=== PATIENT | female | born 1940 | race Caucasian/White ===

== ENCOUNTER 2023-07-17 18:09 | Inpatient (IN) | payer OTHER, BC, SELFPAY ==
[2023-07-17] VITALS (14 sets, daily range): BP systolic 105–186; BP diastolic 47–98; PULSE 97–119; RESP 17–28; TEMP 36.7–38.8; O2SAT 87–100
--- NOTE | ~2023-07-17 | CT_ITS ---
EXAMINATION: CT brain wo con DATE: 07/17/2023 20:28 INDICATION: Altered mental status TECHNIQUE: Computed tomography (CT) of the head was performed without intravenous contrast. Sagittal and coronal reconstructions were performed. Automated exposure control and iterative reconstruction t echnique were employed. The dose-length product was 756.67 mGy-cm. COMPARISON: head CT dated 06/04/2013 FINDINGS: No acute intracranial hemorrhage, acute infarction or abnormal extra axial fluid collection. There is mild scattered white matter hypoattenuation consistent with chronic small vessel ischemic disease. S ymmetric prominence of the sulci consistent with moderate age-appropriate diffuse cerebral volume los s. Ventricles are normal and symmetric. No mass/mass effect. Changes of bilateral intraocular lens re placement. The orbits and mastoid air cells are normal. Mild mucosal thickening in the left maxillary and bilateral ethmoid sinuses. There are some bubbly mucus in the left sphenoid sinus. IMPRESSION: 1. No acute intracranial process. 2. Stable appearance of age-related changes including moderate diffuse volume loss and mild scattered white matter hypoattenuation consistent with chronic small vessel ischemic disease. Reviewed, dictated and finalized at location A. OR IT SECURITY ANALYST IMPRESSION: 1. No acute intracranial process. 2. Stable appearance of age-related changes including moderate diffuse volume l oss and mild scattered white matter hypoattenuation consistent with chronic sma ll vessel ischemic disease.
--- NOTE | ~2023-07-17 | CT_ITS ---
EXAMINATION: CT abdomen pelvis wo con DATE: 07/17/2023 20:29 INDICATION: Fever and hematuria TECHNIQUE: Computed tomography (CT) of the abdomen and pelvis was performed without intravenous contr ast. Automated exposure control and iterative reconstruction technique were employed. The dose-length product was 1120.46 mGy-cm. COMPARISON: None FINDINGS: There is streak artifact in the visualized lower chest and upper abdomen resulting from posterior spi nal fusion with bilateral vertical idalmis and pedicle screw fixation which extends from at least T7-L2. There is also been a corpectomy of a T10 compression fracture with additional metallic interbody fusi on device. Respiratory motion and scattered atelectasis at the bilateral lower lungs. Heart size is n ormal. Atherosclerotic coronary artery calcifications. No pericardial or pleural effusion. Tiny high attenuation gallstones layering in the dependent aspect of the normal-appearing gallbladder. No evide nt wall thickening or pericholecystic inflammatory stranding to suggest acute cholecystitis. Liver, s pleen, pancreas and bilateral adrenal glands are normal. 4.2 cm lesion at the upper pole of the left kidney which likely represents a cyst however assessment of attenuation is limited by the metallic st reak artifact. 9 mm renal stone at the lower pole of the right kidney. There is moderate right hydrou reteronephrosis which extends to the ureteropelvic junction without evident obstructing stone. The re nal pelvis and calyces appear more dense than expected for simple fluid however assessment is again l imited by the streak artifact. There is moderate colonic diverticulosis with a sigmoid predominance. There is no adjacent inflammatory change to suggest diverticulitis. Small bowel and appendix are nor mal. 7.6 cm diameter ball of stool at the rectum which could be seen with constipation and fecal impa ction. There is mild residual rectal wall thickening and perirectal stranding suggesting associated s tercoral colitis. Bladder, uterus and bilateral adnexa are unremarkable. Moderate-sized fat-containin g bilateral inguinal hernias. There is additional streak artifact in the deep pelvis resulting from a lateral plate and screw with femoral neck dynamic compression screw fixation at the proximal left fe mur. Moderate lumbar spondylosis with chronic appearing compression fractures of L3 and L5. IMPRESSION: 1. Moderate right hydroureteronephrosis of indeterminate etiology which extends to bladder without ev ident obstructing stone although a 9 mm stone is seen at a lower pole calyx of the right kidney. This could be related to either a recently passed stone or occult malignancy. 2. Increased density of the fluid in the right renal collecting system as well as a 4.2 cm likely cys t at the upper pole the left kidney which likely related to streak artifact from metallic anterior an d posterior spinal fusion instrumentation. Could not exclude however either solid neoplasm at the lef t kidney and blood versus pus within the right renal collecting system. Correlate with urinalysis and recommend ultrasound for further evaluation of the left renal lesion. 3. Large ball of stool at the rectum with some associated rectal wall thickening and perirectal stran ding suggestive of constipation with fecal impaction and secondary stercoral colitis. 4. Diverticulosis. 5. Moderate-sized bilateral fat-containing inguinal hernias. 6. Small sliding-type hiatal hernia. Reviewed, dictated and finalized at location A. PLANT ENGINEER IMPRESSION: 1. Moderate right hydroureteronephrosis of indeterminate etiology which extends to bladder without evident obstructing stone although a 9 mm stone is seen at a lower pole calyx of the right kidney. This could be related to either a recen tly passed stone or occult mal
--- NOTE | ~2023-07-17 | XR_ITS ---
EXAMINATION: XR chest 1V portable DATE: 07/17/2023 21:59 INDICATION: Hypoxia TECHNIQUE: frontal view of the chest was obtained. COMPARISON: Chest radiograph dated 06/04/2013 FINDINGS: Kyphotic positioning of the patient. Mild linear discoid atelectasis at the bilateral lower lung zone s. No pulmonary edema, pleural effusion or pneumothorax. Heart size is within normal limits for AP te chnique. Plain screw fixation for lower cervical anterior spinal fusion. There is also extensive inst rumented posterior spinal fusion extending from the midthoracic spine into the upper lumbar spine and beyond the inferior margin of the [id number]. Likely corpectomy with interbody device in the lowe r thoracic spine. IMPRESSION: 1. Mild discoid atelectasis at the bilateral lower lungs. Reviewed, dictated and finalized at location A. D MANAGER
--- NOTE | ~2023-07-17 | XR_ITS ---
EXAMINATION: XR retrograde pyelo w/stent RT DATE: 07/17/2023 23:41 INDICATION: Right hydronephrosis TECHNIQUE: 4 fluoroscopic images of the abdomen and pelvis were obtained during procedure performed marcia Smith. Radiologist was not present for the imaging or procedure. The amount of fluoroscopy ti me used during this procedure was 0.3 minutes. COMPARISON: CT dated 07/17/2023 FINDINGS: Images demonstrate cannulation and retrograde advancement of a wire into a calyx at the upper pole th e right kidney. The patient noted 9 mm stone at the lower pole of the right kidney to be seen prior t o the subsequent retrograde injection of contrast into the right ureter and renal collecting system. There is moderate right hydronephrosis and mild proximal right hydroureter. Final image demonstrates the mid to distal aspect of the right internal ureteral stent which follows the expected course of th e ureter with distal tip at the bladder. Partially visualized instrumented thoracolumbar posterior sp inal fusion. IMPRESSION: 1. Fluoroscopy utilized during right internal ureteral stent placement for moderate right hydronephro sis. See procedure note for further detail. 2. Nonobstructing 9 mm stone at a lower pole calyx of the right kidney. Reviewed, dictated and finalized at location A. [employer] IMPRESSION: 1. Fluoroscopy utilized during right internal ureteral stent placement for mode rate right hydronephrosis. See procedure note for further detail. 2. Nonobstructing 9 mm stone at a lower pole calyx of the right kidney.
--- NOTE | 2023-07-17 18:14 | ECG_ITS ---
Measurements Intervals [place] Rate: 119 P: 39 WA: 167 QRS: -62 QRSD: 100 T: 31 QT: 322 QTc: 454 Interpretive Statements SINUS TACHYCARDIA PREVIOUS INFERIOR WALL [place] ABNORMAL ECG NO PREVIOUS ECG AVAILABLE FOR COMPARISON Electronically Signed On 07-18-2023 7:35:32 SAND CONDITIONER MACHINE by Carlos Sanchez M.D.
[2023-07-17 18:55] LABS: Basophils Absolute Auto 0.1 K/mm3 (0.0-0.1); Basophils Percent Auto 0.3 % (0.2-1.2); Hematocrit 43.7 % (37.0-47.0); Hemoglobin 13.9 g/dL (12.0-15.0); Immature Granulocyte Absolute 0.09 K/mm3 (0.00-0.031); Immature Granulocyte Percent A 0.6 % (0-0.5); Immature Platelet Fraction Pct 26.8 % (0.9-11.2); Lymphocytes Absolute Auto 0.89 K/mm3 (0.9-3.2); Lymphocytes Percent Auto 5.6 % (18.3-44.2); Mean Corpuscular HGB Conc 31.8 g/dl (32-36); Mean Corpuscular Volume 94.2 fl (80-100); Mean Platelet Volume 13.2 fl (7.4-10.4); Monocytes Absolute Auto 1.2 K/mm3 (0.1-0.6); Monocytes Percent Auto 7.5 % (2.6-8.5); Neutrophils Absolute Auto 13.7 K/mm3 (1.3-6.7); Platelet Count Result 155 k/mm3 (150-375); Red Blood Count 4.64 M/mm3 (4.2-5.4); Red Cell Distribution Width 15.1 % (11.5-14.5); White Blood Count 15.9 K/mm3 (4.5-10.0)
[2023-07-17 19:04] LABS: INR 2.4; Prothrombin Time 27.8 Seconds (11.1-14.7)
[2023-07-17 19:05] LABS: Partial Thromboplastin Time 46.5 SECONDS (22.3-36.8)
[2023-07-17] MEDS: ACETAMINOPHEN 650 MG SUPPOSITORY RECTAL (19:10)
[2023-07-17] MEDS: SODIUM CHLORIDE 0.9% IV 1,000 ML 999 ML IV CONT ×2 (19:10→21:39)
--- NOTE | 2023-07-17 19:12 | PC.NURSE ---
Assume care of pt from [facility] at this time. Pt resting comfortably in bed w son at beside. Huong Umana attempting to obtain cultures at this time.
[2023-07-17 19:29] LABS: Appearance Urine Turbid (Clear); Bacteria Urine 4+ /hpf; Bilirubin Urine Negative (Negative); Blood Urine 3+ (Negative); Color Urine Dark Yellow (Yellow); Glucose Urine UA Negative (Negative); Ketones Urine 1+ mg/dL (Negative); Leukocyte Esterase Ur 3+ LEU/UL (Negative); Need Manual Microscopic Reviewed; Nitrate Urine Positive (Negative); Protein Urine 3+ mg/dL (Negative); RBC Urine >100 /hpf (0-2); Specific Grav Ur 1.018 (1.001-1.035); Squamous Epithelial Cell Urine None seen /hpf (Few); WBC Urine >100 /hpf
[2023-07-17 19:30] LABS: Add Urine Microscopic? YES
--- NOTE | 2023-07-17 20:01 | ED.AMS ---
HPI - Altered Mental Status General Chief Complaint: Altered Mental Status Stated Complaint: AMS Time Seen by Provider: 07/17/23 18:26 Source: family, EMS, RN notes reviewed and old records reviewed Mode of arrival: EMS Limitations: altered mental status History of Present Illness HPI narrative: This is an 82 year old female who presents from nursing facility for evaluation of AMS. Her son is at bedside to assist with history. He states he was called by facility and he was told patient had fever 101 F with elevated heart rate. They noticed that patient has had decreased appetite yesterday and today. She has been sleeping most of the day. They report that she has history of frequent UTIs but he is unsure of last antibiotics. He reports she was hospitalized 3 months ago at a hospital in [place] with blood clots. She has been nonambulatory since her last hospitalization. Related Data Home Medications Medication Instructions Recorded Confirmed diphenhydramine HCl 25 mg tablet 25 mg PO 07/17/23 (Benadryl Allergy) donepezil 5 mg tablet 5 mg PO 07/17/23 ergocalciferol (vitamin D2) 1,250 1,250 mcg PO 07/17/23 mcg (50,000 unit) capsule levothyroxine 150 mcg tablet 200 mcg PO 07/17/23 memantine 10 mg tablet 10 mg PO 07/17/23 pantoprazole 40 mg tablet,delayed 40 mg PO 07/17/23 release rivaroxaban 15 mg tablet (Xarelto) 15 mg 07/17/23 simvastatin 20 mg tablet 20 mg 07/17/23 tizanidine 4 mg tablet 4 mg 07/17/23 Allergies Allergy/AdvReac Type Severity Reaction Status Date / Time Penicillins Allergy Unknown Unknown Verified 07/17/23 19:14 nitrofurantoin Allergy Unknown Verified 07/17/23 19:14 Review of Systems Review of Systems: ROS unobtainable: Yes unobtainable due to mental status PMFSH Past Medical History Medical History Dementia Hypothyroidism Mixed hyperlipidemia Primary osteoarthritis involving multiple joints Pulmonary emboli Surgical History Surgical History History of left hip replacement Family History Family History Mother Family history of malignant neoplasm of breast in first degree relative Father Family history of throat cancer Other Family history of malignant neoplasm of esophagus Social History Social History Second hand tobacco smoke exposure: No Smoking end date: 08/03/82 Alcohol intake: current Exam Const: General: alert Limitations: altered mental status HENMT: Head: normal to inspection Ears: external ears normal Mouth: Yes Normal oral and palatal mucosa present, Yes lip normal and Yes dry mucous membranes Eyes: Pupils: Equal, round and reactive pupils present EOM: EOMs intact bilaterally Neck: Neck: normal visual inspection Chest: Chest palpation & inspection: normal inspection of the chest Resp: Effort & Inspection: normal respiratory effort Auscultation: clear to auscultation bilaterally Cardio: Rate: tachycardic Rhythm: regular rhythm Heart sounds: no murmurs GI: GI Palp: Yes Soft to palpation, No Tenderness to palpation present (GI), No Guarding due to palpation present (GI) and No Rigid due to palpation Auscultation: normal bowel sounds Skin: General skin exam: normal color Rashes: no rashes Neuro: General: moves all extremities and CN's II-XI intact bilaterally Extrem: General: edema Psych: Mental Status: mental status grossly normal Affect: normal affect Attitude: cooperative Course Reevaluation(s) Reevaluation #1: I discussed with patient's son at bedside that patient has UTI. I will be given rocephin for IV antibiotics Date: 07/17/23 Time: 20:26 Reevaluation #2: I Discussed with patient son that she may need to go to OR for stent Date: 07/17/23 Time: 21:50 Consultations Consultation #1: Loretta García
[2023-07-17 20:27] LABS: Lactic Acid Reflex 2.2 mmol/L (0.7-2.0)
[2023-07-17 20:38] LABS: CRP 23.7 mg/dL (<1.0)
[2023-07-17 20:48] LABS: Influenza A QL RT-PCR Negative (Negative); Influenza B QL RT-PCR Negative (Negative); RSV RNA, RT-PCR Negative (Negative); SARS-CoV-2 RNA PCR Negative (Negative)
[2023-07-17 21:07] LABS: Alanine Aminotransferase 10 U/L (6-35); Albumin Level 3.6 g/dL (3.5-5.1); Alkaline Phosphatase 95 U/L (38-126); Anion Gap 9 mmol/L (8-16); Aspartate Amino Transferase 16 U/L (14-36); Bilirubin,Total 1.1 mg/dL (0.2-1.3); Blood Urea Nitrogen 27 mg/dL (7-17); Calcium 9.2 mg/dL (8.4-10.2); Carbon Dioxide 25 mmol/L (22-30); Chloride 108 mmol/L (98-107); Estimated CRCL calculation 35 ml/min; Estimated Glomerular Filt Rate 43; Glucose 137 mg/dL (65-110); Potassium 3.6 mmol/L (3.4-5.0); Sodium 142 mmol/L (137-145)
--- NOTE | 2023-07-17 22:28 | WPDANESEPP ---
Anes - Eval Pre Procedure Procedure: cysto right stent Date/Time: 07/17/23 22:28 Pre Op Diagnosis: AMS Patient Data Age: 82 Gender: F Height: 1.68 m Weight: 81.8 kg Last Vital Signs Temp 38.1 C H 07/17/23 21:16 Pulse 118 H 07/17/23 22:01 Resp 21 H 07/17/23 22:01 BP 160/80 H 07/17/23 22:01 Pulse Ox 94 07/17/23 22:01 O2 Del Method Nasal Cannula 07/17/23 18:15 O2 Flow Rate 2 07/17/23 18:15 Allergies Allergy/AdvReac Type Severity Reaction Status Date / Time Penicillins Allergy Unknown Unknown Verified 07/17/23 19:14 nitrofurantoin Allergy Unknown Verified 07/17/23 19:14 Home Medications Medication Instructions Recorded Confirmed Type diphenhydramine HCl 25 mg tablet 25 mg PO 07/17/23 History (Benadryl Allergy) donepezil 5 mg tablet 5 mg PO 07/17/23 History ergocalciferol (vitamin D2) 1,250 1,250 mcg PO 07/17/23 History mcg (50,000 unit) capsule levothyroxine 150 mcg tablet 200 mcg PO 07/17/23 History memantine 10 mg tablet 10 mg PO 07/17/23 History pantoprazole 40 mg tablet,delayed 40 mg PO 07/17/23 History release rivaroxaban 15 mg tablet (Xarelto) 15 mg 07/17/23 History simvastatin 20 mg tablet 20 mg 07/17/23 History tizanidine 4 mg tablet 4 mg 07/17/23 History Laboratory Tests 07/17/23 07/17/23 07/17/23 18:34 19:33 19:33 WBC 15.9 H K/mm3 (4.5-10.0) RBC 4.64 M/mm3 (4.2-5.4) Hgb 13.9 g/dL (12.0-15.0) Hct 43.7 % (37.0-47.0) MCV 94.2 fl (80-100) MCH 30.0 pg (26-34) MCHC 31.8 L g/dl (32-36) RDW 15.1 H % (11.5-14.5) Plt Count 155 k/mm3 (150-375) MPV 13.2 H fl (7.4-10.4) Immature Gran % (Auto) 0.6 H % (0-0.5) Neut % (Auto) 86.0 H % (45.5-73.1) Lymph % (Auto) 5.6 L % (18.3-44.2) Reynolds % (Auto) 7.5 % (2.6-8.5) Eos % (Auto) 0.0 % (0-4.4) Baso % (Auto) 0.3 % (0.2-1.2) Lymph # (Auto) 0.89 L K/mm3 (0.9-3.2) Reynolds # (Auto) 1.2 H K/mm3 (0.1-0.6) Eos # (Auto) 0.0 K/mm3 (0-0.3) Baso # (Auto) 0.1 K/mm3 (0.0-0.1) Abs Immat Gran (auto) 0.09 H K/mm3 (0.00-0.031) Absolute Neuts (auto) 13.7 H K/mm3 (1.3-6.7) Absolute Nucleated RBC 0.0 K/mm3 (0.0-0.012) Nucleated RBC % 0.0 % (0.0-0.2) % Immature Plt Fraction 26.8 H % (0.9-11.2) PT 27.8 H Seconds (11.1-14.7) INR 2.4 APTT 46.5 H SECONDS (22.3-36.8) Sodium 142 mmol/L (137-145) Potassium 3.6 mmol/L (3.4-5.0) Chloride 108 H mmol/L (98-107) Carbon Dioxide 25 mmol/L (22-30) Anion Gap 9 mmol/L (8-16) BUN 27 H mg/dL (7-17) Creatinine 1.20 H mg/dL (0.7-1.0) Estim Creat Clear Calc 35 ml/min Estimated GFR 43 L (59 - ) Glucose 137 H mg/dL (65-110) Lactic Acid 2.2 H mmol/L (0.7-2.0) Calcium 9.2 mg/dL (8.4-10.2) Total Bilirubin 1.1 mg/dL (0.2-1.3) AST 16 U/L (14-36) ALT 10 U/L (6-35) Alkaline Phosphatase 95 U/L (38-126) C-Reactive Protein 23.7 H mg/dL Cancelled (<1.0) Total Protein 7.0 g/dL (6.3-8.2) Albumin 3.6 g/dL (3.5-5.1) Urine Color Dark yellow (Yellow) Urine Appearance Turbid H (Clear) Urine pH 6.0 (5.0-9.0) Ur Specific [place] 1.018 (1.001-1.035) Urine Protein 3+ H mg/dL (Negative) Urine Glucose (UA) Negative mg/dL (Negative) Urine Ketones 1+ H mg/dL (Negative) Ur Blood (Man) 3+ H (Negative) Urine Nitrate Positive H (Negative) Urine Bilirubin Negative (Negative) Urine Urobilinogen 1.0 mg/dL (<2.0) Add Ur Microanalysis Reviewed Leukocyte Es
[2023-07-17 23:05] LABS: Reflex Lactic Acid Yes or No Add Lactic
--- NOTE | 2023-07-17 23:06 | WPDURCON ---
Assessment and Plan Assessment and plan (1) Hydronephrosis, right: Code(s): N13.30 - Unspecified hydronephrosis Status: Acute Assessment and Plan: etiology uncertain. No ureteral stone (2) Abnormal urinalysis: Code(s): R82.90 - Unspecified abnormal findings in urine Status: Acute Assessment and Plan: likely secondary to infection (3) Altered mental status: Code(s): R41.82 - Altered mental status, unspecified Status: Acute Assessment and Plan: worsening mental status could be secondary to infection (4) Calcium kidney stone: Code(s): N20.0 - Calculus of kidney Status: Acute Assessment and Plan: right lower pole. Not causing acute issues Plan based on her symptomatology, change in mental status, lab work, CT scan appearance we are going to proceed with cystoscopy with right ureteral stent placement. I think it is very likely there is infection in her kidney. Etiology of hydronephrosis is unknown. She does have a lower pole stone on CT but this is obviously not the cause of hydronephrosis. The etiology of hydronephrosis will need to be evaluated once the acute situation resolves. I have discussed our findings with her son. He consents for the procedure. He understands risks of bleeding, infection, inability to place a stent. He agrees to proceed Urology Consult Note HPI Date Seen: 07/17/23 Requesting Physician: Michel Smith MD Primary Care Provider: Matt Crews MD Consult Narrative Narrative: Lilly Villar is a 82 year old female was detention resident [facility]. Her son is here with her today. She has baseline dementia. she was brought to the hospital for acute change in mental status. She would not eat. She would not set up. She was not participating in think she would normally participate in. They noted a fever of over 101. She has history of urinary tract infection in the past. She does not endorse any particular urinary symptoms, but again has dementia and change in mental status. A CT scan was done in the ER showing moderate right hydronephrosis and increased density fluid in the right renal pelvis which could be consistent with purulence. She has an elevated white count and a abnormal urinalysis. I have discussed with her son we will proceed with cystoscopy and right ureteral stent placement Review of Systems Review of Systems: ROS unobtainable: Yes unobtainable due to mental status PMFSH Past Medical History Medical History Dementia Hypothyroidism Mixed hyperlipidemia Primary osteoarthritis involving multiple joints Pulmonary emboli Surgical History Surgical History History of left hip replacement Family History Family History Mother Family history of malignant neoplasm of breast in first degree relative Father Family history of throat cancer Other Family history of malignant neoplasm of esophagus Social History Social History Second hand tobacco smoke exposure: No Smoking end date: 08/03/82 Alcohol intake: current Meds Home Medications and Allergies Home Medications Medication Instructions Recorded Confirmed Type diphenhydramine HCl 25 mg tablet 25 mg PO 07/17/23 History (Benadryl Allergy) donepezil 5 mg tablet 5 mg PO 07/17/23 History ergocalciferol (vitamin D2) 1,250 1,250 mcg PO 07/17/23 History mcg (50,000 unit) capsule levothyroxine 150 mcg tablet 200 mcg PO 07/17/23 History memantine 10 mg tablet 10 mg PO 07/17/23 History pantoprazole 40 mg tablet,delayed 40 mg PO 07/17/23 History release rivaroxaban 15 mg tablet (Xarelto) 15 mg 07/17/23 History simvastatin 20 mg tablet 20 mg 07/17/23 History tizanidine 4 mg tab
--- NOTE | 2023-07-17 23:09 | P.PNAN_ITS ---
Anes - Eval Final PreProcedure Day of Procedure 07/17/23 23:09 Patient weight: overweight Heart: regular rate and rhythm Lungs: clear to auscultation Neurological: unresponsive Last oral intake: >/= 8 hours ASA classification: III Emergent: yes Anesthetic plan: proceed Anesthesia type and monitoring: general GIVS and standard monitoring Results Review: All pre-operative results and documents have been reviewed as part of the pre- operative evaluation. Informed Consent: The patient's anesthetic plan and its attendant risks and benefits were discussed with the patient/family/POA. Questions were solicited and answers pr ovided to the satisfaction of the patient/family/POA.
--- NOTE | 2023-07-17 23:12 | WPDHPUPDATE1 ---
History and Physical Update Update Date/Time: 07/17/23 23:12 History and Physical has been reviewed, including an updated exam of the patient. There are NO changes in the patient's condition. Risks, benefits, and alternatives have been discussed and questions answered. Patient agrees to proceed with procedure.
--- NOTE | 2023-07-17 23:24 | PM.IMHP ---
H&P: HPI History of Present Illness Date/Time: 07/17/23 23:24 Chief Complaint: Altered mental status, fever Narrative: 82-year-old female with a past medical history of dementia, multiple urinary tract infections, recent hospitalization for bilateral pulmonary embolism than pneumonia, and hypothyroidism who presented to the ER from [facility] due to altered mental status and fever. Patient was febrile to 101.8 at the custodial and had borderline low blood pressures with systolic blood pressures of 90. The patient is usually alert oriented x1 but was alert oriented times 0 at the custodial. She was found to be satting 87% on room air and was placed on 2 L nasal cannula. When I went to evaluate the patient in the ER the patient was again desatting to 86-87% on room air and was combative when I attempted to place the oxygen. The patient was intermittently spitting at staff. The patient was lying in bed when I arrived bedside in the patient was moaning and thrashing about as if she was in discomfort. The patient's son is was at bedside and provided the majority of the history and a daughter was contacted over speaker phone and gave the remainder of history. The patient has been suffering from dementia for at least 8 years. They suspect that her was covering for her memory loss until he approximately 8 years ago. Patient was living at her own home and relatively functional until about 4 months ago and since that time she has had a rapid decline in her condition. She is now unable to walk and has been wheelchair dependent since her most recent hospitalization at [facility] in [place]. There she was diagnosed with pneumonia and pulmonary embolisms and was discharged on Xarelto. She also had a UTI at the time of that hospitalization. She does have a known history of a kidney stone which is is present on imaging but the stone is in the calices and not in the ureter. The patient has not been having any hematuria as for his family knows. She has been sleeping most the day and has not eaten anything since breakfast. The last time she even took a sip of water was at lunch. She is chronically incontinent of urine. 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 She has no history of urologic malignancy. Review of Systems Review of Systems: ROS unobtainable: Yes unobtainable due to mental status PMFSH Past Medical History Medical History (Updated 07/18/23 @ 05:14 by Massiel Mckay DO) Dementia Hypothyroidism Macular degeneration Mixed hyperlipidemia Primary osteoarthritis involving multiple joints Pulmonary emboli (~03/2023) Surgical History Surgical History (Updated 07/18/23 @ 04:55 by Massiel Mckay DO) H/O cervical spine surgery 2018 roughly History of left hip replacement History of spinal surgery Due to osteomyelitis with debridement and subsequent stabilization approximately 2014. T7 through L2 Status post cataract extraction of both eyes with insertion of intraocular lens Family History Family History Mother Family history of malignant neoplasm of breast in first degree relative Father Family history of throat cancer Other Family history of malignant neoplasm of esophagus Social History Social History (Updated 07/18/23 @ 04:58 by Massiel Mckay DO) Social History: Patient has lived at [facility] since approximately March 2023. She has been wheelchair dependent since her most recent hospitalization that occurred at that time. I believe her son stated that he is 1 of 4 children. The patient smoked about a half a pack of cigarettes per day but quit over 40 years ago. She never drink alcohol to excess. Code status: DNR/DNI Patient has a living will in place that states this. Komal
[2023-07-17] MEDS: LIDOCAINE HCL 2% GEL UROJET 10 ML PKG MUCOUS MEM (23:30)
[2023-07-17] MEDS: LACTATED RINGERS 1,000 ML 30 ML IV CONT (23:42)
--- NOTE | 2023-07-17 23:42 | W.PM.PROC2 ---
Procedure Note - Detailed Date of Procedure 07/17/23 Pre-op Diagnosis Altered mental status Right hydronephrosis Abnormal urinalysis consistent with infection and probable sepsis Post-op Diagnosis Same Procedure Performed Cystoscopy, right retrograde pyelogram, right ureteral stent Surgeon Micehl Smith MD Anesthesia MAC Indications Right hydronephrosis and signs of sepsis Findings Right hydronephrosis and likely urinary tract infection Description of Procedure She was correctly identified. Informed consent was obtained from her family. From the operating room. She was given monitored anesthesia care. She was placed in dorsal thigh position. She was prepped and draped in a sterile fashion. She was already on appropriate antibiotics per the ER. A time-out was performed I performed cystoscopy. She had markedly. Light urine. The bladder was irrigated. The bladder was markedly spastic. The bladder was difficult to fill. Right ureteral orifice was identified. Difficult to visualize the rest of the bladder due to spasticity but no gross tumors were seen. A guidewire was placed in the ureter. A gentle retrograde pyelogram was done showing hydronephrosis without extravasation. 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 i placed a 6 Estonian variable length stent. Proximal coil in the kidney. Distal coil in the bladder. Collazo catheter is placed. She was awakened transferred to PACU in stable condition Implants Six Estonian variable length stent Estimated Blood Loss 0 Urine Output 150 Drains Yes (Collazo catheter) Complications No immediate complications Condition Stable Disposition PACU
[2023-07-18] VITALS (9 sets, daily range): BP systolic 121–155; BP diastolic 50–86; PULSE 88–100; RESP 16–24; TEMP 36.2–37.2; O2SAT 91–100
[2023-07-18] MEDS: LACTATED RINGERS 1,000 ML 30 ML IV CONT (00:19)
--- NOTE | 2023-07-18 01:30 | ADMGEN ---
This patient, Lilly Villar, was admitted to [facility] Surg Room 316-02. Patient/family oriented to hospital policies and general routines including ID bracelet, bed and alarms, visiting hours, pain management, procedures, bathroom and other care routines, personal items, smoking policy, room service/diet, and visiting hours. Information on how to activate the Rapid Response Team has been discussed. Patient/Family are encouraged to report perceived risks to care and to ask questions if they do not understand what they are told or what they should do.
[2023-07-18 02:07] LABS: Lactic Acid 1.8 mmol/L (0.7-2.0)
[2023-07-18] MEDS: SODIUM CHLORIDE 0.9% IV 1,000 ML 100 ML IV CONT ×2 (02:54→14:17)
[2023-07-18] MEDS: levoFLOXacin 750 MG/D5W 150 ML 750 MG/150 ML BAG 100 MG IVPB (02:57)
[2023-07-18 06:55] LABS: Basophils Absolute Auto 0.1 K/mm3 (0.0-0.1); Basophils Percent Auto 0.3 % (0.2-1.2); Eosinophils Percent Auto 0.1 % (0-4.4); Hematocrit 39.7 % (37.0-47.0); Hemoglobin 12.3 g/dL (12.0-15.0); Immature Granulocyte Absolute 0.07 K/mm3 (0.00-0.031); Immature Granulocyte Percent A 0.5 % (0-0.5); Immature Platelet Fraction Pct 27.9 % (0.9-11.2); Lymphocytes Absolute Auto 0.99 K/mm3 (0.9-3.2); Lymphocytes Percent Auto 6.4 % (18.3-44.2); Mean Corpuscular Hemoglobin 29.6 pg (26-34); Mean Corpuscular Volume 95.7 fl (80-100); Mean Platelet Volume 13.7 fl (7.4-10.4); Monocytes Absolute Auto 1.5 K/mm3 (0.1-0.6); Neutrophils Absolute Auto 12.7 K/mm3 (1.3-6.7); Neutrophils Percent Auto 82.7 % (45.5-73.1); Platelet Count Result 128 k/mm3 (150-375); Red Blood Count 4.15 M/mm3 (4.2-5.4); Red Cell Distribution Width 14.8 % (11.5-14.5); White Blood Count 15.4 K/mm3 (4.5-10.0)
[2023-07-18 07:07] LABS: Alanine Aminotransferase 8 U/L (6-35); Albumin Level 3.2 g/dL (3.5-5.1); Alkaline Phosphatase 118 U/L (38-126); Anion Gap 7 mmol/L (8-16); Aspartate Amino Transferase 14 U/L (14-36); Blood Urea Nitrogen 22 mg/dL (7-17); Calcium 8.3 mg/dL (8.4-10.2); Carbon Dioxide 25 mmol/L (22-30); Chloride 109 mmol/L (98-107); Estimated CRCL calculation 41 ml/min; Estimated Glomerular Filt Rate 53; Glucose 114 mg/dL (65-110); Potassium 3.6 mmol/L (3.4-5.0); Sodium 141 mmol/L (137-145)
--- NOTE | 2023-07-18 11:56 | WPDUROPN2 ---
Progress Note: A&P Assessment and Plan (1) Hydronephrosis, right: Code(s): N13.30 - Unspecified hydronephrosis Status: Acute (2) Abnormal urinalysis: Code(s): R82.90 - Unspecified abnormal findings in urine Status: Acute Plan Stent in place. Continue broad-spectrum antibiotics pending cultures. Subjective Subjective Date/Time Seen: 07/18/23 11:56 Interval history: Does not wake up during the exam. Exam Narrative: Seems to be resting comfortably. Urine is purulent appearing Objective Data Vital Signs Vital Signs: Vital Signs - 24 hr 07/17/23 18:09 07/17/23 18:15 07/17/23 19:16 Temperature 101.8 F H Pulse Rate 119 H 110 H Respiratory Rate 28 H 24 H Blood Pressure 177/73 H 161/76 H Pulse Oximetry 87 L 95 95 Oxygen Delivery Room Air Nasal Cannula Oxygen Flow Rate 2 07/17/23 20:45 07/17/23 19:40 07/17/23 20:56 Temperature 100.6 F H Pulse Rate 112 H 107 H Respiratory Rate 21 H 22 H Blood Pressure 166/98 H 166/68 H Pulse Oximetry 94 95 Oxygen Delivery Oxygen Flow Rate 07/17/23 21:01 07/17/23 21:16 07/17/23 22:01 Temperature 100.5 F H Pulse Rate 107 H 107 H 118 H Respiratory Rate 23 H 23 H 21 H Blood Pressure 148/74 H 146/71 H 160/80 H Pulse Oximetry 94 94 94 Oxygen Delivery Oxygen Flow Rate 07/17/23 22:17 07/17/23 22:31 07/17/23 22:46 Temperature Pulse Rate 116 H 114 H 114 H Respiratory Rate 22 H 24 H 20 Blood Pressure 186/77 H 163/86 H 163/81 H Pulse Oximetry 97 96 95 Oxygen Delivery Oxygen Flow Rate 07/17/23 23:43 07/17/23 23:55 07/18/23 00:10 Temperature 98.0 F Pulse Rate 99 97 92 Respiratory Rate 22 H 17 17 Blood Pressure 105/47 L 141/62 H 121/50 L Pulse Oximetry 100 100 100 Oxygen Delivery Simple Face Mask Simple Face Mask Simple Face Mask Oxygen Flow Rate 8 8 8 07/18/23 00:25 07/18/23 00:40 07/18/23 00:55 Temperature Pulse Rate 93 100 96 Respiratory Rate 16 23 H 24 H Blood Pressure 131/56 L 141/79 H 155/86 H Pulse Oximetry 100 98 100 Oxygen Delivery Simple Face Mask Nasal Cannula Nasal Cannula Oxygen Flow Rate 8 2 2 07/18/23 05:02 07/18/23 09:02 Temperature 97.1 F L 98.2 F Pulse Rate 92 94 Respiratory Rate 22 H 20 Blood Pressure 129/64 142/66 H Pulse Oximetry 100 99 Oxygen Delivery Oxygen Flow Rate Intake/Output Intake/Output: Intake & Output 07/15/23 07/16/23 07/17/23 07/18/23 23:59 23:59 23:59 23:59 Intake Total 1050 550 Output Total 300 610 Balance 750 -60 Meds/Results Medications: Active Medications Generic Name Dose Route Start Last Admin Trade Name Freq PRN Reason Stop Dose Admin Albuterol 2.5 mg 07/18/23 05:15 Albuterol Sulfate Neb 2.5 Mg/3 Ml Inh INHALATION Q6HRT PRN Shortness Of Breath Fentanyl Citrate 25 mcg 07/17/23 23:08 Fentanyl Citrate Inj (*Crx) 100 Mcg/2 Ml Vial IV PUSH Q2M PRN Pain Ceftriaxone Sodium 1 gm in 50 mls @ 100 mls/hr 07/18/23 21:00 Rocephin 1 Gm/Ns 50 Ml IVPB Q24H [facility] Lactated Ringer's 1,000 mls @ 30 mls/hr 07/17/23 23:10 07/18/23 00:19 Lr - Lactated Ringers Iv IV CONT Infused .Q24H R[facility] Infusion Lactated Ringer's 1,000 mls @ 30 mls/hr 07/17/23 23:10 07/18/23 00:59 Lr - Lactated Ringers Iv IV CONT Infused .Q24H [facility] Infusion Sodium Chloride 1,000 mls @ 100 mls/hr 07/18/23 02:40 07/18/23 02:54 Normal Saline Iv IV CONT 100 mls/hr .Q10H [facility] Administration Levothyroxine Sodium 200 mcg 07/18/23 06:30 07/18/23 06:16 Levothyroxine Sodium 100 Mcg Tablet PO Not Given DAILY@0630 [facility] Memantine 10 mg 07/18/23 09:00 Memantine 10 Mg Tablet PO DAILY [facility] Ondansetron HCl 4 mg 07/17/23 23:08 Ondansetron Inj 4 Mg/2 Ml Vial IV PUSH ONCE PRN Nausea Pantoprazole Sodium 40 mg 07/18/23 09:00 Pantoprazole 40 Mg Tablet PO DAILY [facility] Rivaroxaban 20 mg 07/18/23 17:00 Rivaroxaban 20 Mg Tablet PO DAILY@
--- NOTE | 2023-07-18 13:37 | PC.NURSE ---
1336: Called Dr. Burgos to make aware that patient has not because alert enough to swallow medication, eat, or hold in the enema for 20 minutes.
--- NOTE | 2023-07-18 16:44 | PM.IMPN ---
Progress Note: A&P Assessment and Plan (1) Severe sepsis: Code(s): A41.9 - Sepsis, unspecified organism; R65.20 - Severe sepsis without septic shock Status: Acute Assessment and Plan: Patient has severe sepsis with UTI due to Gram-negative bacilli. Sepsis criteria met with fever, tachycardia, tachypnea, leukocytosis and encephalopathy. Urine cultures have already returned positive since admission. Patient's CT did demonstrate moderate hydronephrosis with evidence of probable ureteral obstruction. Urology was consulted and agreed patient would benefit from stent placement. Patient was taken emergently to OR for right ureteral stent placement. No obstructing stone was found. Appreciate urology recommendations and assistance. Patient is on empiric antibiotic therapy with Rocephin. Will continue IV fluid hydration with normal saline. Will monitor CBC and electrolyte panel. Blood cultures have been obtained and are pending. The patient's baseline creatinine is unknown family denies any prior history of renal insufficiency. There may be a component of acute kidney injury. Patient had a Collazo catheter placed during cystoscopy. Will monitor urine output closely. (2) Acute UTI: Code(s): N39.0 - Urinary tract infection, site not specified Status: Acute Assessment and Plan: See above (3) Acute hypoxic respiratory failure: Code(s): J96.01 - Acute respiratory failure with hypoxia Status: Acute (4) Hydronephrosis, right: Code(s): N13.30 - Unspecified hydronephrosis Status: Acute Assessment and Plan: Status post stent (5) Altered mental status: Qualifiers: Altered mental status type: delirium Qualified Code(s): R41.0 - Disorientation, unspecified Code(s): R41.82 - Altered mental status, unspecified Status: Acute Assessment and Plan: Monitor, likely secondary to infection compounded with delirium secondary to underlying dementia (6) Hypothyroidism: Qualifiers: Hypothyroidism type: unspecified Qualified Code(s): E03.9 - Hypothyroidism, unspecified Code(s): E03.9 - Hypothyroidism, unspecified Status: Acute Assessment and Plan: Managed outpatient (7) Acute metabolic encephalopathy: Code(s): G93.41 - Metabolic encephalopathy Status: Acute Assessment and Plan: See above (8) Pulmonary emboli: Onset Date: ~03/2023 Qualifiers: Pulmonary embolism type: unspecified Chronicity: chronic Acute cor pulmonale presence: without acute cor pulmonale Qualified Code(s): I27.82 - Chronic pulmonary embolism Code(s): I26.99 - Other pulmonary embolism without acute cor pulmonale Status: Acute Assessment and Plan: Continue Xarelto Plan DVT prophylaxis with Xarelto GI prophylaxis not indicated Code status DNR Subjective Date/time seen: 07/18/23 16:44 Interval history: 82-year-old female with a past medical history of dementia, multiple urinary tract infections, recent hospitalization for bilateral pulmonary embolism than pneumonia, and hypothyroidism who presented to the ER from [facility] due to altered mental status and fever and being treated for sepsis with UTI status post right ureteral stent placement 07/17. No overnight events noted. No chest pain or shortness of breath. No nausea, vomiting or diarrhea. No fevers or chills. Review of Systems Review of Systems: ROS unobtainable: Yes unobtainable due to mental status Exam Narrative: General: Acutely confused, somnolent, easily arousable HEENT: Atraumatic, normocephalic, mucous membranes moist CV: Regular rate and rhythm, S1, S2 Lungs: Clear to auscultation bilaterally, no rales or crackles noted, no wheezes, good air entry Abdomen: Soft, slightly TTP Extremities: Normal to inspection Skin: No rashes noted, no lesions or wounds se
[2023-07-19 01:00] VITALS: BP 125/72; PULSE 85; RESP 18; TEMP 36.9; O2SAT 92
[2023-07-19] MEDS: SODIUM CHLORIDE 0.9% IV 1,000 ML 100 ML IV CONT (03:27)
[2023-07-19 05:00] VITALS: BP 148/58; PULSE 79; RESP 18; TEMP 36.8; O2SAT 89
[2023-07-19] MEDS: MEMANTINE 10 MG TABLET PO (08:42)
[2023-07-19] MEDS: PANTOPRAZOLE 40 MG TABLET PO (08:43)
--- NOTE | 2023-07-19 11:06 | WPDUROPN2 ---
Progress Note: A&P Assessment and Plan (1) Hydronephrosis, right: Code(s): N13.30 - Unspecified hydronephrosis Status: Acute (2) Severe sepsis: Code(s): A41.9 - Sepsis, unspecified organism; R65.20 - Severe sepsis without septic shock Status: Acute Plan Stent in place. Continue broad-spectrum antibiotics pending culture results Subjective Subjective Date/Time Seen: 07/19/23 11:06 Interval history: Patient is still not communicative. Blood cultures are positive Exam Narrative: Laying in bed Moans and does not respond to questions Urine clearing Objective Data Vital Signs Vital Signs: Vital Signs - 24 hr 07/18/23 13:00 07/18/23 16:55 07/18/23 21:00 Temperature 98.0 F 97.7 F 98.9 F Pulse Rate 90 88 90 Respiratory Rate 20 18 18 Blood Pressure 147/55 H 125/73 142/60 H Pulse Oximetry 97 95 91 Oxygen Delivery 07/18/23 20:00 07/19/23 01:00 07/19/23 05:00 Temperature 98.4 F 98.2 F Pulse Rate 85 79 Respiratory Rate 18 18 Blood Pressure 125/72 148/58 H Pulse Oximetry 92 89 L Oxygen Delivery Room Air 07/19/23 08:00 Temperature Pulse Rate Respiratory Rate Blood Pressure Pulse Oximetry Oxygen Delivery Room Air Intake/Output Intake/Output: Intake & Output 07/16/23 07/17/23 07/18/23 07/19/23 23:59 23:59 23:59 23:59 Intake Total 1050 1575 1000 Output Total 300 1110 525 Balance 750 465 475 Meds/Results Medications: Active Medications Generic Name Dose Route Start Last Admin Trade Name Freq PRN Reason Stop Dose Admin Albuterol 2.5 mg 07/18/23 05:15 Albuterol Sulfate Neb 2.5 Mg/3 Ml Inh INHALATION Q6HRT PRN Shortness Of Breath Fentanyl Citrate 25 mcg 07/17/23 23:08 Fentanyl Citrate Inj (*Crx) 100 Mcg/2 Ml Vial IV PUSH Q2M PRN Pain Ceftriaxone Sodium 1 gm in 50 mls @ 100 mls/hr 07/18/23 21:00 07/18/23 20:00 Rocephin 1 Gm/Ns 50 Ml IVPB 100 mls/hr Q24H [facility] Administration Lactated Ringer's 1,000 mls @ 30 mls/hr 07/17/23 23:10 07/18/23 20:17 Lr - Lactated Ringers Iv IV CONT Not Given .Q24H [facility]ALL Lactated Ringer's 1,000 mls @ 30 mls/hr 07/17/23 23:10 07/18/23 20:18 Lr - Lactated Ringers Iv IV CONT Not Given .Q24H [facility]ALL Sodium Chloride 1,000 mls @ 100 mls/hr 07/18/23 02:40 07/19/23 03:27 Normal Saline Iv IV CONT 100 mls/hr .Q10H [facility] Administration Levothyroxine Sodium 200 mcg 07/18/23 06:30 07/19/23 05:41 Levothyroxine Sodium 100 Mcg Tablet PO Not Given DAILY@0630 [facility] Memantine 10 mg 07/18/23 09:00 07/19/23 08:42 Memantine 10 Mg Tablet PO 10 mg DAILY [facility] Administration Ondansetron HCl 4 mg 07/17/23 23:08 Ondansetron Inj 4 Mg/2 Ml Vial IV PUSH ONCE PRN Nausea Pantoprazole Sodium 40 mg 07/18/23 09:00 07/19/23 08:43 Pantoprazole 40 Mg Tablet PO 40 mg DAILY [facility] Administration Rivaroxaban 20 mg 07/18/23 17:00 07/18/23 18:49 Rivaroxaban 20 Mg Tablet PO Not Given DAILY@1700 [facility] Radiology Results: ITS Impressions Head CT 07/17/23 20:36 IMPRESSION: 1. No acute intracranial process. 2. Stable appearance of age-related changes including moderate diffuse volume loss and mild scattered white matter hypoattenuation consistent with chronic small vessel ischemic disease. Abdomen/Pelvis CT 07/17/23 20:42 IMPRESSION: 1. Moderate right hydroureteronephrosis of indeterminate etiology which extends to bladder without evident obstructing stone although a 9 mm stone is seen at a lower pole calyx of the right kidney. This could be related to either a recently passed stone or occult malignancy. 2. Increased density of the fluid in the right renal collecting system as well as a 4.2 cm likely cyst at the upper pole the left kidney which likely related to streak artifact from metallic anterior and posterior spinal fusion instrumentation. Could not exclude however either solid neoplasm at the left kidney and blood versus
--- NOTE | 2023-07-19 13:30 | PCOTNOTE ---
Attempted OT evaluation. Patient is very tired, difficult to arouse and follow verbal instructions at this time. Daughter in room reports patient has required celena lift at [facility] the last 2 months. Will follow.
[2023-07-19 14:00] VITALS: BP 121/90; PULSE 82; RESP 14; TEMP 36.6; O2SAT 91
--- NOTE | 2023-07-19 14:37 | PM.IMPN ---
Progress Note: A&P Assessment and Plan (1) Severe sepsis: Code(s): A41.9 - Sepsis, unspecified organism; R65.20 - Severe sepsis without septic shock Status: Acute Assessment and Plan: Patient has severe sepsis with UTI due to Gram-negative bacilli. Sepsis criteria met with fever, tachycardia, tachypnea, leukocytosis and encephalopathy. Urine cultures have already returned positive since admission. Patient's CT did demonstrate moderate hydronephrosis with evidence of probable ureteral obstruction. Urology was consulted and agreed patient would benefit from stent placement. Patient was taken emergently to OR for right ureteral stent placement. No obstructing stone was found. Appreciate urology recommendations and assistance. Patient is on empiric antibiotic therapy with Rocephin. Will continue IV fluid hydration with normal saline. Will monitor CBC and electrolyte panel. Blood cultures have been obtained and are pending. The patient's baseline creatinine is unknown family denies any prior history of renal insufficiency. There may be a component of acute kidney injury. Patient had a Collazo catheter placed during cystoscopy. Will monitor urine output closely. 07/19: bld cx positive, repeat ordered and pending, improving, cont abx (2) Acute UTI: Code(s): N39.0 - Urinary tract infection, site not specified Status: Acute Assessment and Plan: See above (3) Acute hypoxic respiratory failure: Code(s): J96.01 - Acute respiratory failure with hypoxia Status: Acute Assessment and Plan: resolved (4) Hydronephrosis, right: Code(s): N13.30 - Unspecified hydronephrosis Status: Acute Assessment and Plan: Status post stent (5) Altered mental status: Qualifiers: Altered mental status type: delirium Qualified Code(s): R41.0 - Disorientation, unspecified Code(s): R41.82 - Altered mental status, unspecified Status: Acute Assessment and Plan: Monitor, likely secondary to infection compounded with delirium secondary to underlying dementia 07/19: resolved (6) Hypothyroidism: Qualifiers: Hypothyroidism type: unspecified Qualified Code(s): E03.9 - Hypothyroidism, unspecified Code(s): E03.9 - Hypothyroidism, unspecified Status: Acute Assessment and Plan: Managed outpatient (7) Acute metabolic encephalopathy: Code(s): G93.41 - Metabolic encephalopathy Status: Acute Assessment and Plan: See above (8) Pulmonary emboli: Onset Date: ~03/2023 Qualifiers: Pulmonary embolism type: unspecified Chronicity: chronic Acute cor pulmonale presence: without acute cor pulmonale Qualified Code(s): I27.82 - Chronic pulmonary embolism Code(s): I26.99 - Other pulmonary embolism without acute cor pulmonale Status: Acute Assessment and Plan: Continue Xarelto Plan DVT prophylaxis with Xarelto GI prophylaxis not indicated Code status DNR Subjective Date/time seen: 07/19/23 14:37 Interval history: 82-year-old female with a past medical history of dementia, multiple urinary tract infections, recent hospitalization for bilateral pulmonary embolism than pneumonia, and hypothyroidism who presented to the ER from [facility] due to altered mental status and fever and being treated for sepsis with UTI status post right ureteral stent placement 07/17. No overnight events noted. No chest pain or shortness of breath. No nausea, vomiting or diarrhea. No fevers or chills. More alert today, better po intake. Review of Systems Review of Systems: 12 point review of systems was assessed and was negative except as noted in the HPI Exam Narrative: General: Acutely confused, somnolent, easily arousable HEENT: Atraumatic, normocephalic, mucous membranes moist CV: Regular rate and rhythm, S1, S2 Lungs:
[2023-07-19] MEDS: RIVAROXABAN 20 MG TABLET PO (17:24)
[2023-07-19 22:00] VITALS: BP 129/69; PULSE 66; RESP 18; TEMP 37; O2SAT 92
[2023-07-20] MEDS: SODIUM CHLORIDE 0.9% IV 1,000 ML 100 ML IV CONT ×2 (05:59→16:15)
[2023-07-20 06:00] VITALS: BP 148/72; PULSE 76; RESP 18; TEMP 36.4; O2SAT 94
[2023-07-20] MEDS: LEVOTHYROXINE SODIUM 100 MCG TABLET 200 MCG PO (06:45)
--- NOTE | 2023-07-20 08:13 | WPDUROPN2 ---
Progress Note: A&P Assessment and Plan (1) Severe sepsis: Code(s): A41.9 - Sepsis, unspecified organism; R65.20 - Severe sepsis without septic shock Status: Acute (2) Altered mental status: Qualifiers: Altered mental status type: delirium Qualified Code(s): R41.0 - Disorientation, unspecified Code(s): R41.82 - Altered mental status, unspecified Status: Acute (3) Hydronephrosis, right: Code(s): N13.30 - Unspecified hydronephrosis Status: Acute (4) Calcium kidney stone: Code(s): N20.0 - Calculus of kidney Status: Acute Plan continue antibiotics. Change to p.o. once available. We will be going home stent in place Subjective Subjective Date/Time Seen: 07/20/23 08:13 Interval history: clinically looks improved. Conversive today. Blood and urine cultures show Klebsiella Exam Narrative: urine clear in Collazo bag. Awake and conversive. Not oriented to situation Objective Data Vital Signs Vital Signs: Vital Signs - 24 hr 07/19/23 14:00 07/19/23 22:00 07/19/23 20:00 Temperature 97.8 F 98.6 F Pulse Rate 82 66 Respiratory Rate 14 18 Blood Pressure 121/90 129/69 Pulse Oximetry 91 92 Oxygen Delivery Room Air 07/20/23 06:00 Temperature 97.5 F L Pulse Rate 76 Respiratory Rate 18 Blood Pressure 148/72 H Pulse Oximetry 94 Oxygen Delivery Intake/Output Intake/Output: Intake & Output 07/17/23 07/18/23 07/19/23 07/20/23 23:59 23:59 23:59 23:59 Intake Total 1050 1625 2570 0 Output Total 300 1110 1075 275 Balance 503 221 4623 -275 Meds/Results Medications: Active Medications Generic Name Dose Route Start Last Admin Trade Name Freq PRN Reason Stop Dose Admin Albuterol 2.5 mg 07/18/23 05:15 Albuterol Sulfate Neb 2.5 Mg/3 Ml Inh INHALATION Q6HRT PRN Shortness Of Breath Fentanyl Citrate 25 mcg 07/17/23 23:08 Fentanyl Citrate Inj (*Crx) 100 Mcg/2 Ml Vial IV PUSH Q2M PRN Pain Ceftriaxone Sodium 1 gm in 50 mls @ 100 mls/hr 07/18/23 21:00 07/19/23 22:00 Rocephin 1 Gm/Ns 50 Ml IVPB Infused Q24H [facility] Infusion Sodium Chloride 1,000 mls @ 100 mls/hr 07/18/23 02:40 07/20/23 05:59 Normal Saline Iv IV CONT 100 mls/hr .Q10H [facility] Administration Levothyroxine Sodium 200 mcg 07/18/23 06:30 07/20/23 06:45 Levothyroxine Sodium 100 Mcg Tablet PO 200 mcg DAILY@0630 [facility] Administration Memantine 10 mg 07/18/23 09:00 07/19/23 08:42 Memantine 10 Mg Tablet PO 10 mg DAILY [facility] Administration Ondansetron HCl 4 mg 07/17/23 23:08 Ondansetron Inj 4 Mg/2 Ml Vial IV PUSH ONCE PRN Nausea Pantoprazole Sodium 40 mg 07/18/23 09:00 07/19/23 08:43 Pantoprazole 40 Mg Tablet PO 40 mg DAILY [facility] Administration Rivaroxaban 20 mg 07/18/23 17:00 07/19/23 17:24 Rivaroxaban 20 Mg Tablet PO 20 mg DAILY@1700 [facility] Administration Radiology Results: ITS Impressions Head CT 07/17/23 20:36 IMPRESSION: 1. No acute intracranial process. 2. Stable appearance of age-related changes including moderate diffuse volume loss and mild scattered white matter hypoattenuation consistent with chronic small vessel ischemic disease. Abdomen/Pelvis CT 07/17/23 20:42 IMPRESSION: 1. Moderate right hydroureteronephrosis of indeterminate etiology which extends to bladder without evident obstructing stone although a 9 mm stone is seen at a lower pole calyx of the right kidney. This could be related to either a recently passed stone or occult malignancy. 2. Increased density of the fluid in the right renal collecting system as well as a 4.2 cm likely cyst at the upper pole the left kidney which likely related to streak artifact from metallic anterior and posterior spinal fusion instrumentation. Could not exclude however either solid neoplasm at the left kidney and blood versus pus within the right renal collecting system. Correlate with urinalysis and recommend
[2023-07-20] MEDS: MEMANTINE 10 MG TABLET PO (10:01)
[2023-07-20] MEDS: PANTOPRAZOLE 40 MG TABLET PO (10:01)
[2023-07-20 11:13] VITALS: BMI 29.0
--- NOTE | 2023-07-20 13:07 | PM.IMPN ---
Progress Note: A&P Assessment and Plan (1) Severe sepsis: Code(s): A41.9 - Sepsis, unspecified organism; R65.20 - Severe sepsis without septic shock Status: Acute Assessment and Plan: Patient has severe sepsis with UTI due to Gram-negative bacilli. Sepsis criteria met with fever, tachycardia, tachypnea, leukocytosis and encephalopathy. Urine cultures have already returned positive since admission. Patient's CT did demonstrate moderate hydronephrosis with evidence of probable ureteral obstruction. Urology was consulted and agreed patient would benefit from stent placement. Patient was taken emergently to OR for right ureteral stent placement. No obstructing stone was found. Appreciate urology recommendations and assistance. Patient is on empiric antibiotic therapy with Rocephin. Will continue IV fluid hydration with normal saline. Will monitor CBC and electrolyte panel. Blood cultures have been obtained and are pending. The patient's baseline creatinine is unknown family denies any prior history of renal insufficiency. There may be a component of acute kidney injury. Patient had a Collazo catheter placed during cystoscopy. Will monitor urine output closely. 07/19: bld cx positive, repeat ordered and pending, improving, cont abx 07/20: much improved, transition to oral abx, d/c tomorrow anticipated (2) Acute UTI: Code(s): N39.0 - Urinary tract infection, site not specified Status: Acute Assessment and Plan: See above (3) Acute hypoxic respiratory failure: Code(s): J96.01 - Acute respiratory failure with hypoxia Status: Acute Assessment and Plan: resolved (4) Hydronephrosis, right: Code(s): N13.30 - Unspecified hydronephrosis Status: Acute Assessment and Plan: Status post stent (5) Altered mental status: Qualifiers: Altered mental status type: delirium Qualified Code(s): R41.0 - Disorientation, unspecified Code(s): R41.82 - Altered mental status, unspecified Status: Acute Assessment and Plan: Monitor, likely secondary to infection compounded with delirium secondary to underlying dementia 07/19: resolved (6) Hypothyroidism: Qualifiers: Hypothyroidism type: unspecified Qualified Code(s): E03.9 - Hypothyroidism, unspecified Code(s): E03.9 - Hypothyroidism, unspecified Status: Acute Assessment and Plan: Managed outpatient (7) Acute metabolic encephalopathy: Code(s): G93.41 - Metabolic encephalopathy Status: Acute Assessment and Plan: See above (8) Pulmonary emboli: Onset Date: ~03/2023 Qualifiers: Acute cor pulmonale presence: without acute cor pulmonale Chronicity: chronic Pulmonary embolism type: unspecified Qualified Code(s): I27.82 - Chronic pulmonary embolism Code(s): I26.99 - Other pulmonary embolism without acute cor pulmonale Status: Acute Assessment and Plan: Continue Xarelto Plan DVT prophylaxis with Xarelto GI prophylaxis not indicated Code status DNR Subjective Date/time seen: 07/20/23 13:07 Interval history: 82-year-old female with a past medical history of dementia, multiple urinary tract infections, recent hospitalization for bilateral pulmonary embolism than pneumonia, and hypothyroidism who presented to the ER from [facility] due to altered mental status and fever and being treated for sepsis with UTI status post right ureteral stent placement 07/17. No overnight events noted. No chest pain or shortness of breath. No nausea, vomiting or diarrhea. No fevers or chills. Eating well, no complaints. Review of Systems Review of Systems: 12 point review of systems was assessed and was negative except as noted in the HPI Exam Narrative: General: No acute distress, alert and oriented per baseline HEENT: Atraumatic, normocephalic,
[2023-07-20 14:00] VITALS: BP 122/76; PULSE 78; RESP 18; TEMP 36.9; O2SAT 97
[2023-07-20 15:01] LABS: Basophils Percent Auto 0.5 % (0.2-1.2); Eosinophils Absolute Auto 0.2 K/mm3 (0-0.3); Eosinophils Percent Auto 2.2 % (0-4.4); Hematocrit 39.4 % (37.0-47.0); Hemoglobin 12.3 g/dL (12.0-15.0); Immature Granulocyte Absolute 0.09 K/mm3 (0.00-0.031); Immature Granulocyte Percent A 1.1 % (0-0.5); Lymphocytes Absolute Auto 1.13 K/mm3 (0.9-3.2); Lymphocytes Percent Auto 13.8 % (18.3-44.2); Mean Corpuscular HGB Conc 31.2 g/dl (32-36); Mean Corpuscular Hemoglobin 29.4 pg (26-34); Mean Corpuscular Volume 94.3 fl (80-100); Mean Platelet Volume 13.7 fl (7.4-10.4); Monocytes Absolute Auto 0.7 K/mm3 (0.1-0.6); Monocytes Percent Auto 8.3 % (2.6-8.5); Neutrophils Absolute Auto 6.1 K/mm3 (1.3-6.7); Neutrophils Percent Auto 74.1 % (45.5-73.1); Platelet Count Result 130 k/mm3 (150-375); Red Blood Count 4.18 M/mm3 (4.2-5.4); Red Cell Distribution Width 14.4 % (11.5-14.5); White Blood Count 8.2 K/mm3 (4.5-10.0)
[2023-07-20 15:30] LABS: Alanine Aminotransferase 15 U/L (6-35); Alkaline Phosphatase 90 U/L (38-126); Anion Gap 8 mmol/L (8-16); Aspartate Amino Transferase 34 U/L (14-36); Bilirubin,Total 0.5 mg/dL (0.2-1.3); Blood Urea Nitrogen 14 mg/dL (7-17); Calcium 8.1 mg/dL (8.4-10.2); Carbon Dioxide 24 mmol/L (22-30); Chloride 107 mmol/L (98-107); Estimated CRCL calculation 58 ml/min; Estimated Glomerular Filt Rate > 60; Glucose 128 mg/dL (65-110); Potassium 2.9 mmol/L (3.4-5.0); Sodium 139 mmol/L (137-145)
[2023-07-20] MEDS: levoFLOXacin 750 MG TABLET PO (16:16)
[2023-07-20] MEDS: RIVAROXABAN 20 MG TABLET PO (16:16)
[2023-07-20 16:24] LABS: Hypochromasia 1+ (NORMAL); Platelet Estimate Decreased (Adequate); Schistocytes None Seen (NORMAL)
[2023-07-20 22:00] VITALS: BP 162/92; PULSE 72; RESP 20; TEMP 36.6; O2SAT 93
[2023-07-21] MEDS: SODIUM CHLORIDE 0.9% IV 1,000 ML 100 ML IV CONT ×2 (03:39→13:44)
[2023-07-21] MEDS: LEVOTHYROXINE SODIUM 100 MCG TABLET 200 MCG PO (05:44)
[2023-07-21 06:00] VITALS: BP 175/87; PULSE 92; RESP 18; TEMP 36.3; O2SAT 94
[2023-07-21 07:03] LABS: Basophils Absolute Auto 0.1 K/mm3 (0.0-0.1); Basophils Percent Auto 0.6 % (0.2-1.2); Eosinophils Absolute Auto 0.2 K/mm3 (0-0.3); Eosinophils Percent Auto 1.9 % (0-4.4); Hematocrit 43.1 % (37.0-47.0); Hemoglobin 13.2 g/dL (12.0-15.0); Immature Granulocyte Absolute 0.15 K/mm3 (0.00-0.031); Immature Granulocyte Percent A 1.8 % (0-0.5); Immature Platelet Fraction Pct 27.8 % (0.9-11.2); Lymphocytes Absolute Auto 1.19 K/mm3 (0.9-3.2); Lymphocytes Percent Auto 14.2 % (18.3-44.2); Mean Corpuscular HGB Conc 30.6 g/dl (32-36); Mean Corpuscular Hemoglobin 29.1 pg (26-34); Mean Corpuscular Volume 94.9 fl (80-100); Mean Platelet Volume 13.5 fl (7.4-10.4); Monocytes Absolute Auto 0.6 K/mm3 (0.1-0.6); Neutrophils Absolute Auto 6.3 K/mm3 (1.3-6.7); Neutrophils Percent Auto 74.5 % (45.5-73.1); Platelet Count Result 134 k/mm3 (150-375); Red Blood Count 4.54 M/mm3 (4.2-5.4); Red Cell Distribution Width 14.2 % (11.5-14.5); White Blood Count 8.4 K/mm3 (4.5-10.0)
[2023-07-21 07:21] LABS: Alanine Aminotransferase 19 U/L (6-35); Albumin Level 3.2 g/dL (3.5-5.1); Alkaline Phosphatase 93 U/L (38-126); Anion Gap 14 mmol/L (8-16); Aspartate Amino Transferase 39 U/L (14-36); Bilirubin,Total 0.7 mg/dL (0.2-1.3); Blood Urea Nitrogen 9 mg/dL (7-17); Calcium 8.3 mg/dL (8.4-10.2); Carbon Dioxide 19 mmol/L (22-30); Chloride 106 mmol/L (98-107); Estimated CRCL calculation 58 ml/min; Estimated Glomerular Filt Rate > 60; Glucose 102 mg/dL (65-110); Potassium 2.7 mmol/L (3.4-5.0); Sodium 139 mmol/L (137-145)
[2023-07-21] MEDS: PANTOPRAZOLE 40 MG TABLET PO (08:34)
[2023-07-21] MEDS: MEMANTINE 10 MG TABLET PO (08:34)
[2023-07-21] MEDS: POTASSIUM CHLORIDE 20 MEQ ER TABLET 80 MEQ PO (09:28)
[2023-07-21 14:00] VITALS: BP 153/87; PULSE 86; RESP 16; TEMP 36; O2SAT 97
[2023-07-21 15:36] LABS: Anion Gap 4 mmol/L (8-16); Blood Urea Nitrogen 6 mg/dL (7-17); Calcium 5.6 mg/dL (8.4-10.2); Carbon Dioxide 19 mmol/L (22-30); Chloride 118 mmol/L (98-107); Estimated CRCL calculation 78 ml/min; Estimated Glomerular Filt Rate > 60; Glucose 103 mg/dL (65-110); Potassium 2.4 mmol/L (3.4-5.0); Sodium 141 mmol/L (137-145)
[2023-07-21 16:10] LABS: Magnesium 1.3 mg/dL (1.6-2.3)
[2023-07-21 16:59] LABS: Alanine Aminotransferase 19 U/L (6-35); Albumin Level 3.3 g/dL (3.5-5.1); Alkaline Phosphatase 89 U/L (38-126); Anion Gap 6 mmol/L (8-16); Aspartate Amino Transferase 32 U/L (14-36); Bilirubin,Total 0.6 mg/dL (0.2-1.3); Blood Urea Nitrogen 8 mg/dL (7-17); Calcium 8.3 mg/dL (8.4-10.2); Carbon Dioxide 25 mmol/L (22-30); Chloride 108 mmol/L (98-107); Estimated CRCL calculation 58 ml/min; Estimated Glomerular Filt Rate > 60; Glucose 110 mg/dL (65-110); Potassium 3.5 mmol/L (3.4-5.0); Sodium 139 mmol/L (137-145)
--- NOTE | 2023-07-21 17:02 | PM.DS ---
DS: Admitting Diagnosis Discharge Date 07/21/23 Admitting Diagnosis ams DS: Summary Time Spent with Patient Time attestation: Total time spent providing and/or coordinating discharge services: DS: Data Data Completed and Pending Labs on day of discharge: Labs from last 24 hours 07/21/23 07/21/23 07/21/23 16:34 14:57 06:23 WBC 8.4 RBC 4.54 Hgb 13.2 Hct 43.1 MCV 94.9 MCH 29.1 MCHC 30.6 L RDW 14.2 Plt Count 134 L MPV 13.5 H Immature Gran % (Auto) 1.8 H Neut % (Auto) 74.5 H Lymph % (Auto) 14.2 L [place] % (Auto) 7.0 Eos % (Auto) 1.9 Baso % (Auto) 0.6 Lymph # (Auto) 1.19 [place] # (Auto) 0.6 Eos # (Auto) 0.2 Baso # (Auto) 0.1 Abs Immat Gran (auto) 0.15 H Absolute Neuts (auto) 6.3 Absolute Nucleated RBC 0.0 Nucleated RBC % 0.0 % Immature Plt Fraction 27.8 H Sodium 139 141 139 Potassium 3.5 2.4 L* 2.7 L* Chloride 108 H 118 H 106 Carbon Dioxide 25 19 L 19 L Anion Gap 6 L 4 L 14 BUN 8 6 L 9 D Creatinine 0.70 0.50 L 0.70 Estim Creat Clear Calc 58 78 58 Estimated GFR > 60 > 60 > 60 Glucose 110 103 102 Calcium 8.3 L 5.6 L 8.3 L Magnesium 1.3 L Total Bilirubin 0.6 0.7 AST 32 39 H ALT 19 19 Alkaline Phosphatase 89 93 Total Protein 7.0 7.0 Albumin 3.3 L 3.2 L Preliminary micro results at discharge 07/19/23 15:59 Blood Culture - Preliminary Blood 07/19/23 15:58 Blood Culture - Preliminary Blood Discharge Plan Discharge Attending physician on discharge: Viridiana Burgos Consulting providers: Michel Smith Discharging Clinician: Viridiana Burgos Patient Disposition: SNF Activity: as tolerated Diet: as tolerated Patient Instructions: Rivaroxaban (By mouth) Stand Alone Forms: General Discharge Information Follow-up/Referrals: Michel Smith MD [Physician] - Matt Crews MD [Primary Care Provider] - Discharge Medications: New levofloxacin 750 mg tablet 750 mg PO Q48H 10 Days Qty: 5 0RF magnesium oxide 400 mg (241.3 mg magnesium) tablet 400 mg PO DAILY 30 Days Qty: 30 0RF Continued pantoprazole 40 mg tablet,delayed release (DR/EC) 40 mg PO DAILY simvastatin 20 mg tablet 20 mg PO DAILY diphenhydramine HCl [Benadryl Allergy] 25 mg Tablet 25 mg PO DAILY PRN (Reason: Rash) levothyroxine 150 mcg tablet 200 mcg PO DAILY ergocalciferol (vitamin D2) 1,250 mcg (50,000 unit) capsule 1,250 mcg PO DAILY memantine 10 mg tablet 10 mg PO DAILY Xarelto 15 mg tablet 20 mg PO DAILY Rx Instructions: Pt is currently taking 20 mg however I am unable to change the 15 to 20 Held donepezil 5 mg tablet 5 mg PO DAILY Hold Instructions: Resume on 08/03/23. hold while on levaquin Other Ambulatory Orders: Basic Metabolic Panel (Routine) Timeframe: 3 Days Location: Determined by Patient Ordered By: Viridiana Burgos Date of admission: 07/17/23 23:33 Primary Care Provider: Matt Crews Admitting Provider: Massiel Mckay Attending physician on admission: Massiel Mckay Condition: Guarded Prognosis
[2023-07-21] MEDS: RIVAROXABAN 20 MG TABLET PO (17:34)
[2023-07-21 22:00] VITALS: BP 147/101; PULSE 97; RESP 18; TEMP 36.3; O2SAT 97
[2023-07-22] MEDS: LEVOTHYROXINE SODIUM 100 MCG TABLET 200 MCG PO (05:38)
[2023-07-22 06:00] VITALS: BP 147/87; PULSE 81; RESP 18; O2SAT 97
[2023-07-22 06:32] LABS: Basophils Absolute Auto 0.1 K/mm3 (0.0-0.1); Basophils Percent Auto 0.7 % (0.2-1.2); Eosinophils Absolute Auto 0.3 K/mm3 (0-0.3); Eosinophils Percent Auto 3.5 % (0-4.4); Hematocrit 44.6 % (37.0-47.0); Hemoglobin 14.4 g/dL (12.0-15.0); Immature Granulocyte Absolute 0.16 K/mm3 (0.00-0.031); Immature Granulocyte Percent A 1.6 % (0-0.5); Immature Platelet Fraction Pct 26.9 % (0.9-11.2); Lymphocytes Absolute Auto 2.11 K/mm3 (0.9-3.2); Lymphocytes Percent Auto 21.6 % (18.3-44.2); Mean Corpuscular HGB Conc 32.3 g/dl (32-36); Mean Corpuscular Hemoglobin 29.4 pg (26-34); Mean Corpuscular Volume 91.2 fl (80-100); Mean Platelet Volume 13.4 fl (7.4-10.4); Monocytes Absolute Auto 0.8 K/mm3 (0.1-0.6); Monocytes Percent Auto 8.5 % (2.6-8.5); Neutrophils Absolute Auto 6.3 K/mm3 (1.3-6.7); Neutrophils Percent Auto 64.1 % (45.5-73.1); Platelet Count Result 151 k/mm3 (150-375); Red Blood Count 4.89 M/mm3 (4.2-5.4); Red Cell Distribution Width 14.2 % (11.5-14.5); White Blood Count 9.8 K/mm3 (4.5-10.0)
[2023-07-22 06:34] LABS: Alanine Aminotransferase 14 U/L (6-35); Albumin Level 3.2 g/dL (3.5-5.1); Alkaline Phosphatase 84 U/L (38-126); Anion Gap 8 mmol/L (8-16); Aspartate Amino Transferase 25 U/L (14-36); Bilirubin,Total 0.6 mg/dL (0.2-1.3); Blood Urea Nitrogen 5 mg/dL (7-17); Calcium 8.4 mg/dL (8.4-10.2); Carbon Dioxide 24 mmol/L (22-30); Chloride 107 mmol/L (98-107); Estimated CRCL calculation 58 ml/min; Estimated Glomerular Filt Rate > 60; Glucose 100 mg/dL (65-110); Potassium 3.2 mmol/L (3.4-5.0); Sodium 139 mmol/L (137-145)
[2023-07-22] MEDS: MEMANTINE 10 MG TABLET PO (08:34)
[2023-07-22] MEDS: levoFLOXacin 750 MG TABLET PO (08:34)
[2023-07-22] MEDS: POTASSIUM CHLORIDE 20 MEQ ER TABLET 40 MEQ PO (08:34)
[2023-07-22] MEDS: PANTOPRAZOLE 40 MG TABLET PO (08:34)
--- NOTE | 2023-07-22 12:43 | PM.IMPN ---
Progress Note: A&P Assessment and Plan (1) Severe sepsis: Code(s): A41.9 - Sepsis, unspecified organism; R65.20 - Severe sepsis without septic shock Status: Acute Assessment and Plan: Patient has severe sepsis with septicemia due to UTI. Sepsis criteria met with fever, tachycardia, tachypnea, leukocytosis and encephalopathy. UCx 07/17 positive for klebsiella pneumoniae pansensitive BCx 07/17 positive for Klebsiella pneumoniae pansensitive. BCx 07/[address] moderate hydronephrosis with evidence of probable ureteral obstruction. Urology was consulted and patient was taken emergently to OR for right ureteral stent placement. No obstructing stone was found. Rocephin given 07/17-07/19. Levaquin given 07/18, 07/20 Levaquin adjusted for normal renal fucntion and continued daily (2) Acute UTI: Code(s): N39.0 - Urinary tract infection, site not specified Status: Acute Assessment and Plan: See above (3) Impacted stool in rectum: Code(s): K56.41 - Fecal impaction Status: Acute Assessment and Plan: CT scan shows large ball of stool at the rectum with associated rectal wall thickening and perirectal stranding suggestive of constipation with fecal impaction and secondary stercoral colitis. Patient has not had a bowel movement since admission. Add MiraLax. Enemas. (4) Acute hypoxic respiratory failure: Code(s): J96.01 - Acute respiratory failure with hypoxia Status: Acute Assessment and Plan: Patient with hypoxic respiratory failure on admission. CXR showing atelectasis. no ABG. CT Abd showing atelectasis. Etiology unclear but able to be weaned to room air Follow (5) Hydronephrosis, right: Code(s): N13.30 - Unspecified hydronephrosis Status: Acute Assessment and Plan: As above. She underwent cystoscopy which showed spastic bladder that was difficult to fill. No gross tumors noted. Retrograde pyelogram showing hydronephrosis without extravasation. 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 Stent was placed. Appreciate urology input. Okay to remove Collazo catheter. (6) Altered mental status: Qualifiers: Altered mental status type: delirium Qualified Code(s): R41.0 - Disorientation, unspecified Code(s): R41.82 - Altered mental status, unspecified Status: Acute Assessment and Plan: Patient with underlying dementia complicated by sepsis picture causing acute metabolic encephalopathy. Patient back to baseline. Continue monitor (7) Hypothyroidism: Qualifiers: Hypothyroidism type: unspecified Qualified Code(s): E03.9 - Hypothyroidism, unspecified Code(s): E03.9 - Hypothyroidism, unspecified Status: Acute Assessment and Plan: Stable. Continue levothyroxine. Check TSH given her constipation issues. (8) Acute metabolic encephalopathy: Code(s): G93.41 - Metabolic encephalopathy Status: Acute Assessment and Plan: As above (9) Pulmonary emboli: Onset Date: ~03/2023 Qualifiers: Pulmonary embolism type: unspecified Chronicity: chronic Acute cor pulmonale presence: without acute cor pulmonale Qualified Code(s): I27.82 - Chronic pulmonary embolism Code(s): I26.99 - Other pulmonary embolism without acute cor pulmonale Status: Acute Assessment and Plan: Patient has a history of PE diagnosed recently. Continue Xarelto. Plan DVT prophylaxis with Xarelto GI prophylaxis not indicated Code status DNR Subjective Date/time seen: 07/22/23 12:43 Interval history: 82yo female with dementia, multiple UTIs, recent hospitalization for bilateral PEs, and hypothyroidism who presented to the ER from [facility] due to altered mental status and fever.?? Assuming care. Chart reviewed. Patient is alert but confused and unable to provi
[2023-07-22] MEDS: polyethylene glycoL 3350 17 GM POWD.PACK PO (13:53)
[2023-07-22 14:00] VITALS: BP 119/72; PULSE 95; RESP 18; TEMP 36.4; O2SAT 95
[2023-07-22] MEDS: RIVAROXABAN 20 MG TABLET PO (16:56)
[2023-07-22 20:00] VITALS: PULSE 79; RESP 16; O2SAT 96
[2023-07-22 20:37] VITALS: BP 140/75; PULSE 79; RESP 16; TEMP 36.3; O2SAT 96
--- NOTE | 2023-07-22 22:03 | PC.NURSE ---
Pt asleep and when awoken will yell no, leave me alone! Pt will not stay awake to take miralax.
[2023-07-23] MEDS: LEVOTHYROXINE SODIUM 100 MCG TABLET 200 MCG PO (05:14)
[2023-07-23 05:15] VITALS: BP 134/75; PULSE 76; RESP 20; TEMP 36.1; O2SAT 94
[2023-07-23 06:44] LABS: Albumin Level 3.2 g/dL (3.5-5.1); Anion Gap 5 mmol/L (8-16); Blood Urea Nitrogen 9 mg/dL (7-17); Calcium 8.7 mg/dL (8.4-10.2); Carbon Dioxide 26 mmol/L (22-30); Chloride 106 mmol/L (98-107); Estimated CRCL calculation 51 ml/min; Estimated Glomerular Filt Rate > 60; Glucose 95 mg/dL (65-110); Magnesium 1.9 mg/dL (1.6-2.3); Phosphorus 2.9 mg/dL (2.5-4.5); Potassium 3.3 mmol/L (3.4-5.0); Sodium 137 mmol/L (137-145)
[2023-07-23 07:55] LABS: Free T4 Free Thyroxine Reflex 1.54 ng/dL (0.78-2.19)
[2023-07-23 08:49] LABS: Total Triiodothyronine (T3) 0.68 NG/ML (0.97-1.69)
[2023-07-23] MEDS: BISACODYL 10 MG SUPPOSITORY RECTAL (09:07)
[2023-07-23] MEDS: PANTOPRAZOLE 40 MG TABLET PO (09:07)
[2023-07-23] MEDS: levoFLOXacin 750 MG TABLET PO (09:08)
[2023-07-23] MEDS: POTASSIUM CHLORIDE 20 MEQ ER TABLET 40 MEQ PO (09:13)
[2023-07-23] MEDS: SODIUM CHLORIDE 0.9% IV 1,000 ML 999 ML IV CONT (09:14)
[2023-07-23] MEDS: MEMANTINE 10 MG TABLET PO (09:20)
[2023-07-23] MEDS: polyethylene glycoL 3350 17 GM POWD.PACK PO (09:25)
--- NOTE | 2023-07-23 10:41 | PCNFU ---
Nutrition Follow-Up Complete: Suboptimal po intake related to appetite as evidenced by charted intake Goal:PO in take 50% or greater for meals Pt not at goal yet, continue with same goal. Pt current nutrition is Heart healthy, Ensure compact BID. Nutrition recommendation: Increased ensure compact to TID Last recorded weight is 81.8 kg. Bowel Motility: No BM recorded Labs Reviewed: Alb:3.2 GFR:53, BUN:22 Meds Noted: zofran, protonix, dulcolax Skin: no skin issues noted Additional Notes: Pt continues on a heart healthy diet, intake 25% consistently of meals. Ensure compact BID in place, will increased to TID. Encourage po intake of meals and supplements Monitor intake, wt, labs. Follow up in 5 days.
[2023-07-23 11:38] VITALS: BMI 10.0
[2023-07-23 14:00] VITALS: BP 118/93; PULSE 87; RESP 16; TEMP 35.8; O2SAT 100
--- NOTE | 2023-07-23 16:39 | PM.DS ---
DS: Admitting Diagnosis Discharge Date 07/23/23 Admitting Diagnosis Altered mental status DS: Discharge Diagnosis Discharge Diagnosis (1) Severe sepsis: Code(s): A41.9 - Sepsis, unspecified organism; R65.20 - Severe sepsis without septic shock Status: Acute (2) Acute UTI: Code(s): N39.0 - Urinary tract infection, site not specified Status: Acute (3) Impacted stool in rectum: Code(s): K56.41 - Fecal impaction Status: Acute (4) Acute hypoxic respiratory failure: Code(s): J96.01 - Acute respiratory failure with hypoxia Status: Acute (5) Hydronephrosis, right: Code(s): N13.30 - Unspecified hydronephrosis Status: Acute (6) Altered mental status: Qualifiers: Altered mental status type: delirium Qualified Code(s): R41.0 - Disorientation, unspecified Code(s): R41.82 - Altered mental status, unspecified Status: Acute (7) Hypothyroidism: Qualifiers: Hypothyroidism type: unspecified Qualified Code(s): E03.9 - Hypothyroidism, unspecified Code(s): E03.9 - Hypothyroidism, unspecified Status: Acute (8) Acute metabolic encephalopathy: Code(s): G93.41 - Metabolic encephalopathy Status: Acute (9) Pulmonary emboli: Onset Date: ~03/2023 Qualifiers: Pulmonary embolism type: unspecified Chronicity: chronic Acute cor pulmonale presence: without acute cor pulmonale Qualified Code(s): I27.82 - Chronic pulmonary embolism Code(s): I26.99 - Other pulmonary embolism without acute cor pulmonale Status: Acute DS: Summary Hospital Course Reason for hospitalization: 82yo female with dementia, multiple UTIs, recent hospitalization for bilateral PEs, and hypothyroidism who presented to the ER from [facility] due to altered mental status and fever.??Please see H&P for details. Hospital Course: Patient presents with AMS and fever and found to have severe sepsis with septicemia due to UTI.? Sepsis criteria met with fever, tachycardia, tachypnea, leukocytosis and encephalopathy.?UCx 07/17 positive for klebsiella pneumoniae pansensitive. BCx / positive for Klebsiella pneumoniae pansensitive. Repeat BCx 07/[address] showing moderate hydronephrosis with evidence of probable ureteral obstruction.? Urology was consulted and patient was taken emergently to OR for right ureteral stent placement.? No obstructing stone was found. She underwent cystoscopy which showed spastic bladder that was difficult to fill.? No gross tumors noted.? Retrograde pyelogram showing hydronephrosis without extravasation.? 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 Stent was placed. Appreciate urology input. Rocephin given 07/17-07/19. Levaquin given 07/18, 07/20. Levaquin adjusted for normal renal function. CT scan showed large ball of stool at the rectum with associated rectal wall thickening and perirectal stranding suggestive of constipation with fecal impaction and secondary stercoral colitis. Patient treated appropriately and was having BMs. Patient with hypoxic respiratory failure on admission. CXR showing atelectasis. CT Abd showing atelectasis. Etiology on the hypoxica related to the sepsis. She was able to be weaned to room air. Patient with underlying dementia complicated by sepsis picture causing acute metabolic encephalopathy. Patient back to baseline.TSH elevated to 35. FT$ normal. Levothyroxine was advanced. Patient has a history of PE diagnosed recently.? We continued Xarelto. She overall did well and was able to be discharged on 07/23/23. Status at Discharge Cognitive/behavioral status at discharge: stable Time Spent with Patient Time attestation: Total time spent providing and/or coordinating discharge services: 35 minutes Time spent: Greater than 30 minutes Exam Narrative: AF 96.4 118/93 87 16 100% ra Gen - NARD Chest -l
[2023-07-23 18:47] LABS: SARS-CoV-2 RNA PCR Negative (Negative)
[2023-07-23 20:00] VITALS: O2SAT 100
[2023-07-23 21:52] VITALS: BP 152/88; PULSE 97; RESP 18; TEMP 36.4; O2SAT 94
== END 2023-07-23 22:00 | DRG 853 ==
LOC: ANHED 22:02 → ANHSURGERY 22:27 → ANH3MEDSUR 07-18 01:04
PROVIDERS: Emergency Medicine; Internal Medicine; Student in an Organized Health Care Education/Training Program; Urology; Admitting Provider Internal Medicine; Emergency Provider General Practice; PCP Internal Medicine; Visit Provider Internal Medicine
PROC: 0T768ZZ Dilation of Right Ureter, Via Natural or Artificial Opening Endoscopic (ICD-10-PCS; CPT 52352; principal; 2023-07-17 23:30)
DX: A41.59 Other Gram-negative sepsis (principal); G93.41 Metabolic encephalopathy; J96.01 Acute respiratory failure with hypoxia; N13.6 Pyonephrosis; R65.20 Severe sepsis without septic shock; B96.1 Klebsiella pneumoniae [K. pneumoniae] as the cause of diseases classified elsewhere; E03.9 Hypothyroidism, unspecified; E78.2 Mixed hyperlipidemia; N32.89 Other specified disorders of bladder; M15.9 Polyosteoarthritis, unspecified; K56.41 Fecal impaction; R33.9 Retention of urine, unspecified; R32 Unspecified urinary incontinence; R41.0 Disorientation, unspecified; F03.90 Unspecified dementia, unspecified severity, without behavioral disturbance, psychotic disturbance, mood disturbance, and anxiety; Z96.642 Presence of left artificial hip joint; H35.30 Unspecified macular degeneration; Z20.822 Contact with and (suspected) exposure to COVID-19; Z79.01 Long term (current) use of anticoagulants; Z11.52 Encounter for screening for COVID-19; Z86.711 Personal history of pulmonary embolism; Z99.3 Dependence on wheelchair; Z87.891 Personal history of nicotine dependence
CPT/HCPCS: 36415; 70450; 71045; 74176; 74420; 80048; 80053; 80069; 81001; 83605; 83735; 84439; 84443; 84480; 85025; 85055; 85610; 85730; 86140; 86850; 86900; 86901; 87040; 87077; 87086; 87186; 87635; 87637; 93005; 96361; 96365; 97110; 97161; 97165; 97530; 97535; 99285; A9270; C1758; C1769; C2617; J0696; J1956; J2405; J2704; J3010; J7030; J7120; Q9966

== ENCOUNTER 2023-11-20 00:06 | Day surgery (SDC) | payer MEDICARE, SELFPAY ==
[2023-11-09 14:25] VITALS: BMI 23.1
--- NOTE | 2023-11-09 14:35 | PC.NURSE ---
PRE-OP INSTRUCTIONS, PLEASE READ CAREFULLY Report to the Outpatient Waiting Room, entrance under the green pavilion located off [facility], at time _0830_ on date _11/20/23_. Planned Procedure Time: _1030_. Time changes happen often and if your time is changed the preop area will call you the afternoon before. - You and your visitor will be asked to self-screen and do not enter if you have any COVID symptoms. - A mask is optional within the hospital at this time. Patients may have clear liquids (water, carbonated beverages, clear teas, apple juice) until 3 hours prior to surgery (0730 AM) with a maximum of 20 ounces. - No food from midnight until time of surgery Take the following medications with a SIP of water the morning of surgery: _DONEPEZIL, LEVOTHYROXINE, MEMANTINE_ DO NOT STOP ANY OF YOUR OTHER PRESCRIPTION MEDICATIONS PRIOR TO SURGERY ?EXCEPT THE FOLLOWING Medications to discontinue per DR. FLORES -_ASPIRIN 7 DAYS Date to take last dose 11/12/23, & [facility] CALL OFFICE FOR INSTRUCTIONS [phone] Please no make-up, nail korean, hairspray, perfume, deodorant, or body powder the day of surgery. No jewelry (including any body piercings) or valuables the day of surgery, leave them at home. Please take a shower or bath the night before, or the morning of, surgery with an antibacterial soap. Wear comfortable, loose fitting clothing. - Jewelry must be removed prior to entering the operating room. Rings and piercings that are not removed may be cut off. - The hospital will not accept responsibility for valuables. - Please leave all valuables, including medications, at home the day of surgery. If you are going home after surgery, a licensed tractor driver must drive you home. - NO public transportation without another adult if you receive anesthesia. - We recommend that an adult stay with you for 24 hours following discharge. - We also recommend that you do not drive, make important decision, drink alcoholic beverages, or take any drugs that were not prescribed by your health care provider for at least 24 hours after your discharge time. Follow any additional instructions given to you from your surgeon. If you or anyone in your household have experienced Covid symptoms in the past week, please notify your surgeon or the nurse liaison at the phone number below for possible testing. Instructions given/FAXED to _[facility] ([place])_and asked if any additional questions and then verbalized understanding. Patient advised to call surgeon office or pre surgery nurse liaison [phone] if any additional questions.
--- NOTE | 2023-11-15 21:09 | PM.IMHP ---
H&P: HPI History of Present Illness Date/Time: 11/15/23 21:09 Chief Complaint: htdronephrosis Narrative: Right hydronephrosis h/o sepsis Review of Systems Review of Systems: ROS unobtainable: Yes unobtainable due to endotracheal tube PMFSH Past Medical History Medical History Dementia Hypothyroidism Macular degeneration Mixed hyperlipidemia Primary osteoarthritis involving multiple joints Pulmonary emboli (~03/2023) Surgical History Surgical History H/O cervical spine surgery 2018 roughly History of left hip replacement History of spinal surgery Due to osteomyelitis with debridement and subsequent stabilization approximately 2014. T7 through L2 Status post cataract extraction of both eyes with insertion of intraocular lens Family History Family History Mother Family history of malignant neoplasm of breast in first degree relative Father Family history of throat cancer Other Family history of malignant neoplasm of esophagus Social History Social History Social History: Patient has lived at [facility] since approximately March 2023. She has been wheelchair dependent since her most recent hospitalization that occurred at that time. I believe her son stated that he is 1 of 4 children. The patient smoked about a half a pack of cigarettes per day but quit over 40 years ago. She never drink alcohol to excess. Code status: DNR/DNI Patient has a living will in place that states this. Smoking packs per day: 0.5 Smoking cigarettes per day: 10.0 Years smoked: 20 Smoking pack-years: 10.00 Smoking status: Former smoker Tobacco type: cigarettes Second hand tobacco smoke exposure: No Smoking end date: 08/03/82 Alcohol intake: never Substance use: never Substance use type: does not use Living arrangements: longterm Additional living arrangements comments: [facility] [phone] Spiritual care concerns: No Meds Home Medications and Allergies Home Medications Medication Instructions Recorded Confirmed Type donepezil 5 mg tablet 5 mg PO DAILY 07/17/23 11/09/23 History ergocalciferol (vitamin D2) 1,250 See Rx Instructions .Route .COMPLEX 07/17/23 11/09/23 History mcg (50,000 unit) capsule memantine 10 mg tablet 10 mg PO BID 07/17/23 11/09/23 History pantoprazole 40 mg tablet,delayed 40 mg PO DAILY 07/17/23 11/09/23 History release simvastatin 20 mg tablet 20 mg PO DAILY 07/17/23 11/09/23 History magnesium oxide 400 mg (241.3 mg 400 mg PO DAILY 1 month #30 tabs 07/21/23 11/09/23 Rx magnesium) tablet arginine-vitamin C-vitamin E oral 1 g DAILY 11/09/23 11/09/23 History 4.5 gram-156 mg/9.2 gram powder pkt (Arginaid) aspirin 81 mg capsule 81 mg PO DAILY 11/09/23 11/09/23 History cetirizine 10 mg capsule (Zyrtec) 10 mg PO DAILY PRN Congestion 11/09/23 11/09/23 History dextromethorphan-guaifenesin 30 1 tablet PO Q12H PRN Cough 11/09/23 11/09/23 History mg-600 mg tablet extended ozwtgeb07 hr (Mucinex DM) diphenhydramine HCl 25 mg tablet 25 mg PO TID PRN Itching 11/09/23 11/09/23 History levothyroxine 200 mcg tablet 200 mcg DAILY 11/09/23 11/09/23 History levothyroxine 50 mcg tablet 50 mcg DAILY 11/09/23 11/09/23 History polyethylene glycol 3350 17 gram 17 g PO DAILY PRN Constipation 11/09/23 11/09/23 History oral powder packet (Miralax) rivaroxaban 20 mg tablet (Xarelto) 20 mg DAILY 11/09/23 11/09/23 History tizanidine 2 mg tablet 2 mg TID PRN Muscle Spasm 11/09/23 11/09/23 History Allergies Allergy/AdvReac Type Severity Reaction Status Date / Time Penicillins Allergy Unknown Unknown Verified 11/09/23 14:49 nitrofurantoin Allergy Unknown Verified 11/09/23 14:49 Exam Narrative: Sylvie is POA NAD normal breathing Assessment and Plan Assessment and plan (1) Hydronephrosis, right: Code(s): N13.30 - Unspecified hydronephrosis Status: Acute Plan cysto, retrograde, stent change
--- NOTE | ~2023-11-20 | XR_ITS ---
EXAMINATION: XR retrograde pyelo w/stent RT DATE: 11/20/2023 10:52 INDICATION: Right internal ureteral stent placement TECHNIQUE: Fluoroscopic images from a right internal ureteral stent placement are submitted for malorie brownlee 24 seconds of fluoroscopy time. FINDINGS: There is a right double-J internal ureteral stent projecting in expected position, with proximal [place] loop at the level of the renal pelvis and distal loop in the pelvis within the bladder lumen. IMPRESSION: 1. Right internal ureteral stent placement. Please refer to real-time procedural findings for rob ls. Reviewed, dictated and finalized at location B. IMPRESSION: 1. Right internal ureteral stent placement. Please refer to real-time procedu ral findings for details.
--- NOTE | 2023-11-20 04:51 | WPDHPUPDATE1 ---
History and Physical Update Update Date/Time: 11/20/23 04:51 History and Physical has been reviewed, including an updated exam of the patient. There are NO changes in the patient's condition. Risks, benefits, and alternatives have been discussed and questions answered. Patient agrees to proceed with procedure.
[2023-11-20 09:10] VITALS: BP 136/74; PULSE 87; RESP 18; TEMP 37.1; O2SAT 100
--- NOTE | 2023-11-20 09:30 | WPDANESEPPF ---
Anes - Initial Pre Proc Eval Procedure: Operation Date: 11/20/23 10:45 Proposed Procedures p Cystoscopy, Right Retrograde Pyelogram, Right Stent Placement - Michel Smith MD Date/Time: 11/20/23 09:30 Surgeon: Michel Smith MD Pre Op Diagnosis: right hydronephrosis Patient Data Age: 82 Gender: F Height: 1.85 m Weight: 80.7 kg Last Vital Signs Temp 37.1 C 11/20/23 09:10 Pulse 87 11/20/23 09:10 Resp 18 11/20/23 09:10 BP 136/74 11/20/23 09:10 Pulse Ox 100 11/20/23 09:10 O2 Del Method Room Air 11/20/23 09:10 Allergies Allergy/AdvReac Type Severity Reaction Status Date / Time Penicillins Allergy Unknown Unknown Verified 11/09/23 14:49 nitrofurantoin Allergy Unknown Verified 11/09/23 14:49 Home Medications Medication Instructions Recorded Confirmed Type donepezil 5 mg tablet 5 mg PO DAILY 07/17/23 11/09/23 History ergocalciferol (vitamin D2) 1,250 See Rx Instructions .Route .COMPLEX 07/17/23 11/09/23 History mcg (50,000 unit) capsule memantine 10 mg tablet 10 mg PO BID 07/17/23 11/09/23 History pantoprazole 40 mg tablet,delayed 40 mg PO DAILY 07/17/23 11/09/23 History release simvastatin 20 mg tablet 20 mg PO DAILY 07/17/23 11/09/23 History magnesium oxide 400 mg (241.3 mg 400 mg PO DAILY 1 month #30 tabs 07/21/23 11/09/23 Rx magnesium) tablet arginine-vitamin C-vitamin E oral 1 g DAILY 11/09/23 11/09/23 History 4.5 gram-156 mg/9.2 gram powder pkt (Arginaid) aspirin 81 mg capsule 81 mg PO DAILY 11/09/23 11/09/23 History cetirizine 10 mg capsule (Zyrtec) 10 mg PO DAILY PRN Congestion 11/09/23 11/09/23 History dextromethorphan-guaifenesin 30 1 tablet PO Q12H PRN Cough 11/09/23 11/09/23 History mg-600 mg tablet extended hr (Mucinex DM) diphenhydramine HCl 25 mg tablet 25 mg PO TID PRN Itching 11/09/23 11/09/23 History levothyroxine 200 mcg tablet 200 mcg DAILY 11/09/23 11/09/23 History levothyroxine 50 mcg tablet 50 mcg DAILY 11/09/23 11/09/23 History polyethylene glycol 3350 17 gram 17 g PO DAILY PRN Constipation 11/09/23 11/09/23 History oral powder packet (Miralax) rivaroxaban 20 mg tablet (Xarelto) 20 mg DAILY 11/09/23 11/09/23 History tizanidine 2 mg tablet 2 mg TID PRN Muscle Spasm 11/09/23 11/09/23 History Patient hx anesthesia problems: other (slow to awaken) Family hx anesthesia problems: none Results Review: All pre-operative results and documents have been reviewed as part of the pre-operative evaluation. [facility] Past Medical History Medical History Dementia Hypothyroidism Macular degeneration Mixed hyperlipidemia Primary osteoarthritis involving multiple joints Pulmonary emboli (~03/2023) Surgical History Surgical History H/O cervical spine surgery 2018 roughly History of left hip replacement History of spinal surgery Due to osteomyelitis with debridement and subsequent stabilization approximately 2014. T7 through L2 Status post cataract extraction of both eyes with insertion of intraocular lens Family History Family History Mother Family history of malignant neoplasm of breast in first degree relative Father Family history of throat cancer Other Family history of malignant neoplasm of esophagus Social History Social History Social History: Patient has lived at [facility] since approximately March 2023. She has been wheelchair dependent since her most recent hospitalization that occurred at that time. I believe her son stated that he is 1 of 4 children. The patient smoked about a half a pack of cigarettes per day but quit over 40 years ago. She never drink alcohol to excess. Code status: DNR/DNI Patient has a living will in place that states this. Smoking packs per day: 0.5 Smoking cigarettes per day: 10.0 Years smoked: 20 Smoking pack-years: 10.00 Smoking status: Former smoker Tobacco type: cigarettes Second hand tobacco smoke exposure: No Smoking end date: 08/03/82 Alcohol intake: never Substance use: never Substance use type: does not use Living arrangements: [facility] Additional living arrangements comments: [facility] [phone] Spiritual care concerns: No Anes - Eval Final PreProcedure Day of Procedure 11/20/23 09:30 Patient weight: normal Heart: regular rate and rhythm Lungs: decreased breath sounds Airway: Mallampati scale class III Neurological: other (alert) Last oral intake: >/= 8 hours ASA classification: III Emergent: no Anesthetic plan: proceed Anesthesia type and monitoring: general GIVS and standard monitoring Results Review: All pre-operative results and documents have been reviewed as part of the pre-operative evaluation. Informed Consent: The patient's anesthetic plan and its attendant risks and benefits were discussed with the patient/family/POA. Questions were solicited and answers provided to the satisfaction of the patient/family/POA.
[2023-11-20] MEDS: LACTATED RINGERS 1,000 ML 30 ML IV CONT (09:37)
[2023-11-20] MEDS: ceFAZolin 2 GM/D5W 50 ML 2 GM/50 ML BAG IVPB (10:25)
--- NOTE | 2023-11-20 10:51 | P.OP_ITS ---
Procedure Note - Detailed Date of Procedure 11/20/23 Pre-op Diagnosis right hydronephrosis Post-op Diagnosis Same Procedure Performed Cystoscopy, right retrograde pyelogram, right ureteral stent removal. Right ureteral stent replaced Surgeon Michel Smith MD Anesthesia MAC and Local (Uro jet) Findings High insertion ureteropelvic junction obstruction Description of Procedure He has correctly identified. Informed consent obtained. From the operating room. She was given monitored anesthesia care. She was placed in dorsal lithotomy position. She was prepped and draped sterile fashion. Pressure points were secured. Time-out performed. Bladder revealed the stent to be in place. Was mildly encrusted. There was no other bladder abnormalities. I grasped the stent with a grasper. I brought it out through the meatus. I placed a guidewire to the kidney. I put a [place] over the guidewire. I performed retrograde pyelogram. It showed high insertion ureteropelvic junction obstruction. She has significant hydronephrosis. There was no extravasation of contrast. I replaced the guidewire. I placed a 4.8 variable length stent. Proximal coil was in the renal pelvis. Distal coil the bladder. The bladder was drained. Uro jet was applied. She was awakened transferred to PACU in stable condition Implants Ureteral stent Estimated Blood Loss 0 Complications No immediate complications Condition Stable Disposition PACU
[2023-11-20 10:53] VITALS: BP 135/64; PULSE 65; RESP 14; O2SAT 97
[2023-11-20 11:20] VITALS: BP 144/61; PULSE 65; O2SAT 96
[2023-11-20 11:50] VITALS: BP 139/57; PULSE 57; O2SAT 95
[2023-11-20 12:20] VITALS: BP 149/61; PULSE 57; O2SAT 93
== END 2023-11-20 12:29 | disposition home or self-care (01) ==
PROVIDERS: PCP Internal Medicine; Visit Provider Urology
PROC: (CPT 52352; principal; 2023-11-20 10:45)
DX: N13.30 Unspecified hydronephrosis (principal); F03.90 Unspecified dementia, unspecified severity, without behavioral disturbance, psychotic disturbance, mood disturbance, and anxiety; E03.9 Hypothyroidism, unspecified; E78.2 Mixed hyperlipidemia; Z86.711 Personal history of pulmonary embolism; Z79.01 Long term (current) use of anticoagulants; Z87.891 Personal history of nicotine dependence
CPT/HCPCS: 52332; 74420; C1758; C1769; C2617; J0690; J2704; J7120; Q9966

== ENCOUNTER 2024-04-08 00:16 | Day surgery (SDC) | payer MEDICARE, SELFPAY ==
[2024-04-05 09:22] VITALS: BMI 32.5
--- NOTE | 2024-04-05 09:45 | PC.NURSE ---
Report to the Outpatient Waiting Room, entrance under the green pavilion located off [facility], at time _07:45am__ on date 04/08/24 . Planned Procedure Time: ___09:45am .? Time changes happen often and if your time is changed the preop area will call you the afternoon before. - You and your visitor will be asked to self-screen and do not enter if you have any COVID symptoms. Please call surgeon if you need to reschedule. - A mask is optional within the hospital at this time. Patients may have clear liquids (water, carbonated beverages, clear teas, apple juice) until 3 hours prior to surgery with a maximum of 20 ounces. - No food from midnight until time of surgery and no smoking Take only the following medications with a SIP of water on the morning of surgery: _Levothyroxine DO NOT STOP ANY OF YOUR OTHER PRESCRIPTION MEDICATIONS PRIOR TO SURGERY EXCEPT THE FOLLOWING Medications to discontinue per physician ___Pt is to HOLD aspirin, Xarelto, Memantine, and Vitamins 7 days prior to surgery per Dr Smith (Simona, PARESH at [facility].) Date to take last dose__03/28/24___ Please no make-up, nail swedish, hairspray, perfume, deodorant, or body powder the day of surgery.? No jewelry (including any body piercings) or valuables the day of surgery, leave them at home.? Please take a shower or bath the night before, or the morning of, surgery with an antibacterial soap.? Wear comfortable, loose fitting clothing.? Children are encouraged to wear pajamas. - Jewelry must be removed prior to entering the operating room.? Rings and piercings that are not removed may be cut off. - The hospital will not accept responsibility for valuables.? - Please leave all valuables, including medications, at home the day of surgery. If you are going home after surgery, a licensed cattle driver must drive you home.? - NO public transportation without another adult if you receive anesthesia. - We recommend that an adult stay with you for 24 hours following discharge. - We also recommend that you do not drive, make important decision, drink alcoholic beverages, or take any drugs that were not prescribed by your health care provider for at least 24 hours after your discharge time. Follow any additional instructions given to you from your surgeon. Telephone instructions given to _PARESH Jarvis and daughter Tona Sanchez and asked if any additional questions and then verbalized understanding. Patient advised to call surgeon office or pre surgery nurse liaison [phone] if any additional questions.
--- NOTE | 2024-04-06 22:05 | PM.IMHP ---
H&P: HPI History of Present Illness Date/Time: 04/06/24 22:05 Chief Complaint: hydronephrosis Narrative: presents for periodic right stent exchange due to ureteropelvic junction obstruction Review of Systems Review of Systems: All systems reviewed & are unremarkable except as noted in HPI and below PMFSH Past Medical History Medical History Dementia Hypothyroidism Macular degeneration Mixed hyperlipidemia Primary osteoarthritis involving multiple joints Pulmonary emboli (~03/2023) Surgical History Surgical History H/O cervical spine surgery 2018 roughly History of left hip replacement History of spinal surgery Due to osteomyelitis with debridement and subsequent stabilization approximately 2014. T7 through L2 Status post cataract extraction of both eyes with insertion of intraocular lens Family History Family History Mother Family history of malignant neoplasm of breast in first degree relative Father Family history of throat cancer Other Family history of malignant neoplasm of esophagus Social History Social History Social History: Patient has lived at [facility] since approximately March 2023. She has been wheelchair dependent since her most recent hospitalization that occurred at that time. I believe her son stated that he is 1 of 4 children. The patient smoked about a half a pack of cigarettes per day but quit over 40 years ago. She never drink alcohol to excess. Code status: DNR/DNI Patient has a living will in place that states this. Smoking packs per day: 0.5 Smoking cigarettes per day: 10.0 Years smoked: 20 Smoking pack-years: 10.00 Smoking status: Former smoker Tobacco type: cigarettes Second hand tobacco smoke exposure: No Smoking end date: 08/03/82 Alcohol intake: never Substance use: never Substance use type: does not use Living arrangements: assisted Additional living arrangements comments: [facility], Nurse Simona YODER Spiritual care concerns: No Meds Home Medications and Allergies Home Medications Medication Instructions Recorded Confirmed Type donepezil 5 mg tablet 5 mg PO DAILY 07/17/23 04/05/24 History ergocalciferol (vitamin D2) 1,250 See Rx Instructions .Route .COMPLEX 07/17/23 04/05/24 History mcg (50,000 unit) capsule memantine 10 mg tablet 10 mg PO BID 07/17/23 04/05/24 History pantoprazole 40 mg tablet,delayed 40 mg PO DAILY 07/17/23 04/05/24 History release simvastatin 20 mg tablet 20 mg PO DAILY 07/17/23 04/05/24 History magnesium oxide 400 mg (241.3 mg 400 mg PO DAILY 1 month #30 tabs 07/21/23 04/05/24 Rx magnesium) tablet aspirin 81 mg capsule 81 mg PO DAILY 11/09/23 04/05/24 History cetirizine 10 mg capsule (Zyrtec) 10 mg PO DAILY PRN Congestion 11/09/23 04/05/24 History dextromethorphan-guaifenesin 30 1 tablet PO Q12H PRN Cough 11/09/23 04/05/24 History mg-600 mg tablet extended hr (Mucinex DM) diphenhydramine HCl 25 mg tablet 25 mg PO TID PRN Itching 11/09/23 04/05/24 History levothyroxine 200 mcg tablet 200 mcg DAILY 11/09/23 04/05/24 History levothyroxine 50 mcg tablet 50 mcg DAILY 11/09/23 04/05/24 History polyethylene glycol 3350 17 gram 17 g PO DAILY PRN Constipation 11/09/23 04/05/24 History oral powder packet (Miralax) rivaroxaban 20 mg tablet (Xarelto) 20 mg PO DAILY 11/09/23 04/05/24 History tizanidine 2 mg tablet 2 mg TID PRN Muscle Spasm 11/09/23 04/05/24 History liothyronine 5 mcg tablet 5 mcg PO DAILY 04/05/24 04/05/24 History melatonin 1 mg tablet 1 - 2 mg PO HS PRN Insomnia 04/05/24 04/05/24 History Allergies Allergy/AdvReac Type Severity Reaction Status Date / Time Penicillins Allergy Unknown Unknown Verified 04/05/24 08:46 nitrofurantoin All
--- NOTE | ~2024-04-08 | XR_ITS ---
EXAMINATION: XR stent kub - surgery DATE: 04/08/2024 10:21 INDICATION: Right internal ureteral stent exchange TECHNIQUE: Fluoroscopic images from a right internal ureteral stent exchange are submitted for review . 24 seconds of fluoroscopy time. FINDINGS: There is a right double-J internal ureteral stent projecting in expected position, with proximal [place] loop at the level of the renal pelvis and distal loop in the pelvis within the bladder lumen. IMPRESSION: 1. Right internal ureteral stent exchange. Please refer to real-time procedural findings for detail s. Reviewed, dictated and finalized at location B. IMPRESSION: 1. Right internal ureteral stent exchange. Please refer to real-time procedur al findings for details.
--- NOTE | 2024-04-08 07:15 | WPDHPUPDATE1 ---
History and Physical Update Update Date/Time: 04/08/24 07:15 History and Physical has been reviewed, including an updated exam of the patient. There are NO changes in the patient's condition. Risks, benefits, and alternatives have been discussed and questions answered. Patient agrees to proceed with procedure.
--- NOTE | 2024-04-08 08:16 | WPDANESEPPF ---
Anes - Initial Pre Proc Eval Procedure: Operation Date: 04/08/24 09:45 Proposed Procedures p Cystoscopy, Right Stent Exchange - Michel Smith MD Date/Time: 04/08/24 08:16 Surgeon: Michel Smith MD Pre Op Diagnosis: right hydronephrosis Patient Data Age: 83 Gender: F Height: 1.55 m Weight: 78 kg Allergies Allergy/AdvReac Type Severity Reaction Status Date / Time Penicillins Allergy Unknown Unknown Verified 04/08/24 09:33 nitrofurantoin Allergy Unknown Verified 04/08/24 09:33 Home Medications Medication Instructions Recorded Confirmed Type donepezil 5 mg tablet 5 mg PO DAILY 07/17/23 04/05/24 History ergocalciferol (vitamin D2) 1,250 See Rx Instructions .Route .COMPLEX 07/17/23 04/05/24 History mcg (50,000 unit) capsule memantine 10 mg tablet 10 mg PO BID 07/17/23 04/05/24 History pantoprazole 40 mg tablet,delayed 40 mg PO DAILY 07/17/23 04/05/24 History release simvastatin 20 mg tablet 20 mg PO DAILY 07/17/23 04/05/24 History magnesium oxide 400 mg (241.3 mg 400 mg PO DAILY 1 month #30 tabs 07/21/23 04/05/24 Rx magnesium) tablet aspirin 81 mg capsule 81 mg PO DAILY 11/09/23 04/05/24 History cetirizine 10 mg capsule (Zyrtec) 10 mg PO DAILY PRN Congestion 11/09/23 04/05/24 History dextromethorphan-guaifenesin 30 1 tablet PO Q12H PRN Cough 11/09/23 04/05/24 History mg-600 mg tablet extended [id number] hr (Mucinex DM) diphenhydramine HCl 25 mg tablet 25 mg PO TID PRN Itching 11/09/23 04/05/24 History levothyroxine 200 mcg tablet 200 mcg DAILY 11/09/23 04/05/24 History levothyroxine 50 mcg tablet 50 mcg DAILY 11/09/23 04/05/24 History polyethylene glycol 3350 17 gram 17 g PO DAILY PRN Constipation 11/09/23 04/05/24 History oral powder packet (Miralax) rivaroxaban 20 mg tablet (Xarelto) 20 mg PO DAILY 11/09/23 04/05/24 History tizanidine 2 mg tablet 2 mg TID PRN Muscle Spasm 11/09/23 04/05/24 History liothyronine 5 mcg tablet 5 mcg PO DAILY 04/05/24 04/05/24 History melatonin 1 mg tablet 1 - 2 mg PO HS PRN Insomnia 04/05/24 04/05/24 History Lactobacillus acidoph-L. bifid 1 cap PO DAILY 04/08/24 04/08/24 History levofloxacin 500 mg tablet 500 mg PO DAILY 04/08/24 04/08/24 History Patient hx anesthesia problems: none Family hx anesthesia problems: none Results Review: All pre-operative results and documents have been reviewed as part of the pre-operative evaluation. [facility] Past Medical History Medical History (Updated 04/08/24 @ 08:17 by Ruben Chaidez DO) Atrial fibrillation Dementia Hypothyroidism Macular degeneration Mixed hyperlipidemia Primary osteoarthritis involving multiple joints Pulmonary emboli (~03/2023) Sepsis 07/2023 Wheelchair dependence Surgical History Surgical History H/O cervical spine surgery 2018 roughly History of left hip replacement History of spinal surgery Due to osteomyelitis with debridement and subsequent stabilization approximately 2014. T7 through L2 Status post cataract extraction of both eyes with insertion of intraocular lens Family History Family History Mother Family history of malignant neoplasm of breast in first degree relative Father Family history of throat cancer Other Family history of malignant neoplasm of esophagus Social History Social History Social History: Patient has lived at [facility] since approximately March 2023. She has been wheelchair dependent since her most recent hospitalization that occurred at that time. I believe her son stated that he is 1 of 4 children. The patient smoked about a half a pack of cigarettes per day but quit over 40 years ago. She never drink alcohol to excess. Code status: DNR/DNI Patient has a living will in place that states this. Smoking packs per day: 0.5 Smoking cigarettes per day: 1
[2024-04-08 09:49] VITALS: BP 112/93; PULSE 66; RESP 16; TEMP 36.4; O2SAT 98; BMI 36.1
[2024-04-08] MEDS: LACTATED RINGERS 1,000 ML 30 ML IV CONT (09:56)
--- NOTE | 2024-04-08 10:19 | P.OP_ITS ---
Procedure Note - Detailed Date of Procedure 04/08/24 Pre-op Diagnosis right hydronephrosis Post-op Diagnosis Same Procedure Performed Cystoscopy, right retrograde pyelogram, right ureteral stent removal and replacement Surgeon Michel Smith MD Anesthesia MAC Indications This is a with a right ureteropelvic junction obstruction. She is not a candidate for surgery. She is managed with periodic stent exchanges Her urine culture is positive. It was obtained from a hat. He was placed on antibiotics preprocedure. She is asymptomatic. She is colonized or this is a contaminated urine sample. We will proceed with stent exchange Findings Uncomplicated stent exchange Description of Procedure She was correctly identified. Informed consent obtained. She from the operating room. She was given monitored anesthesia care. She was placed in dorsal lithotomy position. She was prepped and draped sterile fashion. A time- out was performed. I examined her bladder. She had some incrustation of the ureteral stent and some debris in her bladder consistent with presence of stent. There was moderate trabeculations. I grasped the stent and brought out the urethral meatus. I attempted to place a wire through the stent but the stent was encrusted. I reperformed cystoscopy. I placed a guidewire next to the stent and into the renal pelvis. The old stent was removed. I loaded the open- ended ureteral catheter over the wire. I performed retrograde pyelogram showing right hydronephrosis and outlining the renal pelvis. I placed a guidewire back into the kidney. I then loaded a new 4.8 variable length stent. Proximal coil in the kidney. Distal coil confirmed to be in the bladder. Bladder was drained. She was awakened transferred to PACU stable condition Pathology None sent Complications No immediate complications Condition Stable Disposition PACU
[2024-04-08 10:20] VITALS: BP 95/64; PULSE 71; RESP 16; O2SAT 100
[2024-04-08 10:50] VITALS: BP 149/70; PULSE 71; RESP 16; O2SAT 100
[2024-04-08 11:20] VITALS: BP 119/67; PULSE 66; RESP 16; O2SAT 100
[2024-04-08 11:50] VITALS: BP 126/66; PULSE 63; RESP 16
== END 2024-04-08 12:20 | disposition home or self-care (01) ==
PROVIDERS: PCP Family Medicine; Visit Provider Urology
PROC: (CPT 52352; principal; 2024-04-08 09:45)
DX: N13.30 Unspecified hydronephrosis (principal); I48.91 Unspecified atrial fibrillation; E78.2 Mixed hyperlipidemia; F03.90 Unspecified dementia, unspecified severity, without behavioral disturbance, psychotic disturbance, mood disturbance, and anxiety; E03.9 Hypothyroidism, unspecified; Z86.711 Personal history of pulmonary embolism; Z99.3 Dependence on wheelchair; Z79.82 Long term (current) use of aspirin; Z79.01 Long term (current) use of anticoagulants; Z87.891 Personal history of nicotine dependence; E66.9 Obesity, unspecified; Z68.36 Body mass index [BMI] 36.0-36.9, adult
CPT/HCPCS: 52332; C1758; C1769; C2617; J2371; J2405; J2704; J7120; Q9966

== ENCOUNTER 2024-09-13 21:35 | Inpatient (IN) | payer MEDICARE, SELFPAY ==
--- NOTE | ~2024-09-13 | CT_ITS ---
History: Altered mental status PROCEDURE: CT head without contrast. COMPARISON: 09/13/2024 TECHNIQUE: Axial imaging of the head performed from the skull base to the vertex without IV contrast. Sagittal a nd coronal reformations obtained. DLP: 757 mGy-cm FINDINGS: The ventricles are age-appropriate in size, shape and position. Decreased attenuation is identified within the periventricular white matter, likely secondary to micr ovascular ischemic disease, in a patient of this age. There is no mass, mass effect or midline shift. There is no abnormal extra-axial fluid collection or intracranial hemorrhage. Visualized paranasal sinuses are clear. The mastoid air cells are well aerated. No acute displaced fractures within the overlying cranium. Impression: Stable CT examination of the head without acute intracranial hemorrhage or suspicious mass effect. Reviewed, dictated and finalized at location A. RONMENTAL SERVICES SUPERVISOR Impression: Stable CT examination of the head without acute intracranial hemorrhage or susp icious mass effect.
--- NOTE | ~2024-09-13 | CT_ITS ---
CLINICAL INDICATION: Altered mental status with failure to thrive COMPARISON: 07/17/2023. TECHNIQUE: An enhanced CT of the abdomen and pelvis was performed utilizing multislice spiral [employer] ue reconstructed at 5 mm slice thickness. Coronal and sagittal reconstructions were performed. This CT examination was performed utilizing dose reduction techniques. DLP: 725 mGy-cm FINDINGS/OBSERVATIONS: Lung: The lungs are clear. The heart is of normal size, without pericardial effusion. Mediastinum: No pathologically enlarged or morphologically suspicious lymph nodes are identified within the spinal , bilateral axilla, within the soft tissues of the anterior chest wall. Soft tissues of the chest: Unremarkable. Bones of the chest: No acute fracture. No lytic or blastic lesions are identified. Anterior fixation of the upper cervical spine. Posterior fixation of the thoracic spine. Liver: The liver enhances homogeneously and is enlarged measuring 19 cm in longitudinal dimension. Gallbladder and biliary system: The gallbladder is only minimally distended, containing layering stones, but otherwise unremarkable. Pancreas: The pancreas enhances homogeneously, without ductal dilatation. Spleen: Kidneys: The proximal pigtail of the right sided double-J stent is coiled within an upper pole calyx of the right kidney with moderate right-sided hydronephrosis. Hyperemia of the lui of the collectin g system is present, consistent with inflammation/infection. The distal margin of the pigtail is present within the bladder . The left kidney is unremarkable, with a stable cyst in the upper pole. Adrenal glands: Unremarkable. Gastrointestinal tract: Small hiatal hernia is present. Trace fecal stasis. Colonic diverticulosis without surrounding inflammation. Appendix: The air-filled appendix is of normal caliber (axial series, images 174 through 193). Vasculature: Calcified atherosclerotic disease is present. No aneurysmal dilatation. Lymph nodes: Scattered nonpathologically enlarged lymph nodes within the root of the mesentery and deep in the pel vis. Pelvic structures: The bladder is minimally distended, as above. In addition, the bladder demonstrates significantly thickened lui with surrounding inflammatory mirlande nge, suggesting cystitis. The uterus is retroverted and retroflexed. Body wall and musculoskeletal: Small fat-containing umbilical hernia. Small fat-containing right inguinal hernia. Severe degenerative disease, with osteophyte formation, disc space narrowing, endplate changes and va cuum phenomena. Fixation hardware within the upper lumbar spine. Significant facet arthropathy is noted. IMPRESSION: Persistent right-sided hydroureteronephrosis despite double-J stent. Enhancement pattern within the right kidney and right ureter suggesting ascending infection, from the bladder which demonstrates thickened lui and surrounding inflammatory change. Remainder of examination is unchanged from prior. Reviewed, dictated and finalized at location A. AVER FLATWARE IMPRESSION: Persistent right-sided hydroureteronephrosis despite double-J stent. Enhancement pattern within the right kidney and right ureter suggesting ascendi ng infection, from the bladder which demonstrates thickened lui and surroundi ng inflammatory change. Remainder of examination is unchanged from prior.
--- NOTE | ~2024-09-13 | XR_ITS ---
CHEST RADIOGRAPH CLINICAL HISTORY: ams, weakness and decreased appetite, recent uti . COMPARISON: 07/17/2023 TECHNIQUE: Single portable view of the chest. FINDINGS Fixation hardware projecting over the thoracolumbar spine. The remainder of the cardiomediastinal silhouette is otherwise unremarkable. Increased interstitial markings are identified bilaterally, findings suggesting mild pulmonary vascul ar congestion. The lungs are otherwise clear Proximal pigtail from right sided nephroureteral stent is visualized. IMPRESSION: Mild pulmonary vascular congestion, without focal infiltrate Reviewed, dictated and finalized at location A. HING NURSE
--- NOTE | ~2024-09-13 | XR_ITS ---
EXAMINATION: XR chest 1V portable DATE: 09/19/2024 11:45 INDICATION: Leukocytosis. TECHNIQUE: A single frontal view of the chest was obtained. COMPARISON: Chest view 09/13/2024, chest CT 09/13/2024 FINDINGS: There is mild atelectasis at left lung base. There is mild scarring at the lung apices. No pleural effusion or pneumothorax. The heart size is normal. There are changes of anterior and posteri or fusion procedures in the spine. IMPRESSION: 1. Mild atelectasis at left lung base and mild scarring at the lung apices. Reviewed, dictated and finalized at location A. R VEHICLE ESCORT DRIVER
--- NOTE | ~2024-09-13 | CT_ITS ---
History: Altered mental status PROCEDURE: CT cervical spine without intravenous contrast. COMPARISON: None TECHNIQUE: Multiple contiguous axial images of the cervical spine were performed without the administration of i ntravenous contrast. DLP: 321 mGy-cm FINDINGS: Anterior fixation hardware at the level of C4, C5 and C6. Marked kyphosis is present. Significant degenerative disease is identified with osteophyte formation, disc space narrowing, facet arthropathy and endplate sclerosis. Biapical scarring is noted. No acute fractures are present. No soft tissue abnormality is present. The airway is patent. Impression: Significant degenerative disease, without acute fracture. Reviewed, dictated and finalized at location A. O VESSEL STEWARDESS Impression: Significant degenerative disease, without acute fracture.
--- NOTE | ~2024-09-13 | CT_ITS ---
History: Altered mental status PROCEDURE: CT head without contrast. COMPARISON: 07/17/2023 TECHNIQUE: Axial imaging of the head performed from the skull base to the vertex without IV contrast. Sagittal a nd coronal reformations obtained. DLP: 757 mGy-cm FINDINGS: The ventricles are age-appropriate in size, shape and position. Decreased attenuation is identified within the periventricular white matter, likely secondary to micr ovascular ischemic disease, in a patient of this age. There is no mass, mass effect or midline shift. There is no abnormal extra-axial fluid collection or intracranial hemorrhage. Visualized paranasal sinuses are clear. The mastoid air cells are well aerated. No acute displaced fractures within the overlying cranium. Impression: No acute intracranial hemorrhage or suspicious mass effect. Reviewed, dictated and finalized at location A. T Impression: No acute intracranial hemorrhage or suspicious mass effect.
[2024-09-13 21:33] VITALS: BP 167/70; PULSE 96; RESP 12; TEMP 36.4; O2SAT 98
--- NOTE | 2024-09-13 21:43 | ECG_ITS ---
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
[2024-09-13 22:12] VITALS: O2SAT 99
[2024-09-13 22:14] VITALS: BP 140/73; PULSE 101; RESP 28
[2024-09-13 22:15] LABS: Basophils Percent Auto 0.3 % (0.2-1.2); Eosinophils Absolute Auto 0.4 K/mm3 (0-0.3); Hematocrit 38.6 % (37.0-47.0); Hemoglobin 12.1 g/dL (12.0-15.0); Immature Granulocyte Absolute 0.06 K/mm3 (0.00-0.031); Immature Granulocyte Percent A 0.6 % (0-0.5); Lymphocytes Absolute Auto 2.76 K/mm3 (0.9-3.2); Lymphocytes Percent Auto 25.9 % (18.3-44.2); Mean Corpuscular HGB Conc 31.3 g/dl (32-36); Mean Corpuscular Hemoglobin 27.2 pg (26-34); Mean Corpuscular Volume 86.7 fl (80-100); Mean Platelet Volume 11.4 fl (7.4-10.4); Neutrophils Absolute Auto 6.4 K/mm3 (1.3-6.7); Neutrophils Percent Auto 60.2 % (45.5-73.1); Platelet Count Result 231 k/mm3 (150-375); Red Blood Count 4.45 M/mm3 (4.2-5.4); White Blood Count 10.7 K/mm3 (4.5-10.0)
[2024-09-13 22:18] LABS: Add Urine Microscopic? YES; Appearance Urine Turbid (Clear); Bacteria Urine 4+ /hpf; Bilirubin Urine Negative (Negative); Blood Urine 3+ (Negative); Color Urine Dark Yellow (Yellow); Glucose Urine UA Negative (Negative); Ketones Urine Trace mg/dL (Negative); Leukocyte Esterase Ur 3+ LEU/UL (Negative); Need Manual Microscopic Reviewed; Nitrate Urine Positive (Negative); Protein Urine 3+ mg/dL (Negative); RBC Urine >100 /hpf (0-2); Specific Grav Ur 1.018 (1.001-1.035); Squamous Epithelial Cell Urine None Seen /hpf (Few); Urobilinogen Urine 0.2 mg/dL (<2.0); WBC Urine >100 /hpf (0-3); pH Urine 6.5 (5.0-9.0)
--- NOTE | 2024-09-13 22:18 | ED.AMS ---
HPI - Altered Mental Status General Chief Complaint: Altered Mental Status Stated Complaint: lethargic Time Seen by Provider: 09/13/24 21:55 Source: family (daughter) Mode of arrival: EMS Limitations: altered mental status, clinical condition and dementia History of Present Illness HPI narrative: Patient presents with report of AMS, being more lethargric. A&O x 0 and bedbound which is baseline. Decreased appetite for 2 weeks. No cough or fever. Daughter states usually pleasantly confused and eats. Has had recurrent UTIs that daughter thinks are not getting better. Lost 30 lbs between Aug 2023 and Aug 2024 and daughter thinks more this month. Wound to right buttock which has drained pus but which now is black ; was supposed to start a new cream for it tonight but not yet. Has had only a few sips of a protein shake today and a bite of a cookie at breakfast but didn't eat lunch or dinner. Sees Dr Smith urology and due for a stent replacement November 04. 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 Related Data Home Medications ?Medication ?Instructions ?Recorded ?Confirmed ?Last Taken ?Type donepezil 5 mg tablet 5 mg PO DAILY 07/17/23 09/13/24 04/08/24 History ergocalciferol (vitamin D2) 1,250 See Rx Instructions .Route .COMPLEX 07/17/23 09/13/24 Unknown History mcg (50,000 unit) capsule memantine 10 mg tablet 10 mg PO BID 07/17/23 09/13/24 04/08/24 History pantoprazole 40 mg tablet,delayed 40 mg PO DAILY 07/17/23 09/13/24 04/08/24 History release simvastatin 20 mg tablet 20 mg PO DAILY 07/17/23 09/13/24 04/08/24 History aspirin 81 mg capsule 81 mg PO DAILY 11/09/23 09/13/24 Unknown History levothyroxine 200 mcg tablet 200 mcg PO DAILY 11/09/23 09/13/24 Unknown History levothyroxine 50 mcg tablet 50 mcg PO DAILY 11/09/23 09/13/24 Unknown History polyethylene glycol 3350 17 gram 17 g PO DAILY PRN Constipation 11/09/23 09/13/24 04/08/24 History oral powder packet (Miralax) rivaroxaban 20 mg tablet (Xarelto) 20 mg PO DAILY 11/09/23 09/13/24 Unknown History tizanidine 2 mg tablet 2 mg PO TID PRN Muscle Spasm 11/09/23 09/13/24 Unknown History Allergies Allergy/AdvReac Type Severity Reaction Status Date / Time Penicillins Allergy Unknown Unknown Verified 09/13/24 22:14 nitrofurantoin Allergy Unknown Verified 09/13/24 22:14 [facility] Past Medical History Medical History Chronic pulmonary embolism Cognitive communication deficit Other abnormalities of gait and mobility Muscle weakness (generalized) Unspecified hydronephrosis Wheelchair dependence Sepsis 07/2023 Atrial fibrillation Macular degeneration Pulmonary emboli (~03/2023) Hypothyroidism Dementia Primary osteoarthritis involving multiple joints Mixed hyperlipidemia Surgical History Surgical History History of spinal surgery Due to osteomyelitis with debridement and subsequent stabilization approximately 2014. T7 through L2 H/O cervical spine surgery 2018 roughly Status post cataract extraction of both eyes with insertion of intraocular lens History of left hip replacement Family History Family History Mother Family history of malignant neoplasm of breast in first degree relative Father Family history of throat cancer Other Family history of malignant neoplasm of esophagus Social History Social History (Updated 09/15/24 @ 21:04 by Raeann Vasquez MD) Social History: Wheelchair dependent/bed bound. I believe her son stated that he is 1 of 4 children; also has a daughter. The patient smoked about a half a pack of cigarettes per day but quit over 40 years ago. She never drink alcohol to excess. Code status: DNR/DNI Patient has a living will in place that states this. (POLST signed 08/13/23) Smoking packs per day: 0.5 Smoking cigarettes per day: 10.0 Years smoked: 20 Smoking pack-years: 10.00 Smoking status: Never smoker Tobacco type: cigarettes Second hand tobacco smoke exposure: No Smoking end date: 08/03/82 Alcohol intake: never Substance use: never Substance use type: does not use Do You Feel Safe in your Home?: No Lack of Transportation: No Lack of Food: Never True Current Housing: I Have Housing Concerned About Future Housing: No Difficulty Paying Gas/Electric Bills: No Difficulty Paying for Meds: No Currently Unemployed: No Education: High School Diploma/GED Difficulty w/ Childcare or Family Care: No Living arrangements: halfway Additional living arrangements comments: [facility], Nurse Simona YODER Spiritual care concerns: No Exam Narrative: GENERAL: well-nourished, and in no acute distress. Appears chronically unwell. HEAD: Normocephalic, atraumatic. ENT: Nares clear, no rhinorrhea or epistaxis. Dry mucous membranes. NECK: Supple. CHEST: No respiratory distress. Shallow breaths but appropriate rate. Protecting airway. HEART: Regular rate and rhythm. . ABDOMEN: Soft, nondistended. Non tender EXTREMITIES: No lower extremity edema. SKIN: Warm, dry. 4x4 wound on right buttock ; central black/darkened area, stage 2 but no surrounding cellulitis/appreciable abscess/not fluctuant NEURO: Arouses to deep painful stimuli Course Vital Signs Vital signs: Vital Signs Temperature 97.6 F 09/13/24 21:33 Pulse Rate 96 09/13/24 21:33 Respiratory Rate 12 09/13/24 21:33 Blood Pressure 167/70 H 09/13/24 21:33 Pulse Oximetry 98 09/13/24 21:33 Oxygen Delivery Room Air 09/13/24 21:33 Temperature 96.7 F L 09/15/24 14:00 Pulse Rate 94 09/15/24 14:00 Respiratory Rate 16 09/15/24 14:00 Blood Pressure 108/48 L 09/15/24 14:00 Pulse Oximetry 97 09/15/24 14:00 Oxygen Delivery Room Air 09/15/24 08:00 MDM - Altered Mental Status MDM Narrative Medical decision making narrative: Patient presents with report of altered mental status per daughter. A&O x0 which is baseline but reportedly usually pleasant and eats, now lethargic and with decreased PO intake. 30lb weight loss Aug 2023 - Aug 2024 which belief of even more in past month. In the emergency department she is afebrile with vital signs notable for hypertension. Patient has an elevated lactic acid, 1 L fluid bolus initially ordered. Patient has evidence of urinary tract infection. Previous urine culture from July 2023 is reviewed which grew Klebsiella pneumoniae which required blood culture sensitivities as follows: PanSensitive to all antibiotics initiated. Will give ceftriaxone. She has leukocytosis. Will give another L of fluid as patient has acute kidney injury. ===- Given patient's dementia, recommend continuing conversation of goals of care to establish values and wishes as discuss further treatments and interventions. Of note, Medicare guidelines for hospice eligibility for patients with dementia are as follows: Patient will be considered to be in the terminal stage (life expectancy of 6 months or less) if they meet ALL of the following criteria: 1. Inability to walk AND 2. One or more of the following conditions in the past 12 months: aspiration pneumonia, pyelonephritis septicemia, multiple pressure ulcers (stage 3-4), recurrent fever, or other significant condition that suggests a limited prognosis, and/or inability to maintain sufficient fluid and calorie intake in the past 6 months (10% weight loss or albumin <2.5gm/dL). A palliative care consult might be appropriate. == Rest of work up generally unremarkable except for evidence of infection. Some acute on chronic findings when compared to previous. Consulted urology to notify them of patient. Patient admitted to the hospitalist after discussion, Dr Conde. Differential Diagnosis Differential diagnosis: Likely altered mental status, delirium, dementia, hypoglycemia, hyponatremia, subarachnoid hemorrhage, sepsis and other (acute viral syndrome; failure to thrive) Lab Data 09/14/24 09:18 09/14/24 07:47 Labs: Lab Results 09/13/24 09/13/24 09/14/24 Range/Units 21:51 22:09 01:47 WBC 10.7 H (4.5-10.0) K/mm3 RBC 4.45 (4.2-5.4) M/mm3 Hgb 12.1 (12.0-15.0) g/dL Hct 38.6 (37.0-47.0) % MCV 86.7 (80-100) fl MCH 27.2 (26-34) pg MCHC 31.3 L (32-36) g/dl RDW 20.0 H (11.5-14.5) % Plt Count 231 D (150-375) k/mm3 MPV 11.4 H (7.4-10.4) fl Immature Gran % (Auto) 0.6 H (0-0.5) % Neut % (Auto) 60.2 (45.5-73.1) % Lymph % (Auto) 25.9 (18.3-44.2) % Marinette % (Auto) 9.0 H (2.6-8.5) % Eos % (Auto) 4.0 (0-4.4) % Baso % (Auto) 0.3 (0.2-1.2) % Lymph # (Auto) 2.76 (0.9-3.2) K/mm3 Marinette # (Auto) 1.0 H (0.1-0.6) K/mm3 Eos # (Auto) 0.4 H (0-0.3) K/mm3 Baso # (Auto) 0.0 (0.0-0.1) K/mm3 Abs Immat Gran (auto) 0.06 H (0.00-0.031) K/mm3 Absolute Neuts (auto) 6.4 (1.3-6.7) K/mm3 Absolute Nucleated RBC 0.000 (0.0-0.012) K/mm3 Nucleated RBC % 0.0 (0.0-0.2) % Platelet Estimate Adequate (Adequate) Large Platelets Hypochromasia 1+ Anisocytosis Ovalocytes 1+ Schistocytes None seen PT 14.9 H (11.1-14.7) Seconds INR 1.1 APTT 37.0 H (22.3-36.8) Seconds Sodium 139 (137-145) mmol/L Potassium 4.2 (3.4-5.0) mmol/L Chloride 104 (98-107) mmol/L Carbon Dioxide 24 (22-30) mmol/L Anion Gap 11 (4-12) mmol/L BUN 24 H D (7-17) mg/dL Creatinine 1.27 H (0.7-1.0) mg/dL Estim Creat Clear Calc Not Reportable Estimated GFR 40 L (59 - ) Glucose 99 (65-110) mg/dL POC Capillary Glucose (65-105) mg/dl Lactic Acid 2.3 H 1.3 (0.7-2.0) mmol/L Calcium 9.8 (8.4-10.2) mg/dL Magnesium 2.1 (1.6-2.3) mg/dL Total Bilirubin 0.6 (0.2-1.3) mg/dL AST 18 (14-36) U/L ALT 12 (6-35) U/L Alkaline Phosphatase 110 (38-126) U/L Ammonia < 9 L (9-30) umol/L Total Creatine Kinase 39 (30-135) U/L Troponin I < 0.012 (0.000-0.034) ng/mL NT-Pro-B Natriuret Pep 477 H (19.9-100) pg/mL Total Protein 7.0 (6.3-8.2) g/dL Albumin 3.4 L (3.5-5.1) g/dL TSH 3.330 (0.465-4.680) uIU/mL Urine Color Dark yellow (Yellow) Urine Appearance Turbid H (Clear) Urine pH 6.5 (5.0-9.0) Ur Specific Misenheimer 1.018 (1.001-1.035) Urine Protein 3+ H (Negative) mg/dL Urine Glucose (UA) Negative (Negative) mg/dL Urine Ketones Trace H (Negative) mg/dL Ur Blood (Man) 3+ H (Negative) Urine Nitrate Positive H (Negative) Urine Bilirubin Negative (Negative) Urine Urobilinogen 0.2 (<2.0) mg/dL Add Ur Microanalysis Reviewed Leukocyte Esterase Rfl 3+ H (Negative) ELVER/UL Urine RBC >100 H (0-2) /hpf Urine WBC >100 H (0-3) /hpf Ur Squamous Epith Cells None seen (Few) /hpf Urine Bacteria 4+ H /hpf Urine Casts 11-20 Ur Random Sodium 88 meq/L Urine Creatinine 117.2 mg/dL Salicylates < 1.0 L (2-20) mg/dL Urine Opiates Screen Negative (Negative) Urine Methadone Screen Negative (Negative) Acetaminophen < 10 L (10-30) ug/mL Ur Barbiturates Screen Negative (Negative) Ur Phencyclidine Scrn Negative (Negative) Ur Amphetamine Screen Negative (Negative) U Benzodiazepines Scrn Negative (Negative) Urine Cocaine Screen Negative (Negative) U Cannabinoids Screen Negative (Negative) Ethyl Alcohol < 10 (<10) mg/dL Influenza A (RT-PCR) Negative (Negative) Influenza B (RT-PCR) Negative (Negative) RSV (RT-PCR) Negative (Negative) SARS-CoV-2 RNA (RT-PCR) Negative (Negative) 09/14/24 09/14/2425 Range/Units 07:47 08:40 09:18 WBC 10.6 H (4.5-10.0) K/mm3 RBC 4.39 (4.2-5.4) M/mm3 Hgb 11.9 L (12.0-15.0) g/dL Hct 38.5 (37.0-47.0) % MCV 87.7 (80-100) fl MCH 27.1 (26-34) pg MCHC 30.9 L (32-36) g/dl RDW 20.0 H (11.5-14.5) % Plt Count 225 (150-375) k/mm3 MPV 12.0 H (7.4-10.4) fl Immature Gran % (Auto) 0.5 (0-0.5) % Neut % (Auto) 74.2 H (45.5-73.1) % Lymph % (Auto) 14.2 L (18.3-44.2) % Marinette % (Auto) 7.6 (2.6-8.5) % Eos % (Auto) 3.1 (0-4.4) % Baso % (Auto) 0.4 (0.2-1.2) % Lymph # (Auto) 1.51 (0.9-3.2) K/mm3 [place] # (Auto) 0.8 H (0.1-0.6) K/mm3 Eos # (Auto) 0.3 (0-0.3) K/mm3 Baso # (Auto) 0.0 (0.0-0.1) K/mm3 Abs Immat Gran (auto) 0.05 H (0.00-0.031) K/mm3 Absolute Neuts (auto) 7.9 H (1.3-6.7) K/mm3 Absolute Nucleated RBC 0.000 (0.0-0.012) K/mm3 Nucleated RBC % 0.0 (0.0-0.2) % Platelet Estimate Adequate (Adequate) Large Platelets Present Hypochromasia Anisocytosis 2+ Ovalocytes Schistocytes None seen PT (11.1-14.7) Seconds INR APTT (22.3-36.8) Seconds Sodium 133 L (137-145) mmol/L Potassium 3.9 (3.4-5.0) mmol/L Chloride 107 (98-107) mmol/L Carbon Dioxide 17 L (22-30) mmol/L Anion Gap 9 (4-12) mmol/L BUN 12 D (7-17) mg/dL Creatinine 0.55 L (0.7-1.0) mg/dL Estim Creat Clear Calc 54 Estimated GFR > 60 (59 - ) Glucose 56 L* (65-110) mg/dL POC Capillary Glucose 83 (65-105) mg/dl Lactic Acid (0.7-2.0) mmol/L Calcium 7.6 L (8.4-10.2) mg/dL Magnesium 1.2 L (1.6-2.3) mg/dL Total Bilirubin (0.2-1.3) mg/dL AST (14-36) U/L ALT (6-35) U/L Alkaline Phosphatase (38-126) U/L Ammonia (9-30) umol/L Total Creatine Kinase (30-135) U/L Troponin I (0.000-0.034) ng/mL NT-Pro-B Natriuret Pep (19.9-100) pg/mL Total Protein (6.3-8.2) g/dL Albumin (3.5-5.1) g/dL TSH (0.465-4.680) uIU/mL Urine Color (Yellow) Urine Appearance (Clear) Urine pH (5.0-9.0) Ur Specific Misenheimer (1.001-1.035) Urine Protein (Negative) mg/dL Urine Glucose (UA) (Negative) mg/dL Urine Ketones (Negative) mg/dL Ur Blood (Man) (Negative) Urine Nitrate (Negative) Urine Bilirubin (Negative) Urine Urobilinogen (<2.0) mg/dL Add Ur Microanalysis Leukocyte Esterase Rfl (Negative) ELVER/UL Urine RBC (0-2) /hpf Urine WBC (0-3) /hpf Ur Squamous Epith Cells (Few) /hpf Urine Bacteria /hpf Urine Casts Ur Random Sodium meq/L Urine Creatinine mg/dL Salicylates (2-20) mg/dL Urine Opiates Screen (Negative) Urine Methadone Screen (Negative) Acetaminophen (10-30) ug/mL Ur Barbiturates Screen (Negative) Ur Phencyclidine Scrn (Negative) Ur Amphetamine Screen (Negative) U Benzodiazepines Scrn (Negative) Urine Cocaine Screen (Negative) U Cannabinoids Screen (Negative) Ethyl Alcohol (<10) mg/dL Influenza A (RT-PCR) (Negative) Influenza B (RT-PCR) (Negative) RSV (RT-PCR) (Negative) SARS-CoV-2 RNA (RT-PCR) (Negative) Imaging Data Radiologist's impression: Impression: No acute intracranial hemorrhage or suspicious mass effect. Impression: Significant degenerative disease, without acute fracture. Persistent right-sided hydroureteronephrosis despite double-J stent. Enhancement pattern within the right kidney and right ureter suggesting ascending infection, from the bladder which demonstrates thickened lui and surrounding inflammatory change. Remainder of examination is unchanged from prior. ECG Data EKG #1: Attestation: I personally reviewed and interpreted this ECG as follows: ECG completion date: 09/13/24 ECG completion time: 21:47 Prior ECG tracings: available for review Interpretation: Normal sinus rhythm at a rate of 92 beats per minute. NM interval 167. QRS 94. QT/QTC 368/417. Poor R-wave progression across the precordial leads. No T-wave inversions, only flattening in lead 3 but contiguous upright T-waves. Discharge Plan Discharge Clinical Impression: Leukocytosis, RAZ (acute kidney injury), Failure to thrive in adult, Degenerative disc disease, cervical, Pyelonephritis, UTI (urinary tract infection) Patient Disposition: Still a Patient Condition: Stable
--- OUTSIDE RECORDS SUMMARY | 2024-09-13 22:19 | XMS_ITS | Encounter Summary ---
Author Organization [facility] Address [address] [place] [address] Phone Care Team Providers Care Picker And Packer Name Role Phone Rusty Jacques MD Primary Care Provider [phone] Thalia Eastman RN Unavailable [phone] Xenia Garcia RN Unavailable [phone] Encounter Details Date Type Department Care Team (Late st Contact Info) Description 08/04/2017 Orders Only [facility] ProviderKate MD [address] [place] [id number] Social History Tobacco Use Types Packs/Day Years Used Date Smoking Tobacco: Former Smokeless Tobacco: Never Comments:Quit 36 years ago Alcohol Use Standard Drinks/Week Comments Yes 0 (1 standard drink = 0.6 oz pur e alcohol) Comments Unknown Sex and Gender Information Value Date Recorded Sex Assigned at Not on file Legal Sex Female 8:38 AM MORTGAGE LENDER Gender Identity Not on file Sexual Orientation Not on file documented as of this encounter Plan of Treatment Not on file documented as of this encounter Procedures Procedure Name Priority Date/Time Associated Diagnosis Comments DISCHARGE LABORATORY CUMULATIVE REPORT 08/04/2017 12:00 AM MORTGAGE LENDER documented in this encounter Results * DISCHARGE LABORATORY CUMULATIVE REPORT (08/04/2017 12:00 AM MORTGAGE LENDER) Narrative 08/04/2017 12:00 AM MORTGAGE LENDER Ordered by an unspecified provider. us Historical Provider LAB BLOOD ORDERABLES Nat l Result documented in this encounter Visit Diagnoses Not on filedocumented in this encounter Care Teams Picker And Packer Relationship Specialty Start Date End Date Rusty Jacques MD [address] [place] [address] PCP - General 08/25/16 Thalia Eastman RN [address] [facility] [address] [place] [address] Bellows Charger Assembler 07/30/17 08/31/17 Xenia Garcia RN [address] [place], [place] [id number] Bellows Charger Assembler 03/18/23 04/22/23 documented as of this encounter
--- OUTSIDE RECORDS SUMMARY | 2024-09-13 22:19 | XMS_ITS | Encounter Summary ---
Author Organization [facility] Address [address] [place] [address] Phone Care Team Providers Care China And Silverware Salesperson Name Role Phone Rusty Jacques MD Primary Care Provider [phone] Thalia Eastman RN Unavailable [phone] Xenia Garcia RN Unavailable [phone] Encounter Details Date Type Department Care Team (Late st Contact Info) Description 08/11/2017 Orders Only [facility] ProviderKate MD [address] [place] [address] Social History Tobacco Use Types Packs/Day Years Used Date Smoking Tobacco: Former Smokeless Tobacco: Never Comments:Quit 36 years ago Alcohol Use Standard Drinks/Week Comments Yes 0 (1 standard drink = 0.6 oz pur e alcohol) Comments Unknown Sex and Gender Information Value Date Recorded Sex Assigned at Not on file Legal Sex Female 8:38 AM TIE SAWYER Gender Identity Not on file Sexual Orientation Not on file documented as of this encounter Plan of Treatment Not on file documented as of this encounter Procedures Procedure Name Priority Date/Time Associated Diagnosis Comments DISCHARGE LABORATORY CUMULATIVE REPORT 08/11/2017 12:00 AM TIE SAWYER documented in this encounter Results * DISCHARGE LABORATORY CUMULATIVE REPORT (08/11/2017 12:00 AM TIE SAWYER) Narrative 08/11/2017 12:00 AM TIE SAWYER Ordered by an unspecified provider. us Historical Provider LAB BLOOD ORDERABLES Nat l Result documented in this encounter Visit Diagnoses Not on filedocumented in this encounter Care Teams China And Silverware Salesperson Relationship Specialty Start Date End Date Rusty Jacques MD [address] [place] [address] PCP - General 08/25/16 Thalia Eastman RN [address] [facility] [address] [place] [address] Billboard Erector Helper 07/30/17 08/31/17 Xenia Garcia RN [address] [place], [place] [id number] Billboard Erector Helper 03/18/23 04/22/23 documented as of this encounter
--- OUTSIDE RECORDS SUMMARY | 2024-09-13 22:19 | XMS_ITS | Encounter Summary ---
Author Organization [facility] Address [address] [place] [address] Phone Care Team Providers Care Plastic Boat Buffer Name Role Phone Rusty Jacques MD Primary Care Provider [phone] Thalia Eastman RN Unavailable [phone] Xenia Garcia RN Unavailable [phone] Encounter Details Date Type Department Care Team (Late st Contact Info) Description 08/19/2017 Orders Only [facility] ProviderKate MD [address] [place] [address] Social History Tobacco Use Types Packs/Day Years Used Date Smoking Tobacco: Former Smokeless Tobacco: Never Comments:Quit 36 years ago Alcohol Use Standard Drinks/Week Comments Yes 0 (1 standard drink = 0.6 oz pur e alcohol) Comments Unknown Sex and Gender Information Value Date Recorded Sex Assigned at Not on file Legal Sex Female 8:38 AM PETROLEUM PRODUCTS SALES REPRESENTATIVE Gender Identity Not on file Sexual Orientation Not on file documented as of this encounter Plan of Treatment Not on file documented as of this encounter Procedures Procedure Name Priority Date/Time Associated Diagnosis Comments DISCHARGE LABORATORY CUMULATIVE REPORT 08/19/2017 12:00 AM PETROLEUM PRODUCTS SALES REPRESENTATIVE documented in this encounter Results * DISCHARGE LABORATORY CUMULATIVE REPORT (08/19/2017 12:00 AM PETROLEUM PRODUCTS SALES REPRESENTATIVE) Narrative 08/19/2017 12:00 AM PETROLEUM [employer]ODU[employer] SALES REPRESENTATIVE Ordered by an unspecified provider. us Historical Provider LAB BLOOD ORDERABLES Nat l Result documented in this encounter Visit Diagnoses Not on filedocumented in this encounter Care Teams Plastic Boat Buffer Relationship Specialty Start Date End Date Rusty Jacques MD [address] [place] [address] PCP - General 08/25/16 Thalia Eastman RN [address] [facility] [address] [place] [address] Horse Race Timer 07/30/17 08/31/17 Xenia Garcia RN [address] [place], [place] [id number] Horse Race Timer 03/18/23 04/22/23 documented as of this encounter
--- OUTSIDE RECORDS SUMMARY | 2024-09-13 22:19 | XMS_ITS | Encounter Summary ---
Author Organization [facility] Address [address] [place] [address] Care Team Providers Care Marble Polisher Name Role Phone Sage Steele MD Primary Care Provider [phone] Encounter Details Date Type Department Care Team (Late st Contact Info) Description 09/12/2024 Orders Only [facility] [address] [place], [place] [id number] Sage Steele MD [address] [place] [address] Social History Tobacco Use Types Packs/Day Years Used Date Smoking Tobacco: Never Assessed Comments Unknown Sex and Gender Information Value Date Recorded Sex Assigned at Not on file Legal Sex Female 2:17 PM CDT Gender Identity Not on file Sexual Orientation Not on file documented as of this encounter Plan of Treatment Not on file documented as of this encounter Results * (ABNORMAL) CBC W/DIFF AUTOMATED (09/12/2024 3:00 PM ACTIVITIES VOLUNTEER) WBC 11.67(H) 4.4 - 11.0 x10'3/uL 09/12/2024 6:50 PM ACTIVITIES VOLUNTEER [facility] RBC 5.26(H) 4.50 - 5.10 x10'6/uL 09/12/2024 6:50 PM ACTIVITIES VOLUNTEER [facility] HGB 14.1 12.3 - 15.3 G/DL 09/12/2024 6:50 PM ACTIVITIES VOLUNTEER [facility] HCT 45.8(H) 35.9 - 44.6 % 09/12/2024 6:50 PM [facility] MCV 87.1 80.0 - 96.0 FL 09/12/2024 6:50 PM [facility] MCH 26.8 25.3 - 30.9 PG 09/12/2024 6:50 PM [facility] MCHC 30.8(L) 31.0 - 34.1 G/DL 09/12/2024 6:50 PM [facility] RDW 21.2(H) 12.4 - 15.1 % 09/12/2024 6:50 PM [facility] PLT 307 151 - 353 x10'3/uL 09/12/2024 6:50 PM [facility] MPV 12.7(H) 9.6 - 12.0 FL 09/12/2024 6:50 PM [facility] RBC MORPHOLOGY NORMAL 09/12/2024 6:50 PM [facility] PLT MORPH. NORMAL 09/12/2024 6:50 PM [facility] WBC MORPHOLOGY NORMAL 09/12/2024 6:50 PM [facility] LYMPHOCYTES % 14.4(L) 15.8 - 45.0 % 09/12/2024 6:50 PM [facility] NEUTROPHILS % 77.3(H) 42.1 - 71.9 % 09/12/2024 6:50 PM [facility] MONOCYTES % 6.2 5.7 - 12.5 % 09/12/2024 6:50 PM [facility] EOSINOPHILS 1.1 0.0 - 5.6 % 09/12/2024 6:50 PM [facility] BASOPHILS 0.3 0.0 - 1.3 % 09/12/2024 6:50 PM [facility] ABS. NEUTROPHILS 9.03(H) 1.40 - 6.00 x10'3/uL 09/12/2024 6:50 PM [facility] IMMATURE GRANS % 0.7(H) 0.0 - 0.5 % 09/12/2024 6:50 PM [facility] ABS. LYMPHOCYTES 1.68 0.80 - 4.70 x10'3/uL 09/12/2024 6:50 PM [facility] 09/12/2024 3:00 PM ACTIVITIES VOLUNTEER Sagedaysi Steele MD LABORATORY Final Result [facility] [address] [place] [address], * (ABNORMAL) BASIC METABOLIC PANEL (09/12/2024 3:00 PM ACTIVITIES VOLUNTEER) Pathologist [facility] GLUCOSE 103(H) 70 - 99 MG/DL 09/12/2024 6:47 PM [facility] BUN 23(H) 7 - 18 MG/DL 09/12/2024 6:47 PM [facility] CREATININE S/P/B 1.34(H) 0.55 - 1.02 MG/DL 09/12/2024 6:47 PM [facility] SODIUM S/P/B 137 136 - 145 MMOL/L 09/12/2024 6:47 PM [facility] POTASSIUM S/P/B 5.0 3.5 - 5.1 MMOL/L 09/12/2024 6:47 PM [facility] CHLORIDE S/P/B 100 100 - 108 MMOL/L 09/12/2024 6:47 PM [facility] CO2 19.7(L) 21 - 32 MMOL/L 09/12/2024 6:47 PM [facility] CALCIUM S/P/B 9.8 8.5 - 10.1 MG/DL 09/12/2024 6:47 PM [facility] ANION GAP 17.3(H) 5 - 15 MMOL/L 09/12/2024 6:47 PM [facility] BUN CREATININE RATIO 17.2 6 - 26 09/12/2024 6:47 PM [facility] GFR ESTIMATE 39(L) >90 ML/MIN/1.7 3 M2 09/12/2024 6:47 PM [facility] Comment: NOTE: eGFR is not calculated for patients <18 years of age. This is an estimated GFR calculation using the new CKD EPI creatinine equation without race and so does not require a correction factor for race. This estimated GFR should not be used for calculating drug doses. 09/12/2024 3:00 PM ACTIVITIES VOLUNTEER us Sage Steele MD LABORATORY Final Result [facility] [address] [place] [address], documented in this encounter Visit Diagnoses Diagnosis Unstageable decubitus ulcer ([facility])- Primary Pressure ulcer, unspecified site documented in this encounter Additional Health Concerns Infection Onset Date Last Indicated Resolved Time ESBL - Extended Spectrum Bet a-lactamase Comment:02/12/24 Urine (RR) 03/01/24 Urine (RR) 03/15/24 Urine (RR) 03/25/24 urine (MANUELITO) 04/03/24 Urine (RR) 07/01/24 urine (MANUELITO) 08/01/24 Urine (RR). 08/15/24 urine (MANUELITO) 02/12/2024 08/15/2024 documented as of this encounter Care Teams Marble Polisher Relationship Specialty Start Date End Date Sage Steele MD [address] [place], [place] [id number] PCP - General FAMILY PRACTICE 10/02/23 documented as of this encounter
--- OUTSIDE RECORDS SUMMARY | 2024-09-13 22:19 | XMS_ITS | Encounter Summary ---
Author Organization [facility] Address [address] [place] [address] Care Team Providers Care Energy Efficiency Specialist Name Role Phone Sage Steele MD Primary Care Provider [phone] Encounter Details Date Type Department Care Team (Late st Contact Info) Description 09/12/2024 6:33 PM NEEDLE STRAIGHTENER Hospital Encounter [facility] [address] [place], [place] [phone] Sage Steele MD [address] [place] [address] Social History Tobacco Use Types [...] Procedure Name Priority Date/Time Associated Diagnosis Comments BASIC METABOLIC PANEL Routine 09/12/2024 3:00 PM NEEDLE STRAIGHTENER Unstageable decubitus ulcer ([facility]HCC) CBC W/DIFF AUTOMATED Routine 09/12/2024 3:00 PM NEEDLE STRAIGHTENER Unstageable decubitus ulcer ([facility] HHS/HCC) documented in this encounter Results * (ABNORMAL) BASIC METABOLIC PANEL (09/12/2024 3:00 PM NEEDLE STRAIGHTENER) GLUCOSE 103(H) 70 - 99 MG/DL 09/12/2024 6:47 PM NEEDLE STRAIGHTENER [facility] BUN 23(H) 7 - 18 MG/DL 09/12/2024 6:47 PM [facility] CREATININE S/P/B 1.34(H) 0.55 - 1.02 MG/DL 09/12/2024 6:47 PM [facility] SODIUM S/P/B 137 136 - 145 MMOL/L 09/12/2024 6:47 PM [facility] POTASSIUM S/P/B 5.0 3.5 - 5.1 MMOL/L 09/12/2024 6:47 PM [facility] CHLORIDE S/P/B 100 100 - 108 MMOL/L 09/12/2024 6:47 PM [facility] CO2 19.7(L) 21 - 32 MMOL/L 09/12/2024 6:47 PM [facility] CALCIUM S/P/B 9.8 8.5 - 10.1 MG/DL 09/12/2024 6:47 PM [facility] ANION GAP 17.3(H) 5 - 15 MMOL/L 09/12/2024 6:47 PM [facility] BUN CREATININE RATIO 17.2 6 - 26 09/12/2024 6:47 PM [facility] GFR ESTIMATE 39(L) >90 ML/MIN/1.7 3 M2 09/12/2024 6:47 PM [facility] Comment: NOTE: eGFR is not calculated for patients <18 years of age. This is an estimated GFR calculation using the new CKD EPI creatinine equation without race and so does not require a correction factor for race. This estimated GFR should not be used for calculating drug doses. 09/12/2024 3:00 PM NEEDLE STRAIGHTENER us Sagedaysi Steele MD LABORATORY Final Result [facility] [address] [place] [address], * (ABNORMAL) CBC W/DIFF AUTOMATED (09/12/2024 3:00 PM NEEDLE STRAIGHTENER) [facility] WBC 11.67(H) 4.4 - 11.0 x10'3/uL 09/12/2024 6:50 PM [facility] RBC 5.26(H) 4.50 - 5.10 x10'6/uL 09/12/2024 6:50 PM [facility] HGB 14.1 12.3 - 15.3 G/DL 09/12/2024 6:50 PM [facility] HCT 45.8(H) 35.9 - 44.6 % 09/12/2024 6:50 PM [facility] MCV 87.1 80.0 - 96.0 FL 09/12/2024 6:50 PM [facility] MCH 26.8 25.3 - 30.9 PG 09/12/2024 6:50 PM [facility] MCHC 30.8(L) 31.0 - 34.1 G/DL 09/12/2024 6:50 PM [facility] RDW 21.2(H) 12.4 - 15.1 % 09/12/2024 6:50 PM [facility] PLT 307 151 - 353 x10'3/uL 09/12/2024 6:50 PM [facility] MPV 12.7(H) 9.6 - 12.0 FL 09/12/2024 6:50 PM [facility] RBC MORPHOLOGY NORMAL 09/12/2024 6:50 PM [facility] PLT MORPH. NORMAL 09/12/2024 6:50 PM [facility] WBC MORPHOLOGY NORMAL 09/12/2024 6:50 PM NEEDLE STRAIGHTENER [facility] LYMPHOCYTES % 14.4(L) 15.8 - 45.0 % 09/12/2024 6:50 PM [facility] NEUTROPHILS % 77.3(H) 42.1 - 71.9 % 09/12/2024 6:50 PM [facility] MONOCYTES % 6.2 5.7 - 12.5 % 09/12/2024 6:50 PM [facility] EOSINOPHILS 1.1 0.0 - 5.6 % 09/12/2024 6:50 PM [facility] BASOPHILS 0.3 0.0 - 1.3 % 09/12/2024 6:50 PM [facility] ABS. NEUTROPHILS 9.03(H) 1.40 - 6.00 x10'3/uL 09/12/2024 6:50 PM [facility] IMMATURE GRANS % 0.7(H) 0.0 - 0.5 % 09/12/2024 6:50 PM [facility] ABS. LYMPHOCYTES 1.68 0.80 - 4.70 x10'3/uL 09/12/2024 6:50 PM [facility] 09/12/2024 3:00 PM NEEDLE STRAIGHTENER us Sagedaysi Steele MD LABORATORY Final Result [facility] [address] [place] [address], documented in this encounter Visit Diagnoses Diagnosis Unstageable decubitus ulcer (CMS/HCC HHS/HCC) Pressure ulcer, unspecified site documented in this encounter Additional Health Concerns Infection Onset Date Last Indicated Resolved Time ESBL - Extended Spectrum Bet a-lactamase Comment:02/12/24 Urine (RR) 03/01/24 Urine (RR) 03/15/24 Urine (RR) 03/25/24 urine (MANUELITO) 04/03/24 Urine (RR) 07/01/24 urine (MANUELITO) 08/01/24 Urine (RR). 08/15/24 urine (MANUELITO) 02/12/2024 08/15/2024 documented as of this encounter Care Teams Energy Efficiency Specialist Relationship Specialty Start Date End Date Sage Steele MD [address] [place] [address] PCP - General FAMILY PRACTICE 10/02/23 documented as of this encounter
--- OUTSIDE RECORDS SUMMARY | 2024-09-13 22:19 | XMS_ITS | Clinical Summary ---
Author Organization [facility] Address [address] [place] [address] Phone Care Team Providers Care Route Rider Supervisor Name Role Phone Rusty Jacques MD Primary Care Provider [phone] Allergies Active Allergy Reactions Criticality Noted Date Comments Nitrofurantoin Macrocrystal Diarrhea 05/13/20 23 Penicillins Rash 05/13/2023 Medications aspirin EC 81 MG Tablet Delayed Response daily. Active D-MANNOSE PO Take 500 mg by mouth. Active donepezil (ARICEPT) 5 MG Tablet Take 5 mg by mouth nightly. 3 Active ergocalciferol (VITAMIN D) 62247 UNIT Capsule TAKE 1 CAPSULE BY MOUTH EVERY 2 WEEKS 3 Active Ferrous Sulfate (IRON PO) daily. Active levothyroxine (SYNTHROID) 150 MCG Tablet 3 Active memantine (NAMENDA) 10 MG Tablet Take 10 mg by mouth daily. 3 Active pantoprazole (PROTONIX) 40 MG Tablet Delayed Response Take 1 Tablet by mouth daily. 3 Active simvastatin (ZOCOR) 20 MG Tablet Take 20 mg by mouth nightly. 3 Active tiZANidine (ZANAFLEX) 4 MG Tablet Take 2 mg by mouth every 8 hours as needed. 3 Active rivaroxaban (XARELTO) 20 MG TabletIndicatio ns:Venous Thromboembolism ,pulmonary embolism Take 1 Tablet by mouth daily (with dinner). Indications: Venous Thromboembolis m, pulmonary embolism 30 Tablet 3 Active Active Problems Problem Noted Date Diagnosed Date Bilateral pulmonary embolism 05/21/2023 Acute respiratory failure with hypoxia Bilateral pneumonia 05/21/2023 Sepsis 05/13/2023 Social History Tobacco Use Types Packs/Day Years Used Date Smoking Tobacco: Never Assessed Comments Unknown Sex and Gender Information Value Date Recorded Sex Assigned at Not on file Legal Sex Female 3:54 PM CDT Gender Identity Not on file Sexual Orientation Not on file Last Filed Vital Signs Vital Sign Reading Time Taken Comments Blood Pressure 136/68 05/21/2023 5:01 AM CDT Pulse 54 05/21/2023 5:01 AM CDT Temperature 36.5 C (97.7 F) 05/21/2023 9:46 AM CDT Respiratory Rate 22 05/21/2023 5:01 AM CDT Oxygen Saturation 97% 05/21/2023 5:0 1 AM CDT Inhaled Oxygen Concentration - - Weight 88.6 kg (195 lb 5.2 oz) 05/13/2023 11:00 PM CDT BMI incorrect due to technical error Height 154.9 cm (5' 1 ) 05/13/2023 4:05 PM CDT BMI incorrect due to technical error Body Mass Index 36.91 05/13/2023 4:05 PM CDT Plan of Treatment Health Maintenance Due Date Last Done Comments DEXA Bone Density 1940 Hepatitis C Virus (HCV) Screening 1940 TdaP Immunization 1940 Zoster Immunization (2 of 3) 09/28/2010 08/03/2010 Respiratory Syncytial Virus (RSV) Immunization (Adult) (1 - 1-dose 75+ series) 12/19/2015 Influenza Immunization (#1) 04/03/202404/04, 09/03/2022, 08/23/2021, Additional history exists SARS-COV-2 Immunization ( season) 2024 08/07/2021, 11/06/2020, 11/06/2020, Additional history exists Pneumococcal Immunization (50+ years) Completed 08/08/2020, 07/20/2019 Hepatitis B Immunization Aged Out No longer eligible based on patient's age to complete this topic Meningococcal Immunization (ACWY) Aged Out No longer eligible based on patient's age to complete this topic Rotavirus Immunization Aged Out No lo nger eligible based on patient's age to complete this topic Insurance MEDICARE C [employer] Advance Directives Documents on File Type Date Recorded Patient Marker Machine Attendant Expl anation Power of Vineyard Worker for Health Care 05/14/2023 12:21 PM POA-HC, 08/08/2008 * Full Code (Latest Code Status on File) Date Activated Date Inactivated Comments 05/13/2023 11:48 PM 05/21/2023 3:22 PM CPR-Full Treatment: FULL ARREST: Attempt Resuscitation/CPR wit intubation and mechanical ventilation. PRE-ARREST: Use entire range of life support measures to stabilize the patient. Care Teams Route Rider Supervisor Relationship Specialty Start Date End [place] [address] PCP - General Internal Medicine 05/14/23
--- OUTSIDE RECORDS SUMMARY | 2024-09-13 22:19 | XMS_ITS | Clinical Summary ---
Author Organization [facility] Address [address] [place] [address] Care Team Providers Care Parts Remover Name Role Phone Rusty Jacques MD Primary Care Provider [phone] Allergies Active Allergy Reactions Criticality Noted Date Comments Nitrofurantoin Monohyd/M-Cryst Diarrhea Medium 03/07/2022 Severe diarrhea and fecal incontinence. Penicillins Rash,Other (See comments) Low Reaction: Reaction: Rash, Medications plxalysz-atwt-ID- calcium-mins 27 mg iron-400 mcg tablet daily. Active aspirin 81 mg tablet daily. 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 90 tablet 1 3 Active simvastatin (ZOCOR) 20 mg tablet Take 1 tablet (20 mg total) by mouth nightly 90 tablet 3 Active donepeziL (ARICEPT) 5 mg tablet TAKE 1 TABLET BY MOUTH EVERY DAY AT NIGHT 90 tablet 3 Active tiZANidine (ZANAFLEX) 4 mg tablet TAKE 1/2 TAB (2MG) BY MOUTH EVERY 8 HOURS NEEDED FOR MUSCLE SPASM 135 tablet 2 3 Active memantine (NAMENDA) 10 mg tablet TAKE 1 TABLET BY MOUTH EVERY DAY 100 tablet 4 Active Active Problems Problem Noted Date Diagnosed Date UTI (urinary tract infection) 03/13/2023 Unwitnessed fall 03/13/2023 Rhabdomyolysis 03/13/2023 Age-related osteoporosis wit hout current pathological fracture 02/08/2020 History of spinal fusion 03/16/2019 [facility] current use of antibiotics 08/07/2017 Retained orthopedic hardware 08/07/2017 Osteoarthritis 08/25/2016 Overview (11/06/2016): Osteoarthritis Hypothyroidism 08/25/2016 Overview (11/06/2016): Hypothyroidism Hyperlipidemia 08/25/2016 Overview (11/06/2016): Hyperlipidemia Resolved Problems Problem Noted Date Diagnosed Date Resolved Date Closed head injury, initial encounter 03/13/2023 03/13/2023 Infection of thoracic spine 11/11/2018 02/06/2020 Osteomyelitis 03/24/2018 02/06/2020 Overview (07/22/2018): Pt with history of chronic back pain that worsened. Presented initially to PCP who ended up obtaining an MRI showing T10 compression fx with canal stenosis. These findings prompted visit to the ED where she was noted to have R>L LE weakness prompting emergent surgical intervention. Taken to the OR on 07/03/17 where there was noted pus within/around the bone of T10. Required grafting/fusion of Tspine along with T10 vertebral column resection. Intraoperative cultures NG. Blood cultures NG. Given history of recent UTI at PCP (culture negative in January 2017) and hx of Klebsiella bacteremia dated 03/02/17, it was decided to target this organism as it's likely the cause of her infection. Pt narrowed to Ceftriaxone by ID and took it from 07/03/17 - 08/27/17. ESR/CRP checked on 08/11/17 were up to 80/23 so she was started on Bactrim suppression therapy. Repeat ESR 08/27/17 was down to 58, CRP remained elevated at 30. Completed 6 weeks of IV antibiotics prior to being switched to Bactrim for suppressive therapy. Plan to continue Bactrim 1 DS PO BID x 6-12 months from 08/27/17. Elevated creatinine noted 03/2017 and she was subsequently switched to doxycycline 100 mg PO BID. 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 Plan was to complete 12 months of suppressive as she has retained hardware but the diseased portion of bone was resected. She has completed almost 1 year of therapy at this point (started on 08/27/17). - Ok to stop Bactrim DS 1 tab PO BID after completion of 1 year of therapy. Reports she has about 2 months of Bactrim left at home. Instructed to finish those and no need to refill again. - Repeat labs: CBC, BMP, ESR, and CRP today as baseline - Discussed at length with patient and family the rationale for treatment, culture results, treatment plan, length of therapy, risk of recurrent infection, as well as signs/symptoms of recurrent infection (including but not limited to fevers/chills/night sweats, worsening pain/erythema/edema, lower extremity weakness, loss of bowel/bladder control, etc) and to contact ID with any concerns - F/u with ID in 4 months for reassessment. If no symptoms of recurrent infection she will follow up PRN. Immunizations Name Administration Dates Next Due Influenza, Quadrivalent, Hig h Dose, Preservative Free, Intrr 04/29/2023,09/03/2022,08/23/2021,05/16 Influenza, Quadrivalent, Spl it, Intramuscular 05/05/2016 Influenza, Quadrivalent, Spl it, Preservative Free, Intramuscular 05/20/2017 Influenza, Trivalent, High D ose, Split, Preservative Free, Intramuscular 04/26/2019,05/12/2018 Influenza, Unspecified 08/23/2021(Deferr ed: Patient Refused),04/03/2021(Deferred: Patient Refused),04/26/2019,05/03/2014, 013,05/14/2012 Moderna SARS-CoV-2 Monovalen t Vaccination (12+ YRS) 08/07/2021,11/06/2020,10/14/2020 Pneumococcal Conjugate PCV 13 07/20/2019 ,06/16/2019(Deferred: Patient Refused) Pneumococcal Polysaccharide PPV23 2020,06/16/2019(Deferred: Patient Refused) ZOSTER LIVE 08/03/2010 Surgical History Surgery Date Site/Laterality Comments BACK SURGERY 07/03/2017 2 rods, 12 screws, NECK SURGERY Medical History Medical History Date Comments Hypercholesterolemia High choles terol; Comments: CLS 08/25/2016 - Disorder of thyroid Thyroid dise ase Dementia (HCC) Family History Medical History Relation Name Comments Car Accident Brother 2 car accident; C ause of : car accident Arthritis Father Family history of arthritis - (Added by TW Conv)/Family history of arthritis - (Added by TW Conv) Cancer Father Family history of malignant neoplasm - (Added by TW Conv)/Family history of malignant neoplasm - (Added by TW Conv) Heart disease Father Heart disease; Arthritis Mother Family history of arthritis - (Added by TW Conv)/Family history of arthritis - (Added by TW Conv) Breast cancer Mother Cancer, breast ; Cancer Mother Family history of malignant neoplasm - (Added by TW Conv)/Family history of malignant neoplasm - (Added by TW Conv) Osteoarthritis Mother Family histor y of osteoarthritis - (Added by TW Conv) Osteoporosis Mother Ovarian cancer Mother Cancer, ovari an; Scoliosis Mother Family history of scoliosis - (Added by TW Conv)/Family history of scoliosis - (Added by TW Conv) Hip fracture Neg Hx Relation Name Status Comments Brother 1 Brother 2 Father Mother Social History Tobacco Use Types Packs/Day Years Used Date Smoking Tobacco: Former Smokeless Tobacco: Never Comments:Quit 45-50 years no w Alcohol Use Standard Drinks/Week Comments Yes 0 (1 standard drink = 0.6 oz pur e alcohol) Social Connection and Isolat ion Panel [NHANES] Answer Date Recorded In a typical week, how many times do you talk on the phone with family, friends, or neighbors? More than three times a week 03/18/2023 How often do you get togethe r with friends or relatives? More than three times a week 03/18/2023 How often do you attend chur ch or pentecostalism services? Never 03/18/2023 Do you belong to any clubs o r organizations such as moravian groups, unions, fraternal or athletic groups, or school groups? No 03/18/2023 How often do you attend meet ings of the clubs or organizations you belong to? Never 03/18/2023 Are you , , di vorced, , never , or living with a partner? 03/18/2023 Overall Financial Resource Strain (CARDIA) Answe r Date Recorded How hard is it for you to pa y for the very basics like food, housing, medical care, and heating? Not very hard 03/18/2023 PHQ-2 Answer Date Recorded PHQ-2 Total Score (If total score is 3 or more points, staff should administer the PHQ-9) 0 04/29/2023 Hunger Vital Sign Answer Date Recorded Within the past 12 months, y ou worried that your food would run out before you got the money to buy more. Never true 03/18/20 23 Within the past 12 months, t he food you bought just didn't last and you didn't have money to get more. Never true 03/18/2023 PRAPARE - Transportation Answer Date Re corded In the past 12 months, has l ack of transportation kept you from medical appointments or from getting medications? No 03/03 In the past 12 months, has l ack of transportation kept you from meetings, work, or from getting things needed for daily living? No 03/18/2023 Housing Stability Vital Sign Answer Srikanth e Recorded In the last 12 months, was t here a time when you were not able to pay the mortgage or rent on time? No 03/18/2023 In the last 12 months, how many places have you lived? 1 03/18/2023 In the last 12 months, was t here a time when you did not have a steady place to sleep or slept in a fdc (including now)? No 03/18/2023 Personal Safety Answer Date Recorded Getting School Help Needed Not on file 03/26 Education Answer Date Recorded What is the highest level of school you have completed or the highest degree you have received? 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 Gender Identity Not on file Sexual Orientation Not on file Obstetrics History Para Term AB IAB SAB Ectopic Multiple Livin g Live Births 3 3 3 Date Outcome GA Total Labor Labor/2nd/3rd Weight Sex Type Anes PTL Maliha A1 A5 Name Clin Term Term Term Last Filed Vital Signs Vital Sign Reading Time Taken Comments Blood Pressure 138/88 04/29/2023 1:57 PM CDT Pulse 75 04/29/2023 1:57 PM CDT Temperature 36.7 C (98 F) 04/29/2023 1:57 PM CDT Respiratory Rate 18 04/02/2023 1:05 PM CDT Oxygen Saturation 98% 04/29/2023 1:57 PM CDT Inhaled Oxygen Concentration - - Weight 88.4 kg (194 lb 12.8 oz) 04/29/2023 1:57 PM CDT Height 152.4 cm (5') 04/29/2023 1:57 PM CDT Body Mass Index 38.04 04/29/2023 1:57 PM CDT Plan of Treatment Health Maintenance Due Date Last Done Comments DTaP/Tdap/Td Vaccine (1 - Tdap) 12/19/1951 Hepatitis B Screening 1958 Zoster Vaccine (2 of 3) 09/28/2010 08/03/2010 Well Visit 65+ 09/03/2023 09/03/2022, 01/31, 02/06/2020, Additional history exists Covid-19 Vaccine ( - 2023-2 5 season) 2024 08/07/2021, 11/06/2020, 10/14/2020 Influenza Vaccine (#1) 2024 , 09/03/2022, 08/23/2021, Additional history exists Depression Screening 04/29/2024 04/29/2023, 03/20/2023, 09/03/2022, Additional history exists Fall Risk Assessment 04/29/2024 04/29/2023, 04/02/2023, 03/20/2023, Additional history exists Osteoporosis Screening-Bone Density Scan 03/05/2025 03/05/2023, 02/26/2022, 02/20/2021, Additional history exists Pneumococcal vaccine 65+ Completed 08/08/2020, 07/03 Goals Goal Patient Goal Type Associated Problems Recent Progress Patient-Stated? Author CANDI General Goal - Patient / caregiver verbalizes lifestyle changes necessary to meet self-care needs and executes self-care activities to utmost capability ACO Care Management Xenia Bradford, PARESH Note: Problem: At Risk for Self Care Deficit Interventions: - Assess patient's level of dependence on others. Guide the patent in accepting the needed amount of dependence. - Contact current caregiver and assess their involvement with patient and level of assistance provided. - Assess appropriateness for Home Health. Start referral process if skilled need is present. - Encourage independent ADL's as appropriate. Ensure patient has the appropriate tools at home to be as independent as possible. - Provide fall prevention education to patient and caregiver. - Evaluate need for assistive devices. - Refer to SW if appropriate and patient is agreeable. CANDI General Goal - Patient/caregiver will verbalize understanding of fall prevention techniques and will sustain no additional falls during Care Management program ACO Care Management No Xenia Garcia, PARESH Note: Problem: At Risk for Falls related to history of falls Interventions: - Review fall prevention/home safety guidelines with patient. Send educational materials if needed. - Assess patient's current tools and equipment used currently. Evaluate if additional tools or DME are needed to improve safety and decrease fall risk. - Assess appropriateness for Home Health. Start referral process if skilled need is present. - Evaluate need for Lifeline or other medical alert device. - Discuss importance of notifying primary provider when a fall occurs with details about the circumstances of the fall. - Refer to SW if appropriate and patient is agreeable. CANDI General Goal - Patient is knowledgeable about condition when worsening and how to respond ACO Care Management Xenia Bradford, PARESH Note: Problem: Knowledge deficit related to signs and symptoms of worsening condition Interventions: - Assess patient's level of understanding related to their condition(s), specific medications and self-management of their chronic conditions. - Send educational materials to patient related to their chronic condition, including signs and symptoms, self-management actions, and serious symptoms that require urgent medical intervention. - Assist patient/provider in developing an action plan for symptom management. - Review with patient weekly: s/s worsening condition, self-management actions to take, when to call CM or provider. CANDI General Goal - Patient schedules and keeps appointments with all recommended providers ACO Care Management Xenia Bradford RN Note: Problem: Potential for medical complications and readmission if follow-up appointments are not scheduled Interventions: - Ensure all follow-up appointments are scheduled, all prescribed medications have been received. - Address any barriers for keeping scheduled appointment. - Coordinate with patient/caregiver(s) to ensure patient is able to keep scheduled appointment. - Emphasize importance of keeping scheduled appointments. - Identify and discuss questions for next provider visit. - Follow up with patient after scheduled appointment(s) to review any new orders or changes made to medication regimen. Procedures Procedure Name Priority Date/Time Associated Diagnosis Comments DEXA TBS AXIAL SKELETON BONE DENSITY 1 OR MORE SITES Schedule Routine, Read Routine (OP Routine) 03/05/2023 2:28 PM CDT Age-related osteoporosis without current pathological fracture from Last 3 Months or Most Recently Relevant to Health Maintenance Results * Dexa TBS Axial Skeleton Bone Density 1 or more sites (03/05/2023 2:28 PM CDT) Anatomical Region Laterality Modality Wrist, Body N/A Radiographic Karena ging Narrative 03/06/2023 9:22 AM CDT Patient Name: Chino Villar Date of : 1940 Date of scan: 03/05/2023 Bone mineral density was performed on a [employer] Discovery Densitometer. Based on machine cross-calibration and precision studies the least significant changes of this densitometer is 0.024 g/cm2 at the spine, 0.020 g/cm2 at the total proximal femur, and 0.014g/cm2 at the forearm. HISTORY: This is a 82 y.o. postmenopausal female with a history of multiple fractures, osteoporosis, and thyroid disease. She reports that she has quit smoking. She has never used smokeless tobacco. Currently on treatment with calcium, vitamin D, zoledronic acid (Reclast), and thyroid hormone and previously treated with teriparatide (Forteo) and denosumab (Prolia). INDICATIONS: Menopause status, treatment monitoring, history of prior left hip and vertebral fracture, and history of osteoporosis. FINDINGS: BONE MINERAL DENSITY OF THE PROXIMAL FEMUR Bone Mineral Density (BMD) of the right hip total was found to be 0.718 gm/cm2. This corresponds to a T-score standard deviations from the mean of young adults of -1.8. Femoral neck is 0.690 gm/cm2 with a T-score (standard deviations from the mean of young adults) of -1.4. When compared to the previous study of 02/26/2022 there has been no significant changes in bone density. BONE MINERAL DENSITY OF THE FOREARM Bone Mineral density (BMD) of the right proximal 1/3 of the radius measures 0.556 gm/cm2. This corresponds to a T-score (standard deviations from the mean of young adults) of -2.3. When compared to the previous study of 02/26/2022 there has been no significant changes in bone density. A forearm bone density study was performed instead of a spine study because of presence of surgical hardware. SUMMARY: Bone mineral density shows evidence of low bone mass at the proximal femur and forearm and moderately increased fracture risk (Osteopenia). There has been no significant changes in bone density since previous measurement. The lumbar spine Trabecular Bone Score TBS was not obtained due to the bone mineral density of the spine not being acquired. ADDITIONAL COMMENTS: Postmenopausal Women and Men Over 50: Diagnostic criteria: Osteoporosis: BMD at or below -2.5 T-score; Osteopenia (low bone mass): BMD between -1.0 and -2.5 T-score. If the patient has a history of a fragility fracture, a fracture that occurred with trauma equivalent to a fall from a standing position or less, then the diagnosis is osteoporosis regardless of bone density. The history and data sections of the bone mineral density scan were prepared by Alicia Mir)(Rosario)() CBDT who is accredited by the International Society of Clinical Densitometry. The overall patient assessment and scan interpretation were performed by Dali Ryan MD who is certified by the International Society of Clinical Densitometry. [id number] Dali Ryan MD IMG DXA PROCEDURES Final Resu lt from Last 3 Months or Most Recently Relevant to Health Maintenance Insurance [facility] Member Subscriber Plan / Payer ( fective 2017-Present) Name:CHINO VILLAR A Relation to Subscriber:Self Name:Chino Villar Payer ID:[id number] (NAIC) Type:MEDICARE RISK OTHER Address: [place] [id number] [facility] Advance Directives For more information, please contact: [phone] Documents on File Type Date Recorded Patient Food Safety Auditor Expl anation ADVANCE DIRECTIVE 03/18/2023 9:20 AM Power of Editor School Photograph-Medical * Full Code (Latest Code Status on File) Date Activated Date Inactivated Comments 03/13/2023 9:11 PM 03/17/2023 8:07 PM Care Teams Parts Remover Relationship Specialty Start Date End Date [place] [id number] PCP - General 08/25/16
--- OUTSIDE RECORDS SUMMARY | 2024-09-13 22:19 | XMS_ITS | Clinical Summary ---
Author Organization [facility] Address [address] [place] [address] Care Team Providers Care Automotive Refinisher Name Role Phone Sage Steele MD Primary Care Provider [phone] Encounters Date Type Department Care Team Description 09/12/2024 6:33 PM V GROOVE CUTTER Hospital Encounter [facility] [address] [place] [address] Sage Steele MD 09/12/2024 Orders Only [facility] [address] [place] [address] Sage Steele MD 08/29/2024 7:46 AM V GROOVE CUTTER - 08/29/2024 11:59 PM V GROOVE CUTTER Hospital Encounter [facility] [address] [place] [address] Sage Steele MD Discharge Disposition: Home or Self Care (Routine Discharge) 08/29/2024 Orders Only [facility] [address] [place] [address] Sage Steele MD 08/15/2024 4:39 PM V GROOVE CUTTER - 08/15/2024 11:59 PM V GROOVE CUTTER Hospital Encounter [facility] [address] [place] [address] Sage Steele MD Discharge Disposition: Home or Self Care (Routine Discharge) 08/15/2024 Orders Only [facility] [address] [place] [address] Sage Steele MD 08/01/2024 5:25 PM V GROOVE CUTTER - 08/01/2024 11:59 PM V GROOVE CUTTER Hospital Encounter [facility] [address] [place] [address] Sage Steele MD Discharge Disposition: Home or Self Care (Routine Discharge) 08/01/2024 Orders Only [facility] [address] [place] [address] Sage Steele MD 07/01/2024 1:08 PM V GROOVE CUTTER - 07/01/2024 11:59 PM V GROOVE CUTTER Hospital Encounter [facility] [address] [place] [address] Sage Steele MD Discharge Disposition: Home or Self Care (Routine Discharge) 07/01/2024 Orders Only [facility] [address] [place] [address] Sage Steele MD from Last 3 Months Social History Tobacco Use Types Packs/Day Years Used Date Smoking Tobacco: Never Assessed Comments Unknown Sex and Gender Information Value Date Recorded Sex Assigned at Not on file Legal Sex Female 2:17 PM CDT Gender Identity Not on file Sexual Orientation Not on file Plan of Treatment Health Maintenance Due Date Last Done Comments DTaP, Tdap and Td Vaccines ( 1 - Tdap) 12/19/1959 Zoster Vaccines (1 of 2) 1990 Annual Medicare Wellness Visit 2005 Dexa Scan (General) 2005 Pneumococcal Vaccine: 65+ Years (1 of 1 - PCV) 2005 RSV Immunization or 60+ Years (1 - 1-dose 75+ series) 12/19/2015 COVID-19 Vaccine (2023-2 5 season) 2024 Influenza Adult (#1) 2024 05/20/2017, 05/05/2016 Meningococcal B Vaccine Aged Out No l onger eligible based on patient's age to complete this topic Meningococcal Vaccine Aged Out No ayan tu eligible based on patient's age to complete this topic RSV Immunizations Under 20 Months Aged Out No longer eligible b ased on patient's age to complete this topic Procedures Procedure Name Priority Date/Time Associated Diagnosis Comments BASIC METABOLIC PANEL Routine 09/12/2024 3:00 PM V GROOVE CUTTER Unstageable decubitus ulcer ([facility] HHS/HCC) CBC W/DIFF AUTOMATED Routine 09/12/2024 3:00 PM V GROOVE CUTTER Unstageable decubitus ulcer ([facility] HHS/HCC) COMPREHENSIVE METABOLIC PANEL Routine 08/29/2024 6:40 AM V GROOVE CUTTER Myxedema heart disease Urinary tract infection, site not specified LIPID PANEL Routine 08/29/2024 6:40 AM V GROOVE CUTTER Myxedema heart disease Urinary tract infection, site not specified CBC W/DIFF AUTOMATED Routine 08/29/2024 6:40 AM V GROOVE CUTTER Myxedema heart disease Urinary tract infection, site not specified THYROID STIM HORMONE TSH Routine 08/29/2024 6:40 AM V GROOVE CUTTER Myxedema heart disease Urinary tract infection, site not specified THYROXINE, FREE (FT4) Routine 08/29/2024 6:40 AM V GROOVE CUTTER Myxedema heart disease Urinary tract infection, site not specified URINE BACTERIA CULTURE Routine 5 7:00 AM V GROOVE CUTTER UTI (urinary tract infection) URINE BACTERIA CULTURE Routine 4 12:00 PM V GROOVE CUTTER Urinary tract infection, site not specified URINE BACTERIA CULTURE Routine 4 12:20 PM V GROOVE CUTTER Urinary tract infection URINALYSIS, AUTO, COMPLETE Routine 07/01/2024 12:20 PM V GROOVE CUTTER Urinary tract infection from Last 3 Months Results * (ABNORMAL) BASIC METABOLIC PANEL (09/12/2024 3:00 PM V GROOVE CUTTER) Pathologist [facility] GLUCOSE 103(H) 70 - 99 MG/DL 09/12/2024 6:47 PM V GROOVE CUTTER [facility] BUN 23(H) 7 - 18 MG/DL 09/12/2024 6:47 PM [facility] CREATININE S/P/B 1.34(H) 0.55 - 1.02 MG/DL 09/12/2024 6:47 PM [facility] SODIUM S/P/B 137 136 - 145 MMOL/L 09/12/2024 6:47 PM [facility] POTASSIUM S/P/B 5.0 3.5 - 5.1 MMOL/L 09/12/2024 6:47 PM [facility] CHLORIDE S/P/B 100 100 - 108 MMOL/L 09/12/2024 6:47 PM [facility] CO2 19.7(L) 21 - 32 MMOL/L 09/12/2024 6:47 PM [facility] CALCIUM S/P/B 9.8 8.5 - 10.1 MG/DL 09/12/2024 6:47 PM [facility] ANION GAP 17.3(H) 5 - 15 MMOL/L 09/12/2024 6:47 PM [facility] BUN CREATININE RATIO 17.2 6 - 26 09/12/2024 6:47 PM [facility] GFR ESTIMATE 39(L) >90 ML/MIN/1.7 3 M2 09/12/2024 6:47 PM [facility] Comment: NOTE: eGFR is not calculated for patients <18 years of age. This is an estimated GFR calculation using the new CKD EPI creatinine equation without race and so does not require a correction factor for race. This estimated GFR should not be used for calculating drug doses. 09/12/2024 3:00 PM V GROOVE CUTTER us Sagedaysi Steele MD LABORATORY Final Result [facility] [address] [place] [address], [place] [phone] * (ABNORMAL) CBC W/DIFF AUTOMATED (09/12/2024 3:00 PM V GROOVE CUTTER) Only the most recent of2 resultswithin the time period is included. WBC 11.67(H) 4.4 - 11.0 x10'3/uL 09/12/2024 6:50 PM [facility] RBC 5.26(H) 4.50 - 5.10 x10'6/uL 09/12/2024 6:50 PM [facility] HGB 14.1 12.3 - 15.3 G/DL 09/12/2024 6:50 PM [facility] HCT 45.8(H) 35.9 - 44.6 % 09/12/2024 6:50 PM [facility] MCV 87.1 80.0 - 96.0 FL 09/12/2024 6:50 PM [facility] MCH 26.8 25.3 - 30.9 PG 09/12/2024 6:50 PM [facility] MCHC 30.8(L) 31.0 - 34.1 G/DL 09/12/2024 6:50 PM [facility] RDW 21.2(H) 12.4 - 15.1 % 09/12/2024 6:50 PM [facility] PLT 307 151 - 353 x10'3/uL 09/12/2024 6:50 PM [facility] MPV 12.7(H) 9.6 - 12.0 FL 09/12/2024 6:50 PM [facility] RBC MORPHOLOGY NORMAL 09/12/2024 6:50 PM [facility] PLT MORPH. NORMAL 09/12/2024 6:50 PM [facility] WBC MORPHOLOGY NORMAL 09/12/2024 6:50 PM [facility] LYMPHOCYTES % 14.4(L) 15.8 - 45.0 % 09/12/2024 6:50 PM [facility] NEUTROPHILS % 77.3(H) 42.1 - 71.9 % 09/12/2024 6:50 PM [facility] MONOCYTES % 6.2 5.7 - 12.5 % 09/12/2024 6:50 PM [facility] EOSINOPHILS 1.1 0.0 - 5.6 % 09/12/2024 6:50 PM [facility] BASOPHILS 0.3 0.0 - 1.3 % 09/12/2024 6:50 PM [facility] ABS. NEUTROPHILS 9.03(H) 1.40 - 6.00 x10'3/uL 09/12/2024 6:50 PM [facility] IMMATURE GRANS % 0.7(H) 0.0 - 0.5 % 09/12/2024 6:50 PM [facility] ABS. LYMPHOCYTES 1.68 0.80 - 4.70 x10'3/uL 09/12/2024 6:50 PM [facility] 09/12/2024 3:00 PM V GROOVE CUTTER us Sagedaysi Steele MD LABORATORY Final Result [facility] [address] [place] [address], * (ABNORMAL) COMPREHENSIVE METABOLIC PANEL (08/29/2024 6:40 AM V GROOVE CUTTER) [facility] GLUCOSE 88 70 - 99 MG/DL 08/29/2024 8:52 AM [facility] BUN 12 7 - 18 MG/DL 08/29/2024 8:52 AM [facility] CREATININE S/P/B 1.60(H) 0.55 - 1.02 MG/DL 08/29/2024 8:52 AM [facility] SODIUM S/P/B 139 136 - 145 MMOL/L 08/29/2024 8:52 AM [facility] POTASSIUM S/P/B 4.2 3.5 - 5.1 MMOL/L 08/29/2024 8:52 AM [facility] CHLORIDE S/P/B 104 100 - 108 MMOL/L 08/29/2024 8:52 AM [facility] CO2 24.9 21 - 32 MMOL/L 08/29/2024 8:52 AM [facility] CALCIUM S/P/B 9.3 8.5 - 10.1 MG/DL 08/29/2024 8:52 AM [facility] BILIRUBIN TOTAL S/P/B 0.4 0.2 - 1.2 MG/DL 08/29/2024 8:52 AM [facility] TOTAL PROTEIN S/P/B 6.5 6.4 - 8.2 G/DL 08/29/2024 8:52 AM [facility] ALBUMIN S/P/B 2.6(L) 3.4 - 5.0 G/DL 08/29/2024 8:52 AM [facility] AST 20 15 - 37 U/L 08/29/2024 8:52 AM [facility] ALT 10(L) 14 - 55 U/L 08/29/2024 8:52 AM [facility] ALKALINE PHOSPHATASE S/P/B 106 50 - 136 U/L 08/29/2024 8:52 AM [facility] ANION GAP 10.1 5 - 15 MMOL/L 08/29/2024 8:52 AM [facility] BUN CREATININE RATIO 7.5 6 - 26 08/29/2024 8:52 AM [facility] A/G RATIO 0.7(L) 1.0 - 2.0 RATIO 08/29/2024 8:52 AM [facility] GFR ESTIMATE 32(L) >90 ML/MIN/1.7 3 M2 08/29/2024 8:52 AM [facility] Comment: NOTE: eGFR is not calculated for patients <18 years of age. This is an estimated GFR calculation using the new CKD EPI creatinine equation without race and so does not require a correction factor for race. This estimated GFR should not be used for calculating drug doses. 08/29/2024 6:40 AM V GROOVE CUTTER us Sagedaysi Steele MD LABORATORY Final Result [facility] [address] [place] [address], * LIPID PANEL (08/29/2024 6:40 AM [facility]) CHOLESTEROL 140 <200.0 MG/DL 08/29/2024 8:52 AM [facility] TRIGLYCERIDES 75 <150 MG/DL 08/29/2024 8:52 AM [facility] HDL 45 >40.0 MG/DL 08/29/2024 8:52 AM [facility] LDL (CALCULATED) 80 <100 MG/DL 08/29/19 8:52 AM [facility] NON HDL CHOLESTEROL 95 <130 MG/DL 08/29 8:52 AM [facility] CHOL/HDL RATIO 3.1 0.0 - 4.5 08/29/2024 8:52 AM [facility] VLDL CALCULATION 15 5 - 55 MG/DL 08/29/2024 8:52 AM V GROOVE CUTTER [facility] LIPID INTERPRETATION 08/29/2024 8:52 AM V GROOVE CUTTER [facility] Comment: [facility] REPORT RECOMMENDATIONS: ADULT CHILD LOW RISK: CHOLESTEROL <200 <170 TRIGLYCERIDE <150 --- HDL >=60 --- LDL <100 <110 BORDERLINE: CHOLESTEROL 200-239 170-199 TRIGLYCERIDE 150-199 --- HDL 40-59 --- LDL 100-159 110-129 HIGH RISK: CHOLESTEROL >=240 >=200 TRIGLYCERIDE >=200 --- HDL <40 --- LDL >=160 >=130 08/29/2024 6:40 AM V GROOVE CUTTER us Sage Steele MD LABORATORY Final Result Performing Organization Address [facility] Co de Phone Number [facility] [address] [place] [address], [place] [phone] * (ABNORMAL) THYROXINE, FREE (FT4) (08/29/2024 6:40 AM V GROOVE CUTTER) FREE T4 1.97(H) 0.76 - 1.46 NG/DL 08/29/2024 8:52 AM V GROOVE CUTTER [facility] 08/29/2024 6:40 AM V GROOVE CUTTER us Sage Steele MD LABORATORY Final Result Performing Organization Address [facility] Co de Phone Number [facility] [address] [place] [address], [place] [phone] * THYROID STIM HORMONE TSH (08/29/2024 6:40 AM V GROOVE CUTTER) TSH 0.711 0.358 - 3.74 uIU/ML 08/29/2024 8:52 AM V GROOVE CUTTER [facility] Comment: HIGH DOSES OF BIOTIN MAY INTERFERE WITH THIS TEST RESULT. CORRELATION TO CLINICAL HISTORY AND PRESENTATION RECOMMENDED. 08/29/2024 6:40 AM V GROOVE CUTTER us Sagedaysi Steele MD LABORATORY Final Result [facility] [address] [place] [address], [place] [phone] * (ABNORMAL) URINE BACTERIA CULTURE (08/15/2024 7:00 AM V GROOVE CUTTER) Only the most recent of3 resultswithin the time period is included. SPEC DESCRIPTION URINE, UNSPECIFIED 08/15/2024 4:40 PM V GROOVE CUTTER [facility] SPECIAL REQUESTS NO SPECIAL REQUEST 08/15/2024 4:40 PM V GROOVE CUTTER [facility] CULTURE RESULT >100,000 COL/ML ESCHERICHIA COLI PROBABLE EXTENDED SPECTRUM BETA LACTAMASE POULTRY FARMER (A) 08/18/2024 7:31 AM V GROOVE CUTTER [facility] CULTURE RESULT >100,000 COL/ML ENTEROCOCCUS SPECIES (A) 08/18/2024 7:31 AM V GROOVE CUTTER [facility] URINE SPECIMEN / Unknown 08/15/2024 7:00 AM V GROOVE CUTTER 08/15/2024 4:57 PM V GROOVE CUTTER Narrative Organism Antibiotic Method Susceptibility Escherichia coli AMPICILLIN QUENTIN (VITEK) >=32: Resistant Escherichia coli AMPICILLIN/SULBACTAM QUENTIN (VITEK) 8: Sensitive Escherichia coli CEFEPIME QUENTIN (VITEK) <=1: Resistant Escherichia coli CEFTRIAXONE QUENTIN (VITEK) 32: Resistant Escherichia coli CEFTAZIDIME QUENTIN (VITEK) 4: Resistant Escherichia coli CEFAZOLIN QUENTIN (VITEK) >=64: Resistant Escherichia coli ESBL QUENTIN (VITEK) POS: Resistant Escherichia coli NITROFURANTOIN QUENTIN (VITEK) <=16: Sensitive Escherichia coli GENTAMICIN QUENTIN (VITEK) <=1: Sensitive Escherichia coli LEVOFLOXACIN QUENTIN (VITEK) >=8: Resistant Escherichia coli MEROPENEM QUENTIN (VITEK) <=0.25: Sensitive Escherichia coli PIPRACIL/TAZO QUENTIN (VITEK) 8: Sensitive Escherichia coli TRIMETH-SULFAMETH. QUENTIN (VITEK) <=20: Sensitive Enterococcus species AMPICILLIN QUENTIN (VITEK) <=2: Sensitive Enterococcus species NITROFURANTOIN QUENTIN (VITEK) <=16: Sensitive Enterococcus species GENT. SYNERGY SCREEN QUENTIN (VITEK) Resistant Enterococcus species PENICILLIN G QUENTIN (VITEK) 2: Sensitive us Sagedaysi Steele MD MICROBIOLOGY - GENERAL ORDERABL ES Final Result [facility] [address] [place] [address], [place] [phone] [facility] [address] [place] [address], [place] [phone] * (ABNORMAL) URINALYSIS, AUTO, COMPLETE (07/01/2024 12:20 PM V GROOVE CUTTER) COLOR (U) RED 07/01/2024 1:59 PM V GROOVE CUTTER [facility] TRANSPARENCY CLOUDY 07/01/2024 1:59 PM V GROOVE CUTTER [facility] SPECIFIC GRAVITY (U) 1.025 1.000 - 1.030 07/01/2024 1:59 PM V GROOVE CUTTER [facility] U PH 7.0 5.0 - 9.0 07/01/2024 1:59 PM V GROOVE CUTTER [facility] LEUKOCYTES (U) 3+(A) NEGATIVE 07/01/2024 1:59 PM V GROOVE CUTTER [facility] NITRITES POSITIVE(A) NEGATIVE 07/01/2024 1:59 PM V GROOVE CUTTER [facility] PROTEIN RANDOM (U) 2+(A) NEGATIVE 07/01/2024 1:59 PM V GROOVE CUTTER [facility] GLUCOSE (U) NEGATIVE NEGATIVE 07/01/2024 1:59 PM V GROOVE CUTTER [facility] KETONES MG/DL (U) NEGATIVE NEGATIVE 07/01/2024 1:59 PM V GROOVE CUTTER [facility] BILIRUBIN (U) NEGATIVE NEGATIVE 07/01/2024 1:59 PM V GROOVE CUTTER [facility] BLOOD (U) 3+(A) NEGATIVE 07/01/2024 1:59 PM V GROOVE CUTTER [facility] WBC/HPF 50-100 0 - 5 /HPF 07/01/2024 1:59 PM V GROOVE CUTTER [facility] RBC/HPF TOO NUMEROUS TO COUNT 0 - 5 /HPF 07/01/2024 1:59 PM V GROOVE CUTTER [facility] EPI/HPF MODERATE /HPF 07/01/2024 1:59 PM V GROOVE CUTTER [facility] BACTERIA (U) MANY /HPF 07/01/2024 1:59 PM V GROOVE CUTTER [facility] URINE SPECIMEN OBTAINED BY CLEAN CATCH PROCEDURE / Unknown 07/01/2024 12:20 PM V GROOVE CUTTER us Sagedaysi Steele MD URINE ORDERABLES Final Result [facility] [address] [place] [id number], from Last 3 Months Additional Health Concerns Infection Onset Date Last Indicated ESBL - Extended Spectrum Bet a-lactamase Comment:02/12/24 Urine (RR) 03/01/24 Urine (RR) 03/15/24 Urine (RR) 03/25/24 urine (MANUELITO) 04/03/24 Urine (RR) 07/01/24 urine (MANUELITO) 08/01/24 Urine (RR). 08/15/24 urine (MANUELITO) 02/12/2024 08/15/2024 Insurance [facility] MEDICARE Care Teams Automotive Refinisher Relationship Specialty Start Date End Date Sage Steele MD [address] [address] PCP - General FAMILY PRACTICE 10/02/23
--- OUTSIDE RECORDS SUMMARY | 2024-09-13 22:19 | XMS_ITS | Referral Summary ---
Author Organization [facility] Address [address] [place] [address] Care Team Providers Care Director Of Market Intelligence Name Role Phone Rusty Jacques MD Primary Care Provider [phone] Allergies Active Allergy Reactions Criticality Noted Date Comments Nitrofurantoin Monohyd/M-Cryst Diarrhea Medium 03/07/2022 Severe diarrhea and fecal incontinence. Penicillins Rash,Other (See comments) Low Reaction: Reaction: Rash, Medications [id number]- calcium-mins 27 mg iron-400 mcg tablet daily. [...] 1 tablet (150 mcg total) by mouth metal gauge maker before breakfast 90 tablet 1 3 Active [...] fracture 02/08/2020 History of spinal fusion 03/16/2019 retirement current use of antibiotics 08/07/2017 Retained orthopedic [...] BID. Assessment & Plan (07/22/2018 10:26 AM ORACLE APPLICATIONS ANALYST): Recommendations: - Doing well on Bactrim with [...] PPV23 2020,06/16/2019(Deferred: Patient Refused) ZOSTER LIVE 08/03/2010 Social History Tobacco Use Types Packs/Day Years [...] often do you attend chur ch or taoism services? Never 03/18/2023 Do you belong to any clubs o r organizations such as confucianist groups, unions, fraternal or athletic groups, or [...] place to sleep or slept in a care home (including now)? No 03/18/2023 Personal Safety Answer Date Recorded Getting School Help Needed Not on file 03/26 Education Answer Date Recorded What is the highest level of school you have completed or the highest degree you have received? High school graduate 03/16/2023 Comments No Sex and Gender Information Value Date Recorded Sex Assigned at Not on file Legal Sex Female 8:38 AM ORACLE APPLICATIONS ANALYST Gender Identity Not on file Sexual Orientation [...] 04/29/2023 1:57 PM CDT Plan of Treatment Not on file Goals Goal Patient Goal Type Associated Problems Recent Progress Patient-Stated? Author CANDI General Goal - Patient / caregiver verbalizes lifestyle changes necessary to meet self-care needs and executes self-care activities to utmost capability ACO Care Management Xenia Bradford RN Note: Problem: At Risk for Self Care [...] during Care Management program ACO Care Management Xeina Bradford RN Note: Problem: At Risk for Falls related [...] how to respond ACO Care Management Xenia Bradford RN Note: Problem: Knowledge deficit related to signs [...] Bone mineral density was performed on a [employer] Discovery Densitometer. Based on machine cross-calibration and [...] mineral density scan were prepared by Alicia Gibson(Oseas)(Rosario)() CBDT who is accredited by the International Society of Clinical Densitometry. The overall patient assessment and scan interpretation were performed by Dali Ryan MD who is certified by the International Society of Clinical Densitometry. [id number] Dali Ryan MD IMG DXA PROCEDURES Final Resu lt from Last 3 Months or Most Recently Relevant to Health Maintenance Insurance [facility] [place] [id number] Advance Directives For more information, please contact: [phone] Documents on File Type Date Recorded Patient Hand Icer Expl anation ADVANCE DIRECTIVE 03/18/2023 9:20 AM [facility] Teacher-Medical * Full Code (Latest Code Status on File) Date Activated Date Inactivated Comments 03/13/2023 9:11 PM 03/17/2023 8:07 PM Care Teams Director Of Market Intelligence Relationship Specialty Start Date End Date Rusty Jacques MD [address] [place] [address] PCP - General 08/25/16
[2024-09-13 22:24] LABS: Lactic Acid Reflex 2.3 mmol/L (0.7-2.0)
[2024-09-13 22:25] LABS: Alanine Aminotransferase 12 U/L (6-35); Albumin Level 3.4 g/dL (3.5-5.1); Alkaline Phosphatase 110 U/L (38-126); Anion Gap 11 mmol/L (4-12); Aspartate Amino Transferase 18 U/L (14-36); Bilirubin,Total 0.6 mg/dL (0.2-1.3); Blood Urea Nitrogen 24 mg/dL (7-17); Calcium 9.8 mg/dL (8.4-10.2); Carbon Dioxide 24 mmol/L (22-30); Chloride 104 mmol/L (98-107); Estimated Glomerular Filt Rate 40; Glucose 99 mg/dL (65-110); Potassium 4.2 mmol/L (3.4-5.0); Sodium 139 mmol/L (137-145)
[2024-09-13 22:36] LABS: Acetaminophen < 10 ug/mL (10-30); Ammonia < 9 umol/L (9-30); Ethanol < 10 mg/dL (<10); INR 1.1; Prothrombin Time 14.9 Seconds (11.1-14.7); Salicylate < 1.0 mg/dL (2-20)
[2024-09-13 22:37] LABS: Hypochromasia 1+; Ovalocytes 1+; Platelet Estimate Adequate (Adequate)
[2024-09-13 22:38] LABS: Magnesium 2.1 mg/dL (1.6-2.3); Schistocytes None Seen
[2024-09-13 22:39] LABS: Influenza A QL RT-PCR Negative (Negative); Influenza B QL RT-PCR Negative (Negative); RSV RNA, RT-PCR Negative (Negative); SARS-CoV-2 RNA PCR Negative (Negative)
[2024-09-13] MEDS: SODIUM CHLORIDE 0.9% IV 1,000 ML 999 ML IV CONT (22:39)
[2024-09-13 22:40] LABS: Creatine Kinase 39 U/L (30-135)
[2024-09-13 22:42] VITALS: PULSE 98; RESP 16; O2SAT 98
[2024-09-13 22:53] LABS: Troponin I < 0.012 ng/mL (0.000-0.034)
[2024-09-13 23:24] LABS: Amphetamine Screen Urine Negative (Negative); Barbiturate Screen Urine Negative (Negative); Benzodiazepines Screen Urine Negative (Negative); Cannabinoid Screen Urine Negative (Negative); Cocaine Screen Urine Negative (Negative); Methadone Screen Urine Negative (Negative); Opiate Screen Urine Negative (Negative); Phencyclidine Screen Urine Negative (Negative)
[2024-09-13 23:55] LABS: NT Pro B Type Natriuretic Pept 477 pg/mL (19.9-100)
[2024-09-14 00:41] VITALS: BP 135/79; PULSE 107; RESP 19; TEMP 36.3; O2SAT 100
[2024-09-14 01:13] LABS: Reflex Lactic Acid Yes or No Add Lactic
[2024-09-14] MEDS: LACTATED RINGERS 1,000 ML 100 ML IV CONT ×2 (01:45→14:42)
[2024-09-14 02:05] LABS: Lactic Acid 1.3 mmol/L (0.7-2.0)
[2024-09-14 02:32] VITALS: BMI 25.8
[2024-09-14 02:39] LABS: Creatinine Urine 117.2 mg/dL
[2024-09-14 02:52] VITALS: BP 141/70; PULSE 112; RESP 16; TEMP 36.6; O2SAT 99
[2024-09-14 02:57] LABS: Sodium Urine Random 88 meq/L
--- NOTE | 2024-09-14 02:57 | ADMGEN ---
This patient, Lilly Villar, was admitted to [facility] Surg Room 330-01. Patient/family oriented to hospital policies and general routines including ID bracelet, bed and alarms, visiting hours, pain management, procedures, bathroom and other care routines, personal items, smoking policy, room service/diet, and visiting hours. Information on how to activate the Rapid Response Team has been discussed. Patient/Family are encouraged to report perceived risks to care and to ask questions if they do not understand what they are told or what they should do.
[2024-09-14 06:00] VITALS: BP 120/54; PULSE 89; RESP 19; TEMP 36.5; O2SAT 98
--- NOTE | 2024-09-14 06:52 | WPDURCON ---
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 Current admission for urinary tract infection leading to mental status changes She is due for a right ureteral stent exchange in the near future but will try to avoid while she is acutely ill. We arrangements for right ureteral stent change either late in this admission or as an outpatient in the near future. 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 This is managed with a chronic indwelling stent which is changed periodically. She is typically cared for by Dr. Michel Smith. It appears as if her stent changes occur about every 5 months. Right ureteral stent was last changed on 04/18/2024. She presents with mental status changes consistent with a urinary tract infection. Review of Systems Review of Systems: ROS unobtainable: Yes unobtainable due to mental status PMFSH Past Medical History Medical History Chronic pulmonary embolism Cognitive communication deficit Other abnormalities of gait and mobility Muscle weakness (generalized) Unspecified hydronephrosis Wheelchair dependence Sepsis 07/2023 Atrial fibrillation Macular degeneration Pulmonary emboli (~03/2023) Hypothyroidism Dementia Primary osteoarthritis involving multiple joints Mixed hyperlipidemia Surgical History Surgical History History of spinal surgery Due to osteomyelitis with debridement and subsequent stabilization approximately 2014. T7 through L2 H/O cervical spine surgery 2018 roughly Status post cataract extraction of both eyes with insertion of intraocular lens History of left hip replacement Family History Family History Mother Family history of malignant neoplasm of breast in first degree relative Father Family history of throat cancer Other Family history of malignant neoplasm of esophagus Social History Social History (Updated 09/14/24 @ 01:05 by Raeann Vasquez MD) Social History: Patient has lived at [facility] since approximately March 2023. She has been wheelchair dependent since her most recent hospitalization that occurred at that time. I believe her son stated that he is 1 of 4 children. The patient smoked about a half a pack of cigarettes per day but quit over 40 years ago. She never drink alcohol to excess. Code status: DNR/DNI Patient has a living will in place that states this. (POLST signed 08/13/23) Smoking packs per day: 0.5 Smoking cigarettes per day: 10.0 Years smoked: 20 Smoking pack-years: 10.00 Smoking status: Never smoker Tobacco type: cigarettes Second hand tobacco smoke exposure: No Smoking end date: 08/03/82 Alcohol intake: never Substance use: never Substance use type: does not use Do You Feel Safe in your Home?: No Lack of Transportation: No Lack of Food: Never True Current Housing: I Have Housing Concerned About Future Housing: No Difficulty Paying Gas/Electric Bills: No Difficulty Paying for Meds: No Currently Unemployed: No Education: High School Diploma/GED Difficulty w/ Childcare or Family Care: No Living arrangements: long term Additional living arrangements comments: [facility], Nurse Simona YODER Spiritual care concerns: No Meds Home Medications and Allergies Home Medications ?Medication ?Instructions ?Recorded ?Confirmed ?Type donepezil 5 mg tablet 5 mg PO DAILY 07/17/23 09/13/24 History ergocalciferol (vitamin D2) 1,250 See Rx Instructions .Route .COMPLEX 07/17/23 09/13/24 History mcg (50,000 unit) capsule memantine 10 mg tablet 10 mg PO BID 07/17/23 09/13/24 History pantoprazole 40 mg tablet,delayed 40 mg PO DAILY 07/17/23 09/13/24 History release simvastatin 20 mg tablet 20 mg PO DAILY 07/17/23 09/13/24 History magnesium oxide 400 mg (241.3 mg 400 mg PO DAILY 1 month #30 tabs 07/21/23 09/13/24 Rx magnesium) tablet aspirin 81 mg capsule 81 mg PO DAILY 11/09/23 09/13/24 History levothyroxine 200 mcg tablet 200 mcg PO DAILY 11/09/23 09/13/24 History levothyroxine 50 mcg tablet 50 mcg PO DAILY 11/09/23 09/13/24 History polyethylene glycol 3350 17 gram 17 g PO DAILY PRN Constipation 11/09/23 09/13/24 History oral powder packet (Miralax) rivaroxaban 20 mg tablet (Xarelto) 20 mg PO DAILY 11/09/23 09/13/24 History tizanidine 2 mg tablet 2 mg PO TID PRN Muscle Spasm 11/09/23 09/13/24 History Allergies Allergy/AdvReac Type Severity Reaction Status Date / Time Penicillins Allergy Unknown Unknown Verified 09/13/24 22:14 nitrofurantoin Allergy Unknown Verified 09/13/24 22:14 Vital Signs Vital Signs - 24 hr 09/13/24 21:33 09/13/24 22:12 09/13/24 22:14 Temperature 97.6 F Pulse Rate 96 101 H Respiratory Rate 12 28 H Blood Pressure 167/70 H 140/73 Pulse Oximetry 98 99 Oxygen Delivery Room Air Room Air 09/13/24 22:42 09/14/24 00:41 09/14/24 02:52 Temperature 97.4 F L 97.9 F Pulse Rate 98 107 H 112 H Respiratory Rate 16 19 16 Blood Pressure 135/79 141/70 H Pulse Oximetry 98 100 99 Oxygen Delivery 09/14/24 03:27 09/14/24 06:00 Temperature 97.7 F Pulse Rate 89 Respiratory Rate 19 Blood Pressure 120/54 L Pulse Oximetry 98 Oxygen Delivery Room Air Exam Const: General: no acute distress Resp: Effort & Inspection: normal respiratory effort GI: Inspection: non-distended GI Palp: No abdominal tenderness and No Guarding due to palpation present (GI) Auscultation: normal bowel sounds Results Labs 09/13/24 22:09 09/13/24 22:09 Labs: Short CBC 09/13/24 Range/Units 22:09 WBC 10.7 H (4.5-10.0) K/mm3 Hgb 12.1 (12.0-15.0) g/dL Hct 38.6 (37.0-47.0) % Plt Count 231 D (150-375) k/mm3 BMP 09/13/24 22:09 Sodium 139 Potassium 4.2 Chloride 104 Carbon Dioxide 24 BUN 24 H D Creatinine 1.27 H Glucose 99 Calcium 9.8 Cardiac Enzymes 09/13/24 Range/Units 22:09 Total Creatine Kinase 39 (30-135) U/L Troponin I < 0.012 (0.000-0.034) ng/mL Liver Function 09/13/24 Range/Units 22:09 Total Bilirubin 0.6 (0.2-1.3) mg/dL AST 18 (14-36) U/L ALT 12 (6-35) U/L Alkaline Phosphatase 110 (38-126) U/L Albumin 3.4 L (3.5-5.1) g/dL Urine 09/13/24 Range/Units 21:51 Urine Color Dark yellow (Yellow) Urine Appearance Turbid H (Clear) Urine pH 6.5 (5.0-9.0) Ur Specific [place] 1.018 (1.001-1.035) Urine Protein 3+ H (Negative) mg/dL Urine Glucose (UA) Negative (Negative) mg/dL
[2024-09-14 08:16] LABS: Anion Gap 9 mmol/L (4-12); Blood Urea Nitrogen 12 mg/dL (7-17); Calcium 7.6 mg/dL (8.4-10.2); Carbon Dioxide 17 mmol/L (22-30); Chloride 107 mmol/L (98-107); Estimated CRCL calculation 54 ml/min; Estimated Glomerular Filt Rate > 60; Glucose 56 mg/dL (65-110); Magnesium 1.2 mg/dL (1.6-2.3); Potassium 3.9 mmol/L (3.4-5.0); Sodium 133 mmol/L (137-145)
[2024-09-14 08:49] LABS: Glucose Point of Care 83 mg/dl (65-105)
--- NOTE | 2024-09-14 08:54 | PM.IMHP ---
H&P: HPI History of Present Illness Date/Time: 09/14/24 08:54 Chief Complaint: ams Narrative: 83 y.o with multiple chronic conditions presents for ams. pt has h/o PE, cognitive communication delay, hydronephrosis, afib, hld, dementia, hypothyroidism. She is poor historian. Not able to get much info from her. Speech was ordered but no assessment was completed as pt was anxious and emotional, not able to follow instructions. IN ed, ua was suspicious for infection- so she was given iv antibiotics and urology was consulted. Review of Systems Review of Systems: All systems reviewed & are unremarkable except as noted in HPI and below ROS unobtainable: Yes unobtainable due to mental status PMFSH Past Medical History Medical History Chronic pulmonary embolism Cognitive communication deficit Other abnormalities of gait and mobility Muscle weakness (generalized) Unspecified hydronephrosis Wheelchair dependence Sepsis 07/2023 Atrial fibrillation Macular degeneration Pulmonary emboli (~03/2023) Hypothyroidism Dementia Primary osteoarthritis involving multiple joints Mixed hyperlipidemia Surgical History Surgical History History of spinal surgery Due to osteomyelitis with debridement and subsequent stabilization approximately 2014. T7 through L2 H/O cervical spine surgery 2018 roughly Status post cataract extraction of both eyes with insertion of intraocular lens History of left hip replacement Family History Family History Mother Family history of malignant neoplasm of breast in first degree relative Father Family history of throat cancer Other Family history of malignant neoplasm of esophagus Social History Social History (Updated 09/14/24 @ 01:05 by Raeann Vasquez MD) Social History: Patient has lived at [facility] since approximately March 2023. She has been wheelchair dependent since her most recent hospitalization that occurred at that time. I believe her son stated that he is 1 of 4 children. The patient smoked about a half a pack of cigarettes per day but quit over 40 years ago. She never drink alcohol to excess. Code status: DNR/DNI Patient has a living will in place that states this. (POLST signed 08/13/23) Smoking packs per day: 0.5 Smoking cigarettes per day: 10.0 Years smoked: 20 Smoking pack-years: 10.00 Smoking status: Never smoker Tobacco type: cigarettes Second hand tobacco smoke exposure: No Smoking end date: 08/03/82 Alcohol intake: never Substance use: never Substance use type: does not use Do You Feel Safe in your Home?: No Lack of Transportation: No Lack of Food: Never True Current Housing: I Have Housing Concerned About Future Housing: No Difficulty Paying Gas/Electric Bills: No Difficulty Paying for Meds: No Currently Unemployed: No Education: High School Diploma/GED Difficulty w/ Childcare or Family Care: No Living arrangements: [facility]dc Additional living arrangements comments: [facility], Nurse Simona YODER Spiritual care concerns: No Meds Home Medications and Allergies Home Medications ?Medication ?Instructions ?Recorded ?Confirmed ?Type donepezil 5 mg tablet 5 mg PO DAILY 07/17/23 09/13/24 History ergocalciferol (vitamin D2) 1,250 See Rx Instructions .Route .COMPLEX 07/17/23 09/13/24 History mcg (50,000 unit) capsule memantine 10 mg tablet 10 mg PO BID 07/17/23 09/13/24 History pantoprazole 40 mg tablet,delayed 40 mg PO DAILY 07/17/23 09/13/24 History release simvastatin 20 mg tablet 20 mg PO DAILY 07/17/23 09/13/24 History magnesium oxide 400 mg (241.3 mg 400 mg PO DAILY 1 month #30 tabs 07/21/23 09/13/24 Rx magnesium) tablet aspirin 81 mg capsule 81 mg PO DAILY 11/09/23 09/13/24 History levothyroxine 200 mcg tablet 200 mcg PO DAILY 11/09/23 09/13/24 History levothyroxine 50 mcg tablet 50 mcg PO DAILY 11/09/23 09/13/24 History polyethylene glycol 3350 17 gram 17 g PO DAILY PRN Constipation 11/09/23 09/13/24 History oral powder packet (Miralax) rivaroxaban 20 mg tablet (Xarelto) 20 mg PO DAILY 11/09/23 09/13/24 History tizanidine 2 mg tablet 2 mg PO TID PRN Muscle Spasm 11/09/23 09/13/24 History Allergies Allergy/AdvReac Type Severity Reaction Status Date / Time Penicillins Allergy Unknown Unknown Verified 09/13/24 22:14 nitrofurantoin Allergy Unknown Verified 09/13/24 22:14 Vital Signs Vital Signs - 24 hr 09/13/24 21:33 09/13/24 22:12 09/13/24 22:14 Temperature 97.6 F Pulse Rate 96 101 H Respiratory Rate 12 28 H Blood Pressure 167/70 H 140/73 Pulse Oximetry 98 99 Oxygen Delivery Room Air Room Air 09/13/24 22:42 09/14/24 00:41 09/14/24 02:52 Temperature 97.4 F L 97.9 F Pulse Rate 98 107 H 112 H Respiratory Rate 16 19 16 Blood Pressure 135/79 141/70 H Pulse Oximetry 98 100 99 Oxygen Delivery 09/14/24 03:27 09/14/24 06:00 Temperature 97.7 F Pulse Rate 89 Respiratory Rate 19 Blood Pressure 120/54 L Pulse Oximetry 98 Oxygen Delivery Room Air Exam Narrative: in no acute distress Const: General: comfortable Resp: Effort & Inspection: normal respiratory effort Auscultation: clear to auscultation bilaterally Cardio: Rate: regular rate Rhythm: regular rhythm GI: Auscultation: normal bowel sounds Psych: Affect: Anxious affect present H&P: Results Labs Labs: Short CBC 09/13/24 Range/Units 22:09 WBC 10.7 H (4.5-10.0) K/mm3 Hgb 12.1 (12.0-15.0) g/dL Hct 38.6 (37.0-47.0) % Plt Count 231 D (150-375) k/mm3 BMP 09/13/24 09/14/24 22:09 07:47 Sodium 139 133 L Potassium 4.2 3.9 Chloride 104 107 Carbon Dioxide 24 17 L BUN 24 H D 12 D Creatinine 1.27 H 0.55 L Glucose 99 56 L* Calcium 9.8 7.6 L Cardiac Enzymes 09/13/24 Range/Units 22:09 Total Creatine Kinase 39 (30-135) U/L Troponin I < 0.012 (0.000-0.034) ng/mL Liver Function 09/13/24 Range/Units 22:09 Total Bilirubin 0.6 (0.2-1.3) mg/dL AST 18 (14-36) U/L ALT 12 (6-35) U/L Alkaline Phosphatase 110 (38-126) U/L Albumin 3.4 L (3.5-5.1) g/dL Urine 09/13/24 Range/Units 21:51 Urine Color Dark yellow (Yellow) Urine Appearance Turbid H (Clear) Urine pH 6.5 (5.0-9.0) Ur Specific [place] 1.018 (1.001-1.035) Urine Protein 3+ H (Negative) mg/dL Urine Glucose (UA) Negative (Negative) mg/dL Assessment and Plan Assessment and plan (1) Hypothyroidism: Qualifiers: Hypothyroidism type: unspecified Qualified Code(s): E03.9 - Hypothyroidism, unspecified Code(s): E03.9 - Hypothyroidism, unspecified Status: Acute (2) Pulmonary emboli: Onset Date: ~03/2023 Qualifiers: Pulmonary embolism type: unspecified Chronicity: chronic Acute cor pulmonale presence: without acute cor pulmonale Qualified Code(s): I27.82 - Chronic pulmonary embolism Code(s): I26.99 - Other pulmonary embolism without acute cor pulmonale Status: Acute (3) Hydronephrosis, right: Code(s): N13.30 - Unspecified hydronephrosis Status: Acute (4) Abnormal urinalysis: Code(s): R82.90 - Unspecified abnormal findings in urine Status: Acute (5) Altered mental status: Qualifiers: Altered mental status type: delirium Qualified Code(s): R41.0 - Disorientation, unspecified Code(s): R41.82 - Altered mental status, unspecified Status: Acute Plan Admitted for AMI. Very likely source is UTI. Was given cetriaxone, will continue that for now- waiting for culture and sensitivities. Will repeat speech eval tomorrow when a bit more alert. Will contnue anticoag for h/o PE, afib Add PT/OT once a little bit more alert Quality VTE Prophylaxis VTE prophylaxis: pharmacologic ordered
[2024-09-14 09:29] LABS: Basophils Percent Auto 0.4 % (0.2-1.2); Eosinophils Absolute Auto 0.3 K/mm3 (0-0.3); Eosinophils Percent Auto 3.1 % (0-4.4); Hematocrit 38.5 % (37.0-47.0); Hemoglobin 11.9 g/dL (12.0-15.0); Immature Granulocyte Absolute 0.05 K/mm3 (0.00-0.031); Immature Granulocyte Percent A 0.5 % (0-0.5); Lymphocytes Absolute Auto 1.51 K/mm3 (0.9-3.2); Lymphocytes Percent Auto 14.2 % (18.3-44.2); Mean Corpuscular HGB Conc 30.9 g/dl (32-36); Mean Corpuscular Hemoglobin 27.1 pg (26-34); Mean Corpuscular Volume 87.7 fl (80-100); Monocytes Absolute Auto 0.8 K/mm3 (0.1-0.6); Monocytes Percent Auto 7.6 % (2.6-8.5); Neutrophils Absolute Auto 7.9 K/mm3 (1.3-6.7); Neutrophils Percent Auto 74.2 % (45.5-73.1); Platelet Count Result 225 k/mm3 (150-375); Red Blood Count 4.39 M/mm3 (4.2-5.4); White Blood Count 10.6 K/mm3 (4.5-10.0)
[2024-09-14] MEDS: DONEPEZIL HCL 5 MG TABLET PO (09:50)
[2024-09-14] MEDS: SIMVASTATIN 20 MG TABLET PO (09:52)
[2024-09-14] MEDS: ASPIRIN 81 MG ENTERIC TABLET PO (09:52)
[2024-09-14] MEDS: PANTOPRAZOLE 40 MG TABLET PO (09:52)
[2024-09-14] MEDS: LEVOTHYROXINE SODIUM 50 MCG TABLET PO (10:00)
[2024-09-14] MEDS: LEVOTHYROXINE SODIUM 100 MCG TABLET 200 MCG PO (10:00)
[2024-09-14] MEDS: MAGNESIUM SULF 1 GM/D5W 100 ML 1 GM/100 ML BAG IVPB (10:00)
[2024-09-14 10:11] LABS: Large Platelets Present; Platelet Estimate Adequate (Adequate)
[2024-09-14 10:12] LABS: Anisocytosis 2+; Schistocytes None Seen
[2024-09-14 10:21] VITALS: PULSE 89; RESP 19; O2SAT 98
--- NOTE | 2024-09-14 10:40 | PCSTNOTE ---
Please refer to the Bedside Swallow Evaluation in the EMR. Please note, silent aspiration cannot be ruled out at bedside. Pt was seen for a bedside swallow evaluation; pt's son was present and stated she usually has no trouble swallowing. Pt was positioned upright in the bed; upon elevation of bed pt immediately began refusing and crying out. ST was able to explain purpose of testing but compliance was limited; she took very small amounts, i.e. ice chips, 1/4 to 1/2 tsp of pudding and applesauce, & a cup sip of water. With the ice chip trial, no oral stage or overt s/s of aspiration were exhibited. But with the pudding trial, pt began to cry out while simultaneously trying to swallow which resulted in coughing after the swallow; it could not be determined if the cough was related to an instance of aspiration. With a subsequent trial of applesauce, no overt s/s of aspiration was exhibited. Again with the cup sip, coughing occurred. Pt intermittently attempted to refuse trials during testing; intermittent coughing occurred after trials of pudding and thin liquids. ST cannot rule out aspiration at the bedside & discussed further testing (via MBS) with the pt's son. He stated today would not be a good day to attempt the MBS given her current state of crying out/refusing and having a buttock wound causing pain upon sitting up. Options were discussed with provider, i.e. performing MBS or repeating bedside at another time when pt is more cooperative. Provider stated to attempt another swallow evaluation at the bedside tomorrow. ST cannot offer diet recommendation at this time. Refer to provider.
[2024-09-14 14:00] VITALS: BP 130/57; PULSE 89; RESP 18; TEMP 36.1; O2SAT 97
[2024-09-14] MEDS: COLLAGENASE OINT 30 GM TUBE 1 APPLIC TOPICAL (14:24)
[2024-09-14 14:44] VITALS: BMI 25.8
[2024-09-14] MEDS: RIVAROXABAN 20 MG TABLET PO (17:46)
[2024-09-14 20:35] VITALS: BP 143/68; PULSE 114; RESP 20; TEMP 37.3; O2SAT 96
[2024-09-15] MEDS: LACTATED RINGERS 1,000 ML 100 ML IV CONT ×2 (06:28→16:43)
--- NOTE | 2024-09-15 06:31 | PC.NURSE ---
Pt is currently AxOx1. She is only alert to person. When RN, Shahla Hua tried to restart a new bag of fluids the pt refused and swatted RN's hand away when she tried to attach the IV. Pt also refused her 0630 dose of synthroid. PARESH Hua educated the pt about the fluids and medication and pt stil refused. PARESH Abrams came in later and the pt let her hook the fluids back up. Keno PCT tried to take pt's 0400 vitals and pt refused as well.
[2024-09-15] MEDS: ASPIRIN 81 MG ENTERIC TABLET PO (07:57)
[2024-09-15] MEDS: SIMVASTATIN 20 MG TABLET PO (07:57)
[2024-09-15] MEDS: DONEPEZIL HCL 5 MG TABLET PO (07:57)
[2024-09-15] MEDS: COLLAGENASE OINT 30 GM TUBE 1 APPLIC TOPICAL (07:57)
[2024-09-15] MEDS: TIZANIDINE HCL 2 MG TABLET PO (07:57)
--- NOTE | 2024-09-15 09:27 | PCSTNOTE ---
Attempted Bedside swallow eval again on this date; pt is more agitated c/t yesterday and adamantly refused. ST was not able to complete eval again.
[2024-09-15 11:44] LABS: Glucose Point of Care 82 mg/dl (65-105)
[2024-09-15 14:00] VITALS: BP 108/48; PULSE 94; RESP 16; TEMP 35.9; O2SAT 97
--- NOTE | 2024-09-15 14:19 | P.PNIM_ITS ---
Progress Note: A&P Assessment and Plan (1) Hypothyroidism: Qualifiers: Hypothyroidism type: unspecified Qualified Code(s): E03.9 - Hypothyroidism, unspecified Code(s): E03.9 - Hypothyroidism, unspecified Status: Acute (2) Pulmonary emboli: Onset Date: ~03/2023 Qualifiers: Pulmonary embolism type: unspecified Chronicity: chronic Acute cor pulmonale presence: without acute cor pulmonale Qualified Code(s): I27.82 - Chronic pulmonary embolism Code(s): I26.99 - Other pulmonary embolism without acute cor pulmonale Status: Acute (3) Hydronephrosis, right: Code(s): N13.30 - Unspecified hydronephrosis Status: Acute (4) Abnormal urinalysis: Code(s): R82.90 - Unspecified abnormal findings in urine Status: Acute (5) Altered mental status: Qualifiers: Altered mental status type: delirium Qualified Code(s): R41.0 - Disorientation, unspecified Code(s): R41.82 - Altered mental status, unspecified Status: Acute Plan Admitted for AMI. Very likely source is UTI. Was given cetriaxone, will continue that for now- waiting for culture and sensitivities. 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 Current admission for urinary tract infection leading to mental status changes * She is due for a right ureteral stent exchange in the near future but will try to avoid while she is acutely ill. We arrangements for right ureteral stent change either late in this admission or as an outpatient in the near future Wound care was consulted for a wound. follow recommendations: santyl ointment, frequent position changes, add pro tein/supplement shakes Time Spent With Patient Time with patient: 25 - 35 minutes Subjective Date/time seen: 09/15/24 14:19 Interval history: 83 y.o with multiple chronic conditions presents for ams. pt has h/o PE, cognitive communication delay, hydronephrosis, afib, hld, dementia, hypothyroidism. Episode of confusion in am, somewhat better now since daughter at the bedside. Speech therapy unable to complete assessment as pt didnot follow commands but she is eating and drinking ok- no distress/coughing noted. Review of Systems Review of Systems: comfortable All systems reviewed & are unremarkable except as noted in HPI and below Exam Narrative: in no acute distress Const: General: comfortable Resp: Effort & Inspection: normal respiratory effort Auscultation: clear to auscultation bilaterally Cardio: Rate: regular rate Rhythm: regular rhythm GI: Auscultation: normal bowel sounds Skin: General skin exam: normal color Neuro: Sensory Exam: normal sensation Extrem: General: normal to inspection Psych: Affect: Anxious affect present Other: episodes of confusion Objective Data Vital Signs Vital Signs: Vital Signs - 24 hr 09/14/24 20:35 09/15/24 08:00 09/15/24 14:00 Temperature 99.1 F 96.7 F L Pulse Rate 114 H 94 Respiratory Rate 20 16 Blood Pressure 143/68 H 108/48 L Pulse Oximetry 96 97 Oxygen Delivery Room Air Intake/Output Intake/Output: Intake & Output 09/12/24 09/13/24 09/14/24 09/15/24 23:59 23:59 23:59 23:59 Intake Total 1050 1720 1550 Output Total 30 Balance 1020 1720 1550 Meds/Results Medications: Active Medications Generic Name Dose Route Start Last Admin Trade Name Freq PRN Reason Stop Dose Admin Acetaminophen 650 mg 09/14/24 01:18 Acetaminophen 325 Mg Tablet PO Q4H PRN Mild Pain (1-3) or Fever Aspirin 81 mg 09/14/24 09:05 09/15/24 07:57 Aspirin 81 Mg Enteric Tablet PO 81 mg QAM [facility] Administration Collagenase 1 applic 09/14/24 09:00 09/15/24 07:57 Collagenase Oint 30 Gm Tube TOPICAL 1 applic QAM [facility] Administration Donepezil HCl 5 mg 09/14/24 09:00 09/15/24 07:57 Donepezil Hcl 5 Mg Tablet PO 5 mg DAILY [facility] Administration Lactated Ringer's 1,000 mls @ 100 mls/hr 09/14/24 01:20 09/15/24 06:28 Lr - Lactated Ringers Iv IV CONT 100 mls/hr .Q10H [facility] Administration Ceftriaxone Sodium 1 gm in 50 mls @ 100 mls/hr 09/14/24 22:00 09/14/24 21:31 Rocephin 1 Gm/Ns 50 Ml IVPB 100 mls/hr Q24H [facility] Administration Levothyroxine Sodium 50 mcg 09/14/24 11:00 09/15/24 06:06 Levothyroxine Sodium 50 Mcg Tablet PO Not Given DAILY@0630 [facility] Levothyroxine Sodium 200 mcg 09/14/24 11:00 09/15/24 06:07 Levothyroxine Sodium 100 Mcg Tablet PO Not Given DAILY@0630 [facility] Memantine 10 mg 09/14/24 09:00 09/14/24 14:22 Memantine 10 Mg Tablet PO Not Given BID [facility] Ondansetron HCl 4 mg 09/14/24 01:18 Ondansetron Inj 4 Mg/2 Ml Vial IV PUSH Q4H PRN Nausea Pantoprazole Sodium 40 mg 09/14/24 09:00 09/15/24 08:09 Pantoprazole 40 Mg Tablet PO Not Given DAILY [facility] Polyethylene Glycol 17 gm 09/14/24 08:59 Polyethylene Glycol 3350 17 Gm Powd.Pack PO DAILY PRN Constipation Rivaroxaban 20 mg 09/14/24 17:00 09/14/24 17:46 Rivaroxaban 20 Mg Tablet PO 20 mg DAILY@1700 [facility] Administration Simvastatin 20 mg 09/14/24 09:00 09/15/24 07:57 Simvastatin 20 Mg Tablet PO 20 mg DAILY [facility] Administration Tizanidine HCl 2 mg 09/14/24 08:59 09/15/24 07:57 Tizanidine Hcl 2 Mg Tablet PO 2 mg TID PRN Administration Muscle Spasm Vitamin D 5,000 units 09/16/24 09:00 Cholecalciferol 5,000 Units Tablet BY MOUTH DAILY [facility] Radiology Results: ITS Impressions Chest X-Ray 09/13/24 22:26 IMPRESSION: Mild pulmonary vascular congestion, without focal infiltrate Head CT 09/13/24 22:40 Impression: No acute intracranial hemorrhage or suspicious mass effect. Cervical Spine CT 09/13/24 22:45 Impression: Significant degenerative disease, without acute fracture. Chest/Abdomen/Pelvis CT 09/13/24 23:58 IMPRESSION: Persistent right-sided hydroureteronephrosis despite double-J stent. Enhancement pattern within the right kidney and right ureter suggesting ascending infection, from the bladder which demonstrates thickened lui and surrounding inflammatory change. Remainder of examination is unchanged from prior. Labs Labs: Laboratory Results - last 24 hr 09/15/24 11:24 POC Capillary Glucose 82 Quality VTE Prophylaxis VTE prophylaxis: pharmacologic ordered
[2024-09-15] MEDS: RIVAROXABAN 20 MG TABLET PO (16:43)
--- NOTE | 2024-09-15 16:51 | P.PNUR_ITS ---
Progress Note: A&P Assessment and Plan (1) Hydronephrosis, right: Code(s): N13.30 - Unspecified hydronephrosis Status: Acute (2) Altered mental status: Qualifiers: Altered mental status type: delirium Qualified Code(s): R41.0 - Disorientation, unspecified Code(s): R41.82 - Altered mental status, unspecified Status: Acute Assessment and Plan: * Await final urine culture results. * If she is ready for discharge over the weekend she can go home and we will make arrangements for outpatient exchange of her ureteral stent Time Spent With Patient Time with patient: 25 - 35 minutes Subjective Subjective Date/Time Seen: 09/15/24 16:51 Interval history: Seems comfortable, without complaints Review of Systems Review of Systems: ROS unobtainable: Yes unobtainable due to mental status Objective Data Vital Signs Vital Signs: Vital Signs - 24 hr 09/14/24 20:35 09/15/24 08:00 09/15/24 14:00 Temperature 99.1 F 96.7 F L Pulse Rate 114 H 94 Respiratory Rate 20 16 Blood Pressure 143/68 H 108/48 L Pulse Oximetry 96 97 Oxygen Delivery Room Air Intake/Output Intake/Output: Intake & Output 09/12/24 09/13/24 09/14/24 09/15/24 23:59 23:59 23:59 23:59 Intake Total 1050 1720 2700 Output Total 30 Balance 1020 1720 2700 Meds/Results Medications: Active Medications Generic Name Dose Route Start Last Admin Trade Name Freq PRN Reason Stop Dose Admin Acetaminophen 650 mg 09/14/24 01:18 Acetaminophen 325 Mg Tablet PO Q4H PRN Mild Pain (1-3) or Fever Aspirin 81 mg 09/14/24 09:05 09/15/24 07:57 Aspirin 81 Mg Enteric Tablet PO 81 mg QAM [facility] Administration Collagenase 1 applic 09/14/24 09:00 09/15/24 07:57 Collagenase Oint 30 Gm Tube TOPICAL 1 applic QAM [facility] Administration Donepezil HCl 5 mg 09/14/24 09:00 09/15/24 07:57 Donepezil Hcl 5 Mg Tablet PO 5 mg DAILY [facility] Administration Lactated Ringer's 1,000 mls @ 100 mls/hr 09/14/24 01:20 09/15/24 16:43 Lr - Lactated Ringers Iv IV CONT 100 mls/hr .Q10H [facility] Administration Ceftriaxone Sodium 1 gm in 50 mls @ 100 mls/hr 09/14/24 22:00 09/14/24 21:31 Rocephin 1 Gm/Ns 50 Ml IVPB 100 mls/hr Q24H [facility] Administration Levothyroxine Sodium 50 mcg 09/14/24 11:00 09/15/24 06:06 Levothyroxine Sodium 50 Mcg Tablet PO Not Given DAILY@0630 [facility] Levothyroxine Sodium 200 mcg 09/14/24 11:00 09/15/24 06:07 Levothyroxine Sodium 100 Mcg Tablet PO Not Given DAILY@0630 [facility] Memantine 10 mg 09/14/24 09:00 09/14/24 14:22 Memantine 10 Mg Tablet PO Not Given BID [facility] Ondansetron HCl 4 mg 09/14/24 01:18 Ondansetron Inj 4 Mg/2 Ml Vial IV PUSH Q4H PRN Nausea Pantoprazole Sodium 40 mg 09/14/24 09:00 09/15/24 08:09 Pantoprazole 40 Mg Tablet PO Not Given DAILY [facility] Polyethylene Glycol 17 gm 09/14/24 08:59 Polyethylene Glycol 3350 17 Gm Powd.Pack PO DAILY PRN Constipation Rivaroxaban 20 mg 09/14/24 17:00 09/15/24 16:43 Rivaroxaban 20 Mg Tablet PO 20 mg DAILY@1700 [facility] Administration Simvastatin 20 mg 09/14/24 09:00 09/15/24 07:57 Simvastatin 20 Mg Tablet PO 20 mg DAILY [facility] Administration Tizanidine HCl 2 mg 09/14/24 08:59 09/15/24 07:57 Tizanidine Hcl 2 Mg Tablet PO 2 mg TID PRN Administration Muscle Spasm Vitamin D 5,000 units 09/16/24 09:00 Cholecalciferol 5,000 Units Tablet BY MOUTH DAILY [facility] Radiology Results: ITS Impressions Chest X-Ray 09/13/24 22:26 IMPRESSION: Mild pulmonary vascular congestion, without focal infiltrate Head CT 09/13/24 22:40 Impression: No acute intracranial hemorrhage or suspicious mass effect. Cervical Spine CT 09/13/24 22:45 Impression: Significant degenerative disease, without acute fracture. Chest/Abdomen/Pelvis CT 09/13/24 23:58 IMPRESSION: Persistent right-sided hydroureteronephrosis despite double-J stent. Enhancement pattern within the right kidney and right ureter suggesting ascending infection, from the bladder which demonstrates thickened lui and surrounding inflammatory change. Remainder of examination is unchanged from prior. Labs Labs: Laboratory Results - last 24 hr 09/15/24 11:24 POC Capillary Glucose 82
[2024-09-15 21:44] VITALS: BP 139/87; PULSE 95; RESP 18; TEMP 36.6; O2SAT 97
[2024-09-16 04:19] VITALS: BP 138/63; PULSE 90; RESP 18; TEMP 36.8; O2SAT 97
[2024-09-16] MEDS: LACTATED RINGERS 1,000 ML 100 ML IV CONT (04:53)
[2024-09-16] MEDS: LEVOTHYROXINE SODIUM 100 MCG TABLET 200 MCG PO (05:40)
[2024-09-16] MEDS: LEVOTHYROXINE SODIUM 50 MCG TABLET PO (05:44)
[2024-09-16 06:24] LABS: Anion Gap 7 mmol/L (4-12); Blood Urea Nitrogen 11 mg/dL (7-17); Calcium 8.8 mg/dL (8.4-10.2); Carbon Dioxide 22 mmol/L (22-30); Chloride 107 mmol/L (98-107); Estimated CRCL calculation 38 ml/min; Estimated Glomerular Filt Rate > 60; Glucose 89 mg/dL (65-110); Potassium 3.5 mmol/L (3.4-5.0); Sodium 136 mmol/L (137-145)
[2024-09-16 06:34] LABS: Hematocrit 38.4 % (37.0-47.0); Hemoglobin 10.9 g/dL (12.0-15.0); Mean Corpuscular HGB Conc 28.4 g/dl (32-36); Mean Corpuscular Hemoglobin 27.1 pg (26-34); Mean Corpuscular Volume 95.5 fl (80-100); Mean Platelet Volume 11.6 fl (7.4-10.4); Platelet Count Result 193 k/mm3 (150-375); Red Blood Count 4.02 M/mm3 (4.2-5.4); Red Cell Distribution Width 20.4 % (11.5-14.5); White Blood Count 8.8 K/mm3 (4.5-10.0)
[2024-09-16] MEDS: DONEPEZIL HCL 5 MG TABLET PO (08:06)
[2024-09-16] MEDS: COLLAGENASE OINT 30 GM TUBE 1 APPLIC TOPICAL (08:06)
[2024-09-16] MEDS: SIMVASTATIN 20 MG TABLET PO (08:06)
[2024-09-16] MEDS: CHOLECALCIFEROL 5,000 UNITS TABLET 5000 UNITS BY MOUTH (08:06)
--- NOTE | 2024-09-16 11:03 | PCSTNOTE ---
Please refer to the Bedside Swallow Evaluation in the EMR. Please note, silent aspiration cannot be ruled out at bedside. This very confused pt was seen for a third attempt for a bedside swallow evaluation; the patient was still confused but not agitated as she was yesterday. Per RN, pt took pills this morning crushed in liquid without difficulty. Pt was tested with small amounts of chocolate pudding, chocolate Ensure (mildly thick), small bite sizes of a cookie, and cup sips of thin liquid. Pt was able to suck from a thinner straw but when presented with the hospital-provided cup with the larger straw, she blew into it versus sucking. No other oral stage difficulty was exhibited. Laryngeal elevation appeared adequate and no overt s/s of aspiration were exhibited; presentations were limited due to pts uncooperative nature and severe confusion. Impression: functional swallowing Recommendation: continue current regular diet with regular liquids
--- NOTE | 2024-09-16 12:50 | PCOTNOTE ---
Pt. is dependent at baseline requiring mechanical device for mobility to wheelchair. Per nursing pt. is at baseline with use of [employer] with nursing for transfers. hospitalisy called and agreed. Cancelation of orders.
--- NOTE | 2024-09-16 13:40 | P.PNIM_ITS ---
Progress Note: A&P Assessment and Plan (1) Hypothyroidism: Qualifiers: Hypothyroidism type: unspecified Qualified Code(s): E03.9 - Hypothyroidism, unspecified Code(s): E03.9 - Hypothyroidism, unspecified Status: Acute (2) Pulmonary emboli: Onset Date: ~03/2023 Qualifiers: Pulmonary embolism type: unspecified Chronicity: chronic Acute cor pulmonale presence: without acute cor pulmonale Qualified Code(s): I27.82 - Chronic pulmonary embolism Code(s): I26.99 - Other pulmonary embolism without acute cor pulmonale Status: Acute (3) Hydronephrosis, right: Code(s): N13.30 - Unspecified hydronephrosis Status: Acute (4) Abnormal urinalysis: Code(s): R82.90 - Unspecified abnormal findings in urine Status: Acute (5) Altered mental status: Qualifiers: Altered mental status type: delirium Qualified Code(s): R41.0 - Disorientation, unspecified Code(s): R41.82 - Altered mental status, unspecified Status: Acute Plan Admitted for AMI. Very likely source is UTI. Was given cetriaxone, will continue that for now- waiting for culture and sensitivities. Attempted to repeat speech eval today but pt was not cooperating Will continue anticoag for h/o PE, afib PT/OT did not see her as she is at her baseline and working with PT/OT will not yield any different results. Will continue with ambulate at least TID with nursing. Anticipate downgrading to PO antibiotics possibly tomorrow and if stable anticipate discharge. 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 Current admission for urinary tract infection leading to mental status changes * She is due for a right ureteral stent exchange in the near future but will try to avoid while she is acutely ill. We arrangements for right ureteral stent change either late in this admission or as an outpatient in the near future Wound care was consulted for a wound. follow recommendations: santyl ointment, frequent position changes, add protein/supplement shakes Time Spent With Patient Time with patient: 25 - 35 minutes Subjective Date/time seen: 09/16/24 13:40 Interval history: more alert today. speech saw her and she is cleared. Continues antibiotics for UTI Review of Systems Review of Systems: comfortable All systems reviewed & are unremarkable except as noted in HPI and below Respiratory: Respiratory: Denies chest congestion Gastrointestinal: Gastrointestinal: Denies abdominal pain Exam Narrative: in no acute distress, comfortable Const: General: comfortable Resp: Effort & Inspection: normal respiratory effort Auscultation: clear to auscultation bilaterally Cardio: Rate: regular rate Rhythm: regular rhythm GI: Auscultation: normal bowel sounds Skin: General skin exam: normal color Neuro: Sensory Exam: normal sensation Extrem: General: normal to inspection Psych: Affect: Anxious affect present Other: episodes of confusion Objective Data Vital Signs Vital Signs: Vital Signs - 24 hr 09/15/24 14:00 09/15/24 21:44 09/16/24 04:19 Temperature 96.7 F L 97.9 F 98.3 F Pulse Rate 94 95 90 Respiratory Rate 16 18 18 Blood Pressure 108/48 L 139/87 138/63 Pulse Oximetry 97 97 97 Oxygen Delivery 09/16/24 08:00 Temperature Pulse Rate Respiratory Rate Blood Pressure Pulse Oximetry Oxygen Delivery Room Air Intake/Output Intake/Output: Intake & Output 09/13/24 09/14/24 09/15/24 09/16/24 23:59 23:59 23:59 23:59 Intake Total 1050 1770 2800 1330 Output Total 30 400 Balance 1020 1770 2800 930 Meds/Results Medications: Active Medications Generic Name Dose Route Start Last Admin Trade Name Freq PRN Reason Stop Dose Admin Acetaminophen 650 mg 09/14/24 01:18 Acetaminophen 325 Mg Tablet PO Q4H PRN Mild Pain (1-3) or Fever Aspirin 81 mg 09/14/24 09:05 09/16/24 08:05 Aspirin 81 Mg Enteric Tablet PO Not Given QAM [facility] Collagenase 1 applic 09/14/24 09:00 09/16/24 08:06 Collagenase Oint 30 Gm Tube TOPICAL 1 applic QAM [facility] Administration Donepezil HCl 5 mg 09/14/24 09:00 09/16/24 08:06 Donepezil Hcl 5 Mg Tablet PO 5 mg DAILY [facility] Administration Lactated Ringer's 1,000 mls @ 100 mls/hr 09/14/24 01:20 09/16/24 04:53 Lr - Lactated Ringers Iv IV CONT 100 mls/hr .Q10H [facility] Administration Ceftriaxone Sodium 1 gm in 50 mls @ 100 mls/hr 09/14/24 22:00 09/15/24 22:01 Rocephin 1 Gm/Ns 50 Ml IVPB 100 mls/hr Q24H [facility] Administration Levothyroxine Sodium 50 mcg 09/14/24 11:00 09/16/24 05:44 Levothyroxine Sodium 50 Mcg Tablet PO 50 mcg DAILY@0630 [facility] Administration Levothyroxine Sodium 200 mcg 09/14/24 11:00 09/16/24 05:40 Levothyroxine Sodium 100 Mcg Tablet PO 200 mcg DAILY@0630 [facility] Administration Memantine 10 mg 09/14/24 09:00 09/14/24 14:22 Memantine 10 Mg Tablet PO Not Given BID [facility] Ondansetron HCl 4 mg 09/14/24 01:18 Ondansetron Inj 4 Mg/2 Ml Vial IV PUSH Q4H PRN Nausea Pantoprazole Sodium 40 mg 09/14/24 09:00 09/16/24 08:06 Pantoprazole 40 Mg Tablet PO Not Given DAILY [facility] Polyethylene Glycol 17 gm 09/14/24 08:59 Polyethylene Glycol 3350 17 Gm Powd.Pack PO DAILY PRN Constipation Rivaroxaban 20 mg 09/14/24 17:00 09/15/24 16:43 Rivaroxaban 20 Mg Tablet PO 20 mg DAILY@1700 [facility] Administration Simvastatin 20 mg 09/14/24 09:00 09/16/24 08:06 Simvastatin 20 Mg Tablet PO 20 mg DAILY [facility] Administration Tizanidine HCl 2 mg 09/14/24 08:59 09/15/24 07:57 Tizanidine Hcl 2 Mg Tablet PO 2 mg TID PRN Administration Muscle Spasm Vitamin D 5,000 units 09/16/24 09:00 09/16/24 08:06 Cholecalciferol 5,000 Units Tablet BY MOUTH 5,000 units DAILY [facility] Administration Radiology Results: ITS Impressions Chest X-Ray 09/13/24 22:26 IMPRESSION: Mild pulmonary vascular congestion, without focal infiltrate Head CT 09/13/24 22:40 Impression: No acute intracranial hemorrhage or suspicious mass effect. Cervical Spine CT 09/13/24 22:45 Impression: Significant degenerative disease, without acute fracture. Chest/Abdomen/Pelvis CT 09/13/24 23:58 IMPRESSION: Persistent right-sided hydroureteronephrosis despite double-J stent. Enhancement pattern within the right kidney and right ureter suggesting ascending infection, from the bladder which demonstrates thickened lui and surrounding inflammatory change. Remainder of examination is unchanged from prior. Labs Labs: Laboratory Results - last 24 hr 09/16/24 06:02 WBC 8.8 RBC 4.02 L Hgb 10.9 L Hct 38.4 MCV 95.5 D MCH 27.1 MCHC 28.4 L RDW 20.4 H Plt Count 193 MPV 11.6 H Sodium 136 L Potassium 3.5 Chloride 107 Carbon Dioxide 22 Anion Gap 7 BUN 11 Creatinine 0.80 Estim Creat Clear Calc 38 Estimated GFR > 60 Glucose 89 Calcium 8.8 Quality VTE Prophylaxis VTE prophylaxis: pharmacologic ordered
[2024-09-16 13:59] VITALS: BP 125/63; PULSE 93; RESP 16; TEMP 36.4; O2SAT 100
[2024-09-16] MEDS: TIZANIDINE HCL 2 MG TABLET PO (16:51)
[2024-09-16] MEDS: MIRTAZAPINE 7.5 MG TABLET PO (16:51)
[2024-09-16] MEDS: RIVAROXABAN 20 MG TABLET PO (16:51)
[2024-09-16 21:59] VITALS: BP 142/58; PULSE 93; RESP 18; TEMP 36.7; O2SAT 96
[2024-09-17 04:12] VITALS: BP 126/65; PULSE 82; RESP 18; TEMP 36.4; O2SAT 94
[2024-09-17 07:49] LABS: Hematocrit 35.8 % (37.0-47.0); Hemoglobin 11.3 g/dL (12.0-15.0); Mean Corpuscular HGB Conc 31.6 g/dl (32-36); Mean Corpuscular Hemoglobin 27.4 pg (26-34); Mean Corpuscular Volume 86.7 fl (80-100); Mean Platelet Volume 11.7 fl (7.4-10.4); Platelet Count Result 229 k/mm3 (150-375); Red Blood Count 4.13 M/mm3 (4.2-5.4); Red Cell Distribution Width 19.8 % (11.5-14.5); White Blood Count 9.3 K/mm3 (4.5-10.0)
[2024-09-17 08:02] LABS: Anion Gap 6 mmol/L (4-12); Blood Urea Nitrogen 10 mg/dL (7-17); Calcium 9.2 mg/dL (8.4-10.2); Carbon Dioxide 28 mmol/L (22-30); Chloride 107 mmol/L (98-107); Estimated CRCL calculation 36 ml/min; Estimated Glomerular Filt Rate > 60; Glucose 85 mg/dL (65-110); Potassium 3.9 mmol/L (3.4-5.0); Sodium 141 mmol/L (137-145)
[2024-09-17] MEDS: COLLAGENASE OINT 30 GM TUBE 1 APPLIC TOPICAL (11:37)
[2024-09-17] MEDS: LACTATED RINGERS 1,000 ML 75 ML IV CONT (14:07)
--- NOTE | 2024-09-17 14:56 | P.PNIM_ITS ---
Progress Note: A&P Assessment and Plan (1) Hypothyroidism: Qualifiers: Hypothyroidism type: unspecified Qualified Code(s): E03.9 - Hypothyroidism, unspecified Code(s): E03.9 - Hypothyroidism, unspecified Status: Acute (2) Pulmonary emboli: Onset Date: ~03/2023 Qualifiers: Pulmonary embolism type: unspecified Chronicity: chronic Acute cor pulmonale presence: without acute cor pulmonale Qualified Code(s): I27.82 - Chronic pulmonary embolism Code(s): I26.99 - Other pulmonary embolism without acute cor pulmonale Status: Acute (3) Hydronephrosis, right: Code(s): N13.30 - Unspecified hydronephrosis Status: Acute (4) Abnormal urinalysis: Code(s): R82.90 - Unspecified abnormal findings in urine Status: Acute (5) Altered mental status: Qualifiers: Altered mental status type: delirium Qualified Code(s): R41.0 - Disorientation, unspecified Code(s): R41.82 - Altered mental status, unspecified Status: Acute Plan Admitted for AMI. Very likely source is UTI. Was given cetriaxone, will continue that for now- waiting for culture and sensitivities. Klebsiella pneumonia- on appropriate gram negative coverage. 09/17- somewhat worse mental status this am- will repeat can scan. Attempted to repeat speech eval today but pt was not cooperating Will continue anticoag for h/o PE, afib PT/OT did not see her as she is at her baseline and working with PT/OT will not yield any different results. Will continue with ambulate at least TID with nursing. Anticipate downgrading to PO antibiotics possibly tomorrow and if stable anticipate discharge. 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 Current admission for urinary tract infection leading to mental status changes * She is due for a right ureteral stent exchange in the near future but will try to avoid while she is acutely ill. We arrangements for right ureteral stent change either late in this admission or as an outpatient in the near future Wound care was consulted for a wound. follow recommendations: santyl ointment, frequent position changes, add protein/supplement shakes Time Spent With Patient Time with patient: 25 - 35 minutes Subjective Date/time seen: 09/17/24 14:56 Interval history: Intermittent confusion, worse this am. She is somewhat restless, states wants to go home. Continues antibiotics for UTI Review of Systems Review of Systems: comfortable All systems reviewed & are unremarkable except as noted in HPI and below ROS unobtainable: Yes unobtainable due to mental status Respiratory: Respiratory: Denies chest congestion Gastrointestinal: Gastrointestinal: Denies abdominal pain Exam Narrative: in no acute distress, states wnats to go home, answers some questions but more confused this am Const: General: comfortable Resp: Effort & Inspection: normal respiratory effort Auscultation: clear to auscultation bilaterally Cardio: Rate: regular rate Rhythm: regular rhythm GI: Auscultation: normal bowel sounds Skin: General skin exam: normal color Neuro: Sensory Exam: normal sensation Extrem: General: normal to inspection Psych: Affect: Anxious affect present Other: episodes of confusion Objective Data Vital Signs Vital Signs: Vital Signs - 24 hr 09/16/24 21:59 09/17/24 04:12 09/17/24 11:37 Temperature 98.1 F 97.6 F Pulse Rate 93 82 Respiratory Rate 18 18 Blood Pressure 142/58 H 126/65 Pulse Oximetry 96 94 Oxygen Delivery Room Air Intake/Output Intake/Output: Intake & Output 09/14/24 09/15/24 09/16/24 09/17/24 23:59 23:59 23:59 23:59 Intake Total 1770 2850 1750 0 Output Total 1200 500 Balance 1770 2850 550 -500 Meds/Results Medications: Active Medications Generic Name Dose Route Start Last Admin Trade Name Freq PRN Reason Stop Dose Admin Acetaminophen 650 mg 09/14/24 01:18 Acetaminophen 325 Mg Tablet PO Q4H PRN Mild Pain (1-3) or Fever Aspirin 81 mg 09/14/24 09:05 09/17/24 10:54 Aspirin 81 Mg Enteric Tablet PO Not Given [facility]AM [facility] Collagenase 1 applic 09/14/24 09:00 09/17/24 11:37 Collagenase Oint 30 Gm Tube TOPICAL 1 applic QAM [facility] Administration Donepezil HCl 5 mg 09/14/24 09:00 09/17/24 14:07 Donepezil Hcl 5 Mg Tablet PO Not Given DAILY [facility] Ceftriaxone Sodium 1 gm in 50 mls @ 100 mls/hr 09/14/24 22:00 09/16/24 21:35 Rocephin 1 Gm/Ns 50 Ml IVPB 100 mls/hr Q24H [facility] Administration Lactated Ringer's 1,000 mls @ 75 mls/hr 09/17/24 13:45 09/17/24 14:07 Lr - Lactated Ringers Iv IV CONT 75 mls/hr .[id number] [facility] Administration Levothyroxine Sodium 50 mcg 09/14/24 11:00 09/17/24 06:40 Levothyroxine Sodium 50 Mcg Tablet PO Not Given DAILY@0630 [facility] Levothyroxine Sodium 200 mcg 09/14/24 11:00 09/17/24 06:40 Levothyroxine Sodium 100 Mcg Tablet PO Not Given DAILY@0630 [facility] Memantine 10 mg 09/14/24 09:00 09/14/24 14:22 Memantine 10 Mg Tablet PO Not Given BID [facility] Mirtazapine 7.5 mg 09/16/24 17:00 09/16/24 16:51 Mirtazapine 7.5 Mg Tablet PO 7.5 mg 1700 [facility] Administration Ondansetron HCl 4 mg 09/14/24 01:18 Ondansetron Inj 4 Mg/2 Ml Vial IV PUSH Q4H PRN Nausea Pantoprazole Sodium 40 mg 09/14/24 09:00 09/17/24 10:56 Pantoprazole 40 Mg Tablet PO Not Given DAILY [facility] Polyethylene Glycol 17 gm 09/14/24 08:59 Polyethylene Glycol 3350 17 Gm Powd.Pack PO DAILY PRN Constipation Rivaroxaban 20 mg 09/14/24 17:00 09/16/24 16:51 Rivaroxaban 20 Mg Tablet PO 20 mg DAILY@1700 [facility] Administration Simvastatin 20 mg 09/14/24 09:00 09/17/24 14:07 Simvastatin 20 Mg Tablet PO Not Given DAILY [facility] Tizanidine HCl 2 mg 09/14/24 08:59 09/16/24 16:51 Tizanidine Hcl 2 Mg Tablet PO 2 mg TID PRN Administration Muscle Spasm Vitamin D 5,000 units 09/16/24 09:00 09/17/24 14:07 Cholecalciferol 5,000 Units Tablet BY MOUTH Not Given DAILY [facility] Radiology Results: ITS Impressions Chest X-Ray 09/13/24 22:26 IMPRESSION: Mild pulmonary vascular congestion, without focal infiltrate Head CT 09/13/24 22:40 Impression: No acute intracranial hemorrhage or suspicious mass effect. Cervical Spine CT 09/13/24 22:45 Impression: Significant degenerative disease, without acute fracture. Chest/Abdomen/Pelvis CT 09/13/24 23:58 IMPRESSION: Persistent right-sided hydroureteronephrosis despite double-J stent. Enhancement pattern within the right kidney and right ureter suggesting ascending infection, from the bladder which demonstrates thickened lui and surrounding inflammatory change. Remainder of examination is unchanged from prior. Labs Labs: Laboratory Results - last 24 hr 09/17/24 07:32 WBC 9.3 RBC 4.13 L Hgb 11.3 L Hct 35.8 L MCV 86.7 D MCH 27.4 MCHC 31.6 L RDW 19.8 H Plt Count 229 MPV 11.7 H Sodium 141 Potassium 3.9 Chloride 107 Carbon Dioxide 28 Anion Gap 6 BUN 10 Creatinine 0.85 Estim Creat Clear Calc 36 Estimated GFR > 60 Glucose 85 Calcium 9.2 Quality VTE Prophylaxis VTE prophylaxis: pharmacologic ordered
[2024-09-17 15:04] VITALS: BP 141/83; PULSE 78; RESP 18; TEMP 36.3; O2SAT 98
[2024-09-17 21:55] VITALS: BP 149/71; PULSE 96; RESP 20; TEMP 35.7; O2SAT 97
[2024-09-18] MEDS: LACTATED RINGERS 1,000 ML 75 ML IV CONT ×2 (05:34→17:39)
--- NOTE | 2024-09-18 05:35 | PC.NURSE ---
Unable to give her meds this am, she is aroused by touch and moans but drifts back to sleep quickly, morning meds held for safety.
[2024-09-18 06:00] VITALS: BP 136/70; PULSE 77; RESP 18; TEMP 35.8; O2SAT 97
[2024-09-18 07:52] VITALS: O2SAT 97
[2024-09-18] MEDS: COLLAGENASE OINT 30 GM TUBE 1 APPLIC TOPICAL (09:07)
[2024-09-18 09:31] LABS: Hematocrit 35.9 % (37.0-47.0); Hemoglobin 10.7 g/dL (12.0-15.0); Mean Corpuscular HGB Conc 29.8 g/dl (32-36); Mean Corpuscular Hemoglobin 26.9 pg (26-34); Mean Corpuscular Volume 90.2 fl (80-100); Mean Platelet Volume 12.1 fl (7.4-10.4); Platelet Count Result 229 k/mm3 (150-375); Red Blood Count 3.98 M/mm3 (4.2-5.4); Red Cell Distribution Width 19.9 % (11.5-14.5); White Blood Count 9.1 K/mm3 (4.5-10.0)
[2024-09-18 10:31] LABS: Anion Gap 8 mmol/L (4-12); Blood Urea Nitrogen 9 mg/dL (7-17); Carbon Dioxide 22 mmol/L (22-30); Chloride 109 mmol/L (98-107); Estimated CRCL calculation 45 ml/min; Estimated Glomerular Filt Rate > 60; Glucose 70 mg/dL (65-110); Potassium 3.8 mmol/L (3.4-5.0); Sodium 139 mmol/L (137-145)
--- NOTE | 2024-09-18 15:15 | PM.IMPN ---
Progress Note: A&P Assessment and Plan (1) Hypothyroidism: Qualifiers: Hypothyroidism type: unspecified Qualified Code(s): E03.9 - Hypothyroidism, unspecified Code(s): E03.9 - Hypothyroidism, unspecified Status: Acute (2) Pulmonary emboli: Onset Date: ~03/2023 Qualifiers: Pulmonary embolism type: unspecified Chronicity: chronic Acute cor pulmonale presence: without acute cor pulmonale Qualified Code(s): I27.82 - Chronic pulmonary embolism Code(s): I26.99 - Other pulmonary embolism without acute cor pulmonale Status: Acute (3) Hydronephrosis, right: Code(s): N13.30 - Unspecified hydronephrosis Status: Acute (4) Abnormal urinalysis: Code(s): R82.90 - Unspecified abnormal findings in urine Status: Acute (5) Altered mental status: Qualifiers: Altered mental status type: delirium Qualified Code(s): R41.0 - Disorientation, unspecified Code(s): R41.82 - Altered mental status, unspecified Status: Acute Plan Admitted for AMI. Very likely source is UTI. Was given cetriaxone, will continue that for now- waiting for culture and sensitivities. Klebsiella pneumonia- on appropriate gram negative coverage. 09/17- somewhat worse mental status this am- will repeat can scan. 09/18 negative- will continue ic therapy for ui saw Attempted to repeat speech eval today but pt was not cooperating Will continue anticoag for h/o PE, afib PT/OT did not see her as she is at her baseline and working with PT/OT will not yield any different results. Will continue with ambulate at least TID with nursing. Anticipate downgrading to PO antibiotics possibly tomorrow and if stable anticipate discharge. 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 Current admission for urinary tract infection leading to mental status changes She is due for a right ureteral stent exchange in the near future but will try to avoid while she is acutely ill. We arrangements for right ureteral stent change either late in this admission or as an outpatient in the near future Wound care was consulted for a wound. follow recommendations: santyl ointment, frequent position changes, add protein/supplement shakes Time Spent With Patient Time with patient: 25 - 35 minutes Subjective Date/time seen: 09/18/24 15:15 Interval history: Intermittent confusion, ct head-negative yesterday. calm today, resting with eyes closed. Continues antibiotics for UTI Review of Systems Review of Systems: comfortable All systems reviewed & are unremarkable except as noted in HPI and below ROS unobtainable: Yes unobtainable due to mental status Respiratory: Respiratory: Denies chest congestion Gastrointestinal: Gastrointestinal: Denies abdominal pain Exam Narrative: in no acute distress, states wnats to go home, answers some questions but more confused this am Const: General: comfortable Resp: Effort & Inspection: normal respiratory effort Auscultation: clear to auscultation bilaterally Cardio: Rate: regular rate Rhythm: regular rhythm GI: Auscultation: normal bowel sounds Skin: General skin exam: normal color Neuro: Sensory Exam: normal sensation Extrem: General: normal to inspection Psych: Affect: Anxious affect present Other: episodes of confusion Objective Data Vital Signs Vital Signs: Vital Signs - 24 hr 09/17/24 20:00 09/17/24 21:55 09/18/24 06:00 Temperature 96.2 F L 96.5 F L Pulse Rate 96 77 Respiratory Rate 20 18 Blood Pressure 149/71 H 136/70 Pulse Oximetry 97 97 Oxygen Delivery Room Air 09/18/24 07:52 Temperature Pulse Rate Respiratory Rate Blood Pressure Pulse Oximetry 97 Oxygen Delivery Room Air Intake/Output Intake/Output: Intake & Output 09/15/24 09/16/24 09/17/24 09/18/24 23:59 23:59 23:59 23:59 Intake Total 2850 1800 50 1000 Output Total 1200 900 350 Balance 2850 600 -850 650 Meds/Results Medications: Active Medications Generic Name Dose Route Start Last Admin Trade Name Freq PRN Reason Stop Dose Admin Acetaminophen 650 mg 09/14/24 01:18 Acetaminophen 325 Mg Tablet PO Q4H PRN Mild Pain (1-3) or Fever Aspirin 81 mg 09/14/24 09:05 09/18/24 09:07 Aspirin 81 Mg Enteric Tablet PO Not Given [facility] Collagenase 1 applic 09/14/24 09:00 09/18/24 09:07 Collagenase Oint 30 Gm Tube TOPICAL 1 applic QAM [facility] Administration Donepezil HCl 5 mg 09/14/24 09:00 09/18/24 09:07 Donepezil Hcl 5 Mg Tablet PO Not Given DAILY [facility] Ceftriaxone Sodium 1 gm in 50 mls @ 100 mls/hr 09/14/24 22:00 09/17/24 20:50 Rocephin 1 Gm/Ns 50 Ml IVPB Infused Q24H [facility] Infusion Lactated Ringer's 1,000 mls @ 75 mls/hr 09/17/24 13:45 09/18/24 05:34 Lr - Lactated Ringers Iv IV CONT 75 mls/hr .[id number] [facility] Administration Levothyroxine Sodium 50 mcg 09/14/24 11:00 09/18/24 05:34 Levothyroxine Sodium 50 Mcg Tablet PO Not Given DAILY@0630 [facility] Levothyroxine Sodium 200 mcg 09/14/24 11:00 09/18/24 05:34 Levothyroxine Sodium 100 Mcg Tablet PO Not Given DAILY@0630 [facility] Lorazepam 0.25 mg 09/17/24 15:00 Lorazepam Inj (*Crx) 2 Mg/Ml Vial IV PUSH ONCE PRN Anxiety Memantine 10 mg 09/14/24 09:00 09/14/24 14:22 Memantine 10 Mg Tablet PO Not Given BID [facility] Mirtazapine 7.5 mg 09/16/24 17:00 09/17/24 16:15 Mirtazapine 7.5 Mg Tablet PO Not Given 1700 [facility] Ondansetron HCl 4 mg 09/14/24 01:18 Ondansetron Inj 4 Mg/2 Ml Vial IV PUSH Q4H PRN Nausea Pantoprazole Sodium 40 mg 09/14/24 09:00 09/18/24 09:07 Pantoprazole 40 Mg Tablet PO Not Given DAILY [facility] Polyethylene Glycol 17 gm 09/14/24 08:59 Polyethylene Glycol 3350 17 Gm Powd.Pack PO DAILY PRN Constipation Rivaroxaban 20 mg 09/14/24 17:00 09/17/24 16:15 Rivaroxaban 20 Mg Tablet PO Not Given DAILY@1700 [facility] Simvastatin 20 mg 09/14/24 09:00 09/18/24 09:07 Simvastatin 20 Mg Tablet PO Not Given DAILY [facility] Tizanidine HCl 2 mg 09/14/24 08:59 09/16/24 16:51 Tizanidine Hcl 2 Mg Tablet PO 2 mg TID PRN Administration Muscle Spasm Vitamin D 5,000 units 09/16/24 09:00 09/18/24 09:07 Cholecalciferol 5,000 Units Tablet BY MOUTH Not Given DAILY [facility] Radiology Results: ITS Impressions Chest X-Ray 09/13/24 22:26 IMPRESSION: Mild pulmonary vascular congestion, without focal infiltrate Cervical Spine CT 09/13/24 22:45 Impression: Significant degenerative disease, without acute fracture. Chest/Abdomen/Pelvis CT 09/13/24 23:58 IMPRESSION: Persistent right-sided hydroureteronephrosis despite double-J stent. Enhancement pattern within the right kidney and right ureter suggesting ascending infection, from the bladder which demonstrates thickened lui and surrounding inflammatory change. Remainder of examination is unchanged from prior. Head CT 09/17/24 19:52 Impression: Stable CT examination of the head without acute intracranial hemorrhage or suspicious mass effect. Labs Labs: Laboratory Results - last 24 hr 09/18/24 09:23 WBC 9.1 RBC 3.98 L Hgb 10.7 L Hct 35.9 L MCV 90.2 MCH 26.9 MCHC 29.8 L RDW 19.9 H Plt Count 229 MPV 12.1 H Sodium 139 Potassium 3.8 Chloride 109 H Carbon Dioxide 22 Anion Gap 8 BUN 9 Creatinine 0.68 L Estim Creat Clear Calc 45 Estimated GFR > 60 Glucose 70 Calcium 9.0 Quality VTE Prophylaxis VTE prophylaxis: pharmacologic ordered
[2024-09-18 15:42] VITALS: BP 146/96; PULSE 96; RESP 18; TEMP 36.2; O2SAT 97
[2024-09-18 21:56] VITALS: BP 135/79; PULSE 108; RESP 20; TEMP 36; O2SAT 97
[2024-09-19 06:00] VITALS: BP 150/67; PULSE 96; RESP 22; TEMP 36.3; O2SAT 94
[2024-09-19] MEDS: LEVOTHYROXINE SODIUM 50 MCG TABLET PO (06:33)
[2024-09-19] MEDS: LEVOTHYROXINE SODIUM 100 MCG TABLET 200 MCG PO (06:34)
[2024-09-19 06:51] LABS: Hematocrit 36.4 % (37.0-47.0); Hemoglobin 11.2 g/dL (12.0-15.0); Mean Corpuscular HGB Conc 30.8 g/dl (32-36); Mean Corpuscular Hemoglobin 26.9 pg (26-34); Mean Corpuscular Volume 87.5 fl (80-100); Mean Platelet Volume 11.8 fl (7.4-10.4); Platelet Count Result 251 k/mm3 (150-375); Red Blood Count 4.16 M/mm3 (4.2-5.4); Red Cell Distribution Width 19.9 % (11.5-14.5)
[2024-09-19 07:02] LABS: Anion Gap 9 mmol/L (4-12); Blood Urea Nitrogen 9 mg/dL (7-17); Carbon Dioxide 25 mmol/L (22-30); Chloride 105 mmol/L (98-107); Estimated CRCL calculation 38 ml/min; Estimated Glomerular Filt Rate > 60; Glucose 71 mg/dL (65-110); Potassium 3.3 mmol/L (3.4-5.0); Sodium 139 mmol/L (137-145)
[2024-09-19] MEDS: LACTATED RINGERS 1,000 ML 75 ML IV CONT ×2 (08:34→22:15)
[2024-09-19] MEDS: COLLAGENASE OINT 30 GM TUBE 1 APPLIC TOPICAL (08:35)
--- NOTE | 2024-09-19 10:43 | PCNFU ---
Nutrition Follow-Up Complete: Moderate protein calorie malnutrition related to chronic dementia as evidenced by intakes <75% needs >1 month; weight loss 15%/5 months. Adequate PO intake at least 75% meals and supplements - Not progressing. Intakes 0-30%. Textures appropriate for patient needs - Goal is met with regular textures Goal: Pt current nutrition is Regular diet. Ensure Enlive BID (350 kcal, 20 g protein). Nutrition recommendation:No new nutrition recommendations. pt not eating because of confusion Last recorded weight is 66.2 kg. Bowel Motility: +1 BM 09/18/24 Labs Reviewed: Hgb 11.2, Hct 36.4, K+ 3.3 Meds Noted: Aricept, LR, namenda, Zofran Skin: Unstageable R buttock Additional N otes: Pt was having confusion yesterday and did not eat. Supplements are on. COntinue to monitor Monitoring swallowing ability, intakes, weights, labs, supplement tolerance, plan of care Follow up in 5 days
--- NOTE | 2024-09-19 10:58 | P.PNIM_ITS ---
Progress Note: A&P Assessment and Plan (1) Hypothyroidism: Qualifiers: Hypothyroidism type: unspecified Qualified Code(s): E03.9 - Hypothyroidism, unspecified Code(s): E03.9 - Hypothyroidism, unspecified Status: Acute (2) Pulmonary emboli: Onset Date: ~03/2023 Qualifiers: Acute cor pulmonale presence: without acute cor pulmonale Chronicity: chronic Pulmonary embolism type: unspecified Qualified Code(s): I27.82 - Chronic pulmonary embolism Code(s): I26.99 - Other pulmonary embolism without acute cor pulmonale Status: Acute (3) Hydronephrosis, right: Code(s): N13.30 - Unspecified hydronephrosis Status: Acute (4) Abnormal urinalysis: Code(s): R82.90 - Unspecified abnormal findings in urine Status: Acute (5) Altered mental status: Qualifiers: Altered mental status type: delirium Qualified Code(s): R41.0 - Disorientation, unspecified Code(s): R41.82 - Altered mental status, unspecified Status: Acute Plan Admitted for AMI. Very likely source is UTI. Was given cetriaxone, will continue that for now- waiting for culture and sensitivities. Klebsiella pneumonia- on appropriate gram negative coverage. 09/17- somewhat worse mental status this am- will repeat can scan. 09/18 negative- will continue ic therapy for ui monitor 09/19 more alert today, eating, calm continue antibiotics Will continue anticoag for h/o PE, afib PT/OT did not see her as she is at her baseline and working with PT/OT will not yield any different results. Will continue with ambulate at least TID with nursing. Anticipate downgrading to PO antibiotics possibly tomorrow and if stable anticipate discharge. 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 Current admission for urinary tract infection leading to mental status changes * She is due for a right ureteral stent exchange in the near future but will try to avoid while she is acutely ill. We arrangements for right ureteral stent change either late in this admission or as an outpatient in the near future Wound care was consulted for a wound. follow recommendations: santyl ointment, frequent position changes, add protein/supplement shakes Time Spent With Patient Time with patient: 25 - 35 minutes Subjective Date/time seen: 09/19/24 10:58 Interval history: Intermittent confusion- but better this am, ct head-negative yesterday. calm today, resting with eyes closed. Continues antibiotics for UTI daughter at the bedside- updated Review of Systems Review of Systems: comfortable, more calm and alert today All systems reviewed & are unremarkable except as noted in HPI and below Respiratory: Respiratory: Denies chest congestion Gastrointestinal: Gastrointestinal: Denies abdominal pain Exam Narrative: in no acute distress Const: General: comfortable Resp: Effort & Inspection: normal respiratory effort Auscultation: clear to auscultation bilaterally Cardio: Rate: regular rate Rhythm: regular rhythm GI: Auscultation: normal bowel sounds Skin: General skin exam: normal color Neuro: Sensory Exam: normal sensation Extrem: General: normal to inspection Psych: Affect: Anxious affect present Other: episodes of confusion Objective Data Vital Signs Vital Signs: Vital Signs - 24 hr 09/18/24 15:42 09/18/24 20:00 09/18/24 21:56 Temperature 97.2 F L 96.8 F L Pulse Rate 96 108 H Respiratory Rate 18 20 Blood Pressure 146/96 H 135/79 Pulse Oximetry 97 97 Oxygen Delivery Room Air 09/19/24 06:00 Temperature 97.3 F L Pulse Rate 96 Respiratory Rate 22 H Blood Pressure 150/67 H Pulse Oximetry 94 Oxygen Delivery Intake/Output Intake/Output: Intake & Output 09/16/24 09/17/24 09/18/24 09/19/24 23:59 23:59 23:59 23:59 Intake Total 1800 50 2200 1000 Output Total 1200 900 450 150 Balance 600 -850 1750 850 Meds/Results Medications: Active Medications Generic Name Dose Route Start Last Admin Trade Name Freq PRN Reason Stop Dose Admin Acetaminophen 650 mg 09/14/24 01:18 Acetaminophen 325 Mg Tablet PO Q4H PRN Mild Pain (1-3) or Fever Aspirin 81 mg 09/14/24 09:05 09/18/24 09:07 Aspirin 81 Mg Enteric Tablet PO Not Given QAM [facility] Collagenase 1 applic 09/14/24 09:00 09/19/24 08:35 Collagenase Oint 30 Gm Tube TOPICAL 1 applic QAM [facility] Administration Donepezil HCl 5 mg 09/14/24 09:00 09/18/24 09:07 Donepezil Hcl 5 Mg Tablet PO Not Given DAILY [facility] Ceftriaxone Sodium 1 gm in 50 mls @ 100 mls/hr 09/14/24 22:00 09/18/24 21:15 Rocephin 1 Gm/Ns 50 Ml IVPB Infused Q24H [facility] Infusion Lactated Ringer's 1,000 mls @ 75 mls/hr 09/17/24 13:45 09/19/24 08:34 Lr - Lactated Ringers Iv IV CONT 75 mls/hr .[id number] [facility] Administration Levothyroxine Sodium 50 mcg 09/14/24 11:00 09/19/24 06:33 Levothyroxine Sodium 50 Mcg Tablet PO 50 mcg DAILY@0630 [facility] Administration Levothyroxine Sodium 200 mcg 09/14/24 11:00 09/19/24 06:34 Levothyroxine Sodium 100 Mcg Tablet PO 200 mcg DAILY@0630 [facility] Administration Lorazepam 0.25 mg 09/17/24 15:00 Lorazepam Inj (*Crx) 2 Mg/Ml Vial IV PUSH ONCE PRN Anxiety Memantine 10 mg 09/14/24 09:00 09/14/24 14:22 Memantine 10 Mg Tablet PO Not Given BID [facility] Mirtazapine 7.5 mg 09/16/24 17:00 09/18/24 15:58 Mirtazapine 7.5 Mg Tablet PO Not Given 1700 [facility] Ondansetron HCl 4 mg 09/14/24 01:18 Ondansetron Inj 4 Mg/2 Ml Vial IV PUSH Q4H PRN Nausea Pantoprazole Sodium 40 mg 09/14/24 09:00 09/18/24 09:07 Pantoprazole 40 Mg Tablet PO Not Given DAILY [facility] [place] Polyethylene Glycol 17 gm 09/14/24 08:59 Polyethylene Glycol 3350 17 Gm Powd.Pack PO DAILY PRN Constipation Rivaroxaban 20 mg 09/14/24 17:00 09/18/24 15:58 Rivaroxaban 20 Mg Tablet PO Not Given DAILY@1700 [facility] [place] Simvastatin 20 mg 09/14/24 09:00 09/18/24 09:07 Simvastatin 20 Mg Tablet PO Not Given DAILY [facility] [place] Tizanidine HCl 2 mg 09/14/24 08:59 09/16/24 16:51 Tizanidine Hcl 2 Mg Tablet PO 2 mg TID PRN Administration Muscle Spasm Vitamin D 5,000 units 09/16/24 09:00 09/18/24 09:07 Cholecalciferol 5,000 Units Tablet BY MOUTH Not Given DAILY [facility] Radiology Results: ITS Impressions Chest X-Ray 09/13/24 22:26 IMPRESSION: Mild pulmonary vascular congestion, without focal infiltrate Cervical Spine CT 09/13/24 22:45 Impression: Significant degenerative disease, without acute fracture. Chest/Abdomen/Pelvis CT 09/13/24 23:58 IMPRESSION: Persistent right-sided hydroureteronephrosis despite double-J stent. Enhancement pattern within the right kidney and right ureter suggesting ascending infection, from the bladder which demonstrates thickened lui and surrounding inflammatory change. Remainder of examination is unchanged from prior. Head CT 09/17/24 19:52 Impression: Stable CT examination of the head without acute intracranial hemorrhage or suspicious mass effect. Labs Labs: Laboratory Results - last 24 hr 09/19/24 06:21 WBC 11.0 H RBC 4.16 L Hgb 11.2 L Hct 36.4 L MCV 87.5 MCH 26.9 MCHC 30.8 L RDW 19.9 H Plt Count 251 MPV 11.8 H Sodium 139 Potassium 3.3 L Chloride 105 Carbon Dioxide 25 Anion Gap 9 BUN 9 Creatinine 0.80 Estim Creat Clear Calc 38 Estimated GFR > 60 Glucose 71 Calcium 9.0 Quality VTE Prophylaxis VTE prophylaxis: pharmacologic ordered
[2024-09-19 14:00] VITALS: BP 136/67; PULSE 91; RESP 22; TEMP 36.7; O2SAT 95
--- NOTE | 2024-09-19 15:55 | WPDUROPN2 ---
Progress Note: A&P Assessment and Plan (1) Hydronephrosis, right: Code(s): N13.30 - Unspecified hydronephrosis Status: Acute Assessment and Plan: Chronic, stable (2) Acute UTI: Code(s): N39.0 - Urinary tract infection, site not specified Status: Acute Assessment and Plan: Ruled out Urine and blood cultures negative Plan - Plan to follow-up with Dr. Smith for right ureteral stent exchange 11/04/24 - No plan for inpatient urologic surgical intervention Subjective Subjective Date/Time Seen: 09/19/24 15:55 Interval history: NAEO; Patient comfortable on exam, no distress. Caregiver present. Worried she has not been eating/drinking much in the past few days with continued episodes of confusion. Hx dementia, resides at a nursing facility. PureWick intact, draining yellow urine. Exam Const: General: comfortable and no acute distress HENMT: Face/Nose/Sinus: Normal nares present Eyes: General: appearance normal, both eyes and all related structures Resp: Effort & Inspection: normal respiratory effort Urinary Catheter: Urinary Catheter: other (yellow urine, PureWick) Psych: Affect: normal affect Objective Data Vital Signs Vital Signs: Vital Signs - 24 hr 09/18/24 20:00 09/18/24 21:56 09/19/24 06:00 Temperature 96.8 F L 97.3 F L Pulse Rate 108 H 96 Respiratory Rate 20 22 H Blood Pressure 135/79 150/67 H Pulse Oximetry 97 94 Oxygen Delivery Room Air 09/19/24 14:00 Temperature 98.0 F Pulse Rate 91 Respiratory Rate 22 H Blood Pressure 136/67 Pulse Oximetry 95 Oxygen Delivery Intake/Output Intake/Output: Intake & Output 09/16/24 09/17/24 09/18/24 09/19/24 23:59 23:59 23:59 23:59 Intake Total 1800 50 2200 1100 Output Total 1200 900 450 150 Balance 600 -850 1750 950 Meds/Results Medications: Active Medications Generic Name Dose Route Start Last Admin Trade Name Freq PRN Reason Stop Dose Admin Acetaminophen 650 mg 09/14/24 01:18 Acetaminophen 325 Mg Tablet PO Q4H PRN Mild Pain (1-3) or Fever Aspirin 81 mg 09/14/24 09:05 09/19/24 10:30 Aspirin 81 Mg Enteric Tablet PO Not Given QAM [facility] Collagenase 1 applic 09/14/24 09:00 09/19/24 08:35 Collagenase Oint 30 Gm Tube TOPICAL 1 applic QAM [facility] Administration Donepezil HCl 5 mg 09/14/24 09:00 09/19/24 10:30 Donepezil Hcl 5 Mg Tablet PO Not Given DAILY [facility] Ceftriaxone Sodium 1 gm in 50 mls @ 100 mls/hr 09/14/24 22:00 09/18/24 21:15 Rocephin 1 Gm/Ns 50 Ml IVPB Infused Q24H [facility] Infusion Lactated Ringer's 1,000 mls @ 75 mls/hr 09/17/24 13:45 09/19/24 08:34 Lr - Lactated Ringers Iv IV CONT 75 mls/hr .[id number] [facility] Administration Levothyroxine Sodium 50 mcg 09/14/24 11:00 09/19/24 06:33 Levothyroxine Sodium 50 Mcg Tablet PO 50 mcg DAILY@0630 [facility] Administration Levothyroxine Sodium 200 mcg 09/14/24 11:00 09/19/24 06:34 Levothyroxine Sodium 100 Mcg Tablet PO 200 mcg DAILY@0630 [facility] Administration Memantine 10 mg 09/14/24 09:00 09/14/24 14:22 Memantine 10 Mg Tablet PO Not Given BID [facility] Mirtazapine 7.5 mg 09/16/24 17:00 09/18/24 15:58 Mirtazapine 7.5 Mg Tablet PO Not Given 1700 [facility] Ondansetron HCl 4 mg 09/14/24 01:18 Ondansetron Inj 4 Mg/2 Ml Vial IV PUSH Q4H PRN Nausea Pantoprazole Sodium 40 mg 09/14/24 09:00 09/19/24 10:30 Pantoprazole 40 Mg Tablet PO Not Given DAILY [facility] Polyethylene Glycol 17 gm 09/14/24 08:59 Polyethylene Glycol 3350 17 Gm Powd.Pack PO DAILY PRN Constipation Rivaroxaban 20 mg 09/14/24 17:00 09/18/24 15:58 Rivaroxaban 20 Mg Tablet PO Not Given DAILY@1700 [facility] Simvastatin 20 mg 09/14/24 09:00 09/19/24 10:30 Simvastatin 20 Mg Tablet PO Not Given DAILY [facility] Tizanidine HCl 2 mg 09/14/24 08:59 09/16/24 16:51 Tizanidine Hcl 2 Mg Tablet PO 2 mg TID PRN Administration Muscle Spasm Vitamin D 5,000 units 09/16/24 09:00 09/19/24 10:30 Cholecalciferol 5,000 Units Tablet BY MOUTH Not Given DAILY [facility] Radiology Results: ITS Impressions Cervical Spine CT 09/13/24 22:45 Impression: Significant degenerative disease, without acute fracture. Chest/Abdomen/Pelvis CT 09/13/24 23:58 IMPRESSION: Persistent right-sided hydroureteronephrosis despite double-J stent. Enhancement pattern within the right kidney and right ureter suggesting ascending infection, from the bladder which demonstrates thickened lui and surrounding inflammatory change. Remainder of examination is unchanged from prior. Head CT 09/17/24 19:52 Impression: Stable CT examination of the head without acute intracranial hemorrhage or suspicious mass effect. Chest X-Ray 09/19/24 11:51 IMPRESSION: 1. Mild atelectasis at left lung base and mild scarring at the lung apices. Labs Labs: Laboratory Results - last 24 hr 09/19/24 06:21 WBC 11.0 H RBC 4.16 L Hgb 11.2 L Hct 36.4 L MCV 87.5 MCH 26.9 MCHC 30.8 L RDW 19.9 H Plt Count 251 MPV 11.8 H Sodium 139 Potassium 3.3 L Chloride 105 Carbon Dioxide 25 Anion Gap 9 BUN 9 Creatinine 0.80 Estim Creat Clear Calc 38 Estimated GFR > 60 Glucose 71 Calcium 9.0
[2024-09-19] MEDS: MIRTAZAPINE 7.5 MG TABLET PO (17:17)
[2024-09-19] MEDS: RIVAROXABAN 20 MG TABLET PO (17:17)
[2024-09-19] MEDS: TIZANIDINE HCL 2 MG TABLET PO (17:17)
[2024-09-19 21:44] VITALS: BP 137/75; PULSE 91; RESP 20; TEMP 36.9; O2SAT 96
[2024-09-20 05:42] VITALS: BP 141/69; PULSE 87; RESP 18; TEMP 36.5; O2SAT 98
[2024-09-20 06:52] LABS: Anion Gap 10 mmol/L (4-12); Blood Urea Nitrogen 7 mg/dL (7-17); Calcium 9.1 mg/dL (8.4-10.2); Carbon Dioxide 21 mmol/L (22-30); Chloride 107 mmol/L (98-107); Estimated CRCL calculation 50 ml/min; Estimated Glomerular Filt Rate > 60; Glucose 71 mg/dL (65-110); Magnesium 1.8 mg/dL (1.6-2.3); Potassium 3.6 mmol/L (3.4-5.0); Sodium 138 mmol/L (137-145)
[2024-09-20 07:30] VITALS: BP 155/81; PULSE 89; RESP 13; TEMP 35.6; O2SAT 97
[2024-09-20 08:49] LABS: Hematocrit 38.2 % (37.0-47.0); Hemoglobin 11.8 g/dL (12.0-15.0); Mean Corpuscular HGB Conc 30.9 g/dl (32-36); Mean Corpuscular Volume 87.4 fl (80-100); Mean Platelet Volume 11.9 fl (7.4-10.4); Platelet Count Result 265 k/mm3 (150-375); Red Blood Count 4.37 M/mm3 (4.2-5.4); Red Cell Distribution Width 19.7 % (11.5-14.5); White Blood Count 10.8 K/mm3 (4.5-10.0)
[2024-09-20] MEDS: TIZANIDINE HCL 2 MG TABLET PO ×2 (12:08→17:40)
[2024-09-20] MEDS: SIMVASTATIN 20 MG TABLET PO (12:08)
[2024-09-20] MEDS: CHOLECALCIFEROL 5,000 UNITS TABLET 5000 UNITS BY MOUTH (12:08)
[2024-09-20] MEDS: COLLAGENASE OINT 30 GM TUBE 1 APPLIC TOPICAL (12:08)
[2024-09-20] MEDS: ASPIRIN 81 MG ENTERIC TABLET PO (12:08)
[2024-09-20] MEDS: PANTOPRAZOLE 40 MG TABLET PO (12:08)
[2024-09-20] MEDS: DONEPEZIL HCL 5 MG TABLET PO (12:08)
--- NOTE | 2024-09-20 13:46 | WPDCDIQUERY2 ---
CDI Query Clarification Request Wound care has documented that patient has Right buttock pressure ulcer, unstageable. Please document presence of wound and location within progress note. Thank you.
--- NOTE | 2024-09-20 14:00 | P.DS_ITS ---
DS: Admitting Diagnosis Discharge Date 09/20 Admitting Diagnosis ams, uti DS: Discharge Diagnosis Discharge Diagnosis (1) Hypothyroidism: Qualifiers: Hypothyroidism type: unspecified Qualified Code(s): E03.9 - Hypothyroidism, unspecified Code(s): E03.9 - Hypothyroidism, unspecified Status: Acute (2) Pulmonary emboli: Onset Date: ~03/2023 Qualifiers: Pulmonary embolism type: unspecified Chronicity: chronic Acute cor pulmonale presence: without acute cor pulmonale Qualified Code(s): I27.82 - Chronic pulmonary embolism Code(s): I26.99 - Other pulmonary embolism without acute cor pulmonale Status: Acute (3) Hydronephrosis, right: Code(s): N13.30 - Unspecified hydronephrosis Status: Acute (4) Abnormal urinalysis: Code(s): R82.90 - Unspecified abnormal findings in urine Status: Acute (5) Altered mental status: Qualifiers: Altered mental status type: delirium Qualified Code(s): R41.0 - Disorientation, unspecified Code(s): R41.82 - Altered mental status, unspecified Status: Acute DS: Summary Hospital Course Hospital Course: 83 y.o with multiple chronic conditions presents for ams. pt has h/o PE, cognitive communication delay, hydronephrosis, afib, hld, dementia, hypothyroidism. She is poor historian. Speech was ordered but no assessment was completed as pt was anxious and emotional- eventually it was done and no special recommendations were made. IN ed, ua was suspicious for infection- so she was given iv antibiotics and urology was consulted Was given cetriaxone- switched to po- levaquin. She will finish a total 10 days of treatment and will follow up with urology for further management. 09/20 her mental statu improved to her baseline and she was safe to be dischrged. Will continue anticoag for h/o PE, afib PT/OT did not see her as she is at her baseline and working with PT/OT will not yield any different results. Will continue with ambulate at least TID with nursing. 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 Current admission for urinary tract infection leading to mental status changes * She is due for a right ureteral stent exchange in the near future but will try to avoid while she is acutely ill. We arrangements for right ureteral stent change either late in this admission or as an outpatient in the near future Wound care was consulted for a wound- Right buttock pressure ulcer, unstageable- POA follow recommendations: santyl ointment, frequent position changes, add protein/supplement shakes Time Spent with Patient Time attestation: Total time spent providing and/or coordinating discharge services: Exam Narrative: in no acute distress Const: General: comfortable Resp: Effort & Inspection: normal respiratory effort Auscultation: clear to auscultation bilaterally Cardio: Rate: regular rate Rhythm: regular rhythm GI: Auscultation: normal bowel sounds Skin: General skin exam: normal color Neuro: Sensory Exam: normal sensation Extrem: General: normal to inspection Psych: Affect: Anxious affect present Other: episodes of confusion DS: Data Data Completed and Pending Labs on day of discharge: Labs from last 24 hours 09/20/24 09/20/24 08:34 06:08 WBC 10.8 H RBC 4.37 Hgb 11.8 L Hct 38.2 MCV 87.4 MCH 27.0 MCHC 30.9 L RDW 19.7 H Plt Count 265 MPV 11.9 H Sodium 138 Potassium 3.6 Chloride 107 Carbon Dioxide 21 L Anion Gap 10 BUN 7 Creatinine 0.60 L Estim Creat Clear Calc 50 Estimated GFR > 60 Glucose 71 Calcium 9.1 Magnesium 1.8 Discharge Plan Discharge Attending physician on discharge: Ashok Bernal Consulting providers: Oneil Howard Discharging Clinician: Shawnee Pearson Patient Disposition: [facility] Assisted/Asst Living Activity: december shower Diet: as tolerated and heart healthy Discharge Instructions: YOu werew admitted and treated for altered mental status due to UTI. Was given cetriaxone- switched to po- levaquin. She will finish a total 10 days of treatment and will follow up with urology for further management. 09/20 her mental statu improved to her baseline and she was safe to be discharged. Patient Instructions: Antibiotic Form, Rivaroxaban (By mouth) Patient Language: Martiniquais Stand Alone Forms: General Discharge Information Follow-up/Referrals: Manuelito Fishman MD [Physician] - 2 Weeks Sage Steele MD [Primary Care Provider] - 2 Weeks Discharge Medications: New mirtazapine [Remeron] 15 mg Tablet 7.5 mg PO 1700 Qty: 30 0RF levofloxacin 750 mg tablet 750 mg PO DAILY 3 Days Qty: 3 0RF Rx Instructions: 3 more days to complete the treatment Continued donepezil 5 mg tablet 5 mg PO DAILY pantoprazole 40 mg tablet,delayed release (DR/EC) 40 mg PO DAILY simvastatin 20 mg tablet 20 mg PO DAILY ergocalciferol (vitamin D2) 1,250 mcg (50,000 unit) capsule See Rx Instructions .ROUTE .COMPLEX Rx Instructions: 1 TABLET EVERY 14 DAYS memantine 10 mg tablet 10 mg PO BID Patient Comments: Currently on HOLD magnesium oxide 400 mg (241.3 mg magnesium) tablet 400 mg PO DAILY 30 Days Qty: 30 0RF tizanidine 2 mg tablet 2 mg PO TID PRN (Reason: Muscle Spasm) levothyroxine 50 mcg tablet 50 mcg PO DAILY levothyroxine 200 mcg tablet 200 mcg PO DAILY Xarelto 20 mg tablet 20 mg PO DAILY aspirin 81 mg Capsule 81 mg PO DAILY polyethylene glycol 3350 [Miralax] 17 gram powder in packet 17 g PO DAILY PRN (Reason: Constipation) Date of admission: 09/15/24 09:09 Primary Care Provider: Sage Steele Admitting Provider: Taty Conde Attending physician on admission: Taty Conde Condition: Stable Quality VTE Prophylaxis VTE prophylaxis: pharmacologic ordered Hospitalist MIPS Heart Failure (Exclusion) Patient has history of Heart Transplant or Left Ventricular Assistive Device?: No IF YES, STOP HERE Heart Failure (Qualifier) Patient has current or prior documentation of LVEF less than or equal to 40%, or mod/servere depressed LVSF?: No IF NO, STOP HERE
[2024-09-20 14:10] VITALS: PULSE 71; RESP 14; TEMP 35.9; O2SAT 96
[2024-09-20 15:54] LABS: SARS-CoV-2 RNA PCR Negative (Negative)
[2024-09-20] MEDS: MIRTAZAPINE 7.5 MG TABLET PO (17:40)
[2024-09-20] MEDS: RIVAROXABAN 20 MG TABLET PO (17:40)
[2024-09-20] MEDS: levoFLOXacin 750 MG TABLET PO (19:51)
[2024-09-20 20:00] VITALS: PULSE 71; RESP 14; O2SAT 96
[2024-09-20 22:00] VITALS: BP 107/60; PULSE 73; RESP 18; TEMP 36.5; O2SAT 95
== END 2024-09-20 21:50 | DRG 690 ==
LOC: ANHED 22:17 → ANH3MEDSUR 09-14 02:19
PROVIDERS: Admitting Provider General Practice; Emergency Provider Student in an Organized Health Care Education/Training Program; PCP Family Medicine; Visit Provider Nurse Practitioner
DX: N39.0 Urinary tract infection, site not specified (principal); N17.9 Acute kidney failure, unspecified; N13.1 Hydronephrosis with ureteral stricture, not elsewhere classified; R62.7 Adult failure to thrive; M50.30 Other cervical disc degeneration, unspecified cervical region; D72.829 Elevated white blood cell count, unspecified; E03.9 Hypothyroidism, unspecified; R82.90 Unspecified abnormal findings in urine; R41.82 Altered mental status, unspecified; E78.5 Hyperlipidemia, unspecified; F03.90 Unspecified dementia, unspecified severity, without behavioral disturbance, psychotic disturbance, mood disturbance, and anxiety; I48.91 Unspecified atrial fibrillation; L89.310 Pressure ulcer of right buttock, unstageable; H35.30 Unspecified macular degeneration; M15.9 Polyosteoarthritis, unspecified; E78.2 Mixed hyperlipidemia; F41.9 Anxiety disorder, unspecified; Z96.642 Presence of left artificial hip joint; Z86.711 Personal history of pulmonary embolism; Z74.01 Bed confinement status; Z79.82 Long term (current) use of aspirin; Z96.1 Presence of intraocular lens; Z98.42 Cataract extraction status, left eye; Z98.41 Cataract extraction status, right eye; Z87.891 Personal history of nicotine dependence
CPT/HCPCS: 36415; 70450; 71045; 71260; 72125; 74177; 80048; 80053; 80143; 80179; 80307; 81001; 82077; 82140; 82550; 82570; 82948; 83605; 83735; 83880; 84300; 84443; 84484; 85025; 85027; 85610; 85730; 87040; 87086; 87635; 87637; 92610; 93005; 96365; 96375; 99212; 99285; A9270; G0378; G0463; J0696; J3475; J7030; J7120; Q9967

== ENCOUNTER 2024-10-03 14:32 | Inpatient (IN) | payer MEDICARE, SELFPAY ==
[2024-10-03] VITALS (21 sets, daily range): BP systolic 111–161; BP diastolic 61–94; PULSE 102–126; RESP 13–34; TEMP 36.3–36.8; O2SAT 94–99
--- NOTE | ~2024-10-03 | CT_ITS ---
CLINICAL INDICATION: UTI/sepsis COMPARISON: 09/13/2024. TECHNIQUE: An enhanced CT of the abdomen and pelvis was performed utilizing multislice spiral [employer] ue reconstructed at 5 mm slice thickness. Coronal and sagittal reconstructions were performed. This CT examination was performed utilizing dose reduction techniques. DLP: 857 mGy-cm FINDINGS/OBSERVATIONS: Lung: The lungs are clear. The heart is of normal size, without pericardial effusion. Mediastinum: No pathologically enlarged or morphologically suspicious lymph nodes are identified within the medias tinum, bilateral axilla, within the soft tissues of the anterior chest wall. Soft tissues of the chest: Unremarkable. Bones of the chest: No acute fracture. No lytic or blastic lesions are identified. Posterior fixation hardware within the thoracic spine. Liver: The liver enhances homogeneously and is enlarged measuring 19 cm in longitudinal dimension. Gallbladder and biliary system: The gallbladder is minimally distended containing layering stones/sludge, but is otherwise unremarkab le. Pancreas: The pancreas is somewhat atrophic, unchanged -but enhances homogeneously, without ductal dilatation. Spleen: The spleen enhances homogeneously and is not enlarged. Kidneys: Redemonstration of a right-sided double-J stent with the proximal pigtail coiled in the upper pole of the right kidney and the distal pigtail coiled within the bladder, in good position. Redemonstration of a moderate (likely chronic) right-sided hydroureteronephrosis with persistent wall enhancement suggesting inflammation/infection. Stable cyst within the upper pole of the left kidney, unchanged from prior. Adrenal glands: Unremarkable. Gastrointestinal tract: Small hiatal hernia is present. Trace fecal stasis. Redemonstration of colonic diverticulosis without surrounding inflammatory change. Appendix: The appendix is not definitively visualized. However, no pericecal inflammatory change is identified suggest the presence of acute appendicitis. Vasculature: Bulky calcifications within the abdominal and thoracic aorta without significant aneurysmal dilatatio n. Lymph nodes: Scattered nonpathologically enlarged lymph nodes within the root of the mesentery and deep in the pel vis. Pelvic structures: The bladder is minimally distended and contains the distal pigtail of the double-J stent, and is othe rwise unremarkable. The uterus is anteroverted and retroflexed. Body wall and musculoskeletal: Small fat-containing umbilical and right inguinal hernia. Significant degenerative disease within the lower lumbar spine, with osteophyte formation, disc space narrowing, endplate changes and vacuum phenomena. Fixation hardware within the thoracic spine, as detailed above. IMPRESSION: Redemonstration of right-sided hydroureteronephrosis despite a double-J stent in good position, secon amy to chronic UPJ obstruction. However, the enhancement pattern suggests persistent inflammation/in fection, possibly ascending. Remainder of examination is unchanged from previous study dated 09/13/2024. Reviewed, dictated and finalized at location A. [employer] IMPRESSION: Redemonstration of right-sided hydroureteronephrosis despite a double-J stent i n good position, secondary to chronic UPJ obstruction. However, the enhancement pattern suggests persistent inflammation/infection, possibly ascending. Remainder of examination is unchanged from previous study dated 09/13/2024.
--- NOTE | ~2024-10-03 | XR_ITS ---
CHEST RADIOGRAPH CLINICAL HISTORY: AMS . COMPARISON: 09/19/2024 TECHNIQUE: Single portable view of the chest. FINDINGS The cardiomediastinal silhouette is unremarkable. The lungs are clear. Fixation hardware within the thoracic spine. Remaining visualized osseous structures and soft tissues are unremarkable. IMPRESSION: No focal infiltrate or effusion. Reviewed, dictated and finalized at location A. TABLE FARM WORKER
--- NOTE | ~2024-10-03 | CT_ITS ---
History: Altered mental status with possible urinary tract infection/sepsis PROCEDURE: CT head without contrast. COMPARISON: 09/17/2024 TECHNIQUE: Axial imaging of the head performed from the skull base to the vertex without IV contrast. Sagittal a nd coronal reformations obtained. Examination is somewhat limited secondary to significant motion artifact DLP: 1286 mGy-cm FINDINGS: The ventricles are enlarged. The dilatation of the ventricles is proportional to the degree of sulcal prominence, not uncommon in the senescent brain. Decreased attenuation is identified within the periventricular white matter, likely secondary to micr ovascular ischemic disease, in a patient of this age. There is no large mass, significant mass effect or large midline shift. There is no large extra-axial fluid collection or significant intracranial hemorrhage. Opacification of the left frontoethmoidal sinuses are present. Mucoperiosteal thickening within the left maxillary sinus is noted. The mastoid air cells are well aerated. No acute displaced fractures within the overlying cranium. Impression: No large acute intracranial hemorrhage or suspicious mass effect. Interval development of left frontoethmoidal left maxillary inflammatory sinus disease as previous ex amination dated 09/17/2024. Reviewed, dictated and finalized at location A. MACHINE OPERATOR Impression: No large acute intracranial hemorrhage or suspicious mass effect. Interval development of left frontoethmoidal left maxillary inflammatory sinus disease as previous examination dated 09/17/2024.
--- NOTE | 2024-10-03 14:50 | ECG_ITS ---
Test Date: 2024-10-03 15:59:43 Measurements Intervals [place] Rate: 112 P: 66 DE: 165 QRS: -55 QRSD: 85 T: 44 QT: 327 QTc: 447 Interpretive Statements SINUS TACHYCARDIA LOW QRS VOLTAGE IN PRECORDIAL LEADS [QRS DEFLECTION < 1.0 mV IN CHEST LEADS] LEFT ANTERIOR FASCICULAR BLOCK [QRS AXIS <= -45, QR IN I, RS IN II] POSSIBLE ANTERIOR MYOCARDIAL INFARCTION , OF INDETERMINATE AGE [30 ms Q WAVE IN V3/V4, OR R < 0.2 mV IN V4] INFERIOR INFARCT, OLD Compared to ECG 09/13/2024 21:47:01 SINUS TACHYCARIDA NOW PRESENT Electronically Signed On 10-04-2024 16:11:23 BUMPER STRAIGHTENER by Wander Conley M.D.
--- NOTE | 2024-10-03 14:57 | PC.NURSE ---
Pt from [facility], normally wheelchair bound due to generalized weakness, hx dementia, normally confused at baseline but pleasant and happy typically. Daughter reports pt has been moaning, more confused, and getting aggressive x last three days, states this is typical with UTI's. Pt was just discharged from [facility] due to UTI a couple weeks ago. Has uretal stent needing replaced, planned for November. Pt also has wounds to buttocks, currently A&Ox1 and being verbally aggressive with staff when attempting IV and straight cath. Pt tachycardic, afebrile, 99% on RA.
[2024-10-03 15:15] LABS: Basophils Absolute Auto 0.1 K/mm3 (0.0-0.1); Basophils Percent Auto 0.5 % (0.2-1.2); Eosinophils Absolute Auto 0.2 K/mm3 (0-0.3); Eosinophils Percent Auto 1.3 % (0-4.4); Hemoglobin 12.5 g/dL (12.0-15.0); Immature Granulocyte Absolute 0.05 K/mm3 (0.00-0.031); Immature Granulocyte Percent A 0.4 % (0-0.5); Lymphocytes Absolute Auto 1.81 K/mm3 (0.9-3.2); Lymphocytes Percent Auto 15.4 % (18.3-44.2); Mean Corpuscular HGB Conc 31.3 g/dl (32-36); Mean Corpuscular Volume 89.5 fl (80-100); Monocytes Absolute Auto 1.1 K/mm3 (0.1-0.6); Monocytes Percent Auto 9.2 % (2.6-8.5); Neutrophils Absolute Auto 8.6 K/mm3 (1.3-6.7); Neutrophils Percent Auto 73.2 % (45.5-73.1); Platelet Count Result 239 k/mm3 (150-375); Red Blood Count 4.47 M/mm3 (4.2-5.4); Red Cell Distribution Width 18.6 % (11.5-14.5); White Blood Count 11.8 K/mm3 (4.5-10.0)
[2024-10-03 15:24] LABS: Add Urine Microscopic? YES; Alanine Aminotransferase 12 U/L (6-35); Albumin Level 3.2 g/dL (3.5-5.1); Alkaline Phosphatase 105 U/L (38-126); Anion Gap 11 mmol/L (4-12); Appearance Urine Turbid (Clear); Aspartate Amino Transferase 21 U/L (14-36); Bacteria Urine 4+ /hpf; Bilirubin Urine Negative (Negative); Bilirubin,Total 0.8 mg/dL (0.2-1.3); Blood Urea Nitrogen 23 mg/dL (7-17); Blood Urine 3+ (Negative); Calcium 9.2 mg/dL (8.4-10.2); Carbon Dioxide 25 mmol/L (22-30); Chloride 105 mmol/L (98-107); Color Urine Dark Yellow (Yellow); Estimated Glomerular Filt Rate 50; Glucose 125 mg/dL (65-110); Glucose Urine UA Negative (Negative); Ketones Urine Negative (Negative); Leukocyte Esterase Ur 3+ LEU/UL (Negative); Need Manual Microscopic Reviewed; Nitrate Urine Positive (Negative); Non Pathogenic Casts >20; Protein Urine 3+ mg/dL (Negative); RBC Urine >100 /hpf (0-2); Sodium 141 mmol/L (137-145); Specific Grav Ur 1.013 (1.001-1.035); Squamous Epithelial Cell Urine Moderate /hpf (Few); Urobilinogen Urine 0.2 mg/dL (<2.0); WBC Urine >100 /hpf (0-3)
[2024-10-03 15:41] LABS: Platelet Estimate Adequate (Adequate)
[2024-10-03 15:42] LABS: Anisocytosis 1+; Atypical Lymphocytes Present; Schistocytes None Seen
--- NOTE | 2024-10-03 17:50 | ED.AMS ---
HPI - Altered Mental Status General Chief Complaint: Altered Mental Status Stated Complaint: ams Time Seen by Provider: 10/03/24 17:03 History of Present Illness HPI narrative: 83-year-old female with history of hyperlipidemia, AFib, PE on Xarelto presents to the ED from [place] with daughter and son at bedside for increased lethargy, altered mental status and concern for urinary tract infection. Patient's son and daughter bedside provide history. States over the past 3 days patient has had decreased p.o. intake, increased sleepiness and has been more restless. She does have history dimension is normally A&O times 0-1 at baseline. They know patient was hospitalized a few weeks ago for pyelonephritis for she received IV antibiotics and had improvement. Patient's daughter states she is concerned that the patient is having abdominal pain that the patient keeps stating ?ow? and bending over at the waist. They note that the patient has been constipated and had to have a fecal disimpaction by nursing staff yesterday. States the patient had a fever of 100.7 yesterday but has not had a fever today. They do arrive with comfort care and DNR paperwork. I did review this paperwork with them and they are requesting to disregard comfort care and would like a full workup in the emergency department. They do want to keep the patient on DNR status. Related Data Home Medications ?Medication ?Instructions ?Recorded ?Confirmed ?Last Taken ?Type donepezil 5 mg tablet 5 mg PO DAILY 07/17/23 09/13/24 04/08/24 History ergocalciferol (vitamin D2) 1,250 See Rx Instructions .Route .COMPLEX 07/17/23 09/13/24 Unknown History mcg (50,000 unit) capsule memantine 10 mg tablet 10 mg PO BID 07/17/23 09/13/24 04/08/24 History pantoprazole 40 mg tablet,delayed 40 mg PO DAILY 07/17/23 09/13/24 04/08/24 History release simvastatin 20 mg tablet 20 mg PO DAILY 07/17/23 09/13/24 04/08/24 History aspirin 81 mg capsule 81 mg PO DAILY 11/09/23 09/13/24 Unknown History levothyroxine 200 mcg tablet 200 mcg PO DAILY 11/09/23 09/13/24 Unknown History levothyroxine 50 mcg tablet 50 mcg PO DAILY 11/09/23 09/13/24 Unknown History polyethylene glycol 3350 17 gram 17 g PO DAILY PRN Constipation 11/09/23 09/13/24 04/08/24 History oral powder packet (Miralax) rivaroxaban 20 mg tablet (Xarelto) 20 mg PO DAILY 11/09/23 09/13/24 Unknown History tizanidine 2 mg tablet 2 mg PO TID PRN Muscle Spasm 11/09/23 09/13/24 Unknown History Allergies Allergy/AdvReac Type Severity Reaction Status Date / Time Penicillins Allergy Unknown Unknown Verified 09/19/24 09:56 nitrofurantoin Allergy Unknown Verified 09/13/24 22:14 Review of Systems Review of Systems: All systems reviewed & are unremarkable except as noted in HPI and below PMFSH Past Medical History Medical History Chronic pulmonary embolism Cognitive communication deficit Other abnormalities of gait and mobility Muscle weakness (generalized) Unspecified hydronephrosis Wheelchair dependence Sepsis 07/2023 Atrial fibrillation Macular degeneration Pulmonary emboli (~03/2023) Hypothyroidism Dementia Primary osteoarthritis involving multiple joints Mixed hyperlipidemia Surgical History Surgical History History of spinal surgery Due to osteomyelitis with debridement and subsequent stabilization approximately 2014. T7 through L2 H/O cervical spine surgery 2018 roughly Status post cataract extraction of both eyes with insertion of intraocular lens History of left hip replacement Family History Family History Mother Family history of malignant neoplasm of breast in first degree relative Father Family history of throat cancer Other Family history of malignant neoplasm of esophagus Social History Social History Social History: Wheelchair dependent/bed bound. I believe her son stated that he is 1 of 4 children; also has a daughter. The patient smoked about a half a pack of cigarettes per day but quit over 40 years ago. She never drink alcohol to excess. Code status: DNR/DNI Patient has a living will in place that states this. (POLST signed 08/13/23) Smoking packs per day: 0.5 Smoking cigarettes per day: 10.0 Years smoked: 20 Smoking pack-years: 10.00 Smoking status: Never smoker Tobacco type: cigarettes Second hand tobacco smoke exposure: No Smoking end date: 08/03/82 Alcohol intake: never Substance use: never Substance use type: does not use Do You Feel Safe in your Home?: No Lack of Transportation: No Lack of Food: Never True Current Housing: I Have Housing Concerned About Future Housing: No Difficulty Paying Gas/Electric Bills: No Difficulty Paying for Meds: No Currently Unemployed: No Education: High School Diploma/GED Difficulty w/ Childcare or Family Care: No Living arrangements: [facility] Additional living arrangements comments: [facility] Jero, Nurse Simona YODER Spiritual care concerns: No Exam Narrative: GENERAL: Chronically ill-appearing, elderly lying in exam bed, incoherent babbling HEAD: Normocephalic, atraumatic. EYES: PERRLA and EOMI. ENT: Nares clear, no rhinorrhea or epistaxis. Mucous membranes moist. NECK: Supple. CHEST: Clear to auscultation. No respiratory distress. HEART: Regular rate and rhythm. No murmur heard. Normal peripheral pulses. ABDOMEN: Quiet bowel sounds. Abdomen soft, nontender, no rebound or rigidity EXTREMITIES: Normal range of motion. No edema. SKIN: Approximately 7 cm stage 2 right ischial ulcer with surrounding erythema, warmth and tenderness with eschar and biofilm at the base. Approximately 7 cm left stage one ischial ulcer with no skin breakdown NEURO: No focal deficits. Alert and oriented x1. Moving all extremities spontaneously Course Vital Signs Vital signs: Vital Signs Pulse Rate 122 H 10/03/24 14:39 Respiratory Rate 24 H 10/03/24 14:39 Temperature 97.4 F L 10/03/24 14:40 Pulse Rate 107 H 10/03/24 19:45 Respiratory Rate 21 H 10/03/24 19:45 Blood Pressure 134/94 H 10/03/24 19:45 Pulse Oximetry 95 10/03/24 19:45 Oxygen Delivery Room Air 10/03/24 19:20 MDM - Altered Mental Status MDM Narrative Medical decision making narrative: 83-year-old female presents to the emergency department with son and daughter at bedside for increased lethargy, decreased p.o. intake altered mental status for the past 3 days. See HPI for further history. Upon arrival patient's triage vitals are remarkable for tachycardia of 118, tachypnea of 25. She is afebrile and resting comfortably in exam bed, she has incoherently babbling but is unable to verbalize any complaints. No focal deficits appreciated. Patient does meet sepsis criteria. I had a long discussion with patient's son and daughter at bedside who are also patient's POA regarding goals of care. They are requesting to perform a full workup including CT scans and blood work in the ED to evaluate for patient's source of sepsis. There is signed comfort care and DNR paperwork on patient's chart which was reviewed with patient's family. They are requesting to disregard comfort care status but to continue with DNR status. They would like a full sepsis workup in the ED. Patient was started on 30 mL/kg fluid bolus and cefepime and vancomycin for sepsis. Workup is remarkable for leukocytosis of 11.8. Chemistries with a creatinine of 1.06 and BUN of 23. Most recent creatinine on 09/20/2024 was 0.6. UA with protein urea, nitrite positive urinary tract infection greater than 100 RBCs. Urine culture pending. CT chest abdomen pelvis shows redemonstration of right-sided hydroureteronephrosis despite a double-J stent in good position, secondary to chronic UPJ obstruction. However the enhancement pattern suggest persistent inflammation/infection, possibly ascending. CT of the brain shows no large acute intracranial hemorrhage or suspicious mass effect, there is interval development of left frontoethmoidal left maxillary inflammatory sinus disease. Family updated on results. I again discussed goals of care and recommended comfort care status. Patient's son states he has been in contact with the rest of the siblings and they are hoping to make a decision tonight. In the interim, they are requesting we continue with course of treatment for sepsis due to UTI and ischial ulcer. Will consult Urology. Discussed with Dr. Garrison who agrees to consult. Discussed with hospitalist, Dr. Mckay, who agrees to admission. Care coordination consult placed. Lab Data 10/03/24 14:55 10/03/24 14:55 Labs: Lab Results 10/03/24 10/03/24 10/03/24 Range/Units 14:55 18:53 18:58 WBC 11.8 H (4.5-10.0) K/mm3 RBC 4.47 (4.2-5.4) M/mm3 Hgb 12.5 (12.0-15.0) g/dL Hct 40.0 (37.0-47.0) % MCV 89.5 (80-100) fl MCH 28.0 (26-34) pg MCHC 31.3 L (32-36) g/dl RDW 18.6 H (11.5-14.5) % Plt Count 239 (150-375) k/mm3 MPV TNP Immature Gran % (Auto) 0.4 (0-0.5) % Neut % (Auto) 73.2 H (45.5-73.1) % Lymph % (Auto) 15.4 L (18.3-44.2) % [place] % (Auto) 9.2 H (2.6-8.5) % Eos % (Auto) 1.3 (0-4.4) % Baso % (Auto) 0.5 (0.2-1.2) % Lymph # (Auto) 1.81 (0.9-3.2) K/mm3 [place] # (Auto) 1.1 H (0.1-0.6) K/mm3 Eos # (Auto) 0.2 (0-0.3) K/mm3 Baso # (Auto) 0.1 (0.0-0.1) K/mm3 Abs Immat Gran (auto) 0.05 H (0.00-0.031) K/mm3 Absolute Neuts (auto) 8.6 H (1.3-6.7) K/mm3 Absolute Nucleated RBC 0.000 (0.0-0.012) K/mm3 Band Neutrophils % Not Reportable Nucleated RBC % 0.0 (0.0-0.2) % Atypical Lymphocytes Present Platelet Estimate Adequate (Adequate) % Immature Plt Fraction 24.0 H (0.9-11.2) % Anisocytosis 1+ Schistocytes None seen ESR 47 H (0-20) mm/hr PT 17.8 H (11.1-14.7) Seconds INR 1.4 APTT 37.9 H (22.3-36.8) Seconds Sodium 141 (137-145) mmol/L Potassium 4.0 (3.4-5.0) mmol/L Chloride 105 (98-107) mmol/L Carbon Dioxide 25 (22-30) mmol/L Anion Gap 11 (4-12) mmol/L BUN 23 H D (7-17) mg/dL Creatinine 1.06 H (0.7-1.0) mg/dL Estim Creat Clear Calc Not Reportable Estimated GFR 50 L (59 - ) Glucose 125 H (65-110) mg/dL Lactic Acid 1.5 (0.7-2.0) mmol/L Calcium 9.2 (8.4-10.2) mg/dL Total Bilirubin 0.8 (0.2-1.3) mg/dL AST 21 (14-36) U/L ALT 12 (6-35) U/L Alkaline Phosphatase 105 (38-126) U/L Total Creatine Kinase 26 L (30-135) U/L Troponin I < 0.012 (0.000-0.034) ng/mL C-Reactive Protein 7.0 H (<1.0) mg/dL Total Protein 7.0 (6.3-8.2) g/dL Albumin 3.2 L (3.5-5.1) g/dL TSH 0.736 (0.465-4.680) uIU/mL Urine Color Dark yellow (Yellow) Urine Appearance Turbid H (Clear) Urine pH 7.0 (5.0-9.0) Ur Specific [place] 1.013 (1.001-1.035) Urine Protein 3+ H (Negative) mg/dL Urine Glucose (UA) Negative (Negative) mg/dL Urine Ketones Negative (Negative) mg/dL Ur Blood (Man) 3+ H (Negative) Urine Nitrate Positive H (Negative) Urine Bilirubin Negative (Negative) Urine Urobilinogen 0.2 (<2.0) mg/dL Add Ur Microanalysis Reviewed Leukocyte Esterase Rfl 3+ H (Negative) ELVER/UL Urine RBC >100 H (0-2) /hpf Urine WBC >100 H (0-3) /hpf Ur Squamous Epith Cells Moderate (Few) /hpf Urine Bacteria 4+ /hpf Urine Casts >20 Nasal MRSA (PCR) Not detected (NOT DETECTE) Urine Opiates Screen Negative (Negative) Urine Methadone Screen Negative (Negative) Ur Barbiturates Screen Negative (Negative) Ur Phencyclidine Scrn Negative (Negative) Ur Amphetamine Screen Negative (Negative) U Benzodiazepines Scrn Negative (Negative) Urine Cocaine Screen Negative (Negative) U Cannabinoids Screen Negative (Negative) Influenza A (RT-PCR) Negative (Negative) Influenza B (RT-PCR) Negative (Negative) RSV (RT-PCR) Negative (Negative) SARS-CoV-2 RNA (RT-PCR) Negative (Negative) Discharge Plan Discharge Clinical Impression: Pyelonephritis Sepsis Qualifiers: Sepsis type: sepsis due to unspecified organism Sepsis acute organ dysfunction status: unspecified Qualified Code(s): A41.9 - Sepsis, unspecified organism Decubitus ulcer, infected Qualifiers: Pressure injury stage: stage 2 Qualified Code(s): L89.92 - Pressure ulcer of unspecified site, stage 2 Patient Disposition: Still a Patient Condition: Stable Patient Language: Mongolian Prescriptions: No Action donepezil 5 mg tablet 5 mg PO DAILY pantoprazole 40 mg tablet,delayed release (DR/EC) 40 mg PO DAILY simvastatin 20 mg tablet 20 mg PO DAILY ergocalciferol (vitamin D2) 1,250 mcg (50,000 unit) capsule See Rx Instructions .ROUTE .COMPLEX Rx Instructions: 1 TABLET EVERY 14 DAYS memantine 10 mg tablet 10 mg PO BID Patient Comments: Currently on HOLD magnesium oxide 400 mg (241.3 mg magnesium) tablet 400 mg PO DAILY 30 Days Qty: 30 0RF tizanidine 2 mg tablet 2 mg PO TID PRN (Reason: Muscle Spasm) levothyroxine 50 mcg tablet 50 mcg PO DAILY levothyroxine 200 mcg tablet 200 mcg PO DAILY Xarelto 20 mg tablet 20 mg PO DAILY aspirin 81 mg Capsule 81 mg PO DAILY polyethylene glycol 3350 [Miralax] 17 gram powder in packet 17 g PO DAILY PRN (Reason: Constipation) mirtazapine [Remeron] 15 mg Tablet 7.5 mg PO 1700 Qty: 30 0RF levofloxacin 750 mg tablet 750 mg PO DAILY 3 Days Qty: 3 0RF Rx Instructions: 3 more days to complete the treatment Follow-up/Referrals: Sage Steele MD [Primary Care Provider] -
--- OUTSIDE RECORDS SUMMARY | 2024-10-03 17:50 | XMS_ITS | Clinical Summary ---
Author Organization [facility] Address [address] [place] [address] Care Team Providers Care Customer Training Specialist Name Role Phone Rusty Jacques MD Primary Care Provider [phone] Allergies Active Allergy Reactions Criticality Noted Date Comments Nitrofurantoin Monohyd/M-Cryst Diarrhea Medium 03/07/2022 Severe diarrhea and fecal incontinence. Penicillins Rash,Other (See comments) Low Reaction: Reaction: Rash, Medications [id number] calcium-mins 27 mg iron-400 mcg tablet daily. [...] 1 tablet (150 mcg total) by mouth polisher and sander before breakfast 90 tablet 1 3 Active [...] fracture 02/08/2020 History of spinal fusion 03/16/2019 technician terminal and repeater current use of antibiotics 08/07/2017 Retained orthopedic [...] BID. 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 Immunizations Immunization Administration Dates Next Due Influenza, Quadrivalent, Hig [...] often do you attend chur ch or restoration services? Never 03/18/2023 Do you belong to any clubs o r organizations such as congregation groups, unions, fraternal or athletic groups, or [...] place to sleep or slept in a half-way (including now)? No 03/18/2023 Personal Safety Answer Date Recorded Getting School Help Needed Not on file 03/26 Education Answer Date Recorded What is the highest level of school you have completed or the highest degree you have received? High school graduate 03/16/2023 Comments No Sex and Gender Information Value Date Recorded Sex Assigned at Not on file Legal Sex Female 8:38 AM BEVERAGE MANAGER Gender Identity Not on file Sexual Orientation [...] Bone mineral density was performed on a [employer] Discovery Densitometer. Based on machine cross-calibration and [...] by the International Society of Clinical Densitometry. [id number] Dali Ryan MD IMG DXA PROCEDURES Final Resu lt from Last 3 Months or Most Recently Relevant to Health Maintenance Insurance [facility] Member Subscriber Plan / Payer ( fective 2017-Present) Name:CHINO VILLAR A Relation to Subscriber:Self Name:Chino Villar Payer ID:[id number] (NAIC) Type:MEDICARE RISK OTHER Address: [place] [id number] [facility] Advance Directives For more information, please contact: [phone] Documents on File Type Date Recorded Patient Distribution Dispatcher Expl anation ADVANCE DIRECTIVE 03/18/2023 9:20 AM Power of Regional Dedicated Truck Driver-Medical * Full Code (Latest Code Status on File) Date Activated Date Inactivated Comments 03/13/2023 9:11 PM 03/17/2023 8:07 PM Care Teams Customer Training Specialist Relationship Specialty Start Date End Date [place] [id number] PCP - General 08/25/16
--- OUTSIDE RECORDS SUMMARY | 2024-10-03 17:51 | XMS_ITS | Continuity of Care Document ---
Author Organization [facility] Address [address] [place] [address] [address] [place] [address] Phone Care Team Providers Care Associate Material Handler Name Role Phone Root OD, Alfredo Unavailable Unavailable Procedures Procedure Date Eye Exam & Treatment Refraction Advance Directives Directive Yes / No Effective Date File Name No Information Encounters Encounter Description Practice Location Reason(s) For Visit Diagnoses Date Provider Providers Copied on Encounter [facility], [address] [place] [address] [address], [place], [place], [id number], [place] tel:[phone] [facility] No Information 1-200 8 Root OD Alfredo. [address] , [address], [place], [address], [place]. tel:[phone] Family History Family Member Type Diagnosis Age At Onset No Information Payers Payer name Insurance type Covered libertarian ID Authoriza tion(s) [place] [id number] [place] [id number] Social History Type Description Quantity Date Captured Comments Sex Male Smoking Status No Information Chief Complaint And Reason For Visit No Information Reason For Referral Reason For Referral No Information History Of Present Illness Encounter Date Complaint History Of Prese nt Illness No Information Functional Status Date Functional Assessmen t No Information Instructions Date Instruction Additional Infor mation No Information Assessments Type Assessment Date No Information Patient Care Teams Name Effective Dates (start - stop) Status Members No Information
--- OUTSIDE RECORDS SUMMARY | 2024-10-03 17:51 | XMS_ITS | Clinical Summary ---
Author Organization [facility] Address [address] [place] [address] Care Team Providers Care Radiology Transcriptionist Name Role Phone Sage Steele MD Primary Care Provider [phone] Encounters Date Type Department Care Team Description 09/12/2024 6:33 PM CAREER DEVELOPMENT MANAGER - 09/12/2024 11:59 PM CAREER DEVELOPMENT MANAGER Hospital Encounter [facility] [address] [place] [address] Sage Steele MD Discharge Disposition: Home or Self Care (Routine Discharge) 09/12/2024 Orders Only [facility] [address] [place] [address] Sage Steele MD 08/29/2024 7:46 AM CAREER DEVELOPMENT MANAGER - 08/29/2024 11:59 PM CAREER DEVELOPMENT MANAGER Hospital Encounter [facility] [address] [place] [address] Sage Steele MD Discharge Disposition: Home or Self Care (Routine Discharge) 08/29/2024 Orders Only [facility] [address] [place] [address] Sage Steele MD 08/15/2024 4:39 PM CAREER DEVELOPMENT MANAGER - 08/15/2024 11:59 PM CAREER DEVELOPMENT MANAGER Hospital Encounter [facility] [address] [place] [address] Sage Steele MD Discharge Disposition: Home or Self Care (Routine Discharge) 08/15/2024 Orders Only [facility] [address] [place] [address] Sage Steele MD 08/01/2024 5:25 PM CAREER DEVELOPMENT MANAGER - 08/01/2024 11:59 PM CAREER DEVELOPMENT MANAGER Hospital Encounter [facility] [address] [place] [address] Sage Steele MD Discharge Disposition: Home or Self Care (Routine Discharge) 08/01/[address] [facility] [address] [place] [address] Sage Steele MD from Last 3 Months [...] BASIC METABOLIC PANEL Routine 09/12/2024 3:00 PM CAREER DEVELOPMENT MANAGER Unstageable decubitus ulcer ([facility]) CBC W/DIFF AUTOMATED Routine 09/12/2024 3:00 PM CAREER DEVELOPMENT MANAGER Unstageable decubitus ulcer ([facility]) COMPREHENSIVE METABOLIC PANEL Routine 08/29/2024 6:40 AM CAREER DEVELOPMENT MANAGER Myxedema heart disease Urinary tract infection, site not specified LIPID PANEL Routine 08/29/2024 6:40 AM CAREER DEVELOPMENT MANAGER Myxedema heart disease Urinary tract infection, site not specified CBC W/DIFF AUTOMATED Routine 08/29/2024 6:40 AM CAREER DEVELOPMENT MANAGER Myxedema heart disease Urinary tract infection, site not specified THYROID STIM HORMONE TSH Routine 08/29/2024 6:40 AM CAREER DEVELOPMENT MANAGER Myxedema heart disease Urinary tract infection, site not specified THYROXINE, FREE (FT4) Routine 08/29/2024 6:40 AM CAREER DEVELOPMENT MANAGER Myxedema heart disease Urinary tract infection, site not specified URINE BACTERIA CULTURE Routine 5 7:00 AM CAREER DEVELOPMENT MANAGER UTI (urinary tract infection) URINE BACTERIA CULTURE Routine 4 12:00 PM CAREER DEVELOPMENT MANAGER Urinary tract infection, site not specified from Last 3 Months Results * (ABNORMAL) BASIC METABOLIC PANEL (09/12/2024 3:00 PM CAREER DEVELOPMENT MANAGER) GLUCOSE 103(H) 70 - 99 MG/DL 09/12/2024 6:47 PM [facility] BUN 23(H) 7 - 18 MG/DL 09/12/2024 6:47 PM [facility] CREATININE S/P/B 1.34(H) 0.55 - 1.02 MG/DL 09/12/2024 6:47 PM [facility] SODIUM S/P/B 137 136 - 145 MMOL/L 09/12/2024 6:47 PM [facility] POTASSIUM S/P/B 5.0 3.5 - 5.1 MMOL/L 09/12/2024 6:47 PM [facility] CHLORIDE S/P/B 100 100 - 108 MMOL/L 09/12/2024 6:47 PM [facility] CO2 19.7(L) 21 - 32 MMOL/L 09/12/2024 6:47 PM [facility] CALCIUM S/P/B 9.8 8.5 - 10.1 MG/DL 09/12/2024 6:47 PM [facility] ANION GAP 17.3(H) 5 - 15 MMOL/L 09/12/2024 6:47 PM [facility] BUN CREATININE RATIO 17.2 6 - 26 09/12/2024 6:47 PM [facility] GFR ESTIMATE 39(L) >90 ML/MIN/1.7 3 M2 09/12/2024 6:47 PM [facility] Comment: NOTE: eGFR is not calculated for patients <18 years of age. This is an estimated GFR calculation using the new CKD EPI creatinine equation without race and so does not require a correction factor for race. This estimated GFR should not be used for calculating drug doses. 09/12/2024 3:00 PM CAREER DEVELOPMENT MANAGER us Sagedaysi Steele MD LABORATORY Final Result [facility] [address] [place] [address], * (ABNORMAL) CBC W/DIFF AUTOMATED (09/12/2024 3:00 PM CAREER DEVELOPMENT MANAGER) Only the most recent of2 resultswithin the time period is included. WBC 11.67(H) 4.4 - 11.0 x10'3/uL 09/12/2024 6:50 PM [facility] RBC 5.26(H) 4.50 - 5.10 x10'6/uL 09/12/2024 6:50 PM [facility] HGB 14.1 12.3 - 15.3 G/DL 09/12/2024 6:50 PM [facility] HCT 45.8(H) 35.9 - 44.6 % 09/12/2024 6:50 PM [facility] MCV 87.1 80.0 - 96.0 FL 09/12/2024 6:50 PM [facility] MCH 26.8 25.3 - 30.9 PG 09/12/2024 6:50 PM [facility] MCHC 30.8(L) 31.0 - 34.1 G/DL 09/12/2024 6:50 PM [facility] RDW 21.2(H) 12.4 - 15.1 % 09/12/2024 6:50 PM [facility] PLT 307 151 - 353 x10'3/uL 09/12/2024 6:50 PM [facility] MPV 12.7(H) 9.6 - 12.0 FL 09/12/2024 6:50 PM [facility] RBC MORPHOLOGY NORMAL 09/12/2024 6:50 PM [facility] PLT MORPH. NORMAL 09/12/2024 6:50 PM [facility] WBC MORPHOLOGY NORMAL 09/12/2024 6:50 PM [facility] LYMPHOCYTES % 14.4(L) 15.8 - 45.0 % 09/12/2024 6:50 PM [facility] NEUTROPHILS % 77.3(H) 42.1 - 71.9 % 09/12/2024 6:50 PM [facility] MONOCYTES % 6.2 5.7 - 12.5 % 09/12/2024 6:50 PM [facility] EOSINOPHILS 1.1 0.0 - 5.6 % 09/12/2024 6:50 PM CAREER DEVELOPMENT MANAGER [facility] BASOPHILS 0.3 0.0 - 1.3 % 09/12/2024 6:50 PM [facility] ABS. NEUTROPHILS 9.03(H) 1.40 - 6.00 x10'3/uL 09/12/2024 6:50 PM [facility] IMMATURE GRANS % 0.7(H) 0.0 - 0.5 % 09/12/2024 6:50 PM [facility] ABS. LYMPHOCYTES 1.68 0.80 - 4.70 x10'3/uL 09/12/2024 6:50 PM [facility] 09/12/2024 3:00 PM CAREER DEVELOPMENT MANAGER Sagedaysi Steele MD LABORATORY Final Result Performing Organization Address City/State/[facility] Co de Phone Number [facility] [address] [place] [address], * (ABNORMAL) COMPREHENSIVE METABOLIC PANEL (08/29/2024 6:40 AM CAREER DEVELOPMENT MANAGER) GLUCOSE 88 70 - 99 MG/DL 08/29/2024 8:52 AM [facility] BUN 12 7 - 18 MG/DL 08/29/2024 8:52 AM [facility] CREATININE S/P/B 1.60(H) 0.55 - 1.02 MG/DL 08/29/2024 8:52 AM [facility] SODIUM S/P/B 139 136 - 145 MMOL/L 08/29/2024 8:52 AM [facility] POTASSIUM S/P/B 4.2 3.5 - 5.1 MMOL/L 08/29/2024 8:52 AM [facility] CHLORIDE S/P/B 104 100 - 108 MMOL/L 08/29/2024 8:52 AM [facility] CO2 24.9 21 - 32 MMOL/L 08/29/2024 8:52 AM [facility] CALCIUM S/P/B 9.3 8.5 - 10.1 MG/DL 08/29/2024 8:52 AM [facility] BILIRUBIN TOTAL S/P/B 0.4 0.2 - 1.2 MG/DL 08/29/2024 8:52 AM [facility] TOTAL PROTEIN S/P/B 6.5 6.4 - 8.2 G/DL 08/29/2024 8:52 AM [facility] ALBUMIN S/P/B 2.6(L) 3.4 - 5.0 G/DL 08/29/2024 8:52 AM [facility] AST 20 15 - 37 U/L 08/29/2024 8:52 AM [facility] ALT 10(L) 14 - 55 U/L 08/29/2024 8:52 AM [facility] ALKALINE PHOSPHATASE S/P/B 106 50 - 136 U/L 08/29/2024 8:52 AM [facility] ANION GAP 10.1 5 - 15 MMOL/L 08/29/2024 8:52 AM [facility] BUN CREATININE RATIO 7.5 6 - 26 08/29/2024 8:52 AM [facility] A/G RATIO 0.7(L) 1.0 - 2.0 RATIO 08/29/2024 8:52 AM [facility] GFR ESTIMATE 32(L) >90 ML/MIN/1.7 3 M2 08/29/2024 8:52 AM [facility] Comment: NOTE: eGFR is not calculated for patients <18 years of age. This is an estimated GFR calculation using the new CKD EPI creatinine equation without race and so does not require a correction factor for race. This estimated GFR should not be used for calculating drug doses. 08/29/2024 6:40 AM CAREER DEVELOPMENT MANAGER us Sagedaysi Steele MD LABORATORY Final Result [facility] [address] [place] [address], * LIPID PANEL (08/29/2024 6:40 AM CAREER DEVELOPMENT MANAGER) CHOLESTEROL 140 <200.0 MG/DL 08/29/2024 8:52 AM [facility] TRIGLYCERIDES 75 <150 MG/DL 08/29/2024 8:52 AM [facility] HDL 45 >40.0 MG/DL 08/29/2024 8:52 AM [facility] LDL (CALCULATED) 80 <100 MG/DL 08/29/19 8:52 AM [facility] NON HDL CHOLESTEROL 95 <130 MG/DL 08/29 8:52 AM [facility] CHOL/HDL RATIO 3.1 0.0 - 4.5 08/29/2024 8:52 AM [facility] VLDL CALCULATION 15 5 - 55 MG/DL 08/29/2024 8:52 AM [facility] LIPID INTERPRETATION 08/29/2024 8:52 AM [facility] Comment: [facility] REPORT RECOMMENDATIONS: ADULT CHILD LOW RISK: CHOLESTEROL <200 <170 TRIGLYCERIDE <150 --- HDL >=60 --- LDL <100 <110 BORDERLINE: CHOLESTEROL 200-239 170-199 TRIGLYCERIDE 150-199 --- HDL 40-59 --- LDL 100-159 110-129 HIGH RISK: CHOLESTEROL >=240 >=200 TRIGLYCERIDE >=200 --- HDL <40 --- LDL >=160 >=130 08/29/2024 6:40 AM CAREER DEVELOPMENT MANAGER us Sage Steele MD LABORATORY Final Result Performing Organization Address [facility] Co de Phone Number [facility] [address] [place] [address], [place] [phone] * (ABNORMAL) THYROXINE, FREE (FT4) (08/29/2024 6:40 AM CAREER DEVELOPMENT MANAGER) FREE T4 1.97(H) 0.76 - 1.46 NG/DL 08/29/2024 8:52 AM CAREER DEVELOPMENT MANAGER [facility] 08/29/2024 6:40 AM CAREER DEVELOPMENT MANAGER us Sage Steele MD LABORATORY Final Result Performing Organization Address [facility] de Phone Number [facility] [address] [place] [address], [place] [phone] * THYROID STIM HORMONE TSH (08/29/2024 6:40 AM CAREER DEVELOPMENT MANAGER) Pathologist [facility] TSH 0.711 0.358 - 3.74 uIU/ML 08/29/2024 8:52 AM CAREER DEVELOPMENT MANAGER [facility] Comment: HIGH DOSES OF BIOTIN MAY INTERFERE WITH THIS TEST RESULT. CORRELATION TO CLINICAL HISTORY AND PRESENTATION RECOMMENDED. 08/29/2024 6:40 AM CAREER DEVELOPMENT MANAGER us Sage Steele MD LABORATORY Final Result Performing Organization Address [facility] Co de Phone Number [facility] [address] [place] [address], [place] [phone] * (ABNORMAL) URINE BACTERIA CULTURE (08/15/2024 7:00 AM CAREER DEVELOPMENT MANAGER) Only the most recent of2 resultswithin the time period is included. SPEC DESCRIPTION URINE, UNSPECIFIED 08/15/2024 4:40 PM CAREER DEVELOPMENT MANAGER [facility] SPECIAL REQUESTS NO SPECIAL REQUEST 08/15/2024 4:40 PM CAREER DEVELOPMENT MANAGER [facility] CULTURE RESULT >100,000 COL/ML ESCHERICHIA COLI PROBABLE EXTENDED SPECTRUM BETA LACTAMASE SIENE MAKER (A) 08/18/2024 7:31 AM CAREER DEVELOPMENT MANAGER [facility] CULTURE RESULT >100,000 COL/ML ENTEROCOCCUS SPECIES (A) 08/18/2024 7:31 AM CAREER DEVELOPMENT MANAGER [facility] URINE SPECIMEN / Unknown 08/15/2024 7:00 AM CAREER DEVELOPMENT MANAGER 08/15/2024 4:57 PM CAREER DEVELOPMENT MANAGER Narrative Organism Antibiotic Method Susceptibility Escherichia coli [...] PENICILLIN G QUENTIN (VITEK) 2: Sensitive us Sage Steele MD MICROBIOLOGY - GENERAL ORDERABL ES Final Result [facility] [address] [place] [address], [facility] [address] [place] [address], from Last 3 Months Additional Health Concerns Infection Onset Date Last Indicated ESBL - Extended Spectrum Bet a-lactamase Comment:02/12/24 Urine (RR) 03/01/24 Urine (RR) 03/15/24 Urine (RR) 03/25/24 urine (MANUELITO) 04/03/24 Urine (RR) 07/01/24 urine (MANUELITO) 08/01/24 Urine (RR). 08/15/24 urine (MANUELITO) 02/12/2024 08/15/2024 Insurance [facility] MEDICARE Care Teams Radiology Transcriptionist Relationship Specialty Start Date End Date Sage Steele MD [address] [address] PCP - General FAMILY PRACTICE 10/02/23
--- OUTSIDE RECORDS SUMMARY | 2024-10-03 17:51 | XMS_ITS | Encounter Summary ---
Author Organization [facility] Address [address] [place] [address] Phone Care Team Providers Care Wood Carver Hand Name Role Phone Rusty Jacques MD Primary Care Provider [phone] Thalia Eastman RN Unavailable [phone] Xenia Garcia RN Unavailable [phone] Encounter Details Date Type Department Care Team (Late st Contact Info) Description 08/11/2017 Orders Only [facility] ProviderKate MD [address] [place] [address] Social History Tobacco Use Types Packs/Day Years Used Date Smoking Tobacco: Former Smokeless Tobacco: Never Comments:Quit 36 years ago Alcohol Use Standard Drinks/Week Comments Yes 0 (1 standard drink = 0.6 oz pur e alcohol) Comments Unknown Sex and Gender Information Value Date Recorded Sex Assigned at Not on file Legal Sex Female 8:38 AM INDUSTRIAL TRUCK MECHANIC Gender Identity Not on file Sexual Orientation Not on file documented as of this encounter Plan of Treatment Not on file documented as of this encounter Procedures Procedure Name Priority Date/Time Associated Diagnosis Comments DISCHARGE LABORATORY CUMULATIVE REPORT 08/11/2017 12:00 AM INDUSTRIAL TRUCK MECHANIC documented in this encounter Results * DISCHARGE LABORATORY CUMULATIVE REPORT (08/11/2017 12:00 AM INDUSTRIAL TRUCK MECHANIC) Narrative 08/11/2017 12:00 AM INDUSTRIAL TRUCK MECHANIC Ordered by an unspecified provider. us Historical Provider LAB BLOOD ORDERABLES Nat l Result documented in this encounter Visit Diagnoses Not on filedocumented in this encounter Care Teams Wood Carver Hand Relationship Specialty Start Date End Date Rusty Jacques MD [address] [place] [address] PCP - General 08/25/16 Thalia Eastman RN [address] [facility] [address] [place] [address] Flooring Sales Manager 07/30/17 08/31/17 Xenia Garcia RN [address] [place], [place] [id number] Flooring Sales Manager 03/18/23 04/22/23 documented as of this encounter
--- OUTSIDE RECORDS SUMMARY | 2024-10-03 17:51 | XMS_ITS | Referral Summary ---
Author Organization [facility] Address [address] [place] [address] Care Team Providers Care Electronic Scanner Operator Name Role Phone Rusty Jacques MD Primary Care Provider [phone] Allergies Active Allergy Reactions Criticality Noted Date Comments Nitrofurantoin Monohyd/M-Cryst Diarrhea Medium 03/07/2022 Severe diarrhea and fecal incontinence. Penicillins Rash,Other (See comments) Low Reaction: Reaction: Rash, Medications ndbvimwy-weje-UI- calcium-mins 27 mg iron-400 mcg tablet daily. 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 Assessment & Plan (07/22/2018 10:26 AM CORPORATE ANALYST): Recommendations: - Doing well on Bactrim [...] often do you attend chur ch or episcopal services? Never 03/18/2023 Do you belong to any clubs o r organizations such as yazidi groups, unions, fraternal or athletic groups, or [...] place to sleep or slept in a intermediate (including now)? No 03/18/2023 Personal Safety Answer Date Recorded Getting School Help Needed Not on file 03/26 Education Answer Date Recorded What is the highest level of school you have completed or the highest degree you have received? High school graduate 03/16/2023 Comments No Sex and Gender Information Value Date Recorded Sex Assigned at Not on file Legal Sex Female 8:38 AM CORPORATE ANALYST Gender Identity Not on file Sexual [...] during Care Management program ACO Care Management Xenia Bradford RN Note: [...] Bone mineral density was performed on a HoloCloudAccess Discovery Densitometer. Based on machine cross-calibration and [...] by the International Society of Clinical Densitometry. [id number] Dali Ryan MD IMG DXA PROCEDURES Final Resu lt from Last 3 Months or Most Recently Relevant to Health Maintenance Insurance [facility] HEALTHCARE [facility] [place] [address] Advance Directives For more information, please contact: [phone] Documents on File Type Date Recorded Patient Stockfeed Miller Expl anation ADVANCE DIRECTIVE 03/18/2023 9:20 AM Power of Door Clamper-Medical * Full Code (Latest Code Status on File) Date Activated Date Inactivated Comments 03/13/2023 9:11 PM 03/17/2023 8:07 PM Care Teams Electronic Scanner Operator Relationship Specialty Start Date End Date Rusty Jacques MD [address] [place] [address] PCP - General 08/25/16
--- OUTSIDE RECORDS SUMMARY | 2024-10-03 17:51 | XMS_ITS | Encounter Summary ---
Author Organization [facility] Address [address] [place] [address] Phone Care Team Providers Care Pharmaceutical Compounding Supervisor Name Role Phone Rusty Jacques MD Primary Care Provider [phone] Thalia Eastman RN Unavailable [phone] Xenia Garcia RN Unavailable Encounter Details Date Type Department Care Team (Late st Contact Info) Description 08/04/2017 Orders Only [facility] ProviderKate MD [address] [place] [address] Social History Tobacco Use Types Packs/Day Years Used Date Smoking Tobacco: Former Smokeless Tobacco: Never Comments:Quit 36 years ago Alcohol Use Standard Drinks/Week Comments Yes 0 (1 standard drink = 0.6 oz pur e alcohol) Comments Unknown Sex and Gender Information Value Date Recorded Sex Assigned at Not on file Legal Sex Female 8:38 AM CIGARETTE STAMPER Gender Identity Not on file Sexual Orientation Not on file documented as of this encounter Plan of Treatment Not on file documented as of this encounter Procedures Procedure Name Priority Date/Time Associated Diagnosis Comments DISCHARGE LABORATORY CUMULATIVE REPORT 08/04/2017 12:00 AM CIGARETTE STAMPER documented in this encounter Results * DISCHARGE LABORATORY CUMULATIVE REPORT (08/04/2017 12:00 AM CIGARETTE STAMPER) Narrative 08/04/2017 12:00 AM CIGARETTE STAMPER Ordered by an unspecified provider. us Historical Provider LAB BLOOD ORDERABLES Nat l Result documented in this encounter Visit Diagnoses Not on filedocumented in this encounter Care Teams Pharmaceutical Compounding Supervisor Relationship Specialty Start Date End Date Rusty Jacques MD [address] [place] [address] PCP - General 08/25/16 Thalia Eastman RN [address] [facility] [address] [place] [address] Director Of Nursing 07/30/17 08/31/17 Xenia Garcia RN [address] [place], [place] [id number] Director Of Nursing 03/18/23 04/22/23 documented as of this encounter
--- OUTSIDE RECORDS SUMMARY | 2024-10-03 17:51 | XMS_ITS | Encounter Summary ---
Author Organization [facility] Address [address] [place] [address] Phone Care Team Providers Care Shoddy Mill Worker Name Role Phone Rusty Jacques MD Primary Care Provider [phone] Thalia Eastman RN Unavailable [phone] Xenia Garcia RN Unavailable [phone] Encounter Details Date Type Department Care Team (Late st Contact Info) Description 08/19/2017 Orders Only [facility] ProviderKate MD [address] [place] [address] Social History Tobacco Use Types Packs/Day Years Used Date Smoking Tobacco: Former Smokeless Tobacco: Never Comments:Quit 36 years ago Alcohol Use Standard Drinks/Week Comments Yes 0 (1 standard drink = 0.6 oz pur e alcohol) Comments Unknown Sex and Gender Information Value Date Recorded Sex Assigned at Not on file Legal Sex Female 8:38 AM BUSINESS CONSULTANT Gender Identity Not on file Sexual Orientation Not on file documented as of this encounter Plan of Treatment Not on file documented as of this encounter Procedures Procedure Name Priority Date/Time Associated Diagnosis Comments DISCHARGE LABORATORY CUMULATIVE REPORT 08/19/2017 12:00 AM BUSINESS CONSULTANT documented in this encounter Results * DISCHARGE LABORATORY CUMULATIVE REPORT (08/19/2017 12:00 AM BUSINESS CONSULTANT) Narrative 08/19/2017 12:00 AM BUSINESS CONSULTANT Ordered by an unspecified provider. us Historical Provider LAB BLOOD ORDERABLES Nat l Result documented in this encounter Visit Diagnoses Not on filedocumented in this encounter Care Teams Shoddy Mill Worker Relationship Specialty Start Date End Date Rusty Jacques MD [address] [place] [address] PCP - General 08/25/16 Thalia Eastman RN [address] [facility] [address] [place] [address] Housekeeping Aid 07/30/17 08/31/17 Xenia Garcia RN [address] [place], [place] [id number] Housekeeping Aid 03/18/23 04/22/23 documented as of this encounter
--- OUTSIDE RECORDS SUMMARY | 2024-10-03 17:51 | XMS_ITS | Continuity of Care Document ---
Author Organization [facility] [place] Address [address] [place] [address] [place] [phone] Phone Care Team Providers Care Service Member Name Role Phone Anna Beltran DPT Unavailable Unavailable Procedures Procedure Date Therapeutic Exercise Therapeutic Activities Therapeutic Exercise Therapeutic Activities Neuromuscular Re-Ed Therapeutic Exercise Therapeutic Activities Neuromuscular Re-Ed Therapeutic Exercise Therapeutic Activities Neuromuscular Re-Ed Therapeutic Exercise Therapeutic Activities Neuromuscular Re-Ed Therapeutic Exercise Therapeutic Activities Therapeutic Exercise Therapeutic Activities Therapeutic Exercise Therapeutic Activities Neuromuscular Re-Ed Therapeutic Exercise Therapeutic Activities Neuromuscular Re-Ed Therapeutic Exercise Therapeutic Activities Neuromuscular Re-Ed Therapeutic Exercise Therapeutic Activities Neuromuscular Re-Ed Therapeutic Exercise Therapeutic Activities Neuromuscular Re-Ed PT Re-evaluation Therapeutic Exercise Therapeutic Activities Neuromuscular Re-Ed Therapeutic Exercise Therapeutic Activities Neuromuscular Re-Ed Therapeutic Exercise Therapeutic Activities Neuromuscular Re-Ed Therapeutic Exercise Therapeutic Activities Therapeutic Exercise Therapeutic Activities Therapeutic Exercise Therapeutic Activities Therapeutic Exercise Therapeutic Activities Neuromuscular Re-Ed Therapeutic Exercise Therapeutic Activities Neuromuscular Re-Ed Therapeutic Exercise Therapeutic Activities Therapeutic Exercise Therapeutic Activities Therapeutic Exercise Therapeutic Activities PT Evaluation Moderate Complexity Therapeutic Exercise Therapeutic Activities Advance Directives Directive Yes / No Effective Date File Name No Information Encounters Encounter Description Practice Location Reason(s) For Visit Diagnoses Date Provider Providers Copied on Encounter [facility] [address], [id number], tel:[phone] Victor Low back painOth symptoms and signs involving the musculoskeletal systemUnspecifie d abnormalities of gait and mobilityAbnormal postureArthrodes is status 8 Devin Anna. [address], [facility], [place]. tel:[phone] Referring Provider: Rachelle Lou [place], [facility]. tel:[phone] [facility] [address] [address], [place], [id number], tel:[phone] Victor Low back painOth symptoms and signs involving the musculoskeletal systemUnspecifie d abnormalities of gait and mobilityAbnormal postureArthrodes is status 8 Devin Anna. [address], [facility], . tel:[phone] Referring Provider: [place], [address]. tel:[phone] [facility] [address] [facility] [address], [place], [place], [id number], [place] tel:[phone] Victor Low back painOth symptoms and signs involving the musculoskeletal systemUnspecifie d abnormalities of gait and mobilityAbnormal postureArthrodes is status 3 8 Devin Anna. [address] [facility], [place] [address], [place], [address], [place]. tel:[phone] Referring Provider: [place], [address]. tel:[phone] [facility] [address], [place], [place], [id number], [place] tel:[phone] Victor Low back painOth symptoms and signs involving the musculoskeletal systemUnspecifie d abnormalities of gait and mobilityAbnormal postureArthrodes is status 8 Devin Anna. [address], [facility], [place]. tel:[phone] Referring Provider: [place], [address]. tel:[phone] [facility] [address] [facility] [address], [place], [id number], [place] tel:[phone] Victor Low back painOth symptoms and signs involving the musculoskeletal systemUnspecifie d abnormalities of gait and mobilityAbnormal postureArthrodes is status 8 [place] Anna. [address] [address], [place], [address], [place]. tel:[phone] Referring Provider: [place], [address]. tel:[phone] [facility] [address], [place], [place], [id number], [place] tel:[phone] Victor Low back painOth symptoms and signs involving the musculoskeletal systemUnspecifie d abnormalities of gait and mobilityAbnormal postureArthrodes is status 8 Devin Anna. [address] [facility] [address], [place], [address], [place]. tel:[phone] Referring Provider: [place], [address]. tel:[phone] [facility] [address], [place], [place], [id number], [place] tel:[phone] Victor Low back painOth symptoms and signs involving the musculoskeletal systemUnspecifie d abnormalities of gait and mobilityAbnormal postureArthrodes is status 5201 8 [place] Anna. [address] [facility], [address], [place], [place], [facility], [place]. tel:[phone] Referring Provider: [place], [address]. tel:[phone] [facility] [address], [place], [place], [id number], [place] tel:[phone] Victor Low back painOth symptoms and signs involving the musculoskeletal systemUnspecifie d abnormalities of gait and mobilityAbnormal postureArthrodes is status 8 Devin Anna. [address] [facility], [facility] [address], [place], [place], [facility], [place]. tel:[phone] Referring Provider: [place], [address]. tel:[phone] [facility], [place], [place], [id number], [place] tel:[phone] Victor Low back painOth symptoms and signs involving the musculoskeletal systemUnspecifie d abnormalities of gait and mobilityAbnormal postureArthrodes is status 8 [place], [place]. Referring Provider: [place], [address]. tel:[phone] [facility], [place], [place], [id number], [place] tel:[phone] Victor Low back painOth symptoms and signs involving the musculoskeletal systemUnspecifie d abnormalities of gait and mobilityAbnormal postureArthrodes is status 5-201 8 [place]on Anna. [address] [facility], [address] [place] [address], [place], [place], [facility], [place]. tel: [phone] Referring Provider: [place], [address]. tel:[phone] [facility] [address] [address], [place], [place], [id number], [place] tel:[phone] Victor Low back painOth symptoms and signs involving the musculoskeletal systemUnspecifie d abnormalities of gait and mobilityAbnormal postureArthrodes is status 8-201 8 Devin Anna. [address] [facility], [facility] [address], [place], [place], [facility], [place]. tel: [phone] Referring Provider: [place], [address]. tel:[phone] [facility] [address] [facility] [address], [place], [place], [id number], [place] tel:[phone] Victor Low back painOth symptoms and signs involving the musculoskeletal systemUnspecifie d abnormalities of gait and mobilityAbnormal postureArthrodes is status 8 Devin Anna. [address] [facility], [facility] [address], [place], [place], [facility], [place]. tel: [phone] Referring Provider: [place], [address]. tel:[phone] [facility] [address] [facility] [address], [place], [place], [id number], [place] tel:[phone] Victor Low back painOth symptoms and signs involving the musculoskeletal systemUnspecifie d abnormalities of gait and mobilityAbnormal postureArthrodes is status 7-201 8 Easton Anna. [address] [facility], [facility] [address], [place], [address], [place]. tel: [phone] Referring Provider: [place], [address]. tel:[phone] [facility] [address], [place], [place], [id number], [place] tel:[phone] Victor Low back painOth symptoms and signs involving the musculoskeletal systemUnspecifie d abnormalities of gait and mobilityAbnormal postureArthrodes is status Apr-1 0-201 8 Devin Anna. [address] [facility], [address], [place], [address], [place]. tel: [phone] Referring Provider: [place], [address]. tel:[phone] [facility] [address] [place], [place] [address], [place], [place], [id number], [place] tel:[phone] Victor Low back painOth symptoms and signs involving the musculoskeletal systemUnspecifie d abnormalities of gait and mobilityAbnormal postureArthrodes is status Apr-0 3-201 8 Easton Anna. [address] [facility], [facility] [address], [place], [address], [place]. tel:[phone] Referring Provider: [place], [address]. tel:[phone] [facility] [address], [place], [place], [id number], [place] tel:[phone] Victor Low back painOth symptoms and signs involving the musculoskeletal systemUnspecifie d abnormalities of gait and mobilityAbnormal postureArthrodes is status Mar-2 9-201 8 Easton Anna. [address] [facility], [address], [place], [address], [place]. tel:[phone] Referring Provider: [place], [address]. tel:[phone] [facility] [address] [facility] [address], [place], [place], [id number], [place] tel:[phone] Victor Low back painOth symptoms and signs involving the musculoskeletal systemUnspecifie d abnormalities of gait and mobilityAbnormal postureArthrodes is status 7- 8 Devin Anna. [address] [facility], [facility] [address], [place], [address], [place]. [phone] Referring Provider: [place], [address]. tel:[phone] [facility] [address] [facility] [address], [place], [place], [id number], [place] tel:[phone] Victor Low back painOth symptoms and signs involving the musculoskeletal systemUnspecifie d abnormalities of gait and mobilityAbnormal postureArthrodes is status 2 8 Devin Anna. [address] [facility], [facility] [address], [place], [address], [place]. tel:[phone] Referring Provider: [place], [address]. tel:[phone] [facility] [address] [facility] [address], [place], [place], [id number], [place] tel:[phone] Victor Low back painOth symptoms and signs involving the musculoskeletal systemUnspecifie d abnormalities of gait and mobilityAbnormal postureArthrodes is status 0 8 Devin Anna. [address] [facility], [facility] [address], [place], [address], [place]. [phone] Referring Provider: [place], [address]. tel:[phone] [facility] [address] [facility] [address], [place], [place], [id number], [place] tel:[phone] Victor Low back painOth symptoms and signs involving the musculoskeletal systemUnspecifie d abnormalities of gait and mobilityAbnormal postureArthrodes is status 5 8 Devin Anna. [address] [facility], [facility] [address] [place] [address], [facility], . tel:[phone] Referring Provider: Rachelle Lou E [place], [facility]. tel:[phone], [id number], tel:[phone] Victor No Information Mar-1 3-201 8 Devin Anna. [address] [place] [address], [address], [facility], . tel:[phone] Referring Provider: Rachelle Lou E [place], [facility]. tel:[phone], [id number], tel:[phone] Victor No Information Mar-0 8-201 8 Easton Anna. [address] [place] [address], [address], [facility], . tel:[phone] Referring Provider: Rachelle Lou E [place], [facility]. tel:[phone], [id number], tel:[phone] Victor No Information Mar-0 6-201 8 Easton Anna. [address] [place] [address], [address], [facility], . tel:[phone] Referring Provider: Rachelle Lou E [place], [facility]. tel:[phone], [id number], tel:[phone] Victor Low back painOth symptoms and signs involving the musculoskeletal systemUnspecifie d abnormalities of gait and mobilityAbnormal postureArthrodes is status Mar-0 1-201 8 Devin Anna. [address] [place] [address], [facility] [address], [place], [facility], . tel: [phone] Referring Provider: Rusty Jacques [address] [facility], [place], [address]. tel:[phone] Family History Family Member Type Diagnosis Age At Onset No Information Payers Payer name Insurance type Covered republican ID Authorjaime pereira(s) [employer] [place] [id number] Social History Type Description Quantity Date Captured Comments Sex Female Smoking Status No Information Chief Complaint And [...]
--- OUTSIDE RECORDS SUMMARY | 2024-10-03 17:51 | XMS_ITS | Clinical Summary ---
Author Organization [facility] Address [address] [place] [address] Phone Care Team Providers Care Weather Stripper Name Role Phone Rusty Jacques MD Primary Care Provider [phone] Allergies Active Allergy Reactions Criticality Noted Date Comments Nitrofurantoin Macrocrystal Diarrhea 05/13/20 23 Penicillins Rash 05/13/2023 Medications aspirin EC 81 MG Tablet Delayed Response daily. Active D-MANNOSE PO Take 500 mg by mouth. Active donepezil (ARICEPT) 5 MG Tablet Take 5 mg by mouth nightly. 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 PRE-ARREST: Use entire range of life support measures to stabilize the patient. Care Teams Weather Stripper Relationship Specialty Start Date End Date [place] [address] PCP - General Internal Medicine 05/14/23
[2024-10-03 18:12] LABS: Creatine Kinase 26 U/L (30-135)
[2024-10-03 18:21] LABS: Troponin I < 0.012 ng/mL (0.000-0.034)
[2024-10-03 18:40] LABS: Thyroid Stimulating Hormone 0.736 uIU/mL (0.465-4.680)
[2024-10-03 18:48] LABS: Amphetamine Screen Urine Negative (Negative); Barbiturate Screen Urine Negative (Negative); Benzodiazepines Screen Urine Negative (Negative); Cannabinoid Screen Urine Negative (Negative); Cocaine Screen Urine Negative (Negative); Methadone Screen Urine Negative (Negative); Opiate Screen Urine Negative (Negative); Phencyclidine Screen Urine Negative (Negative)
[2024-10-03] MEDS: LACTATED RINGERS 1,000 ML 999 ML IV CONT ×2 (18:57→18:58)
[2024-10-03] MEDS: CEFEPIME 2 GM/NS 50 ML 2 GM/50 ML BAG IVPB (18:59)
[2024-10-03 19:15] LABS: INR 1.4; Prothrombin Time 17.8 Seconds (11.1-14.7)
[2024-10-03 19:16] LABS: Partial Thromboplastin Time 37.9 Seconds (22.3-36.8)
[2024-10-03 19:18] LABS: Lactic Acid Reflex 1.5 mmol/L (0.7-2.0)
[2024-10-03 19:40] LABS: Influenza A QL RT-PCR Negative (Negative); Influenza B QL RT-PCR Negative (Negative); RSV RNA, RT-PCR Negative (Negative); SARS-CoV-2 RNA PCR Negative (Negative)
[2024-10-03] MEDS: VANCOMYCIN 1,750 MG/NS 500 ML 1,750 MG/500 ML BAG 250 MG IVPB (19:43)
[2024-10-03] MEDS: LACTATED RINGERS 200 ML 999 ML IV CONT (19:44)
[2024-10-03 19:45] LABS: Erythrocyte Sedimentation Rate 47 mm/hr (0-20)
[2024-10-03 20:16] LABS: MRSA (PCR) NOT DETECTED (NOT DETECTE)
--- NOTE | 2024-10-03 20:58 | P.HP_ITS ---
H&P: HPI History of Present Illness Date/Time: 10/03/24 21:45 Chief Complaint: Altered mental status Narrative: 83-year-old female with a past medical history of dementia, multiple urinary tract infections, chronic ureteral stent with chronic hydronephrosis, hypothyroidism bilateral pulmonary emboli 2022 and other medical conditions who presented to the ER from [facility] via EMS due to altered mental status. EMS reported that the patient was biting at staff ?like a snake?. The patient had been recently admitted for similar symptoms but urine cultures were negative. However the patient was still discharged on Levaquin with a plan for stent exchange in the near future once a not acutely ill. The patient also had unstageable right buttock/ischial pressure ulcer managed by wound care with Santyl ointment and offloading of pressure area. The patient's son Markus is at bedside and provides all information. He reports that the patient has had dementia for many years but has been declining steadily. He reports that he used can talk to his mom and she will occasionally refer to him as dad. She will also occasionally call her 1 daughter mom. But over the last week they have noticed that the patient not sleeping. She has been restless. She has been calling out for her mother and keeps asking staff to help her. The patient cannot localize where she is hurting. But she does have the known decubitus ulcer. When the patient was repositioned in the ER she was noted have foul- smelling purulent drainage from the unstageable ulcer on her right buttock. She has had some surrounding erythema. She did not have any documented fevers from the detention as for the family knows and she is afebrile in the ER. The patient is only alert oriented to her name intermittently. She cannot answer any questions but does intermittently follow commands. Her son reports that the patient had lost about 15 lb but with instituting Ensure during her last hospital stay she had managed to gain 1 lb back. The patient's weight April 2024 was approximately 80 kg her weight was 66 kg her weight today down to 58 kg. Review of Systems Review of Systems: Unobtainable due to patient's dementia [facility] Past Medical History Medical History (Updated 10/03/24 @ 21:14 by Massiel Mckay DO) Pulmonary emboli (~03/2023) Other abnormalities of gait and mobility Wheelchair dependence Atrial fibrillation Macular degeneration Hypothyroidism Dementia Primary osteoarthritis involving multiple joints Mixed hyperlipidemia Surgical History Surgical History (Updated 10/03/24 @ 21:06 by Massiel Mckay DO) Status post placement of ureteral stent Chronic right ureteral stent with persistent hydronephrosis History of spinal surgery Due to osteomyelitis with debridement and subsequent stabilization approximately 2014. T7 through L2 H/O cervical spine surgery 2018 roughly Status post cataract extraction of both eyes with insertion of intraocular lens History of left hip replacement Family History Family History Mother Family history of malignant neoplasm of breast in first degree relative Father Family history of throat cancer Other Family history of malignant neoplasm of esophagus Social History Social History (Updated 10/04/24 @ 02:40 by Massiel Mckay DO) Social History: Wheelchair dependent/bed bound. I believe her son stated that he is 1 of 4 children; also has a daughter. The patient smoked about a half a pack of cigarettes per day but quit over 40 years ago. She never drink alcohol to excess. Code status: DNR/DNI Patient has a living will in place that states this. (POLST signed 08/13/23) Smoking packs per day: 0.5 Smoking cigarettes per day: 10.0 Years smoked: 20 Smoking pack-years: 10.00 Smoking status: Former smoker Tobacco type: cigarettes Second hand tobacco smoke exposure: No Smoking end date: 08/03/82 Alcohol intake: never Substance use: never Substance use type: does not use Do You Feel Safe in your Home?: No Lack of Transportation: No Lack of Food: Never True Current Housing: I Have Housing Concerned About Future Housing: No Difficulty Paying Gas/Electric Bills: No Difficulty Paying for Meds: No Currently Unemployed: No Education: High School Diploma/GED Difficulty w/ Childcare or Family Care: No Living arrangements: detention Additional living arrangements comments: [facility] since early 2023 and had been at a different detention prior to that. Spiritual care concerns: No Meds Home Medications and Allergies Home Medications ?Medication ?Instructions ?Recorded ?Confirmed ?Type donepezil 5 mg tablet 5 mg PO DAILY 07/17/23 10/03/24 History ergocalciferol (vitamin D2) 1,250 See Rx Instructions .Route .COMPLEX 07/17/23 10/03/24 History mcg (50,000 unit) capsule memantine 10 mg tablet 10 mg PO BID 07/17/23 10/03/24 History pantoprazole 40 mg tablet,delayed 40 mg PO DAILY 07/17/23 10/03/24 History release simvastatin 20 mg tablet 20 mg PO DAILY 07/17/23 10/03/24 History magnesium oxide 400 mg (241.3 mg 400 mg PO DAILY 1 month #30 tabs 07/21/23 10/03/24 Rx magnesium) tablet aspirin 81 mg capsule 81 mg PO DAILY 11/09/23 10/03/24 History levothyroxine 200 mcg tablet 200 mcg PO DAILY 11/09/23 10/03/24 History levothyroxine 50 mcg tablet 50 mcg PO DAILY 11/09/23 10/03/24 History polyethylene glycol 3350 17 gram 17 g PO DAILY PRN Constipation 11/09/23 10/03/24 History oral powder packet (Miralax) rivaroxaban 20 mg tablet (Xarelto) 20 mg PO DAILY 11/09/23 10/03/24 History tizanidine 2 mg tablet 2 mg PO TID PRN Muscle Spasm 11/09/23 10/03/24 History mirtazapine 15 mg tablet (Remeron) 7.5 mg (1/2 x 15 mg) PO 1700 #30 09/20/24 10/03/24 Rx tabs collagenase clostridium histo. 250 1 applic topical DAILY 10/03/24 10/03/24 History unit/gram topical ointment (Santyl) liothyronine 5 mcg tablet 5 mcg PO QPM 10/03/24 10/03/24 History Allergies Allergy/AdvReac Type Severity Reaction Status Date / Time Penicillins Allergy Unknown Unknown Verified 09/19/24 09:56 nitrofurantoin Allergy Unknown Verified 09/13/24 22:14 Vital Signs Vital Signs - 24 hr 10/03/24 14:39 10/03/24 14:40 10/03/24 14:41 Temperature 97.4 F L Pulse Rate 122 H 118 H 121 H Respiratory Rate 24 H 25 H 34 H Blood Pressure 154/71 H 154/71 H Pulse Oximetry 94 Oxygen Delivery 10/03/24 14:45 10/03/24 14:51 10/03/24 15:16 Temperature Pulse Rate 126 H 114 H 111 H Respiratory Rate 21 H 21 H 22 H Blood Pressure 133/63 Pulse Oximetry Oxygen Delivery 10/03/24 15:31 10/03/24 15:45 10/03/24 16:35 Temperature Pulse Rate 111 H 112 H 115 H Respiratory Rate 17 18 19 Blood Pressure Pulse Oximetry 94 Oxygen Delivery 10/03/24 16:45 10/03/24 17:00 10/03/24 17:02 Temperature Pulse Rate 107 H 107 H 116 H Respiratory Rate 17 21 H 22 H Blood Pressure 161/62 H Pulse Oximetry 98 Oxygen Delivery 10/03/24 17:21 10/03/24 17:38 10/03/24 17:45 Temperature Pulse Rate 107 H 111 H 106 H Respiratory Rate 27 H 13 27 H Blood Pressure Pulse Oximetry Oxygen Delivery 10/03/24 18:31 10/03/24 19:20 10/03/24 19:45 Temperature Pulse Rate 110 H 107 H Respiratory Rate 17 21 H Blood Pressure 134/94 H Pulse Oximetry 96 95 Oxygen Delivery Room Air Exam Narrative: Weight 58 kg BMI 20 Const: Other: Restless, acute on chronic ill-appearing, appears to be in pain, elderly debilitated HENMT: Other: Mucous membranes are dry with dry mucous to the roof of the mouth, no oral pharyngeal erythema, head is normocephalic atraumatic Eyes: Other: No conjunctival pallor, no scleral icterus, pupils are equal and reactive Neck: Other: No JVD, no lymphadenopathy Resp: Other: Clear to auscultation bilaterally, no increased work of breathing Cardio: Other: Sec tachycardia, 2+ bilateral radial and pedal pulses, no JVD GI: Other: Soft, nontender, positive bowel sounds : Other: Incontinent of urine Back/Spine/Pelvis: Other: Large decubitus ulceration to the right buttock unstageable with foul smelling purulent drainage with surrounding erythema of 2-3 cm in all directions, Skin: Other: Decubitus ulcers mentioned above, otherwise generalized pallor skin warm to touch, 2-3 second cap refill, no mottling Neuro: Other: The patient follow simple commands is only oriented to name she respond to her name but cannot tell me her name she is moving upper extremities equally and localizing pain by grabbing at providers hands, the patient has intact sensation to her lower extremities but is weak and cannot move her but normal muscle tone Extrem: Other: Muscle tone of all extremities, 4/5 pastry wrapper strength bilateral hands, no clubbing, cyanosis or edema Psych: Other: Confused, anxious, restless H&P: Results Labs Labs: Laboratory Tests 10/03/24 10/03/24 10/03/24 14:55 18:53 18:58 WBC 11.8 H RBC 4.47 Hgb 12.5 Hct 40.0 MCV 89.5 MCH 28.0 MCHC 31.3 L RDW 18.6 H Plt Count 239 MPV TNP Immature Gran % (Auto) 0.4 Neut % (Auto) 73.2 H Lymph % (Auto) 15.4 L [place] % (Auto) 9.2 H Eos % (Auto) 1.3 Baso % (Auto) 0.5 Lymph # (Auto) 1.81 [place] # (Auto) 1.1 H Eos # (Auto) 0.2 Baso # (Auto) 0.1 Abs Immat Gran (auto) 0.05 H Absolute Neuts (auto) 8.6 H Absolute Nucleated RBC 0.000 Band Neutrophils % Not Reportable Nucleated RBC % 0.0 Atypical Lymphocytes Present Platelet Estimate Adequate % Immature Plt Fraction 24.0 H Anisocytosis 1+ Schistocytes None seen ESR 47 H PT 17.8 H INR 1.4 APTT 37.9 H Sodium 141 Potassium 4.0 Chloride 105 Carbon Dioxide 25 Anion Gap 11 BUN 23 H D Creatinine 1.06 H Estim Creat Clear Calc Not Reportable Estimated GFR 50 L Glucose 125 H Lactic Acid 1.5 Calcium 9.2 Total Bilirubin 0.8 AST 21 ALT 12 Alkaline Phosphatase 105 Total Creatine Kinase 26 L Troponin I < 0.012 C-Reactive Protein 7.0 H Total Protein 7.0 Albumin 3.2 L TSH 0.736 Urine Color Dark yellow Urine Appearance Turbid H Urine pH 7.0 Ur Specific [place] 1.013 Urine Protein 3+ H Urine Glucose (UA) Negative Urine Ketones Negative Ur Blood (Man) 3+ H Urine Nitrate Positive H Urine Bilirubin Negative Urine Urobilinogen 0.2 Add Ur Microanalysis Reviewed Leukocyte Esterase Rfl 3+ H Urine RBC >100 H Urine WBC >100 H Ur Squamous Epith Cells Moderate Urine Bacteria 4+ Urine Casts >20 Nasal MRSA (PCR) Not detected Urine Opiates Screen Negative Urine Methadone Screen Negative Ur Barbiturates Screen Negative Ur Phencyclidine Scrn Negative Ur Amphetamine Screen Negative U Benzodiazepines Scrn Negative Urine Cocaine Screen Negative U Cannabinoids Screen Negative Influenza A (RT-PCR) Negative Influenza B (RT-PCR) Negative RSV (RT-PCR) Negative SARS-CoV-2 RNA (RT-PCR) Negative Impressions Chest X-Ray 10/03/24 18:06 IMPRESSION: No focal infiltrate or effusion. Head CT 10/03/24 18:35 Impression: No large acute intracranial hemorrhage or suspicious mass effect. Interval development of left frontoethmoidal left maxillary inflammatory sinus disease as previous examination dated 09/17/2024. Chest/Abdomen/Pelvis CT 10/03/24 18:52 IMPRESSION: Redemonstration of right-sided hydroureteronephrosis despite a double-J stent in good position, secondary to chronic UPJ obstruction. However, the enhancement pattern suggests persistent inflammation/infection, possibly ascending. Remainder of examination is unchanged from previous study dated 09/13/2024. EKG: Personally reviewed interpreted cardiology interpretation pending Interpretation severely impacted by artifact in all leads but sinus tachycardia rate 112 low-voltage QRS in precordial leads left anterior fascicular block inde terminate age anterior MO QTC 447 All imaging and EKGs personally reviewed and interpreted. And unless stated otherwise agree with radiologic and cardiology interpretation. Assessment and Plan Assessment and plan (1) Hypothyroidism: Qualifiers: Hypothyroidism type: unspecified Qualified Code(s): E03.9 - Hypothyroidism, unspecified Code(s): E03.9 - Hypothyroidism, unspecified Status: Acute (2) Abnormal urinalysis: Code(s): R82.90 - Unspecified abnormal findings in urine Status: Acute (3) Sepsis: Qualifiers: Sepsis acute organ dysfunction status: unspecified Sepsis type: sepsis due to unspecified organism Qualified Code(s): A41.9 - Sepsis, unspecified organism Code(s): A41.9 - Sepsis, unspecified organism Status: Acute (4) Acute metabolic encephalopathy: Code(s): G93.41 - Metabolic encephalopathy Status: Acute (5) Dementia: Qualifiers: Dementia behavioral or psychological symptom: with agitation Dementia severity: severe Dementia type: unspecified type Qualified Code(s): F03.C11 - Unspecified dementia, severe, with agitation Code(s): F03.90 - Unspecified dementia, unspecified severity, without behavioral disturbance, psychotic disturbance, mood disturbance, and anxiety Status: Acute (6) Acute kidney injury: Code(s): N17.9 - Acute kidney failure, unspecified Status: Acute Plan The patient has acute on chronic mental status changes likely due to delirium from underlying infection. Patient meets sepsis criteria with T-max of 100.2?, tachycardia tachypnea and leukocytosis. Patient does have a chronic right ureteral stent and CT demonstrates evidence of inflammation concerning for possible ascending urinary tract infection. A UA is contaminated with moderate white cells but is concerning for urinary tract infection. Patient's most recent urine cultures last month were actually negative despite similar appearance. The patient's prior urine cultures were reviewed and were delgadillo sensitive. Patient was started on empiric antibiotic therapy with cefepime. Patient was also noted to have chronic right buttock/ischial unstageable decubitus ulcer which has purulence foul-smelling drainage with surrounding erythema likely indicating underlying infection. But no evidence of subcutaneous air on imaging. The patient was started on empiric antibiotic therapy with vancomycin as well. Blood cultures have been obtained and are pending. The patient received 30 mL/kilos bolus of LR in the ER. Will continue IV fluid hydration and will re-evaluate CBC and electrolyte panel in a.m.. Patient also has acute kidney injury due to above factors. Will avoid nephrotoxic medications. Will monitor ins and outs closely. Will check postvoid residual. Will provide p.r.n. pain medications given the patient's distress. A extensive goals of care discussion was had with the patient's son Markus at bedside. He reports that he and the family want to still give patient antibiotics and fluids. They want to respect her DNR/DNI status. The state shawn t they will consider hospice and more palliative care at discharge. Patient has been admitted as observation status. Quality VTE Prophylaxis VTE prophylaxis: pharmacologic ordered (Continue home Xarelto) Hospitalist [facility] Advance Care Plan I have confirmed that the patient's Advanced Care Plan is present, code status is documented, or surrogate decision maker is listed in patient medical record.: Yes Medication Reconciliation I have utilized all available resources to obtain, update and review the patients current medications (includes all prescriptions, OTC, herbals, cannabis, and nutritional supplements).: Yes
--- NOTE | 2024-10-03 22:39 | ADMGEN ---
This patient, Lilly Villar, was admitted to Medical Room 254-01. Patient/family oriented to hospital policies and general routines including ID bracelet, bed and alarms, visiting hours, pain management, procedures, bathroom and other care routines, personal items, smoking policy, room service/diet, and visiting hours. Information on how to activate the Rapid Response Team has been discussed. Patient/Family are encouraged to report perceived risks to care and to ask questions if they do not understand what they are told or what they should do.
[2024-10-04 00:29] VITALS: BP 106/84; PULSE 97; RESP 16; TEMP 36.9; O2SAT 97
[2024-10-04] MEDS: MIRTAZAPINE 7.5 MG TABLET PO (02:01)
[2024-10-04] MEDS: SODIUM CHLORIDE 0.9% IV 1,000 ML 100 ML IV CONT ×3 (02:01→23:10)
[2024-10-04 06:00] VITALS: BP 105/55; PULSE 93; RESP 16; TEMP 37.3
[2024-10-04 06:21] LABS: Anion Gap 7 mmol/L (4-12); Blood Urea Nitrogen 17 mg/dL (7-17); Calcium 8.3 mg/dL (8.4-10.2); Carbon Dioxide 24 mmol/L (22-30); Chloride 107 mmol/L (98-107); Estimated CRCL calculation 42 ml/min; Estimated Glomerular Filt Rate > 60; Glucose 85 mg/dL (65-110); Potassium 3.3 mmol/L (3.4-5.0); Sodium 138 mmol/L (137-145)
[2024-10-04 08:25] LABS: Hematocrit 33.9 % (37.0-47.0); Hemoglobin 10.3 g/dL (12.0-15.0); Immature Platelet Fraction Pct 23.9 % (0.9-11.2); Mean Corpuscular HGB Conc 30.4 g/dl (32-36); Mean Corpuscular Hemoglobin 27.2 pg (26-34); Mean Corpuscular Volume 89.4 fl (80-100); Mean Platelet Volume 13.7 fl (7.4-10.4); Platelet Count Result 182 k/mm3 (150-375); Red Blood Count 3.79 M/mm3 (4.2-5.4); Red Cell Distribution Width 18.5 % (11.5-14.5); White Blood Count 8.6 K/mm3 (4.5-10.0)
[2024-10-04] MEDS: COLLAGENASE OINT 30 GM TUBE 1 APPLIC TOPICAL (08:56)
[2024-10-04] MEDS: MEROPENEM 1 GM/NS 100 ML 1 GM/100 ML BAG IVPB ×2 (08:56→23:07)
--- NOTE | 2024-10-04 09:30 | P.PNIM_ITS ---
Progress Note: A&P Assessment and Plan (1) Sepsis: Qualifiers: Sepsis acute organ dysfunction status: unspecified Sepsis type: sepsis due to unspecified organism Qualified Code(s): A41.9 - Sepsis, unspecified o rganism Code(s): A41.9 - Sepsis, unspecified organism Status: Acute Assessment and Plan: Patient meets sepsis criteria with T-max of 100.2?, tachycardia tachypnea and leukocytosis likely secondary to UTI and decubitus ulcer * IV fluids * Initially placed cefepime and vanc * switch to meropenem and vanc (Patient with HX of ESBL per family) * Monitor lactic acid levels q6hr. 2.3>1.5 * Repeat CBC, CMP. * Two sets of blood cultures pending * urine cultures. Pending- * C-reactive proteins elevated * Wound culture pending will de-escalate ABX pending cultures (2) UTI (urinary tract infection): Code(s): N39.0 - Urinary tract infection, site not specified Status: Acute Assessment and Plan: * UA suspicious for urinary tract infection * IV meropenem * last positive urine culture was pansensitive Klebsiella pneumoniae * Family reports HX of ESBL * culture pending * Blood cultures pending (3) Hydronephrosis, right: Code(s): N13.30 - Unspecified hydronephrosis Status: Acute Assessment and Plan: CT abdomen Redemonstration of a right-sided double-J stent with the proximal pigtail coiled in the upper pole of the right kidney and the distal pigtail coiled within the bladder, in good position. * patient had scheduled stent exchange 11/04 with Urology * Will treat possible UTI * patient at this time requesting hospice consult will hold off on consulting Urology likely no intervention to be done inpatient (4) Decubitus ulcer, infected: Qualifiers: Pressure injury stage: stage 2 Qualified Code(s): L89.92 - Pressure ulcer of unspecified site, stage 2; L08.9 - Local infection of the skin and subcutaneous tissue, unspecified Code(s): L89.90 - Pressure ulcer of unspecified site, unspecified stage; L08.9 - Local infection of the skin and subcutaneous tissue, unspecified Status: Acute Assessment and Plan: patient has large decubitus ulceration to the right buttock unstageable has foul-smelling purulent drainage and erythema 2-3 cm in all directions * wound consult placed * will continue with antibiotic therapy at this * plan for possible hospice will not consult surgery for debridement at this time * Patient is also bed ridden and difficult to turn due to previous back surgery poor candidate for wound healing * Q2HR turns * wound culture pending (5) Failure to thrive in adult: Code(s): R62.7 - Adult failure to thrive Status: Acute Assessment and Plan: patient is refusing all oral medications and oral intake family reports she has been declining for the last few weeks with worsening dementia and likely secondary acute infection at this time * there has been a referral placed for possible hospice (6) Acute metabolic encephalopathy: Code(s): G93.41 - Metabolic encephalopathy Status: Acute Assessment and Plan: * likely secondary to acute infection does have history of dementia (7) Dementia: Qualifiers: Dementia behavioral or psychological symptom: with agitation Dementia severity: severe Dementia type: unspecified type Qualified Code(s): F03.C11 - Unspecified dementia, severe, with agitation Code(s): F03.90 - Unspecified dementia, unspecified severity, without behavioral disturbance, psychotic disturbance, mood disturbance, and anxiety Status: Acute Assessment and Plan: * resumed memantine and donepezil (8) Hypothyroidism: Qualifiers: Hypothyroidism type: unspecified Qualified Code(s): E03.9 - Hypothyroidism, unspecified Code(s): E03.9 - Hypothyroidism, unspecified Status: Acute Assessment and Plan: * Resume levothyroxine Plan Code status: DNR/DNI DVT prophylaxis: Xarelto Stress ulcer prophylaxis: Protonix 40 daily PT/OT notes: NA Disposition: patient continues admission to the medical unit for further evaluation and treatment metabolic encephalopathy secondary to UTI infected decubitus ulcer family at this time has requested to treat infection plan for hospice after discharge and SNF facility. Time Spent With Patient Time with patient: 15 - 25 minutes Subjective Date/time seen: 10/04/24 09:30 Interval history: Patient is an 83-year-old female who presented to the emergency department and was admitted for further evaluation and treatment acute metabolic encephalopathy, sepsis, UTI, right-sided hydronephrosis chronic and decubitus ulcer 10/04/24: Assumed Care Patient lethargic did wake up and answer to name and smiled. Daughter at bedside assisting with questions. Patient appeared in no acute distress. Spoke with Daughter regarding goal of care at this time they would like to treat the infection hold off on possible debridement of wound or stent exchange. Plan for hospice after discharge. Review of Systems Review of Systems: ROS unobtainable: Yes unobtainable due to mental status Exam Narrative: * GENERAL: Patient refusing oral medication, crying out * EYES: PERRLA. * HEENT: Moist mucous membranes. * LUNGS: Clear to auscultation bilaterally. No accessory muscle use. * CARDIOVASCULAR: Regular rate and rhythm. No murmur. No JVD. S1-S2 * ABDOMEN: Soft, non tenderness and non-distended. No palpable masses. 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, No edema * SKIN: Large decubitus ulceration to the right buttock unstageable with foul smelling purulent drainage with surrounding erythema of 2-3 cm in all directions,pallor skin warm to touch, 2-3 second cap refill, no mottling * NEUROLOGIC: confused responds to name and will hold hands moving BUE * PSYCHIATRIC: Anxious and restless Objective Data Vital Signs Vital Signs: Vital Signs - 24 hr 10/03/24 14:39 10/03/24 14:40 10/03/24 14:41 Temperature 97.4 F L Pulse Rate 122 H 118 H 121 H Respiratory Rate 24 H 25 H 34 H Blood Pressure 154/71 H 154/71 H Pulse Oximetry 94 Oxygen Delivery 10/03/24 14:45 10/03/24 14:51 10/03/24 15:16 Temperature Pulse Rate 126 H 114 H 111 H Respiratory Rate 21 H 21 H 22 H Blood Pressure 133/63 Pulse Oximetry Oxygen Delivery 10/03/24 15:31 10/03/24 15:45 10/03/24 16:35 Temperature Pulse Rate 111 H 112 H 115 H Respiratory Rate 17 18 19 Blood Pressure Pulse Oximetry 94 Oxygen Delivery 10/03/24 16:45 10/03/24 17:00 10/03/24 17:02 Temperature Pulse Rate 107 H 107 H 116 H Respiratory Rate 17 21 H 22 H Blood Pressure 161/62 H Pulse Oximetry 98 Oxygen Delivery 10/03/24 17:21 10/03/24 17:38 10/03/24 17:45 Temperature Pulse Rate 107 H 111 H 106 H Respiratory Rate 27 H 13 27 H Blood Pressure Pulse Oximetry Oxygen Delivery 10/03/24 18:31 10/03/24 19:20 10/03/24 19:45 Temperature Pulse Rate 110 H 107 H Respiratory Rate 17 21 H Blood Pressure 134/94 H Pulse Oximetry 96 95 Oxygen Delivery Room Air 10/03/24 22:18 10/03/24 22:54 10/03/24 23:00 Temperature 98.1 F 98.2 F Pulse Rate 104 H 102 H Respiratory Rate 19 20 Blood Pressure 111/61 140/68 Pulse Oximetry 95 99 95 Oxygen Delivery Room Air 10/04/24 00:29 10/04/24 06:00 Temperature 98.4 F 99.2 F Pulse Rate 97 93 Respiratory Rate 16 16 Blood Pressure 106/84 105/55 L Pulse Oximetry 97 Oxygen Delivery Intake/Output Intake/Output: Intake & Output 10/01/24 10/02/24 10/03/24 10/04/24 23:59 23:59 23:59 23:59 Intake Total 2750 Output Total 150 Balance 2750 -150 Meds/Results Medications: Active Medications Generic Name Dose Route Start Last Admin Trade Name Freq PRN Reason Stop Dose Admin Acetaminophen 650 mg 10/04/24 00:41 Acetaminophen 325 Mg Tablet PO Q4H PRN Mild Pain (1-3) or Fever Aspirin 81 mg 10/04/24 09:00 Aspirin 81 Mg Enteric Tablet PO QAM [facility] Collagenase 1 applic 10/04/24 09:00 10/04/24 08:56 Collagenase Oint 30 Gm Tube TOPICAL 1 applic DAILY [facility] Administration Sodium Chloride 1,000 mls @ 100 mls/hr 10/04/24 00:35 10/04/24 02:01 Normal Saline Iv IV CONT 100 mls/hr .Q10H [facility] Administration Vancomycin HCl 1,000 mg in 250 mls @ 250 mls/hr 10/04/24 20:00 Vancomycin 1,000 Mg/Ns 250 Ml IVPB Q24H [facility] Meropenem 1 gm in 100 mls @ 200 mls/hr 10/04/24 09:00 10/04/24 08:56 IVPB 200 mls/hr Q12HR [facility] Administration Levothyroxine Sodium 50 mcg 10/04/24 06:30 10/04/24 06:07 Levothyroxine Sodium 50 Mcg Tablet PO Not Given DAILY@0630 [facility] Levothyroxine Sodium 200 mcg 10/04/24 06:30 10/04/24 06:07 Levothyroxine Sodium 100 Mcg Tablet PO Not Given DAILY@0630 [facility] Liothyronine Sodium 5 mcg 10/04/24 18:00 Liothyronine Sodium 5 Mcg Tablet PO QPM [facility] Magnesium Oxide 400 mg 10/04/24 09:00 Magnesium Oxide 400 Mg Tablet PO DAILY [facility] Memantine 10 mg 10/04/24 09:00 Memantine 10 Mg Tablet PO BID [facility] Mirtazapine 7.5 mg 10/04/24 00:35 10/04/24 02:01 Mirtazapine 7.5 Mg Tablet PO 7.5 mg 1700 [facility] Administration Morphine Sulfate 2 mg 10/04/24 00:41 Morphine Sulfate (*Crx) 2 Mg/Ml Inj IV PUSH Q4H PRN Pain Rated 7-10 Pantoprazole Sodium 40 mg 10/04/24 09:00 Pantoprazole 40 Mg Tablet PO DAILY [facility] Polyethylene Glycol 17 gm 10/04/24 09:00 Polyethylene Glycol 3350 17 Gm Powd.Pack PO DAILY [facility] Potassium Chloride 40 meq 10/04/24 09:00 Potassium Chloride 20 Meq Packet (For Liquid) PO DAILY [facility] Rivaroxaban 20 mg 10/04/24 17:00 Rivaroxaban 20 Mg Tablet PO DAILY@1700 [facility] Simvastatin 20 mg 10/04/24 09:00 Simvastatin 20 Mg Tablet PO DAILY [facility] Tramadol HCl 25 mg 10/04/24 00:41 Tramadol Hcl (*Crx) 25 Mg Tablet PO Q6H PRN Pain Rated 4-6 Radiology Results: ITS Impressions Chest X-Ray 10/03/24 18:06 IMPRESSION: No focal infiltrate or effusion. Head CT 10/03/24 18:35 Impression: No large acute intracranial hemorrhage or suspicious mass effect. Interval development of left frontoethmoidal left maxillary inflammatory sinus disease as previous examination dated 09/17/2024. Chest/Abdomen/Pelvis CT 10/03/24 18:52 IMPRESSION: Redemonstration of right-sided hydroureteronephrosis despite a double-J stent in good position, secondary to chronic UPJ obstruction. However, the enhancement pattern suggests persistent inflammation/infection, possibly ascending. Remainder of examination is unchanged from previous study dated 09/13/2024. Labs Labs: Laboratory Results - last 24 hr 10/03/24 10/03/24 10/03/24 14:55 18:53 18:58 WBC 11.8 H RBC 4.47 Hgb 12.5 Hct 40.0 MCV 89.5 MCH 28.0 MCHC 31.3 L RDW 18.6 H Plt Count 239 MPV TNP Immature Gran % (Auto) 0.4 Neut % (Auto) 73.2 H Lymph % (Auto) 15.4 L [place] % (Auto) 9.2 H Eos % (Auto) 1.3 Baso % (Auto) 0.5 Lymph # (Auto) 1.81 [place] # (Auto) 1.1 H Eos # (Auto) 0.2 Baso # (Auto) 0.1 Abs Immat Gran (auto) 0.05 H Absolute Neuts (auto) 8.6 H Absolute Nucleated RBC 0.000 Band Neutrophils % Not Reportable Nucleated RBC % 0.0 Atypical Lymphocytes Present Platelet Estimate Adequate % Immature Plt Fraction 24.0 H Anisocytosis 1+ Schistocytes None seen ESR 47 H PT 17.8 H INR 1.4 APTT 37.9 H Sodium 141 Potassium 4.0 Chloride 105 Carbon Dioxide 25 Anion Gap 11 BUN 23 H D Creatinine 1.06 H Estim Creat Clear Calc Not Reportable Estimated GFR 50 L Glucose 125 H Lactic Acid 1.5 Calcium 9.2 Total Bilirubin 0.8 AST 21 ALT 12 Alkaline Phosphatase 105 Total Creatine Kinase 26 L Troponin I < 0.012 C-Reactive Protein 7.0 H Total Protein 7.0 Albumin 3.2 L TSH 0.736 Urine Color Dark yellow Urine Appearance Turbid H Urine pH 7.0 Ur Specific [place] 1.013 Urine Protein 3+ H Urine Glucose (UA) Negative Urine Ketones Negative Ur Blood (Man) 3+ H Urine Nitrate Positive H Urine Bilirubin Negative Urine Urobilinogen 0.2 Add Ur Microanalysis Reviewed Leukocyte Esterase Rfl 3+ H Urine RBC >100 H Urine WBC >100 H Ur Squamous Epith Cells Moderate Urine Bacteria 4+ Urine Casts >20 Nasal MRSA (PCR) Not detected Urine Opiates Screen Negative Urine Methadone Screen Negative Ur Barbiturates Screen Negative Ur Phencyclidine Scrn Negative Ur Amphetamine Screen Negative U Benzodiazepines Scrn Negative Urine Cocaine Screen Negative U Cannabinoids Screen Negative Influenza A (RT-PCR) Negative Influenza B (RT-PCR) Negative RSV (RT-PCR) Negative SARS-CoV-2 RNA (RT-PCR) Negative 10/04/24 10/04/24 05:55 05:56 WBC 8.6 RBC 3.79 L Hgb 10.3 L Hct 33.9 L MCV 89.4 MCH 27.2 MCHC 30.4 L RDW 18.5 H Plt Count 182 MPV 13.7 H Immature Gran % (Auto) Neut % (Auto) Lymph % (Auto) [place] % (Auto) Eos % (Auto) Baso % (Auto) Lymph # (Auto) [place] # (Auto) Eos # (Auto) Baso # (Auto) Abs Immat Gran (auto) Absolute Neuts (auto) Absolute Nucleated RBC Band Neutrophils % Nucleated RBC % Atypical Lymphocytes Platelet Estimate % Immature Plt Fraction 23.9 H Anisocytosis Schistocytes ESR PT INR APTT Sodium 138 Potassium 3.3 L Chloride 107 Carbon Dioxide 24 Anion Gap 7 BUN 17 Creatinine 0.81 Estim Creat Clear Calc 42 Estimated GFR > 60 Glucose 85 Lactic Acid Calcium 8.3 L Total Bilirubin AST ALT Alkaline Phosphatase Total Creatine Kinase Troponin I C-Reactive Protein Total Protein Albumin TSH Urine Color Urine Appearance Urine pH Ur Specific [place] Urine Protein Urine Glucose (UA) Urine Ketones Ur Blood (Man) Urine Nitrate Urine Bilirubin Urine Urobilinogen Add Ur Microanalysis Leukocyte Esterase Rfl Urine RBC Urine WBC Ur Squamous Epith Cells Urine Bacteria Urine Casts Nasal MRSA (PCR) Urine Opiates Screen Urine Methadone Screen Ur Barbiturates Screen Ur Phencyclidine Scrn Ur Amphetamine Screen U Benzodiazepines Scrn Urine Cocaine Screen U Cannabinoids Screen Influenza A (RT-PCR) Influenza B (RT-PCR) RSV (RT-PCR) SARS-CoV-2 RNA (RT-PCR) Quality VTE Prophylaxis VTE prophylaxis: pharmacologic ordered -Patient's previous records reviewed on admission -ER notes reviewed in detail on admission -discussed all findings and current treatment plan with patient/Family/POA -Consultations reviewed for recommendations -Patient's disposition for safe discharge discussed with watch caser Dictation performed by [id number] direct speech recognition software, therefore communication signals intelligence variants and typographical errors may occur. Hospitalist MIPS Advance Care Plan I have confirmed that the patient's Advanced Care Plan is present, code status is documented, or surrogate decision maker is listed in patient medical record.: Yes Medication Reconciliation I have utilized all available resources to obtain, update and review the patients current medications (includes all prescriptions, OTC, herbals, cannabis, and nutritional supplements).: Yes The patient is not eligible for med reconciliation; the patient is in a emergent medical situation where delaying treatment would jeopardize the patients health.: No
[2024-10-04 14:00] VITALS: BP 104/58; PULSE 95; RESP 16; TEMP 36.9; O2SAT 96
[2024-10-04] MEDS: VANCOMYCIN 1,000 MG/NS 250 ML 1,000 MG/250 ML BAG 250 MG IVPB (19:41)
[2024-10-04 20:27] VITALS: BP 129/88; PULSE 102; RESP 20; TEMP 36.5; O2SAT 100
[2024-10-05 03:33] VITALS: BP 105/70; PULSE 104; RESP 20; TEMP 36.6; O2SAT 100
[2024-10-05 04:54] LABS: Hematocrit 34.2 % (37.0-47.0); Hemoglobin 10.6 g/dL (12.0-15.0); Immature Platelet Fraction Pct 20.9 % (0.9-11.2); Mean Corpuscular Volume 90.2 fl (80-100); Mean Platelet Volume 13.5 fl (7.4-10.4); Platelet Count Result 170 k/mm3 (150-375); Red Blood Count 3.79 M/mm3 (4.2-5.4); Red Cell Distribution Width 18.2 % (11.5-14.5); White Blood Count 9.6 K/mm3 (4.5-10.0)
[2024-10-05 05:02] LABS: Potassium 3.1 mmol/L (3.4-5.0)
[2024-10-05 05:20] LABS: Alanine Aminotransferase 9 U/L (6-35); Albumin Level 2.3 g/dL (3.5-5.1); Alkaline Phosphatase 93 U/L (38-126); Anion Gap 8 mmol/L (4-12); Aspartate Amino Transferase 22 U/L (14-36); Bilirubin,Total 0.8 mg/dL (0.2-1.3); Blood Urea Nitrogen 13 mg/dL (7-17); Calcium 7.7 mg/dL (8.4-10.2); Carbon Dioxide 22 mmol/L (22-30); Chloride 110 mmol/L (98-107); Estimated CRCL calculation 46 ml/min; Estimated Glomerular Filt Rate > 60; Glucose 72 mg/dL (65-110); Sodium 140 mmol/L (137-145)
[2024-10-05] MEDS: MEROPENEM 1 GM/NS 100 ML 1 GM/100 ML BAG IVPB ×2 (08:17→20:31)
--- NOTE | 2024-10-05 08:40 | P.PNIM_ITS ---
Progress Note: A&P Assessment and Plan (1) Sepsis: Qualifiers: Sepsis acute organ dysfunction status: unspecified Sepsis type: sepsis due to unspecified organism Qualified Code(s): A41.9 - Sepsis, unspecified o rganism Code(s): A41.9 - Sepsis, unspecified organism Status: Acute Assessment and Plan: Patient meets sepsis criteria with T-max of 100.2?, tachycardia tachypnea and leukocytosis likely secondary to UTI and decubitus ulcer * IV fluids * Continue meropenem, pharmacy recommends d/c vanc and start on doxy (Patient with HX of ESBL per family) * Lactic Acid=1.5 * Repeat CBC, CMP. * Blood cultures = prelim result shows no growth * Urine Cullture = E. coli * CRP 7.0 on 10/03 (2) UTI (urinary tract infection): Code(s): N39.0 - Urinary tract infection, site not specified Status: Acute Assessment and Plan: * Continue IV meropenem * Urine Culture positive for E.Coli * Family reports HX of ESBL * Blood cultures show no growth. (3) Hydronephrosis, right: Code(s): N13.30 - Unspecified hydronephrosis Status: Acute Assessment and Plan: CT abdomen Redemonstration of a right-sided double-J stent with the proximal pigtail coiled in the upper pole of the right kidney and the distal pigtail coiled within the bladder, in good position. * patient had scheduled stent exchange 11/04 with Urology * Continue treating UTI * patient at this time requesting hospice consult will hold off on consulting Urology likely no intervention to be done inpatient (4) Decubitus ulcer, infected: Qualifiers: Pressure injury stage: stage 2 Qualified Code(s): L89.92 - Pressure ulcer of unspecified site, stage 2; L08.9 - Local infection of the skin and subcutaneous tissue, unspecified Code(s): L89.90 - Pressure ulcer of unspecified site, unspecified stage; L08.9 - Local infection of the skin and subcutaneous tissue, unspecified Status: Acute Assessment and Plan: Patient has large decubitus ulceration to the right buttock unstageable has foul-smelling purulent drainage and erythema 2-3 cm in all directions * Plan for possible hospice * Surgery consulted for possible wound debridement * Patient is also bed ridden and difficult to turn due to previous back surgery poor candidate for wound healing * Q2HR turns * wound culture prelim result: Moderate gram positive cocci and bacilli (5) Failure to thrive in adult: Code(s): R62.7 - Adult failure to thrive Status: Acute Assessment and Plan: Patient is refusing all oral medications and oral intake family reports she has been declining for the last few weeks with worsening dementia and likely se condary acute infection at this time * Plan for hospice (6) Acute metabolic encephalopathy: Code(s): G93.41 - Metabolic encephalopathy Status: Acute Assessment and Plan: * likely secondary to acute infection does have history of dementia (7) Dementia: Qualifiers: Dementia behavioral or psychological symptom: with agitation Dementia severity: severe Dementia type: unspecified type Qualified Code(s): F03.C11 - Unspecified dementia, severe, with agitation Code(s): F03.90 - Unspecified dementia, unspecified severity, without behavioral disturbance, psychotic disturbance, mood disturbance, and anxiety Status: Acute Assessment and Plan: * Continue memantine and donepezil (8) Hypothyroidism: Qualifiers: Hypothyroidism type: unspecified Qualified Code(s): E03.9 - Hypothyroidism, unspecified Code(s): E03.9 - Hypothyroidism, unspecified Status: Acute Assessment and Plan: * Continue levothyroxine Plan Code status: DNR/DNI DVT prophylaxis: Xarelto Stress ulcer prophylaxis: Protonix 40 daily PT/OT notes: NA Disposition: patient continues admission to the medical unit for further evaluation and treatment metabolic encephalopathy secondary to UTI infected decubitus ulcer family at this time has requested to treat infection plan for hospice after discharge and SNF facility. Subjective Date/time seen: 10/05/24 08:40 Interval history: Patient is an 83-year-old female who presented to the emergency department and was admitted for further evaluation and treatment acute metabolic encephalopathy, sepsis, UTI, right-sided hydronephrosis chronic and decubitus ulcer 3/5 Patient awake and answered to name. A&Ox1 at baseline. Nurse states that the patient has been more alert since yesterday, and has been ambulatory to and from the bathroom with assistance. Nurse states that she found a small erythematous 2cm wound on right heel, bandage applied. Still continue plan for hospice after discharge. Nurse states that the patient still hasn't taken oral medications, plan to crush up pills and attempt to mix in with water. Spoke with daughter who requests surgery consult to consider wound debridement. Review of Systems Review of Systems: Unobtainable due to patient's dementia ROS unobtainable: Yes unobtainable due to mental status Exam Narrative: * GENERAL: Patient refusing oral medication, * EYES: PERRLA. * HEENT: Moist mucous membranes. * LUNGS: Clear to auscultation bilaterally. No accessory muscle use. * CARDIOVASCULAR: Regular rate and rhythm. No murmur. No JVD. S1-S2 * ABDOMEN: Soft, non tenderness and non-distended. No palpable masses. * EXTREMITIES: Muscle tone of all extremities, 4/5 dag sprayer strength bilateral hands, No edema * SKIN: Large decubitus ulceration to the right buttock unstageable with foul smelling purulent drainage with surrounding erythema of 2-3 cm in all directions,pallor skin warm to touch, 2-3 second cap refill, no mottling * NEUROLOGIC: confused responds to name and will hold hands moving BUE * PSYCHIATRIC: Anxious and restless Const: General: comfortable and no acute distress Other: Chronic ill-appearing HENMT: Other: Mucous membranes are dry with dry mucous to the roof of the mouth, no oral pharyngeal erythema, head is normocephalic atraumatic Eyes: Other: No conjunctival pallor, no scleral icterus, pupils are equal and reactive Neck: Other: No JVD, no lymphadenopathy Resp: Other: Clear to auscultation bilaterally, no increased work of breathing Cardio: Other: Tachycardia, 2+ bilateral radial and pedal pulses, no JVD GI: Other: Soft, nontender, positive bowel sounds : Other: Incontinent of urine Back/Spine/Pelvis: Other: Large decubitus ulceration to the right buttock unstageable with foul smelling purulent drainage with surrounding erythema of 2-3 cm in all directions Skin: Other: Decubitus ulcers mentioned above, otherwise generalized pallor skin warm to touch, 2-3 second cap refill, no mottling. Additional 2cm ulcer on posterior aspect of right heel. Some surrounding erythema, no purulent drainage or active bleeding. Neuro: Other: Responds to name, confused, unable to answer questions. Extrem: General: normal to inspection Other: No edema Objective Data Vital Signs Vital Signs: Vital Signs - 24 hr 10/04/24 09:00 10/04/24 14:00 10/04/24 20:00 Temperature 98.4 F Pulse Rate 95 Respiratory Rate 16 Blood Pressure 104/58 L Pulse Oximetry 96 Oxygen Delivery Room Air Room Air 10/04/24 20:27 10/05/24 03:33 Temperature 97.7 F 97.8 F Pulse Rate 102 H 104 H Respiratory Rate 20 20 Blood Pressure 129/88 105/70 Pulse Oximetry 100 100 Oxygen Delivery Intake/Output Intake/Output: Intake & Output 10/02/24 10/03/24 10/04/24 10/05/24 23:59 23:59 23:59 23:59 Intake Total 2750 2200 0 Output Total 550 Balance 2750 1650 0 Meds/Results Medications: Active Medications Generic Name Dose Route Start Last Admin Trade Name Freq PRN Reason Stop Dose Admin Acetaminophen 650 mg 10/04/24 00:41 Acetaminophen 325 Mg Tablet PO Q4H PRN Mild Pain (1-3) or Fever Aspirin 81 mg 10/04/24 13:30 10/04/24 17:22 Aspirin 81 Mg Chewable Tablet PO Not Given QAM RANDALL Collagenase 1 applic 10/04/24 09:00 10/04/24 08:56 Collagenase Oint 30 Gm Tube TOPICAL 1 applic DAILY RANDALL Administration Sodium Chloride 1,000 mls @ 100 mls/hr 10/04/24 00:35 10/04/24 23:10 Normal Saline Iv IV CONT 100 mls/hr .Q10H RANDALL Administration Vancomycin HCl 1,000 mg in 250 mls @ 250 mls/hr 10/04/24 20:00 10/04/24 19:41 Vancomycin 1,000 Mg/Ns 250 Ml IVPB 250 mls/hr Q24H RANDALL Administration Meropenem 1 gm in 100 mls @ 200 mls/hr 10/04/24 09:00 10/05/24 08:17 IVPB 200 mls/hr Q12HR RANDALL Administration Levothyroxine Sodium 50 mcg 10/04/24 06:30 10/05/24 05:32 Levothyroxine Sodium 50 Mcg Tablet PO Not Given DAILY@0630 [facility] Levothyroxine Sodium 200 mcg 10/04/24 06:30 10/05/24 05:32 Levothyroxine Sodium 100 Mcg Tablet PO Not Given DAILY@0630 [facility] Liothyronine Sodium 5 mcg 10/04/24 18:00 10/04/24 17:22 Liothyronine Sodium 5 Mcg Tablet PO Not Given QPM [facility] Magnesium Oxide 400 mg 10/04/24 09:00 10/04/24 17:22 Magnesium Oxide 400 Mg Tablet PO Not Given DAILY [facility] Memantine 10 mg 10/04/24 09:00 10/04/24 17:22 Memantine 10 Mg Tablet PO Not Given BID [facility] Mirtazapine 7.5 mg 10/04/24 00:35 10/04/24 17:22 Mirtazapine 7.5 Mg Tablet PO Not Given 1700 [facility] Morphine Sulfate 2 mg 10/04/24 00:41 Morphine Sulfate (*Crx) 2 Mg/Ml Inj IV PUSH Q4H PRN Pain Rated 7-10 Pantoprazole Sodium 40 mg 10/04/24 09:00 10/04/24 10:41 Pantoprazole 40 Mg Tablet PO Not Given DAILY [facility] Polyethylene Glycol 17 gm 10/04/24 09:00 10/04/24 10:41 Polyethylene Glycol 3350 17 Gm Powd.Pack PO Not Given DAILY [facility] Potassium Chloride 40 meq 10/04/24 09:00 10/04/24 10:41 Potassium Chloride 20 Meq Packet (For Liquid) PO Not Given DAILY [facility] Rivaroxaban 20 mg 10/04/24 17:00 10/04/24 17:22 Rivaroxaban 20 Mg Tablet PO Not Given DAILY@1700 [facility] Simvastatin 20 mg 10/04/24 09:00 10/04/24 17:22 Simvastatin 20 Mg Tablet PO Not Given DAILY [facility] Tramadol HCl 25 mg 10/04/24 00:41 Tramadol Hcl (*Crx) 25 Mg Tablet PO Q6H PRN Pain Rated 4-6 Radiology Results: ITS Impressions Chest X-Ray 10/03/24 18:06 IMPRESSION: No focal infiltrate or effusion. Head CT 10/03/24 18:35 Impression: No large acute intracranial hemorrhage or suspicious mass effect. Interval development of left frontoethmoidal left maxillary inflammatory sinus disease as previous examination dated 09/17/2024. Chest/Abdomen/Pelvis CT 10/03/24 18:52 IMPRESSION: Redemonstration of right-sided hydroureteronephrosis despite a double-J stent in good position, secondary to chronic UPJ obstruction. However, the enhancement pattern suggests persistent inflammation/infection, possibly ascending. Remainder of examination is unchanged from previous study dated 09/13/2024. Labs Labs: Laboratory Results - last 24 hr 10/05/24 04:35 WBC 9.6 RBC 3.79 L Hgb 10.6 L Hct 34.2 L MCV 90.2 MCH 28.0 MCHC 31.0 L RDW 18.2 H Plt Count 170 MPV 13.5 H % Immature Plt Fraction 20.9 H Sodium 140 Potassium 3.1 L Chloride 110 H Carbon Dioxide 22 Anion Gap 8 BUN 13 Creatinine 0.73 Estim Creat Clear Calc 46 Estimated GFR > 60 Glucose 72 Calcium 7.7 L Total Bilirubin 0.8 AST 22 ALT 9 Alkaline Phosphatase 93 Total Protein 6.0 L Albumin 2.3 L Quality VTE Prophylaxis VTE prophylaxis: pharmacologic ordered Hospitalist [facility] Advance Care Plan I have confirmed that the patient's Advanced Care Plan is present, code status is documented, or surrogate decision maker is listed in patient medical record.: Yes Medication Reconciliation I have utilized all available resources to obtain, update and review the patients current medications (includes all prescriptions, OTC, herbals, cannab is, and nutritional supplements).: Yes The patient is not eligible for med reconciliation; the patient is in a emergent medical situation where delaying treatment would jeopardize the patients health.: Yes
[2024-10-05] MEDS: SODIUM CHLORIDE 0.9% IV 1,000 ML 100 ML IV CONT ×2 (10:23→20:36)
[2024-10-05] MEDS: SIMVASTATIN 20 MG TABLET PO (12:00)
[2024-10-05] MEDS: MEMANTINE 10 MG TABLET PO ×2 (12:00→17:20)
[2024-10-05] MEDS: ASPIRIN 81 MG CHEWABLE TABLET PO (12:00)
--- NOTE | 2024-10-05 13:21 | PCPTNOTE ---
Per chart review and care coordination note, pt is dependent, requires a celena lift, is wheelchair bound, and is going hospice upon discharge. Will discharge orders as pt does not require skilled therapy.
[2024-10-05 14:00] VITALS: BP 151/77; PULSE 95; RESP 20; TEMP 36.4; O2SAT 98
--- NOTE | 2024-10-05 14:48 | PCOTNOTE ---
Lilly is a 83 year old female whom is referred to skilled occupational therapy for evaluation while hospitalized for sepsis. Patient is a long-term resident at [facility] and uses a wheelchair. Therapist unable to arose patient enough for evaluation. Nursing notes that it is reported patient uses a celena at baseline. Patient is to be going hospice upon discharge. At this time, skilled occupational therapy services are not appropriate for the patient and is to be discharged from therapy. Will continue to follow patient while hospitalized and evaluate further with new order if warranted.
[2024-10-05] MEDS: COLLAGENASE OINT 30 GM TUBE 1 APPLIC TOPICAL (15:01)
--- NOTE | 2024-10-05 16:05 | P.CONGS_ITS ---
Assessment and Plan Assessment and plan (1) Wound of buttock: Code(s): S31.809A - Unspecified open wound of unspecified buttock, initial encounter Status: Acute Assessment and Plan: This is the reason for our consultation. The patient has an unstageable right buttock wound with a soft eschar. This would not be the cause of her possible sepsis on admission. She is currently on Santly for enzymatic debridement, which is appropriate care at this time. The patient is going Hospice and we discussed treatment options in detail with her daughter. The daughter agreed on continuing with conservative management with local wound care. No indication for any surgical management at this time. We will sign off. Please call with any surgical questions. (2) Failure to thrive in adult: Code(s): R62.7 - Adult failure to thrive Status: Acute (3) Sepsis: Qualifiers: Sepsis acute organ dysfunction status: unspecified Sepsis type: sepsis due to unspecified organism Qualified Code(s): A41.9 - Sepsis, unspecified organism Code(s): A41.9 - Sepsis, unspecified organism Status: Acute (4) Altered mental status: Qualifiers: Altered mental status type: delirium Qualified Code(s): R41.0 - Disorientation, unspecified Code(s): R41.82 - Altered mental status, unspecified Status: Acute Plan I have discussed the patient's case and plan of care with Dr. Santamaria. Thank you for allowing us to see the patient in consultation and we will continue to follow along with you. History of Present Illness Consult details Consult date: 10/05/24 Reason for consult: other (Wound debridement) Requesting physician: Brian Rosales PA-C Narrative: This is an 83-year-old female with a past medical history of dementia, multiple urinary tract infections, chronic ureteral stent with chronic hydronephrosis, hypothyroidism, bilateral pulmonary emboli 2022 and other medical conditions, who we have been asked to see in surgical consultation for possible wound debridment. She is now seen with no family at the bedside and is confused and a poor historian. Therefore, her history is obtained by the EMR. She presented to the ER 2 days ago from [facility] via EMS due to altered mental status. She was admitted with sepsis, metabolic encephalopathy, RAZ, failure to thrive, and abnormal urinalysis. In the ED, she was also found to have a right buttock wound. Wound care was consulted, who recommended Santyl dressing changes. She has a normal WBC count. Family has decided to proceed with Hospice. She is now seen in surgical consultation. Review of Systems 2 Review of Systems: ROS unobtainable: Yes unobtainable due to mental status PMFSH Past Medical History Medical History Pulmonary emboli (~03/2023) Other abnormalities of gait and mobility Wheelchair dependence Atrial fibrillation Macular degeneration Hypothyroidism Dementia Primary osteoarthritis involving multiple joints Mixed hyperlipidemia Surgical History Surgical History Status post placement of ureteral stent Chronic right ureteral stent with persistent hydronephrosis History of spinal surgery Due to osteomyelitis with debridement and subsequent stabilization approximately 2014. T7 through L2 H/O cervical spine surgery 2018 roughly Status post cataract extraction of both eyes with insertion of intraocular lens History of left hip replacement Family History Family History Mother Family history of malignant neoplasm of breast in first degree relative Father Family history of throat cancer Other Family history of malignant neoplasm of esophagus Social History Social History Social History: Wheelchair dependent/bed bound. I believe her son stated that he is 1 of 4 children; also has a daughter. The patient smoked about a half a pack of cigarettes per day but quit over 40 years ago. She never drink alcohol to excess. Code status: DNR/DNI Patient has a living will in place that states this. (POLST signed 08/13/23) Smoking packs per day: 0.5 Smoking cigarettes per day: 10.0 Years smoked: 20 Smoking pack-years: 10.00 Smoking status: Former smoker Tobacco type: cigarettes Second hand tobacco smoke exposure: No Smoking end date: 08/03/82 Alcohol intake: never Substance use: never Substance use type: does not use Do You Feel Safe in your Home?: No Lack of Transportation: No Lack of Food: Never True Current Housing: I Have Housing Concerned About Future Housing: No Difficulty Paying Gas/Electric Bills: No Difficulty Paying for Meds: No Currently Unemployed: No Education: High School Diploma/GED Difficulty w/ Childcare or Family Care: No Living arrangements: group home Additional living arrangements comments: [facility] since early 2023 and had been at a different group home prior to that. Spiritual care concerns: No Meds Home Medications and Allergies Home Medications ?Medication ?Instructions ?Recorded ?Confirmed ?Type donepezil 5 mg tablet 5 mg PO DAILY 07/17/23 10/03/24 History ergocalciferol (vitamin D2) 1,250 See Rx Instructions .Route .COMPLEX 07/17/23 10/03/24 History mcg (50,000 unit) capsule memantine 10 mg tablet 10 mg PO BID 07/17/23 10/03/24 History pantoprazole 40 mg tablet,delayed 40 mg PO DAILY 07/17/23 10/03/24 History release simvastatin 20 mg tablet 20 mg PO DAILY 07/17/23 10/03/24 History magnesium oxide 400 mg (241.3 mg 400 mg PO DAILY 1 month #30 tabs 07/21/23 10/03/24 Rx magnesium) tablet aspirin 81 mg capsule 81 mg PO DAILY 11/09/23 10/03/24 History levothyroxine 200 mcg tablet 200 mcg PO DAILY 11/09/23 10/03/24 History levothyroxine 50 mcg tablet 50 mcg PO DAILY 11/09/23 10/03/24 History polyethylene glycol 3350 17 gram 17 g PO DAILY PRN Constipation 11/09/23 10/03/24 History oral powder packet (Miralax) rivaroxaban 20 mg tablet (Xarelto) 20 mg PO DAILY 11/09/23 10/03/24 History tizanidine 2 mg tablet 2 mg PO TID PRN Muscle Spasm 11/09/23 10/03/24 History mirtazapine 15 mg tablet (Remeron) 7.5 mg (1/2 x 15 mg) PO 1700 #30 09/20/24 10/03/24 Rx tabs collagenase clostridium histo. 250 1 applic topical DAILY 10/03/24 10/03/24 History unit/gram topical ointment (Santyl) liothyronine 5 mcg tablet 5 mcg PO QPM 10/03/24 10/03/24 History Allergies Allergy/AdvReac Type Severity Reaction Status Date / Time Penicillins Allergy Unknown Unknown Verified 02/17/25 09:56 nitrofurantoin Allergy Unknown Verified 09/13/24 22:14 Vital Signs Vital Signs - 24 hr 10/04/24 20:00 10/04/24 20:27 10/05/24 03:33 Temperature 97.7 F 97.8 F Pulse Rate 102 H 104 H Respiratory Rate 20 20 Blood Pressure 129/88 105/70 Pulse Oximetry 100 100 Oxygen Delivery Room Air 10/05/24 08:15 10/05/24 14:00 Temperature 97.6 F Pulse Rate 95 Respiratory Rate 20 Blood Pressure 151/77 H Pulse Oximetry 98 Oxygen Delivery Room Air Exam 2 Const: General: no acute distress Nutritional Appearance: average body habitus Orientation/consciousness: No oriented to person, No oriented to place, No oriented to time and confusion HENMT: Head: normocephalic and atraumatic Ears: hearing grossly normal bilaterally Mouth: Yes moist mucous membranes Eyes: General: appearance normal, both eyes and all related structures P upils: Equal, round and reactive pupils present Neck: Neck: normal visual inspection and full ROM Resp: Effort & Inspection: no respiratory distress Auscultation: clear to auscultation bilaterally Cardio: Rate: regular rate Rhythm: regular rhythm Peripheral pulses: P eripheral pulses 2+ throughout GI: Inspection: non-distended GI Palp: Yes Soft to palpation, No Tenderness to palpation present (GI), No Guarding due to palpation present (GI) and No Rebound tenderness present Auscultation: normal bowel sounds Skin: General skin exam: normal color Other: Unstageable right buttock ulcer with a soft cr/brown eschar overlying 100% of the wound bed, scant cloudy pink drainage. No surrounding erythema or induration. No crepitus. Slight odor. Neuro: General: moves all extremities and other (agitated for me and not following commands, confused) Speech: normal speech Extrem: General: normal to inspection and no edema Psych: Insight: Limited insight present (Psych) Judgement: Limited judgement present (Psych) Results Labs 10/05/24 04:35 10/05/24 04:35 Labs: Abnormal lab results 10/05/24 Range/Units 04:35 RBC 3.79 L (4.2-5.4) M/mm3 Hgb 10.6 L (12.0-15.0) g/dL Hct 34.2 L (37.0-47.0) % MCHC 31.0 L (32-36) g/dl RDW 18.2 H (11.5-14.5) % MPV 13.5 H (7.4-10.4) fl % Immature Plt Fraction 20.9 H (0.9-11.2) % Potassium 3.1 L (3.4-5.0) mmol/L Chloride 110 H (98-107) mmol/L Calcium 7.7 L (8.4-10.2) mg/dL Total Protein 6.0 L (6.3-8.2) g/dL Albumin 2.3 L (3.5-5.1) g/dL Diabetes panel 10/05/24 Range/Units 04:35 Sodium 140 (137-145) mmol/L Potassium 3.1 L (3.4-5.0) mmol/L Chloride 110 H (98-107) mmol/L Carbon Dioxide 22 (22-30) mmol/L BUN 13 (7-17) mg/dL Creatinine 0.73 (0.7-1.0) mg/dL Glucose 72 (65-110) mg/dL Calcium 7.7 L (8.4-10.2) mg/dL AST 22 (14-36) U/L ALT 9 (6-35) U/L Alkaline Phosphatase 93 (38-126) U/L Total Protein 6.0 L (6.3-8.2) g/dL Albumin 2.3 L (3.5-5.1) g/dL Calcium panel 10/05/24 Range/Units 04:35 Calcium 7.7 L (8.4-10.2) mg/dL Albumin 2.3 L (3.5-5.1) g/dL Pituitary panel 10/05/24 Range/Units 04:35 Sodium 140 (137-145) mmol/L Potassium 3.1 L (3.4-5.0) mmol/L Chloride 110 H (98-107) mmol/L Carbon Dioxide 22 (22-30) mmol/L BUN 13 (7-17) mg/dL Creatinine 0.73 (0.7-1.0) mg/dL Glucose 72 (65-110) mg/dL Calcium 7.7 L (8.4-10.2) mg/dL Adrenal panel 10/05/24 Range/Units 04:35 Sodium 140 (137-145) mmol/L Potassium 3.1 L (3.4-5.0) mmol/L Chloride 110 H (98-107) mmol/L Carbon Dioxide 22 (22-30) mmol/L BUN 13 (7-17) mg/dL Creatinine 0.73 (0.7-1.0) mg/dL Glucose 72 (65-110) mg/dL Calcium 7.7 L (8.4-10.2) mg/dL Total Bilirubin 0.8 (0.2-1.3) mg/dL AST 22 (14-36) U/L ALT 9 (6-35) U/L Alkaline Phosphatase 93 (38-126) U/L Total Protein 6.0 L (6.3-8.2) g/dL Albumin 2.3 L (3.5-5.1) g/dL All other labs normal. Imaging Additional studies: ITS Impressions Chest X-Ray 10/03/24 18:06 IMPRESSION: No focal infiltrate or effusion. Head CT 10/03/24 18:35 Impression: No large acute intracranial hemorrhage or suspicious mass effect. Interval development of left frontoethmoidal left maxillary inflammatory sinus disease as previous examination dated 09/17/2024. Chest/Abdomen/Pelvis CT 10/03/24 18:52 IMPRESSION: Redemonstration of right-sided hydroureteronephrosis despite a double-J stent in good position, secondary to chronic UPJ obstruction. However, the enhancement pattern suggests persistent inflammation/infection, possibly ascending. Remainder of examination is unchanged from previous study dated 09/13/2024.
[2024-10-05] MEDS: MIRTAZAPINE 7.5 MG TABLET PO (17:20)
[2024-10-05] MEDS: LIOTHYRONINE SODIUM 5 MCG TABLET PO (17:20)
[2024-10-05] MEDS: DOXYCYCLINE HYCLATE 100 MG TABLET PO (17:20)
[2024-10-05] MEDS: RIVAROXABAN 20 MG TABLET PO (17:20)
[2024-10-05 19:40] VITALS: BP 106/89; PULSE 92; RESP 20; TEMP 37; O2SAT 100
[2024-10-06 03:53] VITALS: BP 137/81; PULSE 100; RESP 20; TEMP 36.6; O2SAT 98
[2024-10-06] MEDS: traMADol HCL (*CRX) 25 MG TABLET PO ×2 (05:30→20:51)
[2024-10-06] MEDS: LEVOTHYROXINE SODIUM 100 MCG TABLET 200 MCG PO (05:30)
[2024-10-06] MEDS: LEVOTHYROXINE SODIUM 50 MCG TABLET PO (05:31)
[2024-10-06 06:17] LABS: Hematocrit 40.6 % (37.0-47.0); Hemoglobin 12.6 g/dL (12.0-15.0); Immature Platelet Fraction Pct 22.3 % (0.9-11.2); Mean Corpuscular Hemoglobin 27.5 pg (26-34); Mean Corpuscular Volume 88.6 fl (80-100); Platelet Count Result 237 k/mm3 (150-375); Red Blood Count 4.58 M/mm3 (4.2-5.4); White Blood Count 11.7 K/mm3 (4.5-10.0)
[2024-10-06 06:22] LABS: Alanine Aminotransferase 12 U/L (6-35); Albumin Level 2.8 g/dL (3.5-5.1); Alkaline Phosphatase 114 U/L (38-126); Anion Gap 11 mmol/L (4-12); Aspartate Amino Transferase 24 U/L (14-36); Bilirubin,Total 0.8 mg/dL (0.2-1.3); Blood Urea Nitrogen 9 mg/dL (7-17); Calcium 8.1 mg/dL (8.4-10.2); Carbon Dioxide 19 mmol/L (22-30); Chloride 109 mmol/L (98-107); Estimated CRCL calculation 53 ml/min; Estimated Glomerular Filt Rate > 60; Glucose 96 mg/dL (65-110); Sodium 139 mmol/L (137-145)
--- NOTE | 2024-10-06 06:50 | P.PNIM_ITS ---
Progress Note: A&P Assessment and Plan (1) Sepsis: Qualifiers: Sepsis acute organ dysfunction status: unspecified Sepsis type: sepsis due to unspecified organism Qualified Code(s): A41.9 - Sepsis, unspecified o rganism Code(s): A41.9 - Sepsis, unspecified organism Status: Acute Assessment and Plan: Patient meets sepsis criteria with T-max of 100.2?, tachycardia tachypnea and leukocytosis likely secondary to UTI and decubitus ulcer * IV fluids * Continue meropenem, pharmacy recommends d/c vanc and start on doxy (Patient with HX of ESBL per family) * Lactic Acid=1.5 * Repeat CBC, CMP. * Blood cultures = prelim result shows no growth * Urine Cullture = E. coli * CRP 7.0 on 10/03 (2) UTI (urinary tract infection): Code(s): N39.0 - Urinary tract infection, site not specified Status: Acute Assessment and Plan: * Continue IV meropenem * Urine Culture positive for E.Coli * Family reports HX of ESBL * Blood cultures show no growth. (3) Hydronephrosis, right: Code(s): N13.30 - Unspecified hydronephrosis Status: Acute Assessment and Plan: CT abdomen Redemonstration of a right-sided double-J stent with the proximal pigtail coiled in the upper pole of the right kidney and the distal pigtail coiled within the bladder, in good position. * patient had scheduled stent exchange 11/04 with Urology * Continue treating UTI * patient at this time requesting hospice consult will hold off on consulting Urology likely no intervention to be done inpatient (4) Decubitus ulcer, infected: Qualifiers: Pressure injury stage: stage 2 Qualified Code(s): L89.92 - Pressure ulcer of unspecified site, stage 2; L08.9 - Local infection of the skin and subcutaneous tissue, unspecified Code(s): L89.90 - Pressure ulcer of unspecified site, unspecified stage; L08.9 - Local infection of the skin and subcutaneous tissue, unspecified Status: Acute Assessment and Plan: Patient has large decubitus ulceration to the right buttock unstageable has foul-smelling purulent drainage and erythema 2-3 cm in all directions * Surgery consulted, do not recommend surgical management at this time * Q2HR turns * wound culture prelim result: Bacteroides sp, not B fragilis (5) Hypokalemia: Code(s): E87.6 - Hypokalemia Status: Acute Assessment and Plan: * K upon admission=4.0 * On 10/06 = 3.0 * IV potassium supplementation * Monitor levels (6) Failure to thrive in adult: Code(s): R62.7 - Adult failure to thrive Status: Acute Assessment and Plan: Patient is refusing all oral medications and oral intake family reports she has been declining for the last few weeks with worsening dementia and likely secondary acute infection at this time * Plan for hospice (7) Acute metabolic encephalopathy: Code(s): G93.41 - Metabolic encephalopathy Status: Acute Assessment and Plan: * likely secondary to acute infection does have history of dementia (8) Dementia: Qualifiers: Dementia behavioral or psychological symptom: with agitation Dementia severity: severe Dementia type: unspecified type Qualified Code(s): F03.C11 - Unspecified dementia, severe, with agitation Code(s): F03.90 - Unspecified dementia, unspecified severity, without behavioral disturbance, psychotic disturbance, mood disturbance, and anxiety Status: Acute Assessment and Plan: * Continue memantine and donepezil (9) Hypothyroidism: Qualifiers: Hypothyroidism type: unspecified Qualified Code(s): E03.9 - Hypothyroidism, unspecified Code(s): E03.9 - Hypothyroidism, unspecified Status: Acute Assessment and Plan: * Continue levothyroxine (10) Severe protein-calorie malnutrition: Code(s): E43 - Unspecified severe protein-calorie malnutrition Status: Acute Assessment and Plan: * Supplement per Nutrition recommendations Plan Code status: DNR/DNI DVT prophylaxis: Xarelto Stress ulcer prophylaxis: Protonix 40 daily PT/OT notes: NA Disposition: patient continues admission to the medical unit for further evaluation and treatment metabolic encephalopathy secondary to UTI infected decubitus ulcer family at this time has requested to treat infection plan for hospice after discharge and SNF facility. Subjective Date/time seen: 10/06/24 06:50 Interval history: Patient is an 83-year-old female who presented to the emergency department and was admitted for further evaluation and treatment acute metabolic encephalopathy, sepsis, UTI, right-sided hydronephrosis chronic and decubitus ulcer 10/06 Patient is awake and continues to answer to name, but is still unable to follow most commands. Daughter states that the patient is normally A&Ox1-2 and that she is normally more alert than she appears to be today, but that she has improved since yesterday. Still ambulatory with assistance. Oral potassium attempted but unable to be tolerated, will switch to IV. Will continue on IV abx for UTI. Wound culture resulted, Bacteroids sp, not B fragilis, on appropriate coverage. Surgery consulted, do not recommend surgical debridement at this time, daughter is amenable to this. Will continue to monitor labs and mentation. Still plan for hospice after discharge. Review of Systems Review of Systems: Unobtainable due to patient's dementia ROS unobtainable: Yes unobtainable due to mental status Exam Narrative: * GENERAL: Patient refusing oral medication, * EYES: PERRLA. * HEENT: Moist mucous membranes. * LUNGS: Clear to auscultation bilaterally. No accessory muscle use. * CARDIOVASCULAR: Regular rate and rhythm. No murmur. No JVD. S1-S2 * ABDOMEN: Soft, non tenderness and non-distended. No palpable masses. 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, No edema * SKIN: Large decubitus ulceration to the right buttock unstageable with foul smelling purulent drainage with surrounding erythema of 2-3 cm in all directions,pallor skin warm to touch, 2-3 second cap refill, no mottling * NEUROLOGIC: confused responds to name and will hold hands moving BUE * PSYCHIATRIC: Anxious and restless Const: General: comfortable and no acute distress Other: Chronic ill-appearing HENMT: Other: Mucous membranes are dry with dry mucous to the roof of the mouth, no oral pharyngeal erythema, head is normocephalic atraumatic Eyes: Other: No conjunctival pallor, no scleral icterus, pupils are equal and reactive Neck: Other: No JVD, no lymphadenopathy Resp: Other: Clear to auscultation bilaterally, no increased work of breathing Cardio: Other: Tachycardia, 2+ bilateral radial and pedal pulses, no JVD GI: Other: Soft, nontender, positive bowel sounds : Other: Incontinent of urine Back/Spine/Pelvis: Other: Large decubitus ulceration to the right buttock unstageable with foul smelling purulent drainage with surrounding erythema of 2-3 cm in all directions Skin: Other: Decubitus ulcers mentioned above, otherwise generalized pallor skin warm to touch, 2-3 second cap refill, no mottling. Additional 2cm ulcer on posterior aspect of right heel. Some surrounding erythema, no purulent drainage or active bleeding. Neuro: Other: Responds to name, confused, unable to answer questions. Extrem: General: normal to inspection Other: No edema Psych: Other: Confused, anxious, restless Objective Data Vital Signs Vital Signs: Vital Signs - 24 hr 10/05/24 08:15 10/05/24 14:00 10/05/24 19:40 Temperature 97.6 F 98.6 F Pulse Rate 95 92 Respiratory Rate 20 20 Blood Pressure 151/77 H 106/89 Pulse Oximetry 98 100 Oxygen Delivery Room Air 10/06/24 03:53 Temperature 97.8 F Pulse Rate 100 Respiratory Rate 20 Blood Pressure 137/81 Pulse Oximetry 98 Oxygen Delivery Intake/Output Intake/Output: Intake & Output 10/03/24 10/04/24 10/05/24 10/06/24 23:59 23:59 23:59 23:59 Intake Total 2750 2200 2220 120 Output Total 550 600 400 Balance 2750 1650 1620 -280 Meds/Results Medications: Active Medications Generic Name Dose Route Start Last Admin Trade Name Freq PRN Reason Stop Dose Admin Acetaminophen 650 mg 10/04/24 00:41 Acetaminophen 325 Mg Tablet PO Q4H PRN Mild Pain (1-3) or Fever Aspirin 81 mg 10/04/24 13:30 10/05/24 12:00 Aspirin 81 Mg Chewable Tablet PO 81 mg QAM RANDALL Administration Collagenase 1 applic 10/04/24 09:00 10/05/24 15:01 Collagenase Oint 30 Gm Tube TOPICAL 1 applic DAILY RANDALL Administration Doxycycline Hyclate 100 mg 10/05/24 19:00 10/05/24 17:20 Doxycycline Hyclate 100 Mg Tablet PO 100 mg Q12HR RANDALL Administration Sodium Chloride 1,000 mls @ 100 mls/hr 10/04/24 00:35 10/05/24 20:36 Normal Saline Iv IV CONT 100 mls/hr .Q10H RANDALL Administration Meropenem 1 gm in 100 mls @ 200 mls/hr 10/04/24 09:00 10/05/24 21:00 IVPB Infused Q12HR RANDALL Infusion Levothyroxine Sodium 50 mcg 10/04/24 06:30 10/06/24 05:31 Levothyroxine Sodium 50 Mcg Tablet PO 50 mcg DAILY@0630 RANDALL Administration Levothyroxine Sodium 200 mcg 10/04/24 06:30 10/06/24 05:30 Levothyroxine Sodium 100 Mcg Tablet PO 200 mcg DAILY@0630 RANDALL Administration Liothyronine Sodium 5 mcg 10/04/24 18:00 10/05/24 17:20 Liothyronine Sodium 5 Mcg Tablet PO 5 mcg QPM RANDALL Administration Magnesium Oxide 400 mg 10/06/24 12:00 Magnesium Oxide 400 Mg Tablet PO DAILY@1200 RANDALL Memantine 10 mg 10/04/24 09:00 10/05/24 17:20 Memantine 10 Mg Tablet PO 10 mg BID RANDALL Administration Mirtazapine 7.5 mg 10/04/24 00:35 10/05/24 17:20 Mirtazapine 7.5 Mg Tablet PO 7.5 mg 1700 RANDALL Administration Morphine Sulfate 2 mg 10/04/24 00:41 Morphine Sulfate (*Crx) 2 Mg/Ml Inj IV PUSH Q4H PRN Pain Rated 7-10 Pantoprazole Sodium 40 mg 10/04/24 09:00 10/05/24 12:46 Pantoprazole 40 Mg Tablet PO Not Given DAILY [facility] Polyethylene Glycol 17 gm 10/04/24 09:00 10/05/24 12:46 Polyethylene Glycol 3350 17 Gm Powd.Pack PO Not Given DAILY RANDALL Potassium Chloride 40 meq 10/04/24 09:00 10/05/24 12:46 Potassium Chloride 20 Meq Packet (For Liquid) PO Not Given DAILY [facility] Rivaroxaban 20 mg 10/04/24 17:00 10/05/24 17:20 Rivaroxaban 20 Mg Tablet PO 20 mg DAILY@1700 RANDALL Administration Simvastatin 20 mg 10/04/24 09:00 10/05/24 12:00 Simvastatin 20 Mg Tablet PO 20 mg DAILY RANDALL Administration Tramadol HCl 25 mg 10/04/24 00:41 10/06/24 05:30 Tramadol Hcl (*Crx) 25 Mg Tablet PO 25 mg Q6H PRN Administration Pain Rated 4-6 Radiology Results: ITS Impressions Chest X-Ray 10/03/24 18:06 IMPRESSION: No focal infiltrate or effusion. Head CT 10/03/24 18:35 Impression: No large acute intracranial hemorrhage or suspicious mass effect. Interval development of left frontoethmoidal left maxillary inflammatory sinus disease as previous examination dated 09/17/2024. Chest/Abdomen/Pelvis CT 10/03/24 18:52 IMPRESSION: Redemonstration of right-sided hydroureteronephrosis despite a double-J stent in good position, secondary to chronic UPJ obstruction. However, the enhancement pattern suggests persistent inflammation/infection, possibly ascending. Remainder of examination is unchanged from previous study dated 09/13/2024. Labs Labs: Laboratory Results - last 24 hr 10/06/24 05:54 WBC 11.7 H RBC 4.58 Hgb 12.6 Hct 40.6 MCV 88.6 MCH 27.5 MCHC 31.0 L RDW 18.0 H Plt Count 237 MPV TNP % Immature Plt Fraction 22.3 H Sodium 139 Potassium 3.0 L Chloride 109 H Carbon Dioxide 19 L Anion Gap 11 BUN 9 Creatinine 0.63 L Estim Creat Clear Calc 53 Estimated GFR > 60 Glucose 96 Calcium 8.1 L Total Bilirubin 0.8 AST 24 ALT 12 Alkaline Phosphatase 114 Total Protein 6.0 L Albumin 2.8 L Quality VTE Prophylaxis VTE prophylaxis: pharmacologic ordered
--- NOTE | 2024-10-06 07:49 | P.CDI_ITS ---
CDI Query Clarification Request BMI: 20.0 Nutritional Diagnostic Statement: Please refer to the comprehensive nutrition assessment for further information. If you agree with diagnosis of Severe protein calorie malnutrition related to chronic loss of appetite as evidenced by intakes <50% needs >1 month; weight loss -33%/6 months; severe muscle wasting and fat loss. Please specify severity if known: * Mild * Moderate * Severe * Other/Unknown <Socorro Fraire RN - Last Filed: 10/06/24 08:01> Clarified Diagnosis Clarified Diagnosis: Severe <Brian Rosales PA-C - Last Filed: 10/06/24 08:26>
[2024-10-06 08:34] VITALS: O2SAT 91
[2024-10-06] MEDS: SODIUM CHLORIDE 0.9% IV 1,000 ML 100 ML IV CONT ×2 (09:12→21:59)
[2024-10-06] MEDS: polyethylene glycoL 3350 17 GM POWD.PACK PO (09:13)
[2024-10-06] MEDS: MEMANTINE 10 MG TABLET PO ×2 (09:13→17:03)
[2024-10-06] MEDS: PANTOPRAZOLE 40 MG TABLET PO (09:13)
[2024-10-06] MEDS: DOXYCYCLINE HYCLATE 100 MG TABLET PO ×2 (09:13→20:50)
[2024-10-06] MEDS: SIMVASTATIN 20 MG TABLET PO (09:13)
[2024-10-06] MEDS: ASPIRIN 81 MG CHEWABLE TABLET PO (09:13)
[2024-10-06] MEDS: POTASSIUM CHLORIDE 20 MEQ PACKET (FOR LIQUID) 40 MEQ PO (09:13)
[2024-10-06] MEDS: MEROPENEM 1 GM/NS 100 ML 1 GM/100 ML BAG IVPB ×2 (09:14→20:49)
[2024-10-06] MEDS: KCL 20 MEQ/SW 100 ML 100 ML 50 MEQ IVPB (12:02)
[2024-10-06 14:00] VITALS: BP 140/80; PULSE 81; RESP 20; TEMP 36.4; O2SAT 96
[2024-10-06] MEDS: LIOTHYRONINE SODIUM 5 MCG TABLET PO (17:03)
[2024-10-06] MEDS: RIVAROXABAN 20 MG TABLET PO (17:03)
[2024-10-06] MEDS: MIRTAZAPINE 7.5 MG TABLET PO (17:04)
[2024-10-06] MEDS: COLLAGENASE OINT 30 GM TUBE 1 APPLIC TOPICAL (17:04)
[2024-10-06 20:05] VITALS: BP 132/82; PULSE 100; RESP 18; TEMP 36.3; O2SAT 95
[2024-10-07 04:47] VITALS: BP 131/71; PULSE 93; RESP 20; TEMP 36.4; O2SAT 96
[2024-10-07 05:38] LABS: Hematocrit 37.3 % (37.0-47.0); Hemoglobin 11.8 g/dL (12.0-15.0); Immature Platelet Fraction Pct 21.8 % (0.9-11.2); Mean Corpuscular HGB Conc 31.6 g/dl (32-36); Mean Corpuscular Hemoglobin 27.4 pg (26-34); Mean Corpuscular Volume 86.5 fl (80-100); Platelet Count Result 198 k/mm3 (150-375); Red Blood Count 4.31 M/mm3 (4.2-5.4); Red Cell Distribution Width 17.9 % (11.5-14.5); White Blood Count 8.7 K/mm3 (4.5-10.0)
[2024-10-07 05:41] LABS: Alanine Aminotransferase 8 U/L (6-35); Albumin Level 2.4 g/dL (3.5-5.1); Alkaline Phosphatase 87 U/L (38-126); Anion Gap 11 mmol/L (4-12); Aspartate Amino Transferase 19 U/L (14-36); Bilirubin,Total 0.6 mg/dL (0.2-1.3); Blood Urea Nitrogen 5 mg/dL (7-17); Calcium 7.5 mg/dL (8.4-10.2); Carbon Dioxide 18 mmol/L (22-30); Chloride 109 mmol/L (98-107); Estimated CRCL calculation 58 ml/min; Estimated Glomerular Filt Rate > 60; Glucose 76 mg/dL (65-110); Potassium 3.1 mmol/L (3.4-5.0); Sodium 138 mmol/L (137-145)
[2024-10-07] MEDS: LEVOTHYROXINE SODIUM 100 MCG TABLET 200 MCG PO (05:42)
[2024-10-07] MEDS: LEVOTHYROXINE SODIUM 50 MCG TABLET PO (05:42)
--- NOTE | 2024-10-07 07:12 | P.PNIM_ITS ---
Progress Note: A&P Assessment and Plan (1) Sepsis: Qualifiers: Sepsis acute organ dysfunction status: unspecified Sepsis type: sepsis due to unspecified organism Qualified Code(s): A41.9 - Sepsis, unspecified o rganism Code(s): A41.9 - Sepsis, unspecified organism Status: Acute Assessment and Plan: Patient meets sepsis criteria with T-max of 100.2?, tachycardia tachypnea and leukocytosis likely secondary to UTI and decubitus ulcer * IV fluids * Continue meropenem, started on vanc, switched to doxy (Patient with HX of ESBL per family) * Lactic Acid=1.5 * Repeat CBC, CMP. * Blood cultures = prelim result shows no growth * Urine Cullture = E. coli * Wound culture = Bacteriodes sp, not B fragilis * CRP 7.0 on 10/03 (2) UTI (urinary tract infection): Code(s): N39.0 - Urinary tract infection, site not specified Status: Acute Assessment and Plan: * Continue IV meropenem * Urine Culture positive for E.Coli * Family reports HX of ESBL * Blood cultures show no growth. * Continued improvement of symptoms * WBC 11.7>8.7 (3) Hydronephrosis, right: Code(s): N13.30 - Unspecified hydronephrosis Status: Acute Assessment and Plan: CT abdomen Redemonstration of a right-sided double-J stent with the proximal pigtail coiled in the upper pole of the right kidney and the distal pigtail coiled within the bladder, in good position. * patient had scheduled stent exchange 11/04 with Urology * Continue treating UTI * patient at this time requesting hospice consult will hold off on consulting Urology likely no intervention to be done inpatient (4) Decubitus ulcer, infected: Qualifiers: Pressure injury stage: stage 2 Qualified Code(s): L89.92 - Pressure ulcer of unspecified site, stage 2; L08.9 - Local infection of the skin and subcutaneous tissue, unspecified Code(s): L89.90 - Pressure ulcer of unspecified site, unspecified stage; L08.9 - Local infection of the skin and subcutaneous tissue, unspecified Status: Acute Assessment and Plan: Patient has large decubitus ulceration to the right buttock unstageable has foul-smelling purulent drainage and erythema 2-3 cm in all directions * Surgery consulted, do not recommend surgical management at this time * Q2HR turns * wound culture result: Bacteroides sp, not B fragilis * Continue wound care (5) Hypokalemia: Code(s): E87.6 - Hypokalemia Status: Acute Assessment and Plan: * K upon admission=4.0 * On 10/07 = 3.1 * Will continue IV potassium supplementation * Monitor levels (6) Failure to thrive in adult: Code(s): R62.7 - Adult failure to thrive Status: Acute Assessment and Plan: Patient is refusing all oral medications and oral intake family reports she has been declining for the last few weeks with worsening dementia and likely secondary acute infection at this time * Plan for hospice (7) Acute metabolic encephalopathy: Code(s): G93.41 - Metabolic encephalopathy Status: Acute Assessment and Plan: * likely secondary to acute infection does have history of dementia (8) Dementia: Qualifiers: Dementia behavioral or psychological symptom: with agitation Dementia severity: severe Dementia type: unspecified type Qualified Code(s): F03.C11 - Unspecified dementia, severe, with agitation Code(s): F03.90 - Unspecified dementia, unspecified severity, without behavioral disturbance, psychotic disturbance, mood disturbance, and anxiety Status: Acute Assessment and Plan: * Continue memantine and donepezil (9) Hypothyroidism: Qualifiers: Hypothyroidism type: unspecified Qualified Code(s): E03.9 - Hypothyroidism, unspecified Code(s): E03.9 - Hypothyroidism, unspecified Status: Acute Assessment and Plan: * Continue levothyroxine (10) Severe protein-calorie malnutrition: Code(s): E43 - Unspecified severe protein-calorie malnutrition Status: Acute Assessment and Plan: * Supplement per Nutrition recommendations Plan Code status: DNR/DNI DVT prophylaxis: Xarelto Stress ulcer prophylaxis: Protonix 40 daily PT/OT notes: NA Disposition: patient continues admission to the medical unit for further evaluation and treatment metabolic encephalopathy secondary to UTI infected decubitus ulcer family at this time has requested to treat infection plan for hospice after discharge and SNF facility. Time Spent With Patient Time: Subjective Date/time seen: 10/07/24 07:12 Interval history: Patient is an 83-year-old female who presented to the emergency department and was admitted for further evaluation and treatment acute metabolic encephalopathy, sepsis, UTI, right-sided hydronephrosis chronic and decubitus ulcer 10/07/24 Patient sleeping comfortably at bedside upon exam. Still unable to answer questions or follow most commands. Daughter present in room to answer questions. Still having continued difficulty feeding patient and daughter states that this is not her baseline. Concerns about ability of patient to take oral abx if she were to be discharged. Plan is still to be discharged to hospice. Will consider dc tomorrow, daughter is amenable to this. Review of Systems Review of Systems: Unobtainable due to patient's dementia ROS unobtainable: Yes unobtainable due to mental status Exam Narrative: * GENERAL: Patient refusing oral medication * EYES: PERRLA. * HEENT: Moist mucous membranes. * LUNGS: Clear to auscultation bilaterally. No accessory muscle use. * CARDIOVASCULAR: Regular rate and rhythm. No murmur. No JVD. S1-S2 * ABDOMEN: Soft, non tenderness and non-distended. No palpable masses. 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, No edema * SKIN: Large decubitus ulceration to the right buttock unstageable with foul smelling purulent drainage with surrounding erythema of 2-3 cm in all directions,pallor skin warm to touch, 2-3 second cap refill, no mottling * NEUROLOGIC: confused responds to name and will hold hands moving BUE * PSYCHIATRIC: Resting, unable to fully assess due to dementia Const: General: comfortable and no acute distress Other: Chronic ill-appearing HENMT: Other: Mucous membranes are dry, no oral pharyngeal erythema, head is normocephalic atraumatic Eyes: Other: No conjunctival pallor, no scleral icterus, pupils are equal and reactive Neck: Other: No JVD, no lymphadenopathy Resp: Other: Clear to auscultation bilaterally, no increased work of breathing Cardio: Other: Regular rate and rhythm, 2+ bilateral radial and pedal pulses, no JVD GI: Other: Soft, nontender, positive bowel sounds Back/Spine/Pelvis: Other: Large decubitus ulceration to the right buttock unstageable with foul smelling purulent drainage with surrounding erythema of 2-3 cm in all directions. Skin: Other: Decubitus ulcers mentioned above 2-3 second cap refill, no mottling. Additional 2cm ulcer on posterior aspect of right heel. Some surrounding erythema, no purulent drainage or active bleeding. Neuro: Other: Responds to name, confused, unable to answer questions. Extrem: General: normal to inspection Other: No clubbing, cyanosis or edema Psych: Other: Confused, anxious, restless Objective Data Vital Signs Vital Signs: Vital Signs - 24 hr 10/06/24 08:34 10/06/24 09:15 10/06/24 14:00 Temperature 97.6 F Pulse Rate 81 Respiratory Rate 20 Blood Pressure 140/80 Pulse Oximetry 91 96 Oxygen Delivery Room Air Room Air 10/06/24 20:05 10/07/24 04:47 Temperature 97.3 F L 97.6 F Pulse Rate 100 93 Respiratory Rate 18 20 Blood Pressure 132/82 131/71 Pulse Oximetry 95 96 Oxygen Delivery Intake/Output Intake/Output: Intake & Output 10/04/24 10/05/24 10/06/24 10/07/24 23:59 23:59 23:59 23:59 Intake Total 2200 2220 2225 100 Output Total 476 813 0996 750 Balance 1650 1620 1125 -650 Meds/Results Medications: Active Medications Generic Name Dose Route Start Last Admin Trade Name Freq PRN Reason Stop Dose Admin Acetaminophen 650 mg 10/04/24 00:41 Acetaminophen 325 Mg Tablet PO Q4H PRN Mild Pain (1-3) or Fever Aspirin 81 mg 10/04/24 13:30 10/06/24 09:13 Aspirin 81 Mg Chewable Tablet PO 81 mg QAM RANDALL Administration Collagenase 1 applic 10/04/24 09:00 10/06/24 17:04 Collagenase Oint 30 Gm Tube TOPICAL 1 applic DAILY RANDALL Administration Doxycycline Hyclate 100 mg 10/05/24 19:00 10/06/24 20:50 Doxycycline Hyclate 100 Mg Tablet PO 100 mg Q12HR RANDALL Administration Sodium Chloride 1,000 mls @ 100 mls/hr 10/04/24 00:35 10/06/24 21:59 Normal Saline Iv IV CONT 100 mls/hr .Q10H RANDALL Administration Meropenem 1 gm in 100 mls @ 200 mls/hr 10/04/24 09:00 10/06/24 20:49 IVPB 200 mls/hr Q12HR RANDALL Administration Levothyroxine Sodium 50 mcg 10/04/24 06:30 10/07/24 05:42 Levothyroxine Sodium 50 Mcg Tablet PO 50 mcg DAILY@0630 RANDALL Administration Levothyroxine Sodium 200 mcg 10/04/24 06:30 10/07/24 05:42 Levothyroxine Sodium 100 Mcg Tablet PO 200 mcg DAILY@0630 RANDALL Administration Liothyronine Sodium 5 mcg 10/04/24 18:00 10/06/24 17:03 Liothyronine Sodium 5 Mcg Tablet PO 5 mcg QPM RANDALL Administration Magnesium Oxide 400 mg 10/06/24 12:00 10/06/24 11:44 Magnesium Oxide 400 Mg Tablet PO Not Given DAILY@1200 [facility] Memantine 10 mg 10/04/24 09:00 10/06/24 17:03 Memantine 10 Mg Tablet PO 10 mg BID RANDALL Administration Mirtazapine 7.5 mg 10/04/24 00:35 10/06/24 17:04 Mirtazapine 7.5 Mg Tablet PO 7.5 mg 1700 RANDALL Administration Morphine Sulfate 2 mg 10/04/24 00:41 Morphine Sulfate (*Crx) 2 Mg/Ml Inj IV PUSH Q4H PRN Pain Rated 7-10 Pantoprazole Sodium 40 mg 10/04/24 09:00 10/06/24 09:13 Pantoprazole 40 Mg Tablet PO 40 mg DAILY RANDALL Administration Polyethylene Glycol 17 gm 10/04/24 09:00 10/06/24 09:13 Polyethylene Glycol 3350 17 Gm Powd.Pack PO 17 gm DAILY RANDALL Administration Potassium Chloride 40 meq 10/04/24 09:00 10/06/24 09:13 Potassium Chloride 20 Meq Packet (For Liquid) PO 40 meq DAILY RANDALL Administration Rivaroxaban 20 mg 10/04/24 17:00 10/06/24 17:03 Rivaroxaban 20 Mg Tablet PO 20 mg DAILY@1700 RANDALL Administration Simvastatin 20 mg 10/04/24 09:00 10/06/24 09:13 Simvastatin 20 Mg Tablet PO 20 mg DAILY RANDALL Administration Tramadol HCl 25 mg 10/04/24 00:41 10/06/24 20:51 Tramadol Hcl (*Crx) 25 Mg Tablet PO 25 mg Q6H PRN Administration Pain Rated 4-6 Radiology Results: ITS Impressions Chest X-Ray 10/03/24 18:06 IMPRESSION: No focal infiltrate or effusion. Head CT 10/03/24 18:35 Impression: No large acute intracranial hemorrhage or suspicious mass effect. Interval development of left frontoethmoidal left maxillary inflammatory sinus disease as previous examination dated 09/17/2024. Chest/Abdomen/Pelvis CT 10/03/24 18:52 IMPRESSION: Redemonstration of right-sided hydroureteronephrosis despite a double-J stent in good position, secondary to chronic UPJ obstruction. However, the enhancement pattern suggests persistent inflammation/infection, possibly ascending. Remainder of examination is unchanged from previous study dated 09/13/2024. Labs Labs: Laboratory Results - last 24 hr 10/07/24 05:04 WBC 8.7 RBC 4.31 Hgb 11.8 L Hct 37.3 MCV 86.5 MCH 27.4 MCHC 31.6 L RDW 17.9 H Plt Count 198 MPV TNP % Immature Plt Fraction 21.8 H Sodium 138 Potassium 3.1 L Chloride 109 H Carbon Dioxide 18 L Anion Gap 11 BUN 5 L Creatinine 0.57 L Estim Creat Clear Calc 58 Estimated GFR > 60 Glucose 76 Calcium 7.5 L Total Bilirubin 0.6 AST 19 ALT 8 Alkaline Phosphatase 87 Total Protein 6.0 L Albumin 2.4 L Quality VTE Prophylaxis VTE prophylaxis: pharmacologic ordered Hospitalist [facility] Advance Care Plan I have confirmed that the patient's Advanced Care Plan is present, code status is documented, or surrogate decision maker is listed in patient medical record.: Yes Medication Reconciliation I have utilized all available resources to obtain, update and review the patients current medications (includes all prescriptions, OTC, herbals, cannabis, and nutritional supplements).: Yes
[2024-10-07] MEDS: SODIUM CHLORIDE 0.9% IV 1,000 ML 100 ML IV CONT ×2 (08:28→21:03)
[2024-10-07] MEDS: polyethylene glycoL 3350 17 GM POWD.PACK PO (08:29)
[2024-10-07] MEDS: ASPIRIN 81 MG CHEWABLE TABLET PO (08:29)
[2024-10-07] MEDS: PANTOPRAZOLE 40 MG TABLET PO (08:29)
[2024-10-07] MEDS: MEROPENEM 1 GM/NS 100 ML 1 GM/100 ML BAG IVPB ×2 (08:29→21:02)
[2024-10-07] MEDS: DOXYCYCLINE HYCLATE 100 MG TABLET PO ×2 (08:29→21:03)
[2024-10-07] MEDS: SIMVASTATIN 20 MG TABLET PO (08:29)
[2024-10-07] MEDS: MEMANTINE 10 MG TABLET PO ×2 (08:29→17:21)
--- NOTE | 2024-10-07 11:50 | PCNFU ---
Nutrition Follow-Up Complete: Severe protein calorie malnutrition related to chronic loss of appetite as evidenced by intakes <50% needs >1 month; weight loss -33%/6 months; severe muscle wasting and fat loss Goal: Intakes at least 50% meals Patient has limited progress towards goal. We will continue current goal. Pt current nutrition is Heart Healthy with Ensure Enlive BID. Last recorded weight is 58 kg, no new weight to report. Bowel Motility: +BM reported 3/6 Labs Reviewed: Cr 0.57, BUN 5, K 3.1, Alb 2.4 Meds Noted: Protonix, NS, Remeron, Synthroid, Miralax Skin: unstageable pressure ulcer-right buttock. Additional Notes: Patient remains on a heart healthy diet with Ensure Enlive BID (350 kcal and 20 gm protein). Oral Intake < 25% of meals since admit. Spoke with nursing today regarding plan of care. Plan for hospice at discharge. Will continue current diet order and offer supplements for additional kcal and protein needs. Monitoring intakes, weights , labs, wounds, plan of care 3 days.
[2024-10-07] MEDS: MAGNESIUM OXIDE 400 MG TABLET PO (12:14)
[2024-10-07 14:00] VITALS: BP 142/94; PULSE 90; RESP 18; TEMP 36.7; O2SAT 99
[2024-10-07] MEDS: COLLAGENASE OINT 30 GM TUBE 1 APPLIC TOPICAL (15:45)
[2024-10-07] MEDS: LIOTHYRONINE SODIUM 5 MCG TABLET PO (17:21)
[2024-10-07] MEDS: RIVAROXABAN 20 MG TABLET PO (17:21)
[2024-10-07] MEDS: MIRTAZAPINE 7.5 MG TABLET PO (17:24)
[2024-10-07 19:52] VITALS: BP 144/81; PULSE 102; RESP 17; TEMP 36.6; O2SAT 96
[2024-10-08 05:39] VITALS: BP 147/81; PULSE 73; RESP 17; TEMP 37; O2SAT 93
[2024-10-08 05:53] LABS: Hematocrit 39.2 % (37.0-47.0); Immature Platelet Fraction Pct 22.3 % (0.9-11.2); Mean Corpuscular HGB Conc 30.6 g/dl (32-36); Mean Corpuscular Hemoglobin 27.4 pg (26-34); Mean Corpuscular Volume 89.5 fl (80-100); Mean Platelet Volume 13.4 fl (7.4-10.4); Platelet Count Result 207 k/mm3 (150-375); Red Blood Count 4.38 M/mm3 (4.2-5.4); White Blood Count 11.6 K/mm3 (4.5-10.0)
[2024-10-08 06:04] LABS: Alanine Aminotransferase 8 U/L (6-35); Albumin Level 2.6 g/dL (3.5-5.1); Alkaline Phosphatase 89 U/L (38-126); Anion Gap 14 mmol/L (4-12); Aspartate Amino Transferase 27 U/L (14-36); Bilirubin,Total 0.6 mg/dL (0.2-1.3); Blood Urea Nitrogen 4 mg/dL (7-17); Calcium 7.8 mg/dL (8.4-10.2); Carbon Dioxide 15 mmol/L (22-30); Chloride 110 mmol/L (98-107); Estimated CRCL calculation 60 ml/min; Estimated Glomerular Filt Rate > 60; Glucose 72 mg/dL (65-110); Potassium 3.3 mmol/L (3.4-5.0); Sodium 139 mmol/L (137-145)
[2024-10-08] MEDS: LEVOTHYROXINE SODIUM 50 MCG TABLET PO (06:22)
[2024-10-08] MEDS: LEVOTHYROXINE SODIUM 100 MCG TABLET 200 MCG PO (06:22)
--- NOTE | 2024-10-08 08:06 | P.PNIM_ITS ---
Progress Note: A&P Assessment and Plan (1) Sepsis: Qualifiers: Sepsis acute organ dysfunction status: unspecified Sepsis type: sepsis due to unspecified organism Qualified Code(s): A41.9 - Sepsis, unspecified o rganism Code(s): A41.9 - Sepsis, unspecified organism Status: Resolved Assessment and Plan: Resolved: Repeat Lactic acid - leukocytosis likely secondary to UTI and decubitus ulcer * IV fluids * Continue meropenem, started on vanc, switched to doxy (Patient with HX of ESBL per family) * Lactic Acid=1.5 on * Repeat CBC, CMP. * Blood cultures = prelim result shows no growth * Urine Cullture = E. coli * Wound culture = Bacteriodes sp, not B fragilis * CRP 7.0 on 10/03 (2) UTI (urinary tract infection): Code(s): N39.0 - Urinary tract infection, site not specified Status: Acute Assessment and Plan: * Continue IV meropenem * Urine Culture positive for E.Coli * Family reports HX of ESBL * Blood cultures show no growth. * Continued improvement of symptoms * WBC 11.6 (3) Hydronephrosis, right: Code(s): N13.30 - Unspecified hydronephrosis Status: Acute Assessment and Plan: CT abdomen Redemonstration of a right-sided double-J stent with the proximal pigtail coiled in the upper pole of the right kidney and the distal pigtail coiled within the bladder, in good position. * patient had scheduled stent exchange 11/04 with Urology * Continue treating UTI * hospice consult hold heroic measures (4) Decubitus ulcer, infected: Qualifiers: Pressure injury stage: stage 2 Qualified Code(s): L89.92 - Pressure ulcer of unspecified site, stage 2; L08.9 - Local infection of the skin and subcutaneous tissue, unspecified Code(s): L89.90 - Pressure ulcer of unspecified site, unspecified stage; L08.9 - Local infection of the skin and subcutaneous tissue, unspecified Status: Acute Assessment and Plan: Patient has large decubitus ulceration to the right buttock unstageable has foul-smelling purulent drainage and erythema 2-3 cm in all directions * Surgery consulted, do not recommend surgical management at this time * Q2HR turns * wound culture result: Bacteroides sp, not B fragilis * Continue wound care (5) Hypokalemia: Code(s): E87.6 - Hypokalemia Status: Acute Assessment and Plan: * K upon admission=4.0 * 3.3 * continue IV potassium supplementation * Monitor levels (6) Failure to thrive in adult: Code(s): R62.7 - Adult failure to thrive Status: Acute Assessment and Plan: Patient is refusing all oral medications and oral intake family reports she has been declining for the last few weeks with worsening dementia and likely secondary acute infection at this time * hospice (7) Acute metabolic encephalopathy: Code(s): G93.41 - Metabolic encephalopathy Status: Acute Assessment and Plan: * likely secondary to acute infection does have history of dementia (8) Dementia: Qualifiers: Dementia type: unspecified type Dementia severity: severe Dementia behavioral or psychological symptom: with agitation Qualified Code(s): F03.C11 - Unspecified dementia, severe, with agitation Code(s): F03.90 - Unspecified dementia, unspecified severity, without behavioral disturbance, psychotic disturbance, mood disturbance, and anxiety Status: Acute Assessment and Plan: * Continue memantine and donepezil (9) Hypothyroidism: Qualifiers: Hypothyroidism type: unspecified Qualified Code(s): E03.9 - Hypothyroidism, unspecified Code(s): E03.9 - Hypothyroidism, unspecified Status: Acute Assessment and Plan: * Continue levothyroxine (10) Severe protein-calorie malnutrition: Code(s): E43 - Unspecified severe protein-calorie malnutrition Status: Acute Assessment and Plan: * Supplement per Nutrition recommendations Plan Continue home medications: VTE Prophylaxis: DIET: Anticipated hospital stay: Code Status: DNR/ Hospice Time Spent With Patient Time with patient: less than 15 minutes Subjective Date/time seen: 10/08/24 08:06 Interval history: Patient is an 83-year-old female presented to the emergency room, and admitted for further evaluation and treatment of acute metabolic encephalopathy, sepsis, UTI, right-sided hydronephrosis chronic and decubitus ulcer. 10/08/2024; assumed care Patient is awake, in no acute distress, unable to answer any questions or follow most commands. Family is not present by the bedside at this time. Review of Systems Review of Systems: ROS unobtainable: Yes unobtainable due to mental status Exam Narrative: * GENERAL: Patient is confused unable to follow commands * EYES: PERRLA. * HEENT: Moist mucous membranes. * LUNGS: Clear to auscultation bilaterally. No accessory muscle use. * CARDIOVASCULAR: Regular rate and rhythm. No murmur. No JVD. S1-S2 * ABDOMEN: Soft, non tenderness and non-distended. No palpable masses. * EXTREMITIES: Muscle tone of all extremities, 4/5 hemp fiber taker off strength bilateral hands, No edema * SKIN: Large decubitus ulceration to the right buttock unstageable with foul smelling purulent drainage with surrounding erythema of 2-3 cm in all directions,pallor skin warm to touch, 2-3 second cap refill, no mottling * NEUROLOGIC: confused responds to name and will hold hands moving BUE * PSYCHIATRIC: Resting, unable to fully assess due to dementia Skin: Other: Decubitus ulcers mentioned above 2-3 second cap refill, no mottling. Additional 2cm ulcer on posterior aspect of right heel. Some surrounding erythema, no purulent drainage or active bleeding. Neuro: Other: Responds to name, confused, unable to answer questions. Extrem: General: normal to inspection Other: No clubbing, cyanosis or edema Psych: Other: Confused, anxious, restless Objective Data Vital Signs Vital Signs: Vital Signs - 24 hr 10/07/24 08:30 10/07/24 14:00 10/07/24 19:52 Temperature 98.1 F 97.8 F Pulse Rate 90 102 H Respiratory Rate 18 17 Blood Pressure 142/94 H 144/81 H Pulse Oximetry 99 96 Oxygen Delivery Room Air 10/08/24 05:39 Temperature 98.6 F Pulse Rate 73 Respiratory Rate 17 Blood Pressure 147/81 H Pulse Oximetry 93 Oxygen Delivery Intake/Output Intake/Output: Intake & Output 10/05/24 10/06/24 10/07/24 10/08/24 23:59 23:59 23:59 23:59 Intake Total 2220 2425 2220 Output Total 600 1100 1350 1200 Balance 1620 1325 870 -1200 Meds/Results Medications: Active Medications Generic Name Dose Route Start Last Admin Trade Name Freq PRN Reason Stop Dose Admin Acetaminophen 650 mg 10/04/24 00:41 Acetaminophen 325 Mg Tablet PO Q4H PRN Mild Pain (1-3) or Fever Aspirin 81 mg 10/04/24 13:30 10/07/24 08:29 Aspirin 81 Mg Chewable Tablet PO 81 mg QAM RANDALL Administration Collagenase 1 applic 10/04/24 09:00 10/07/24 15:45 Collagenase Oint 30 Gm Tube TOPICAL 1 applic DAILY RANDALL Administration Doxycycline Hyclate 100 mg 10/05/24 19:00 10/07/24 21:03 Doxycycline Hyclate 100 Mg Tablet PO 100 mg Q12HR RANDALL Administration Sodium Chloride 1,000 mls @ 100 mls/hr 10/04/24 00:35 10/07/24 21:03 Normal Saline Iv IV CONT 100 mls/hr .Q10H RANDALL Administration Meropenem 1 gm in 100 mls @ 200 mls/hr 10/04/24 09:00 10/07/24 21:02 IVPB 200 mls/hr Q12HR RANDALL Administration Levothyroxine Sodium 50 mcg 10/04/24 06:30 10/08/24 06:22 Levothyroxine Sodium 50 Mcg Tablet PO 50 mcg DAILY@0630 R[facility]ALL Administration Levothyroxine Sodium 200 mcg 10/04/24 06:30 10/08/24 06:22 Levothyroxine Sodium 100 Mcg Tablet PO 200 mcg DAILY@0630 R[facility]ALL Administration Liothyronine Sodium 5 mcg 10/04/24 18:00 10/07/24 17:21 Liothyronine Sodium 5 Mcg Tablet PO 5 mcg QPM RANDALL Administration Magnesium Oxide 400 mg 10/06/24 12:00 10/07/24 12:14 Magnesium Oxide 400 Mg Tablet PO 400 mg DAILY@1200 R[facility]ALL Administration Memantine 10 mg 10/04/24 09:00 10/07/24 17:21 Memantine 10 Mg Tablet PO 10 mg BID RANDALL Administration Mirtazapine 7.5 mg 10/04/24 00:35 10/07/24 17:24 Mirtazapine 7.5 Mg Tablet PO 7.5 mg 1700 R[facility]ALL Administration Morphine Sulfate 2 mg 10/04/24 00:41 Morphine Sulfate (*Crx) 2 Mg/Ml Inj IV PUSH Q4H PRN Pain Rated 7-10 Pantoprazole Sodium 40 mg 10/04/24 09:00 10/07/24 08:29 Pantoprazole 40 Mg Tablet PO 40 mg DAILY R[facility]ALL Administration Polyethylene Glycol 17 gm 10/04/24 09:00 10/07/24 08:29 Polyethylene Glycol 3350 17 Gm Powd.Pack PO 17 gm DAILY R[facility]ALL Administration Potassium Chloride 40 meq 10/04/24 09:00 10/06/24 09:13 Potassium Chloride 20 Meq Packet (For Liquid) PO 40 meq DAILY R[facility]ALL Administration Rivaroxaban 20 mg 10/04/24 17:00 10/07/24 17:21 Rivaroxaban 20 Mg Tablet PO 20 mg DAILY@1700 [facility] Administration Simvastatin 20 mg 10/04/24 09:00 10/07/24 08:29 Simvastatin 20 Mg Tablet PO 20 mg DAILY R[facility]ALL Administration Tramadol HCl 25 mg 10/04/24 00:41 10/06/24 20:51 Tramadol Hcl (*Crx) 25 Mg Tablet PO 25 mg Q6H PRN Administration Pain Rated 4-6 Radiology Results: ITS Impressions Chest X-Ray 10/03/24 18:06 IMPRESSION: No focal infiltrate or effusion. Head CT 10/03/24 18:35 Impression: No large acute intracranial hemorrhage or suspicious mass effect. Interval development of left frontoethmoidal left maxillary inflammatory sinus disease as previous examination dated 09/17/2024. Chest/Abdomen/Pelvis CT 10/03/24 18:52 IMPRESSION: Redemonstration of right-sided hydroureteronephrosis despite a double-J stent in good position, secondary to chronic UPJ obstruction. However, the enhancement pattern suggests persistent inflammation/infection, possibly ascending. Remainder of examination is unchanged from previous study dated 09/13/2024. Labs Labs: Laboratory Results - last 24 hr 10/08/24 05:31 WBC 11.6 H RBC 4.38 Hgb 12.0 Hct 39.2 MCV 89.5 MCH 27.4 MCHC 30.6 L RDW 18.0 H Plt Count 207 MPV 13.4 H % Immature Plt Fraction 22.3 H Sodium 139 Potassium 3.3 L Chloride 110 H Carbon Dioxide 15 L Anion Gap 14 H BUN 4 L Creatinine 0.55 L Estim Creat Clear Calc 60 Estimated GFR > 60 Glucose 72 Calcium 7.8 L Total Bilirubin 0.6 AST 27 ALT 8 Alkaline Phosphatase 89 Total Protein 6.0 L Albumin 2.6 L Quality VTE Prophylaxis VTE prophylaxis: mechanical ordered Hospitalist MIPS Advance Care Plan I have confirmed that the patient's Advanced Care Plan is present, code status is documented, or surrogate decision maker is listed in patient medical record.: Yes Medication Reconciliation I have utilized all available resources to obtain, update and review the patients current medications (includes all prescriptions, OTC, herbals, cannabis, and nutritional supplements).: Yes
[2024-10-08] MEDS: MEMANTINE 10 MG TABLET PO ×2 (10:35→17:06)
[2024-10-08] MEDS: MEROPENEM 1 GM/NS 100 ML 1 GM/100 ML BAG IVPB ×2 (10:35→21:13)
[2024-10-08] MEDS: SODIUM CHLORIDE 0.9% IV 1,000 ML 100 ML IV CONT (10:35)
[2024-10-08] MEDS: SIMVASTATIN 20 MG TABLET PO (10:35)
[2024-10-08] MEDS: DOXYCYCLINE HYCLATE 100 MG TABLET PO (10:36)
[2024-10-08] MEDS: COLLAGENASE OINT 30 GM TUBE 1 APPLIC TOPICAL (10:36)
[2024-10-08] MEDS: PANTOPRAZOLE 40 MG TABLET PO (10:36)
[2024-10-08] MEDS: ASPIRIN 81 MG CHEWABLE TABLET PO (10:36)
[2024-10-08 14:14] VITALS: BP 142/75; PULSE 109; RESP 18; TEMP 36.3; O2SAT 99
--- NOTE | 2024-10-08 16:48 | P.PNCROSS_ITS ---
Event Note Event Note Event Note: long discussion with (family) Ashanti [phone] family request to continue to monitor Ms. Villar in the hospital for ongoing infection and abx tx at this time. recheck labs in the am revisit discharge on Thursday Ms. Burrell understands pt has been accepted at [facility] in [facility]
--- NOTE | 2024-10-08 16:48 | PM.EVENT ---
Event Note Event Note Event Note: long discussion with (family) Ashanti [phone] family request to continue to monitor Ms. Villar in the hospital for ongoing infection and abx tx at this time. recheck labs in the am revisit discharge on Thursday Ms. Burrell understands pt has been accepted at [facility] in [facility]
[2024-10-08] MEDS: RIVAROXABAN 20 MG TABLET PO (17:06)
[2024-10-08] MEDS: LIOTHYRONINE SODIUM 5 MCG TABLET PO (17:06)
[2024-10-08] MEDS: POTASSIUM CHLORIDE INJ 40 MEQ in SODIUM CHLORIDE 0.9% IV 500 ML 130 MEQ IVPB (17:06)
[2024-10-08] MEDS: MIRTAZAPINE 7.5 MG TABLET PO (17:11)
[2024-10-08 20:00] VITALS: PULSE 103; RESP 18; O2SAT 100
[2024-10-08 20:48] VITALS: BP 132/110; PULSE 103; RESP 18; TEMP 37; O2SAT 100
[2024-10-09] MEDS: SODIUM CHLORIDE 0.9% IV 1,000 ML 100 ML IV CONT ×2 (01:32→13:59)
--- NOTE | 2024-10-09 01:52 | PC.NURSE ---
Daylight Savings Time For Daylight Savings Time Ending in the Fall - Clocks are moved back. For Daylight Savings Time Beginning in the Spring - Clocks are moved ahead. For [facility], the time of change occurs at 0200 hrs. Time is taken from the server systems administrator. This entry on the patient's chart recognizes the change in time reflected during documentation. Example: 2 entries for vital signs may be charted for 0200 hrs.
[2024-10-09 05:08] LABS: Hematocrit 35.9 % (37.0-47.0); Hemoglobin 11.4 g/dL (12.0-15.0); Mean Corpuscular HGB Conc 31.8 g/dl (32-36); Mean Corpuscular Hemoglobin 27.5 pg (26-34); Mean Corpuscular Volume 86.5 fl (80-100); Mean Platelet Volume 12.7 fl (7.4-10.4); Platelet Count Result 203 k/mm3 (150-375); Red Blood Count 4.15 M/mm3 (4.2-5.4); Red Cell Distribution Width 17.9 % (11.5-14.5); White Blood Count 10.6 K/mm3 (4.5-10.0)
[2024-10-09 05:19] LABS: Alanine Aminotransferase 9 U/L (6-35); Albumin Level 2.5 g/dL (3.5-5.1); Alkaline Phosphatase 85 U/L (38-126); Anion Gap 7 mmol/L (4-12); Aspartate Amino Transferase 24 U/L (14-36); Bilirubin,Total 0.6 mg/dL (0.2-1.3); Blood Urea Nitrogen 3 mg/dL (7-17); Calcium 8.1 mg/dL (8.4-10.2); Carbon Dioxide 22 mmol/L (22-30); Chloride 112 mmol/L (98-107); Estimated CRCL calculation 61 ml/min; Estimated Glomerular Filt Rate > 60; Glucose 82 mg/dL (65-110); Potassium 3.2 mmol/L (3.4-5.0); Sodium 141 mmol/L (137-145)
--- NOTE | 2024-10-09 08:14 | P.PNIM_ITS ---
Progress Note: A&P Assessment and Plan (1) Sepsis: Qualifiers: Sepsis acute organ dysfunction status: unspecified Sepsis type: sepsis due to unspecified organism Qualified Code(s): A41.9 - Sepsis, unspecified o rganism Code(s): A41.9 - Sepsis, unspecified organism Status: Resolved Assessment and Plan: Resolved: Repeat Lactic acid - leukocytosis likely secondary to UTI and decubitus ulcer * IV fluids * Continue meropenem, started on vanc, switched to doxy (Patient with HX of ESBL per family) * Lactic Acid=1.5 * trend CBC, CMP. * Blood cultures = prelim result shows no growth * Urine Cullture = E. coli * Wound culture = Bacteriodes sp, not B fragilis * CRP 7.0 on 10/03 hospice consult (2) UTI (urinary tract infection): Code(s): N39.0 - Urinary tract infection, site not specified Status: Acute Assessment and Plan: * Continue IV meropenem * Urine Culture positive for E.Coli * Family reports HX of ESBL * Blood cultures show no growth. * Continued improvement of symptoms * WBC 11.6 (3) Hydronephrosis, right: Code(s): N13.30 - Unspecified hydronephrosis Status: Acute Assessment and Plan: CT abdomen Redemonstration of a right-sided double-J stent with the proximal pigtail coiled in the upper pole of the right kidney and the distal pigtail coiled within the bladder, in good position. * patient had scheduled stent exchange 11/04 with Urology * Continue treating UTI * hospice consult hold aggressive interventions (4) Decubitus ulcer, infected: Qualifiers: Pressure injury stage: stage 2 Qualified Code(s): L89.92 - Pressure ulcer of unspecified site, stage 2; L08.9 - Local infection of the skin and subcutaneous tissue, unspecified Code(s): L89.90 - Pressure ulcer of unspecified site, unspecified stage; L08.9 - Local infection of the skin and subcutaneous tissue, unspecified Status: Acute Assessment and Plan: Patient has large decubitus ulceration to the right buttock unstageable has foul-smelling purulent drainage and erythema 2-3 cm in all directions * Surgery consulted, do not recommend surgical management at this time * Q2HR turns * wound culture result: Bacteroides sp, not B fragilis * Continue wound care (5) Hypokalemia: Code(s): E87.6 - Hypokalemia Status: Acute Assessment and Plan: * K upon admission=4.0 * 3.2 * continue IV potassium supplementation * Monitor levels * - order IV replacement and repeat * continue mg supplement (6) Failure to thrive in adult: Code(s): R62.7 - Adult failure to thrive Status: Acute Assessment and Plan: Patient is refusing all oral medications and oral intake family reports she has been declining for the last few weeks with worsening dementia and likely secondary acute infection at this time * hospice (7) Acute metabolic encephalopathy: Code(s): G93.41 - Metabolic encephalopathy Status: Acute Assessment and Plan: * likely secondary to acute infection does have history of dementia (8) Dementia: Qualifiers: Dementia behavioral or psychological symptom: with agitation Dementia severity: severe Dementia type: unspecified type Qualified Code(s): F03.C11 - Unspecified dementia, severe, with agitation Code(s): F03.90 - Unspecified dementia, unspecified severity, without behavioral disturbance, psychotic disturbance, mood disturbance, and anxiety Status: Acute Assessment and Plan: * Continue memantine and donepezil (9) Hypothyroidism: Qualifiers: Hypothyroidism type: unspecified Qualified Code(s): E03.9 - Hypo thyroidism, unspecified Code(s): E03.9 - Hypothyroidism, unspecified Status: Acute Assessment and Plan: * Continue levothyroxine (10) Severe protein-calorie malnutrition: Code(s): E43 - Unspecified severe protein-calorie malnutrition Status: Acute Assessment and Plan: * Supplement per Nutrition recommendations Plan VTE Prophylaxis: continue home xarelto Code Status: DNR/ Hospice Time Spent With Patient Time with patient: 25 - 35 minutes Subjective Date/time seen: 10/09/24 08:14 Interval history: Patient is an 83-year-old female presented to the emergency room, and admitted for further evaluation and treatment of acute metabolic encephalopathy, sepsis, UTI, right-sided hydronephrosis chronic and decubitus ulcer. Pt is seen and examined this morning. Pt is comfortable and resting with eyes closed, appears in no distress. Review of Systems Review of Systems: Unobtainable due to patient's dementia ROS unobtainable: Yes unobtainable due to mental status Exam Narrative: * GENERAL: Patient is confused unable to follow commands * EYES: PERRLA. * HEENT: Moist mucous membranes. * LUNGS: Clear to auscultation bilaterally. No accessory muscle use. * CARDIOVASCULAR: Regular rate and rhythm. No murmur. No JVD. S1-S2 * ABDOMEN: Soft, non tenderness and non-distended. No palpable masses. * EXTREMITIES: Muscle tone of all extremities, 4/5 tool marker strength bilateral hands, No edema * SKIN: Large decubitus ulceration to the right buttock unstageable with foul smelling purulent drainage with surrounding erythema of 2-3 cm in all directions,pallor skin warm to touch, 2-3 second cap refill, no mottling * NEUROLOGIC: confused responds to name and will hold hands moving BUE * PSYCHIATRIC: Resting, unable to fully assess due to dementia Const: General: comfortable and no acute distress Other: Chronic ill-appearing HENMT: Other: Mucous membranes are dry, no oral pharyngeal erythema, head is normocephalic atraumatic Eyes: Other: No conjunctival pallor, no scleral icterus, pupils are equal and reactive Neck: Other: No JVD, no lymphadenopathy Resp: Other: Clear to auscultation bilaterally, no increased work of breathing Cardio: Other: Regular rate and rhythm, 2+ bilateral radial and pedal pulses, no JVD GI: Other: Soft, nontender, positive bowel sounds : Other: Incontinent of urine Back/Spine/Pelvis: Other: Large decubitus ulceration to the right buttock unstageable with foul smelling purulent drainage with surrounding erythema of 2-3 cm in all directions. Skin: Other: Decubitus ulcers mentioned above 2-3 second cap refill, no mottling. Additional 2cm ulcer on posterior aspect of right heel. Some surrounding erythema, no purulent drainage or active bleeding. Neuro: Other: Responds to name, confused, unable to answer questions. Extrem: General: normal to inspection Other: No clubbing, cyanosis or edema Psych: Other: Confused, anxious, restless Objective Data Vital Signs Vital Signs: Vital Signs - 24 hr 10/08/24 10:30 10/08/24 14:14 10/08/24 20:00 Temperature 97.3 F L Pulse Rate 109 H 103 H Respiratory Rate 18 18 Blood Pressure 142/75 H Pulse Oximetry 99 100 Oxygen Delivery Room Air Room Air 10/08/24 20:48 Temperature 98.6 F Pulse Rate 103 H Respiratory Rate 18 Blood Pressure 132/110 H Pulse Oximetry 100 Oxygen Delivery Intake/Output Intake/Output: Intake & Output 10/06/24 10/07/24 10/08/24 10/10/24 23:59 23:59 23:59 00:59 Intake Total 2425 2320 2420 0 Output Total 1100 1350 2300 400 Balance 1325 970 120 -400 Meds/Results Medications: Active Medications Generic Name Dose Route Start Last Admin Trade Name Freq PRN Reason Stop Dose Admin Acetaminophen 650 mg 10/04/24 00:41 Acetaminophen 325 Mg Tablet PO Q4H PRN Mild Pain (1-3) or Fever Aspirin 81 mg 10/04/24 13:30 10/08/24 10:36 Aspirin 81 Mg Chewable Tablet PO 81 mg QAM RANDALL Administration Collagenase 1 applic 10/04/24 09:00 10/08/24 10:36 Collagenase Oint 30 Gm Tube TOPICAL 1 applic DAILY RANDALL Administration Doxycycline Hyclate 100 mg 10/05/24 19:00 10/08/24 22:11 Doxycycline Hyclate 100 Mg Tablet PO Not Given Q12HR RANDALL Sodium Chloride 1,000 mls @ 100 mls/hr 10/04/24 00:35 10/09/24 01:32 Normal Saline Iv IV CONT 100 mls/hr .Q10H RANDALL Administration Meropenem 1 gm in 100 mls @ 200 mls/hr 10/04/24 09:00 10/08/24 21:43 IVPB Infused Q12HR RANDALL Infusion Levothyroxine Sodium 50 mcg 10/04/24 06:30 10/09/24 05:44 Levothyroxine Sodium 50 Mcg Tablet PO Not Given DAILY@0630 [facility] Levothyroxine Sodium 200 mcg 10/04/24 06:30 10/09/24 05:44 Levothyroxine Sodium 100 Mcg Tablet PO Not Given DAILY@0630 [facility] Liothyronine Sodium 5 mcg 10/04/24 18:00 10/08/24 17:06 Liothyronine Sodium 5 Mcg Tablet PO 5 mcg QPM RANDALL Administration Magnesium Oxide 400 mg 10/06/24 12:00 10/08/24 14:55 Magnesium Oxide 400 Mg Tablet PO Not Given DAILY@1200 [facility] Memantine 10 mg 10/04/24 09:00 10/08/24 17:06 Memantine 10 Mg Tablet PO 10 mg BID RANDALL Administration Mirtazapine 7.5 mg 10/04/24 00:35 10/08/24 17:11 Mirtazapine 7.5 Mg Tablet PO 7.5 mg 1700 [facility] Administration Morphine Sulfate 2 mg 10/04/24 00:41 Morphine Sulfate (*Crx) 2 Mg/Ml Inj IV PUSH Q4H PRN Pain Rated 7-10 Pantoprazole Sodium 40 mg 10/04/24 09:00 10/08/24 10:36 Pantoprazole 40 Mg Tablet PO 40 mg DAILY [facility] Administration Polyethylene Glycol 17 gm 10/04/24 09:00 10/08/24 10:45 Polyethylene Glycol 3350 17 Gm Powd.Pack PO Not Given DAILY [facility] Potassium Chloride 40 meq 10/04/24 09:00 10/06/24 09:13 Potassium Chloride 20 Meq Packet (For Liquid) PO 40 meq DAILY RANDALL Administration Rivaroxaban 20 mg 10/04/24 17:00 10/08/24 17:06 Rivaroxaban 20 Mg Tablet PO 20 mg DAILY@1700 [facility] Administration Simvastatin 20 mg 10/04/24 09:00 10/08/24 10:35 Simvastatin 20 Mg Tablet PO 20 mg DAILY [facility] Administration Tramadol HCl 25 mg 10/04/24 00:41 10/06/24 20:51 Tramadol Hcl (*Crx) 25 Mg Tablet PO 25 mg Q6H PRN Administration Pain Rated 4-6 Radiology Results: ITS Impressions Chest X-Ray 10/03/24 18:06 IMPRESSION: No focal infiltrate or effusion. Head CT 10/03/24 18:35 Impression: No large acute intracranial hemorrhage or suspicious mass effect. Interval development of left frontoethmoidal left maxillary inflammatory sinus disease as previous examination dated 09/17/2024. Chest/Abdomen/Pelvis CT 10/03/24 18:52 IMPRESSION: Redemonstration of right-sided hydroureteronephrosis despite a double-J stent in good position, secondary to chronic UPJ obstruction. However, the enhancement pattern suggests persistent inflammation/infection, possibly ascending. Remainder of examination is unchanged from previous study dated 09/13/2024. Labs Labs: Laboratory Results - last 24 hr 10/08/24 10/09/24 10:13 04:52 WBC 10.6 H RBC 4.15 L Hgb 11.4 L Hct 35.9 L MCV 86.5 MCH 27.5 MCHC 31.8 L RDW 17.9 H Plt Count 203 MPV 12.7 H Sodium 141 Potassium 3.2 L Chloride 112 H Carbon Dioxide 22 Anion Gap 7 BUN 3 L Creatinine 0.54 L Estim Creat Clear Calc 61 Estimated GFR > 60 Glucose 82 Lactic Acid 1.0 Calcium 8.1 L Total Bilirubin 0.6 AST 24 ALT 9 Alkaline Phosphatase 85 Total Protein 6.0 L Albumin 2.5 L Quality VTE Prophylaxis VTE prophylaxis: mechanical ordered
[2024-10-09] MEDS: MEROPENEM 1 GM/NS 100 ML 1 GM/100 ML BAG IVPB ×2 (09:00→21:45)
[2024-10-09] MEDS: POTASSIUM CHLORIDE INJ 40 MEQ in SODIUM CHLORIDE 0.9% IV 500 ML 130 MEQ IVPB (09:11)
[2024-10-09] MEDS: COLLAGENASE OINT 30 GM TUBE 1 APPLIC TOPICAL (09:14)
[2024-10-09 14:00] VITALS: BP 138/89; PULSE 90; RESP 18; TEMP 36.3; O2SAT 97
[2024-10-09 20:00] VITALS: PULSE 95; RESP 20; O2SAT 96
[2024-10-09 20:37] VITALS: BP 149/90; PULSE 95; RESP 20; TEMP 36.6; O2SAT 96
[2024-10-10 04:57] VITALS: BP 127/70; PULSE 78; RESP 16; TEMP 36.6; O2SAT 93
[2024-10-10 06:54] LABS: Hematocrit 38.2 % (37.0-47.0); Immature Platelet Fraction Pct 21.9 % (0.9-11.2); Mean Corpuscular HGB Conc 31.4 g/dl (32-36); Mean Corpuscular Hemoglobin 27.6 pg (26-34); Mean Platelet Volume 13.5 fl (7.4-10.4); Platelet Count Result 223 k/mm3 (150-375); Red Blood Count 4.34 M/mm3 (4.2-5.4); Red Cell Distribution Width 18.4 % (11.5-14.5)
[2024-10-10] MEDS: SODIUM CHLORIDE 0.9% IV 1,000 ML 100 ML IV CONT (06:55)
[2024-10-10 07:10] LABS: Alanine Aminotransferase 9 U/L (6-35); Albumin Level 2.7 g/dL (3.5-5.1); Alkaline Phosphatase 86 U/L (38-126); Anion Gap 9 mmol/L (4-12); Aspartate Amino Transferase 26 U/L (14-36); Bilirubin,Total 0.6 mg/dL (0.2-1.3); Blood Urea Nitrogen 3 mg/dL (7-17); Calcium 8.4 mg/dL (8.4-10.2); Carbon Dioxide 19 mmol/L (22-30); Chloride 112 mmol/L (98-107); Estimated CRCL calculation 53 ml/min; Estimated Glomerular Filt Rate > 60; Glucose 73 mg/dL (65-110); Potassium 3.4 mmol/L (3.4-5.0); Sodium 140 mmol/L (137-145)
[2024-10-10] MEDS: DOXYCYCLINE HYCLATE 100 MG TABLET PO (08:42)
[2024-10-10] MEDS: polyethylene glycoL 3350 17 GM POWD.PACK PO (08:43)
[2024-10-10] MEDS: MEROPENEM 1 GM/NS 100 ML 1 GM/100 ML BAG IVPB (08:43)
[2024-10-10 08:44] VITALS: RESP 16; O2SAT 93
[2024-10-10] MEDS: COLLAGENASE OINT 30 GM TUBE 1 APPLIC TOPICAL (08:44)
--- NOTE | 2024-10-10 10:58 | P.PNIM_ITS ---
Progress Note: A&P Assessment and Plan (1) Sepsis: Qualifiers: Sepsis acute organ dysfunction status: unspecified Sepsis type: sepsis due to unspecified organism Qualified Code(s): A41.9 - Sepsis, unspecified o rganism Code(s): A41.9 - Sepsis, unspecified organism Status: Resolved Assessment and Plan: Resolved: Repeat Lactic acid - leukocytosis likely secondary to UTI and decubitus ulcer * IV fluids * Continue meropenem, started on vanc, switched to doxy (Patient with HX of ESBL per family) * Lactic Acid=1.5 * trend CBC, CMP. * Blood cultures = prelim result shows no growth * Urine Cullture = E. coli * Wound culture = Bacteriodes sp, not B fragilis * CRP 7.0 on 10/03 hospice consulted- care coordination assisting (2) UTI (urinary tract infection): Code(s): N39.0 - Urinary tract infection, site not specified Status: Acute Assessment and Plan: * Continue IV meropenem * Urine Culture positive for E.Coli * Family reports HX of ESBL * Blood cultures show no growth. * Continued improvement of symptoms * WBC 11.6 (3) Hydronephrosis, right: Code(s): N13.30 - Unspecified hydronephrosis Status: Acute Assessment and Plan: CT abdomen Redemonstration of a right-sided double-J stent with the proximal pigtail coiled in the upper pole of the right kidney and the distal pigtail coiled within the bladder, in good position. * patient had scheduled stent exchange 11/04 with Urology * Continue treating UTI * hospice consult hold aggressive interventions (4) Decubitus ulcer, infected: Qualifiers: Pressure injury stage: stage 2 Qualified Code(s): L89.92 - Pressure ulcer of unspecified site, stage 2; L08.9 - Local infection of the skin and subcutaneous tissue, unspecified Code(s): L89.90 - Pressure ulcer of unspecified site, unspecified stage; L08.9 - Local infection of the skin and subcutaneous tissue, unspecified Status: Acute Assessment and Plan: Patient has large decubitus ulceration to the right buttock unstageable has foul-smelling purulent drainage and erythema 2-3 cm in all directions * Surgery consulted, do not recommend surgical management at this time * Q2HR turns * wound culture result: Bacteroides sp, not B fragilis * Continue wound care (5) Hypokalemia: Code(s): E87.6 - Hypokalemia Status: Acute Assessment and Plan: * K upon admission=4.0 * 3.2 * continue IV potassium supplementation * Monitor levels * - order IV replacement and repeat * continue mg supplement * 10/10- k 3.4 (6) Failure to thrive in adult: Code(s): R62.7 - Adult failure to thrive Status: Acute Assessment and Plan: Patient is refusing all oral medications and oral intake family reports she has been declining for the last few weeks with worsening dementia and likely secondary acute infection at this time * hospice (7) Acute metabolic encephalopathy: Code(s): G93.41 - Metabolic encephalopathy Status: Acute Assessment and Plan: * likely secondary to acute infection does have history of dementia (8) Dementia: Qualifiers: Dementia type: unspecified type Dementia severity: severe Dementia behavioral or psychological symptom: with agitation Qualified Code(s): F03.C11 - Unspecified dementia, severe, with agitation Code(s): F03.90 - Unspecified dementia, unspecified severity, without behavioral disturbance, psychotic disturbance, mood disturbance, and anxiety Status: Acute Assessment and Plan: * Continue memantine and donepezil (9) Hypothyroidism: Qualifiers: Hypothyroidism type: unspecified Qualified Code(s): E03.9 - Hypothyroidism, unspecified Code(s): E03.9 - Hypothyroidism, unspecified Status: Acute Assessment and Plan: * Continue levothyroxine (10) Severe protein-calorie malnutrition: Code(s): E43 - Unspecified severe protein-calorie malnutrition Status: Acute Assessment and Plan: * Supplement per Nutrition recommendations Plan VTE Prophylaxis: continue home xarelto Code Status: DNR/ Hospice Time Spent With Patient Time with patient: 25 - 35 minutes Subjective Date/time seen: 10/10/24 10:58 Interval history: Patient is an 83-year-old female presented to the emergency room, and admitted for further evaluation and treatment of acute metabolic encephalopathy, sepsis, UTI, right-sided hydronephrosis chronic and decubitus ulcer. Pt is seen and examined this morning. Pt is comfortable and resting with eyes closed, appears in no distress. - 10/10- waiting for hospice consult/care coordination assisting in placement/discharge planning Review of Systems Review of Systems: Unobtainable due to patient's dementia ROS unobtainable: Yes unobtainable due to mental status Exam Narrative: * GENERAL: Patient is confused unable to follow commands * EYES: PERRLA. * HEENT: Moist mucous membranes. * LUNGS: Clear to auscultation bilaterally. No accessory muscle use. * CARDIOVASCULAR: Regular rate and rhythm. No murmur. No JVD. S1-S2 * ABDOMEN: Soft, non tenderness and non-distended. No palpable masses. 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, No edema * SKIN: Large decubitus ulceration to the right buttock unstageable with foul smelling purulent drainage with surrounding erythema of 2-3 cm in all directions,pallor skin warm to touch, 2-3 second cap refill, no mottling * NEUROLOGIC: confused responds to name and will hold hands moving BUE * PSYCHIATRIC: Resting, unable to fully assess due to dementia Const: General: comfortable and no acute distress Other: Chronic ill-appearing HENMT: Other: Mucous membranes are dry, no oral pharyngeal erythema, head is normocephalic atraumatic Eyes: Other: No conjunctival pallor, no scleral icterus, pupils are equal and reactive Neck: Other: No JVD, no lymphadenopathy Resp: Other: Clear to auscultation bilaterally, no increased work of breathing Cardio: Other: Regular rate and rhythm, 2+ bilateral radial and pedal pulses, no JVD GI: Other: Soft, nontender, positive bowel sounds : Other: Incontinent of urine Back/Spine/Pelvis: Other: Large decubitus ulceration to the right buttock unstageable with foul smelling purulent drainage with surrounding erythema of 2-3 cm in all directions. Skin: Other: Decubitus ulcers mentioned above 2-3 second cap refill, no mottling. Additional 2cm ulcer on posterior aspect of right heel. Some surrounding erythema, no purulent drainage or active bleeding. Neuro: Other: Responds to name, confused, unable to answer questions. Extrem: General: normal to inspection Other: No clubbing, cyanosis or edema Psych: Other: Confused, anxious, restless Objective Data Vital Signs Vital Signs: Vital Signs - 24 hr 10/09/24 14:00 10/09/24 20:00 10/09/24 20:37 Temperature 97.3 F L 97.9 F Pulse Rate 90 95 95 Respiratory Rate 18 20 20 Blood Pressure 138/89 149/90 H Pulse Oximetry 97 96 96 Oxygen Delivery Room Air 10/10/24 04:57 Temperature 98 F Pulse Rate 78 Respiratory Rate 16 Blood Pressure 127/70 Pulse Oximetry 93 Oxygen Delivery Intake/Output Intake/Output: Intake & Output 10/07/24 10/08/24 10/10/24 10/10/24 23:59 23:59 00:59 23:59 Intake Total 2320 2420 2200 341.7 Output Total 1350 2300 1000 500 Balance 842 894 0606 -158.3 Meds/Results Medications: Active Medications Generic Name Dose Route Start Last Admin Trade Name Freq PRN Reason Stop Dose Admin Acetaminophen 650 mg 10/04/24 00:41 Acetaminophen 325 Mg Tablet PO Q4H PRN Mild Pain (1-3) or Fever Aspirin 81 mg 10/04/24 13:30 10/10/24 08:56 Aspirin 81 Mg Chewable Tablet PO Not Given QAM [facility] Collagenase 1 applic 10/04/24 09:00 10/10/24 08:44 Collagenase Oint 30 Gm Tube TOPICAL 1 applic DAILY [facility] Administration Doxycycline Hyclate 100 mg 10/05/24 19:00 10/10/24 08:42 Doxycycline Hyclate 100 Mg Tablet PO 100 mg Q12HR [facility]ALL Administration Sodium Chloride 1,000 mls @ 100 mls/hr 10/04/24 00:35 10/10/24 09:13 Normal Saline Iv IV CONT 100 mls/hr .Q10H [facility]ALL Infusion Meropenem 1 gm in 100 mls @ 200 mls/hr 10/04/24 09:00 10/10/24 09:13 IVPB Infused Q12HR [facility] Infusion Levothyroxine Sodium 50 mcg 10/04/24 06:30 10/10/24 05:51 Levothyroxine Sodium 50 Mcg Tablet PO Not Given DAILY@0630 [facility] Levothyroxine Sodium 200 mcg 10/04/24 06:30 10/10/24 05:51 Levothyroxine Sodium 100 Mcg Tablet PO Not Given DAILY@0630 [facility] Liothyronine Sodium 5 mcg 10/04/24 18:00 10/09/24 17:21 Liothyronine Sodium 5 Mcg Tablet PO Not Given QPM [facility] Magnesium Oxide 400 mg 10/06/24 12:00 10/09/24 13:59 Magnesium Oxide 400 Mg Tablet PO Not Given DAILY@1200 [facility] Memantine 10 mg 10/04/24 09:00 10/10/24 08:56 Memantine 10 Mg Tablet PO Not Given BID [facility] Mirtazapine 7.5 mg 10/04/24 00:35 10/09/24 17:20 Mirtazapine 7.5 Mg Tablet PO Not Given 1700 [facility] Morphine Sulfate 2 mg 10/04/24 00:41 Morphine Sulfate (*Crx) 2 Mg/Ml Inj IV PUSH Q4H PRN Pain Rated 7-10 Pantoprazole Sodium 40 mg 10/04/24 09:00 10/10/24 08:56 Pantoprazole 40 Mg Tablet PO Not Given DAILY [facility] Polyethylene Glycol 17 gm 10/04/24 09:00 10/10/24 08:43 Polyethylene Glycol 3350 17 Gm Powd.Pack PO 17 gm DAILY [facility] Administration Potassium Chloride 40 meq 10/04/24 09:00 10/06/24 09:13 Potassium Chloride 20 Meq Packet (For Liquid) PO 40 meq DAILY [facility] Administration Rivaroxaban 20 mg 10/04/24 17:00 10/09/24 17:20 Rivaroxaban 20 Mg Tablet PO Not Given DAILY@1700 [facility] Simvastatin 20 mg 10/04/24 09:00 10/10/24 08:56 Simvastatin 20 Mg Tablet PO Not Given DAILY [facility] Tramadol HCl 25 mg 10/04/24 00:41 10/06/24 20:51 Tramadol Hcl (*Crx) 25 Mg Tablet PO 25 mg Q6H PRN Administration Pain Rated 4-6 Radiology Results: ITS Impressions Chest X-Ray 10/03/24 18:06 IMPRESSION: No focal infiltrate or effusion. Head CT 10/03/24 18:35 Impression: No large acute intracranial hemorrhage or suspicious mass effect. Interval development of left frontoethmoidal left maxillary inflammatory sinus disease as previous examination dated 09/17/2024. Chest/Abdomen/Pelvis CT 10/03/24 18:52 IMPRESSION: Redemonstration of right-sided hydroureteronephrosis despite a double-J stent in good position, secondary to chronic UPJ obstruction. However, the enhancement pattern suggests persistent inflammation/infection, possibly ascending. Remainder of examination is unchanged from previous study dated 09/13/2024. Labs Labs: Laboratory Results - last 24 hr 10/10/24 06:43 WBC 9.0 RBC 4.34 Hgb 12.0 Hct 38.2 MCV 88.0 MCH 27.6 MCHC 31.4 L RDW 18.4 H Plt Count 223 MPV 13.5 H % Immature Plt Fraction 21.9 H Sodium 140 Potassium 3.4 Chloride 112 H Carbon Dioxide 19 L Anion Gap 9 BUN 3 L Creatinine 0.63 L Estim Creat Clear Calc 53 Estimated GFR > 60 Glucose 73 Calcium 8.4 Total Bilirubin 0.6 AST 26 ALT 9 Alkaline Phosphatase 86 Total Protein 6.0 L Albumin 2.7 L Quality VTE Prophylaxis VTE prophylaxis: mechanical ordered
[2024-10-10] MEDS: MAGNESIUM OXIDE 400 MG TABLET PO (12:43)
[2024-10-10 14:00] VITALS: BP 128/79; PULSE 98; RESP 24; TEMP 36.2; O2SAT 96
--- NOTE | 2024-10-10 14:07 | PCNFU ---
Nutrition Follow-Up Complete: Severe protein calorie malnutrition related to chronic loss of appetite as evidenced by intakes <50% needs >1 month; weight loss -33%/6 months; severe muscle wasting and fat loss Intakes at least 50% meals - Not meeting goal. Awaiting hospice consult Goal: Pt current nutrition is Heart healthy diet, Ensure Enlive BID (350 kcal, 20 g protein). Nutrition recommendation: No recommendations. Hospice consult pending Last recorded weight is 58 kg. Bowel Motility: +1 BM 10/09/24 Labs Reviewed: Alb 2.7, BUN 3, Cre 0.63 Meds Noted: Remeron, miralax, protonix Skin: Unstageable R buttock Additional Notes: Pt is refusing meals and just holding food in mouth per notes. Hospice is consulted. Monitoring intakes, weights , labs, wounds, plan of care
--- NOTE | 2024-10-10 14:28 | P.DS_ITS ---
DS: Admitting Diagnosis Discharge Date 10/10 Admitting Diagnosis ams DS: Discharge Diagnosis Discharge Diagnosis (1) Sepsis: Qualifiers: Sepsis acute organ dysfunction status: unspecified Sepsis type: sepsis due to unspecified organism Qualified Code(s): A41.9 - Sepsis, unspecified [facility] Code(s): A41.9 - Sepsis, unspecified organism Status: Resolved (2) UTI (urinary tract infection): Code(s): N39.0 - Urinary tract infection, site not specified Status: Acute (3) Hydronephrosis, right: Code(s): N13.30 - Unspecified hydronephrosis Status: Acute (4) Decubitus ulcer, infected: Qualifiers: Pressure injury stage: stage 2 Qualified Code(s): L89.92 - Pressure ulcer of unspecified site, stage 2; L08.9 - Local infection of the skin and subcutaneous tissue, unspecified Code(s): L89.90 - Pressure ulcer of unspecified site, unspecified stage; L08.9 - Local infection of the skin and subcutaneous tissue, unspecified Status: Acute (5) Hypokalemia: Code(s): E87.6 - Hypokalemia Status: Acute (6) Failure to thrive in adult: Code(s): R62.7 - Adult failure to thrive Status: Acute (7) Acute metabolic encephalopathy: Code(s): G93.41 - Metabolic encephalopathy Status: Acute Assessment and Plan: * (8) Dementia: Qualifiers: Dementia type: unspecified type Dementia severity: severe Dementia behavioral or psychological symptom: with agitation Qualified Code(s): F03.C11 - Unspecified dementia, severe, with agitation Code(s): F03.90 - Unspecified dementia, unspecified severity, without behavioral disturbance, psychotic disturbance, mood disturbance, and anxiety Status: Acute Assessment and Plan: * (9) Hypothyroidism: Qualifiers: Hypothyroidism type: unspecified Qualified Code(s): E03.9 - Hypothyroidism, unspecified Code(s): E03.9 - Hypothyroidism, unspecified Status: Acute (10) Severe protein-calorie malnutrition: Code(s): E43 - Unspecified severe protein-calorie malnutrition Status: Acute Assessment and Plan: * DS: Summary Hospital Course Hospital Course: 83-year-old female with a past medical history of dementia, multiple urinary tract infections, chronic ureteral stent with chronic hydronephrosis, hypothyroidism bilateral pulmonary emboli 2022 and other medical conditions who presented to the ER from [facility] via EMS due to altered mental status. EMS reported that the patient was biting at staff ?like a snake?. The patient had been recently admitted for similar symptoms but urine cultures were negative. However the patient was still discharged on Levaquin with a plan for stent exchange in the near future once a not acutely ill. The patient also had unstageable right buttock/ischial pressure ulcer managed by wound care with Santyl ointment and offloading of pressure area. The patient is only alert oriented to her name intermittently. She cannot answer any questions but does intermittently follow commands. Her son reports that the patient had lost about 15 lb but with instituting Ensure during her last hospital stay she had managed to gain 1 lb back. The patient's weight April 2024 was approximately 80 kg her weight was 66 kg her weight today down to 58 kg. Family chose to proceed with hospice. Further management of chronic meds are up to Hospice. several issues were addressed in the hospital: # sepsis # UTI - leukocytosis likely secondary to UTI and decubitus ulcer * IV fluids * Continue meropenem, started on vanc, switched to doxy (Patient with HX of ESBL per family)- completed meropenem course, doxy stopped * Lactic Acid=1.5 * trend CBC, CMP. * Blood cultures = prelim result shows no growth * Urine Cullture = E. coli * Wound culture = Bacteriodes sp, not B fragilis * CRP 7.0 on 10/03 # hydronephrosis CT abdomen Redemonstration of a right-sided double-J stent with the proximal pigtail coiled in the upper pole of the right kidney and the distal pigtail coiled within the bladder, in good position. * patient had scheduled stent exchange 11/04 with Urology * Continue treating UTI * hospice consult hold aggressive interventions # decub rt buttocks Patient has large decubitus ulceration to the right buttock unstageable has fou l-smelling purulent drainage and erythema 2-3 cm in all directions * Surgery consulted, do not recommend surgical management at this time * Q2HR turns * wound culture result: Bacteroides sp, not B fragilis * Continue wound care * she compelted a week of meropenem and was switched to cefdenir and flagyl. we will continue about 7 days of therapy # dementia chronic on memantine and donepezil # sever protein malnutrition - supplements Status at Discharge Functional status at discharge: bed bound Overall status at discharge: other Time Spent with Patient Time attestation: Total time spent providing and/or coordinating discharge services: Time spent: Greater than 30 minutes Exam Narrative: * GENERAL: Patient is confused unable to follow commands, calm and quite * EYES: PERRLA. * HEENT: Moist mucous membranes. * LUNGS: Clear to auscultation bilaterally. No accessory muscle use. * CARDIOVASCULAR: Regular rate and rhythm. No murmur. No JVD. S1-S2 * ABDOMEN: Soft, non tenderness and non-distended. No palpable masses. 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, No edema * SKIN: Large decubitus ulceration to the right buttock unstageable with foul smelling purulent drainage with surrounding erythema of 2-3 cm in all directions,pallor skin warm to touch, 2-3 second cap refill, no mottling * NEUROLOGIC: confused responds to name and will hold hands moving BUE * PSYCHIATRIC: Resting, unable to fully assess due to dementia Const: General: comfortable and no acute distress Other: Chronic ill-appearing HENMT: Other: Mucous membranes are dry, no oral pharyngeal erythema, head is normocephalic atraumatic Eyes: Other: No conjunctival pallor, no scleral icterus, pupils are equal and reactive Neck: Other: No JVD, no lymphadenopathy Resp: Other: Clear to auscultation bilaterally, no increased work of breathing Cardio: Other: Regular rate and rhythm, 2+ bilateral radial and pedal pulses, no JVD GI: Other: Soft, nontender, positive bowel sounds : Other: Incontinent of urine Back/Spine/Pelvis: Other: Large decubitus ulceration to the right buttock unstageable with foul smelling purulent drainage with surrounding erythema of 2-3 cm in all directions. Skin: Other: Decubitus ulcers mentioned above 2-3 second cap refill, no mottling. Additional 2cm ulcer on posterior aspect of right heel. Some surrounding erythema, no purulent drainage or active bleeding. Neuro: Other: Responds to name, confused, unable to answer questions. Extrem: General: normal to inspection Other: No clubbing, cyanosis or edema Psych: Other: Confused, anxious, restless DS: Data Data Completed and Pending Completed studies during hospitalization: chets xray, ct head, chest/abd/pelvis ct Labs on day of discharge: Labs from last 24 hours 10/10/24 06:43 WBC 9.0 RBC 4.34 Hgb 12.0 Hct 38.2 MCV 88.0 MCH 27.6 MCHC 31.4 L RDW 18.4 H Plt Count 223 MPV 13.5 H % Immature Plt Fraction 21.9 H Sodium 140 Potassium 3.4 Chloride 112 H Carbon Dioxide 19 L Anion Gap 9 BUN 3 L Creatinine 0.63 L Estim Creat Clear Calc 53 Estimated GFR > 60 Glucose 73 Calcium 8.4 Total Bilirubin 0.6 AST 26 ALT 9 Alkaline Phosphatase 86 Total Protein 6.0 L Albumin 2.7 L Discharge Plan Discharge Attending physician on discharge: Delonte García Consulting providers: Xenia Urena; Otis Santamaria Discharging Clinician: Shawnee Pearson Patient Disposition: Other Activity: may shower Diet: as tolerated and regular Patient Instructions: Antibiotic Form Patient Language: Armenian Stand Alone Forms: General Discharge Information Follow-up/Referrals: Sage Steele MD [Primary Care Provider] - 1 Week Discharge Medications: New cefdinir 300 mg Capsule 300 mg PO Q12HR Qty: 14 0RF metronidazole 500 mg Tablet 500 mg PO Q8HR Qty: 21 0RF Continued Santyl 250 unit/gram ointment 1 applic TOPICAL DAILY Rx Instructions: right buttock ulcer topically liothyronine 5 mcg tablet 5 mcg PO QPM donepezil 5 mg tablet 5 mg PO DAILY pantoprazole 40 mg tablet,delayed release (DR/EC) 40 mg PO DAILY simvastatin 20 mg tablet 20 mg PO DAILY ergocalciferol (vitamin D2) 1,250 mcg (50,000 unit) capsule See Rx Instructions .ROUTE .COMPLEX Rx Instructions: 1 TABLET EVERY 14 DAYS memantine 10 mg tablet 10 mg PO BID Patient Comments: Currently on HOLD magnesium oxide 400 mg (241.3 mg magnesium) tablet 400 mg PO DAILY 30 Days Qty: 30 0RF tizanidine 2 mg tablet 2 mg PO TID PRN (Reason: Muscle Spasm) levothyroxine 50 mcg tablet 50 mcg PO DAILY levothyroxine 200 mcg tablet 200 mcg PO DAILY Xarelto 20 mg tablet 20 mg PO DAILY aspirin 81 mg Capsule 81 mg PO DAILY polyethylene glycol 3350 [Miralax] 17 gram powder in packet 17 g PO DAILY PRN (Reason: Constipation) mirtazapine [Remeron] 15 mg Tablet 7.5 mg PO 1700 Qty: 30 0RF Date of admission: 10/04/24 07:47 Primary Care Provider: Sage Steele Admitting Provider: Massiel Mckay Attending physician on admission: Brian Rosales Condition: Guarded Prognosis Quality VTE Prophylaxis VTE prophylaxis: mechanical ordered Hospitalist MIPS Heart Failure (Exclusion) Patient has history of Heart Transplant or Left Ventricular Assistive Device?: No IF YES, STOP HERE Heart Failure (Qualifier) Patient has current or prior documentation of LVEF less than or equal to 40%, or mod/servere depressed LVSF?: No IF NO, STOP HERE
[2024-10-10] MEDS: MIRTAZAPINE 7.5 MG TABLET PO (16:38)
[2024-10-10] MEDS: RIVAROXABAN 20 MG TABLET PO (16:39)
[2024-10-10] MEDS: MEMANTINE 10 MG TABLET PO (16:39)
[2024-10-10] MEDS: LIOTHYRONINE SODIUM 5 MCG TABLET PO (16:39)
== END 2024-10-10 18:45 | disposition hospice, home (50) | DRG 698 ==
LOC: ANHED 20:32 → ANH3MEDSUR 21:22 → ANH2MED 21:44
PROVIDERS: Emergency Medicine; Nurse Practitioner; Nurse Practitioner Family; Admitting Provider Internal Medicine; Emergency Provider Physician Assistant; PCP Family Medicine; Visit Provider Nurse Practitioner
DX: T83.592A Infection and inflammatory reaction due to indwelling ureteral stent, initial encounter (principal); A41.9 Sepsis, unspecified organism; E43 Unspecified severe protein-calorie malnutrition; G93.41 Metabolic encephalopathy; N13.6 Pyonephrosis; N17.9 Acute kidney failure, unspecified; B96.20 Unspecified Escherichia coli [E. coli] as the cause of diseases classified elsewhere; L89.310 Pressure ulcer of right buttock, unstageable; L08.9 Local infection of the skin and subcutaneous tissue, unspecified; B96.89 Other specified bacterial agents as the cause of diseases classified elsewhere; E03.9 Hypothyroidism, unspecified; F03.90 Unspecified dementia, unspecified severity, without behavioral disturbance, psychotic disturbance, mood disturbance, and anxiety; I48.91 Unspecified atrial fibrillation; R62.7 Adult failure to thrive; Z68.20 Body mass index [BMI] 20.0-20.9, adult; Z86.711 Personal history of pulmonary embolism; M15.9 Polyosteoarthritis, unspecified; H35.30 Unspecified macular degeneration; Z99.3 Dependence on wheelchair; Z96.1 Presence of intraocular lens; Z98.42 Cataract extraction status, left eye; Z98.41 Cataract extraction status, right eye; Z96.642 Presence of left artificial hip joint; E78.2 Mixed hyperlipidemia; Z74.01 Bed confinement status
CPT/HCPCS: 36415; 70450; 71045; 71260; 74177; 80048; 80053; 80307; 81001; 82550; 83605; 84443; 84484; 85025; 85027; 85055; 85610; 85652; 85730; 86140; 87040; 87070; 87075; 87086; 87186; 87205; 87637; 87641; 93005; 96365; 96366; 96368; 97165; 99285; A9270; G0378; J0692; J2185; J3370; J3480; J7030; J7040; J7120; Q9967